=== PATIENT | male | born 1930 | race Caucasian/White ===

== ENCOUNTER → 2016-02-28 | Outpatient (CLI) | payer MEDICARE, MEDICAID ==
[2016-02-28 11:26] LABS: MEAN CORPUSCULAR HEMOGLOBIN 32.9 pg (27.0-33.0); MEAN CORPUSCULAR HGB CONC 35.6 g/dl (32.0-36.5); MEAN CORPUSCULAR VOLUME 92.3 fl (80.0-96.0); RED CELL DISTRIBUTION WIDTH 13.2 % (11.5-14.5); WHITE BLOOD COUNT 5.9 K/mm3 (4.0-10.0)
[2016-02-28 12:07] LABS: ALBUMIN 3.7 GM/DL (3.2-5.2); ALBUMIN/GLOBULIN RATIO 1.16 (1.00-1.93); ALKALINE PHOSPHATASE 82 U/L (45-117); ALT/SGPT 25 U/L (12-78); ANION GAP 6 MEQ/L (8-16); AST/SGOT 23 U/L (15-37); BILIRUBIN,TOTAL 0.9 MG/DL (0.2-1.0); BLOOD UREA NITROGEN 19 MG/DL (7-18); CARBON DIOXIDE LEVEL 30 MEQ/L (21-32); CHLORIDE LEVEL 107 MEQ/L (98-107); CHOLESTEROL LEVEL 187 MG/DL (<200); CREATININE FOR GFR 0.99 MG/DL (0.70-1.30); GLOMERULAR FILTRATION RATE > 60.0 (>35); GLUCOSE, FASTING 89 MG/DL (83-110); POTASSIUM SERUM 4.3 MEQ/L (3.5-5.1); SODIUM LEVEL 143 MEQ/L (136-145); TOTAL PROTEIN 6.9 GM/DL (6.4-8.2); TRIGLYCERIDES LEVEL 77 MG/DL (<150)
== END ==
LOC: M LAB 10:54
PROVIDERS: ATTEND Family Medicine
DX: E78.5 Hyperlipidemia, unspecified (principal); I10 Essential (primary) hypertension; E03.9 Hypothyroidism, unspecified; N40.0 Benign prostatic hyperplasia without lower urinary tract symptoms

== ENCOUNTER → 2016-03-08 | Outpatient (CLI) | payer MEDICARE, MEDICAID ==
--- NOTE | 2016-03-08 17:56 | REP ---
Left shoulder three views: There is glenohumeral osteoarthritis. The acromioclavicular joint is unremarkable. There is no fracture or dislocation. Demineralization is noted. There are no calcifications or foreign bodies. Impression: Glenohumeral osteoarthritis. Demineralization. Signed by Enio Joiner MD 03/08/2016 05:48 P
== END ==
LOC: M LAB 10:30
PROVIDERS: ATTEND Family Medicine
DX: M25.50 Pain in unspecified joint (principal); R60.9 Edema, unspecified; M19.012 Primary osteoarthritis, left shoulder

== ENCOUNTER → 2016-05-21 | Day surgery (SDC) | payer MEDICARE, MEDICAID ==
[~2016-05-21] VITALS: Ht 167.6 cm; Wt 68.9 kg
[~2016-05-21] MED LIST: ASPI1TAB PO; BUPIVACAINE HCL 0.25% 30 ML VIAL As Ordered ONE; CALC500T49 PO; DEXI30CA PO; FLOM5CAP PO; GLYCOPYRROLATE INJ 0.2 MG/ML 2 ML VIAL As Ordered ONE; HYDROmorphone HCL 1 MG/ML SYRINGE (J1170) IV PRN; KETOROLAC 30 MG/ML VIAL (J1885) IV PRN; LABETALOL HCL 100 MG/20 ML VIAL As Ordered ONE; LEVA500T PO; LIDOCAINE 1% SDV INJ 30 ML VIAL As Ordered ONE; LIDOCAINE 2% 5ML JELLY UROJET As Ordered ONE; LIDOCAINE 2% INJ 100 MG/5 ML SDV (FOR ANES.) As Ordered ONE; LR 1,000 ML IV SCH; MEPERIDINE INJ 25 MG/ML VIAL (J2175) IV PRN; METOCLOPRAMIDE INJ 10MG/2ML VIAL (J2765) IV PRN; MIDAZOLAM INJ 2 MG/2 ML VIAL (J2250) As Ordered ONE; NEOSTIGMINE 1MG/ML 5 ML SYRINGE (J2710) As Ordered ONE; NORCO, ANEXSIA 5/325MG TABLET (HYDROcodone/ACETAMINOPHEN) PO PRN; ONDANSETRON 4MG/2ML VIAL (J2405) As Ordered ONE; ONDANSETRON 4MG/2ML VIAL (J2405) IV PRN; PERCOCET 5MG/325MG TAB PO PRN; PHENYLephrine HCL 500 MCG/5 ML (100MCG/ML) SYRINGE (J2370) As Ordered ONE; PROPOFOL 200 MG/20 ML VIAL As Ordered ONE; ROCURONIUM BROMIDE 50 MG/5 ML VIAL As Ordered ONE; dexameTHASONE 4 MG/ML 1ML VIAL (J1100) As Ordered ONE; fentaNYL 100 MCG/2 ML INJECTION (J3010) IV PRN; fentaNYL 250 MCG/5 ML INJECTION (J3010) As Ordered ONE
--- NOTE | 2016-05-21 10:53 | RO ---
DATE OF PROCEDURE: 05/21/2016 PREOPERATIVE DIAGNOSIS: Right inguinal hernia. POSTOPERATIVE DIAGNOSES: 1. Right direct inguinal hernia. 2. 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 PROCEDURE PERFORMED: Robotic-assisted laparoscopic right inguinal hernia repair with placement of 3DMax light mesh. SURGEON: Dr. Ortiz Christopher SILICA MIXER OPERATOR: Cammie Craven NP ANESTHESIA: General anesthesia. ESTIMATED BLOOD LOSS: Less than 25 mL. REMARKS: The patient was found to have a urethral stricture. We were unable to insert a Talley catheter. An intraoperative consult with urology done. The catheter was inserted with the aid of a cystoscope and with urethral dilatation. PROCEDURE: Mr. Diez is an 86-year-old gentleman with prior history of prostate cancer status post radiation and cryosurgery of his prostate who came in to my clinic with a few month history of right groin bulge with associated discomfort. He was confirmed to have an inguinal hernia. After a full discussion of risks and benefits, we have decided on performing the repair via transabdominal preperitoneal approach using the da Hol[employer] robot platform. The patient was given Ancef IV preoperatively for wound prophylaxis. He was brought to the operating room. General endotracheal anesthesia started. He was placed in lithotomy position and attempt made to place a Talley catheter failed. A Coude catheter was used and we also failed. At this point, we decided to forego catheterization by now and go ahead with surgery. A consult was sent to urology when they are available to have a catheter placed. His abdomen was prepped and draped in the usual sterile fashion. After a surgical time-out, we began our surgery into the abdomen done by an incision just on top of the umbilicus. A Veress needle was inserted in a controlled fashion. CO2 insufflation was started to a pressure of 15 mmHg. Using the same incision, a 5 mm Visiport was placed into the abdomen. The insertion site was inspected for injury and none was found. He was placed on the Trendelenburg position with the right side tilted up about 30 degrees to further expose the groin area. Under direct vision, an 8 mm working port was placed both in the right and left side along the umbilical line. The original 5 mm port was exchanged for an 8 mm camera trocar. The [employer] robot tower was maneuvered in between the patient's legs, the trocars docked onto the robot and the instruments placed under direct vision. I unscrubbed and took control of the camera and the instruments at the surgeon's console. On diagnostic laparoscopy, a direct hernia of moderate size was found. Due to the failure of catheterization, the bladder was distended. The peritoneum overlying the groin area roughly about 4 cm above the superior edge of the hernia defect was opened up with Bovie cautery and scissors. The peritoneum then dissected, mostly bluntly, away from the abdominal wall. We continued dissection laterally at the level of the anterior-superior iliac spine. Careful dissection then made medially to reduce the preperitoneal fat that was going through the hernia defect and going medially to expose the pubic tubercle to the symphysis pubis and also retracting the urinary bladder away from our field of view. After reducing the hernia, I chose a #2-0 V-Loc to close the hernia defect and pulled down on the hernia sac to avoid seroma formation. This was also tacked to the superior portion of pubic tubercle and Anthony's ligament. After doing so, I chose a large 3DMax light mesh. This was placed into the abdomen and placed to cover the hernia defect extending to the symphysis pubis medially. We placed it in between the urinary bladder inferiorly stretching it towards the lateral portion. A single stitch of #3-0 Vicryl then used to attach the mesh to the Anthony's ligament. The mesh was laying appropriately covering the hernia defect with a wide coverage. After checking for hemostasis and sucking out the small amount of blood that is in the preperitoneal space, the peritoneum was closed with a running suture of #2-0 V-Loc. At this time, Dr. Dean came in and looked at the situation and has agreed to place a Talley catheter after the procedure. I scrubbed back in. The abdomen was deflated. All ports removed. The robot removed from the field. The incisions closed with #4-0 Monocryl in subcuticular fashion. Dermabond was used for wound coverage. Dr. Dean then placed a Talley catheter using cystoscopy. This part of procedure will be dictated by Dr. Dean. He was then awakened, extubated and brought to recovery room stable.
[2016-05-21 12:35] VITALS: BP 139/86
--- NOTE | 2016-05-21 15:18 | CR ---
DATE OF CONSULTATION: 05/21/2016 REASON FOR CONSULTATION: Difficulty catheter placement. ' CONSULTATION REPORT FOR: Dr. Ortiz Christopher CHIEF COMPLAINT: This is an intraoperative consultation for a patient that was in the operating room (OR) under general anesthesia, having a robotic-assisted laparoscopic right inguinal repair with placement of a 3DMax Light Mesh performed by Dr. Ortiz Christopher. Dr. Ortiz Christopher consulted us because of inability of passing a Talley catheter. HISTORY OF PRESENT ILLNESS: This is an 86-year-old male patient that was finalizing a procedure of a robotic-assisted laparoscopic right inguinal repair with placement of a 3DMax Light Mesh by Dr. Ortiz Christopher. The patient was under anesthesia. The patient was in a supine modified lithotomy position. The surgical procedure was finished. The patient required a Talley catheter that could not be passed by the nurses and by the attending physician doing the surgery. For this reason, they consulted urology. At first, we examined the patient. We actually attempted to pass a 16-Ivorian Talley catheter straight and then an 18-Ivorian Talley and a 20-Ivorian Talley. We could not. We then attempted a 16-Ivorian Coude catheter. We could not. With the help of finger into the rectum, we tried to lift the prostate and pass a Coude catheter and we could not. For this reason, we actually ordered a flexible cystoscopy and under videoscopic guidance with a flexible cystoscopy, we did a formal urethroscopy up to the level of the bladder neck. The prostate actually is solid, hard, and we could not pass the flexible cystoscopy. However, we passed a guidewire into the bladder. At that moment in time, we took the cystoscopy out and tried to advance a brevig mission tip catheter. It was impossible to actually pass a brevig mission tip catheter. For that reason, we decided to actually call for the Kelley metallic sounds and following the guidewire, we passed the Kelley metallic sounds into the bladder through the urethra. We dilated the solid hard prostatic area as well as the bladder neck up to 23 chariers. Once this was done, we actually placed a brevig mission tip catheter. It was passed with a little bit of difficulty but passed into the bladder, getting clear urine. In a moment in time, we inflated the balloon to 10 mL and placed the catheter to gravity. PLAN: The patient will be admitted after surgery. Once he is discharged, he should be going home with a Talley catheter to gravity for seven days at least. Followup at [facility] for a voiding trial. He will need to be placed on a quinolone antibiotic therapy for at least seven days which is the time that he will need the catheter in place or until we give him a voiding trial. Thank you very much for the consultation.
== END | disposition home or self-care (01) ==
LOC: M SDC 05:40
PROVIDERS: ATTEND Surgery
DX: K40.90 Unilateral inguinal hernia, without obstruction or gangrene, not specified as recurrent (principal); N35.9 Urethral stricture, unspecified; Z85.46 Personal history of malignant neoplasm of prostate; K21.9 Gastro-esophageal reflux disease without esophagitis; Z92.3 Personal history of irradiation; N18.2 Chronic kidney disease, stage 2 (mild); E80.4 Gilbert syndrome; K22.8 Other specified diseases of esophagus; E03.9 Hypothyroidism, unspecified; G47.30 Sleep apnea, unspecified; E56.9 Vitamin deficiency, unspecified; L57.0 Actinic keratosis; J30.9 Allergic rhinitis, unspecified; I35.8 Other nonrheumatic aortic valve disorders; N40.0 Benign prostatic hyperplasia without lower urinary tract symptoms; Z79.899 Other long term (current) drug therapy; Z79.82 Long term (current) use of aspirin
CPT/HCPCS: 49650; 52281; C1726; C1781; J0690; J1100; J2250; J2370; J2405; J2710; J3010

== ENCOUNTER → 2016-06-25 | Outpatient (CLI) | payer MEDICARE, MEDICAID ==
[~2016-06-25] MED LIST changes: -BUPIVACAINE HCL 0.25% 30 ML VIAL As Ordered ONE; -GLYCOPYRROLATE INJ 0.2 MG/ML 2 ML VIAL As Ordered ONE; -HYDROmorphone HCL 1 MG/ML SYRINGE (J1170) IV PRN; -KETOROLAC 30 MG/ML VIAL (J1885) IV PRN; -LABETALOL HCL 100 MG/20 ML VIAL As Ordered ONE; -LIDOCAINE 1% SDV INJ 30 ML VIAL As Ordered ONE; -LIDOCAINE 2% 5ML JELLY UROJET As Ordered ONE; -LIDOCAINE 2% INJ 100 MG/5 ML SDV (FOR ANES.) As Ordered ONE; -LR 1,000 ML IV SCH; -MEPERIDINE INJ 25 MG/ML VIAL (J2175) IV PRN; -METOCLOPRAMIDE INJ 10MG/2ML VIAL (J2765) IV PRN; -MIDAZOLAM INJ 2 MG/2 ML VIAL (J2250) As Ordered ONE; -NEOSTIGMINE 1MG/ML 5 ML SYRINGE (J2710) As Ordered ONE; -NORCO, ANEXSIA 5/325MG TABLET (HYDROcodone/ACETAMINOPHEN) PO PRN; -ONDANSETRON 4MG/2ML VIAL (J2405) As Ordered ONE; -ONDANSETRON 4MG/2ML VIAL (J2405) IV PRN; -PERCOCET 5MG/325MG TAB PO PRN; -PHENYLephrine HCL 500 MCG/5 ML (100MCG/ML) SYRINGE (J2370) As Ordered ONE; -PROPOFOL 200 MG/20 ML VIAL As Ordered ONE; -ROCURONIUM BROMIDE 50 MG/5 ML VIAL As Ordered ONE; -dexameTHASONE 4 MG/ML 1ML VIAL (J1100) As Ordered ONE; -fentaNYL 100 MCG/2 ML INJECTION (J3010) IV PRN; -fentaNYL 250 MCG/5 ML INJECTION (J3010) As Ordered ONE
== END ==
LOC: M LAB 11:27
PROVIDERS: ATTEND Urology
DX: R97.20 Elevated prostate specific antigen [PSA] (principal)

== ENCOUNTER → 2016-07-01 | Outpatient (CLI) | payer MEDICARE, MEDICAID ==
[2016-07-01 13:10] LABS: ANION GAP 7 MEQ/L (8-16); BLOOD UREA NITROGEN 17 MG/DL (7-18); CALCIUM LEVEL 9.1 MG/DL (8.8-10.2); CARBON DIOXIDE LEVEL 29 MEQ/L (21-32); CHLORIDE LEVEL 105 MEQ/L (98-107); CREATININE FOR GFR 1.01 MG/DL (0.70-1.30); GLOMERULAR FILTRATION RATE > 60.0 (>35); GLUCOSE, FASTING 77 MG/DL (83-110); POTASSIUM SERUM 4.5 MEQ/L (3.5-5.1); SODIUM LEVEL 141 MEQ/L (136-145)
== END ==
LOC: M LAB 11:18
PROVIDERS: ATTEND Urology
DX: Z85.46 Personal history of malignant neoplasm of prostate (principal)

== ENCOUNTER → 2016-07-08 | Outpatient (REF) | payer MEDICARE, MEDICAID ==
[2016-07-08 13:31] LABS: PERCENT SATURATION 26.2 % (19.7-37.4)
== END ==
LOC: M LAB REF 12:34
PROVIDERS: ATTEND Internal Medicine Medical Oncology
DX: E83.119 Hemochromatosis, unspecified (principal)

== ENCOUNTER → 2016-09-16 | Outpatient (CLI) | payer MEDICARE, MEDICAID ==
[~2016-09-16] MED LIST changes: +AMIO200T; +ATOR80TA59; +CALC600T6 PO; -DEXI30CA PO; +DEXI30CA2 PO; +DIGO0.12; +ELIQ5TAB PO; +FURO20TA2; +HYDR-3713; +LEVA1TAB2 PO; -LEVA500T PO; +METO1TAB87; +POTA20TA6; +TOLT1TAB PO; +TROS20TA3 PO
--- NOTE | 2016-09-16 13:54 | REP ---
RIGHT SHOULDER, THREE VIEWS: HISTORY: Pain. COMPARISON: 08/05/2007. There is no acute fracture or dislocation. There is narrowing of the acromioclavicular joint with associated osteophyte formation. Calcifications are present in the right axilla. This represents calcified lymph nodes or vascular calcification. IMPRESSION: Degenerative change as described above. Signed by Navin Acharya MD 09/16/2016 02:03 P
== END ==
LOC: M RAD 11:39
PROVIDERS: ATTEND Family Medicine
DX: M19.011 Primary osteoarthritis, right shoulder (principal); M25.511 Pain in right shoulder

== ENCOUNTER → 2016-10-03 | Outpatient (REF) | payer MEDICARE, MEDICAID | LOC: M LAB REF 14:08 | PROVIDERS: ATTEND Internal Medicine Medical Oncology | DX: E83.119 Hemochromatosis, unspecified (principal) ==

== ENCOUNTER → 2016-10-08 | Outpatient (CLI) | payer MEDICARE, MEDICAID | LOC: M LAB 14:33 | PROVIDERS: ATTEND Urology | DX: R97.20 Elevated prostate specific antigen [PSA] (principal) ==

== ENCOUNTER → 2016-10-29 | Outpatient (CLI) | payer MEDICARE, MEDICAID ==
[2016-10-29 15:23] LABS: ALBUMIN 3.5 GM/DL (3.2-5.2); ALBUMIN/GLOBULIN RATIO 1.06 (1.00-1.93); ALKALINE PHOSPHATASE 73 U/L (45-117); ALT/SGPT 23 U/L (12-78); ANION GAP 8 MEQ/L (8-16); AST/SGOT 24 U/L (15-37); BILIRUBIN,TOTAL 0.7 MG/DL (0.2-1.0); BLOOD UREA NITROGEN 24 MG/DL (7-18); CALCIUM LEVEL 9.1 MG/DL (8.8-10.2); CARBON DIOXIDE LEVEL 27 MEQ/L (21-32); CHLORIDE LEVEL 108 MEQ/L (98-107); CREATININE FOR GFR 0.97 MG/DL (0.70-1.30); GLOMERULAR FILTRATION RATE > 60.0 (>35); GLUCOSE, FASTING 95 MG/DL (83-110); POTASSIUM SERUM 4.4 MEQ/L (3.5-5.1); SODIUM LEVEL 143 MEQ/L (136-145); TOTAL PROTEIN 6.8 GM/DL (6.4-8.2)
== END ==
LOC: M LAB 14:30
PROVIDERS: ATTEND Urology
DX: R97.20 Elevated prostate specific antigen [PSA] (principal); C61 Malignant neoplasm of prostate

== ENCOUNTER 2016-11-23 17:57 | Emergency (ER) | payer MEDICARE, MEDICAID ==
[~2016-11-23] VITALS: Ht 180.3 cm; Wt 69.7 kg
[~2016-11-23 17:57] MED LIST changes: -AMIO200T; -ATOR80TA59; -CALC600T6 PO; -DIGO0.12; -ELIQ5TAB PO; -FURO20TA2; -HYDR-3713; -METO1TAB87; -POTA20TA6; -TOLT1TAB PO; -TROS20TA3 PO
[2016-11-23] MEDS ORDERED: ETOMIDATE INJ 20MG/10ML VIAL ONE (17:58)
[2016-11-23] MEDS ORDERED: ROCURONIUM BROMIDE 50 MG/5 ML VIAL/SYRINGE ONE (17:58)
[2016-11-23] MEDS ORDERED: ETOMIDATE INJ 20MG/10ML VIAL IV STA (18:08)
[2016-11-23] MEDS ORDERED: MIDAZOLAM HCL 50 MG in D5W 40 ML IV SCH (18:15)
[2016-11-23 18:25] VITALS: O2SAT 60
[2016-11-23 18:32] LABS: BASO # 0.1 10^3/uL (0.0-0.2); BASO % 0.4 % (0.0-1.0); EOS # 0.1 10^3/uL (0.0-0.50); EOS % 0.8 % (0.0-3.0); IMMATURE GRANULOCYTE % 2.9 % (0-0); LYMPH # 4.1 10^3/uL (1.5-4.5); LYMPH % 24.6 % (24.0-44.0); MEAN CORPUSCULAR HEMOGLOBIN 32.9 pg (27.0-33.0); MEAN CORPUSCULAR HGB CONC 34.3 g/dl (32.0-36.5); MEAN CORPUSCULAR VOLUME 95.8 fl (80.0-96.0); MONO # 0.8 10^3/uL (0.0-0.8); MONO % 4.5 % (0.0-5.0); NEUTROPHILS # 11.2 10^3/uL (1.8-7.7); NEUTROPHILS % 66.8 % (36.0-66.0); PLATELET COUNT, AUTOMATED 198 10^3/uL (150-450); RED CELL DISTRIBUTION WIDTH 13.6 % (11.5-14.5); WHITE BLOOD COUNT 16.8 10^3/uL (4.0-10.0)
[2016-11-23 18:36] LABS: ADD MANUAL DIFFER NO; DIFF SLIDE NUMBER 164
[2016-11-23 18:40] LABS: INR 1.15
[2016-11-23 18:48] LABS: ABG BASE EXCESS -11.1 (-2.0-2.0); ABG HCO3 14.9 MEQ/L (22.0-26.0); ABG PARTIAL PRESSURE CO2 34.1 mmHg (35.0-45.0); ABG PARTIAL PRESSURE O2 204.9 mmHg (75.0-100.0); ABG STANDARD HCO3 15.8 MEQ/L (22.0-26.0); ABG pH (ARTERIAL) 7.259 UNITS (7.350-7.450)
[2016-11-23 18:57] LABS: ALBUMIN 3.4 GM/DL (3.2-5.2); ALBUMIN/GLOBULIN RATIO 0.97 (1.00-1.93); BILIRUBIN,TOTAL 0.8 MG/DL (0.2-1.0); CALCIUM LEVEL 9.3 MG/DL (8.8-10.2); CREATININE FOR GFR 1.89 MG/DL (0.70-1.30); GLOMERULAR FILTRATION RATE 36.4 (>35); MAGNESIUM LEVEL 2.4 MG/DL (1.8-2.4); POTASSIUM SERUM 3.9 MEQ/L (3.5-5.1); TOTAL PROTEIN 6.9 GM/DL (6.4-8.2)
[2016-11-23] MEDS ORDERED: NS 1,000 ML IV SCH (19:00)
[2016-11-23] MEDS ORDERED: TROS20TA3 PO (19:13)
[2016-11-23] MEDS ORDERED: CALC600T6 PO (19:13)
[2016-11-23] MEDS ORDERED: PIPERACILLIN/TAZOBACTAM SOD 2.25 GM in D5W 50 ML IV ONE (19:15)
[2016-11-23] MEDS ORDERED: TOLT1TAB PO (20:32)
--- NOTE | 2016-11-23 20:50 | REPUSA ---
CT of the head Clinical history: cardiac arrest. Protocol: Multiple axial CT images obtained with 5 mm slice thickness were obtained through the head without administration of contrast. Findings: The ventricles and sulci are symmetric but prominent in size bilaterally. There are periven tricular areas of low attenuation throughout the deep white matter. There is no evidence of acute hem orrhage or infarct. There is no midline shift, mass effect, or extra-axial fluid collection. The osse ous structures are unremarkable. The visualized paranasal sinuses and mastoid air cells are clear. Impression: No acute hemorrhage or infarct. Findings are consistent with mild age-related atrophy and chronic small vessel ischemic disease.
--- NOTE | 2016-11-23 20:50 | REPUSA ---
CT of the abdomen and pelvis without contrast Clinical statement: cardiac arrest. Technique: Multiple axial CT images were obtained from the base of the lungs to the floor of the pelv is utilizing 5 mm axial slices without administration of contrast. Coronal and sagittal reconstructio ns were also obtained. Comparison: 06/22/2008. Findings: Chest: The visualized lung bases demonstrate bilateral lower lobe infiltrates. Abdomen: The kidneys are normal in size bilaterally. There is no evidence of hydronephrosis. Multiple nonobstructing kidney stones are seen bilaterally. The liver, spleen, pancreas, gallbladder and adre nal glands are unremarkable. The aorta demonstrates normal caliber and contour. There is no abdominal lymphadenopathy or ascites. Pelvis: Moderate amount of stool fills the colon. Moderate bowel wall thickening is seen in the desce nding and sigmoid colon. There is no evidence of bowel obstruction. The urinary bladder is within nor mal limits. There is no pelvic lymphadenopathy or ascites. The other pelvic structures appear unremar kable. Bones: There are no suspicious osseous abnormalities seen. Multilevel degenerative disc disease with mild scoliosis is stable. Impression: 1. Moderate constipation, without evidence of bowel obstruction. Bowel wall thickening and edema demo nstrated in the descending and sigmoid colon. This is a nonspecific finding. Differential diagnosis i ncludes infectious inflammatory processes. Ischemic bowel is considered unlikely but cannot completel y be excluded. Follow-up is suggested as clinically indicated. 2. Bilateral lower lobe infiltrates. 3. Bilateral nonobstructing nephrolithiasis. 4. Scoliosis and moderate spondylosis of the spine.
[2016-11-23] MEDS ORDERED: HEPARIN DRIP 25,000 UNITS in APPROPRIATE DILUENT 1 EA IV SCH (21:19)
[2016-11-23] MEDS ORDERED: HEPARIN SOD (PORCINE) 5000 UNITS/ML VIAL IV PRN (21:30)
[2016-11-23 22:10] VITALS: BP 148/86
--- NOTE | 2016-11-24 08:28 | REP ---
Portable chest x-ray: Single view. 06:27 p.m. film. History: Endotracheal tube. Comparison study 06:09 p.m. on this same date. Findings: Endotracheal tube is in good position at the level of the transverse aorta. EKG electrodes are seen. The lungs are symmetrically aerated. No infiltrate is seen. Pleural angles are sharp. Heart is not enlarged. Impression: Endotracheal tube in good position. No acute disease seen. Signed by Monster Washburn MD 11/24/2016 01:14 P
--- NOTE | 2016-11-24 08:29 | REP ---
Portable chest x-ray: Single view. History: Cardiac arrest. Findings: Endotracheal tube is noted in good position at the level of proximal clavicles. EKG monitoring electrodes and defibrillation pads are seen. The lungs are well inflated and clear. Pleural angles are sharp. Heart is not enlarged. The aorta is somewhat tortuous. Impression: No acute disease. Signed by Monster Washburn MD 11/24/2016 01:15 P
--- NOTE | 2016-11-24 09:10 | ECGEPIP ---
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
--- NOTE | 2016-11-24 22:17 | ECHO ---
DATE OF PROCEDURE: 11/23/2016 REFERRING PHYSICIAN: Emergency Room. Study was performed on 11/23/2016 for indication of status post cardiac arrest. No dimensions were obtained. FINDINGS: The study is of rather limited technical quality. No routine measurements were obtained. Left ventricle reveals extensive wall motion abnormality involving mid and distal septum, whole apex, mid and distal inferior wall and probably also distal anterior wall, even though it was not well seen. Overall there is at least moderate left ventricular systolic dysfunction. The basal segments of left ventricle appear to have hyperdynamic contractility. The right ventricle was poorly seen but does not appear grossly enlarged. There are very prominent degenerative abnormalities of mitral valve with extensive mitral annular calcifications and thickening of mitral leaflets. I cannot even rule out presence of vegetations. There are also degenerative abnormalities of aortic valve with prominent calcifications; again, I cannot comment on mobility. Tricuspid valve appears normal. Pulmonic valve was not well seen. No pericardial effusion is noted. Inferior vena cava is normal size. Limited Doppler interrogation reveals no significant aortic stenosis and trace aortic insufficiency. There is at least mild mitral insufficiency and [id number] tricuspid insufficiency. Calculated pulmonary artery pressure is in 50s corresponding at minimum to moderate pulmonary hypertension, probably higher. Evaluation of diastolic function was not performed. CONCLUSIONS: 1. Study is of very limited technical quality, no standard measurements were performed. 2. Left ventricle with extensive wall motion abnormalities as described above and overall at least moderate left ventricular systolic dysfunction. 3. Very prominent degenerative abnormalities of aortic valve resulting in no significant stenosis and trace insufficiency. 4. Very prominent degenerative abnormalities of mitral valve with resulting mild mitral insufficiency, cannot even rule out presence of vegetations. 5. [id number]-sz-[id number] tricuspid insufficiency. 6. At least moderate and probably moderately severe pulmonary hypertension. COMMENTS: Subacute bacterial endocarditis (SBE) prophylaxis is not recommended. The study provides suspicion for either extensive coronary artery disease in left anterior descending (LAD) distribution or I would also consider stress-induced cardiomyopathy in differential diagnosis. MTDD
[2016-12-15] MEDS ORDERED: ATOR80TA59 (13:52)
[2016-12-15] MEDS ORDERED: AMIO200T (13:52)
[2016-12-15] MEDS ORDERED: HYDR-3713 (13:52)
[2016-12-15] MEDS ORDERED: POTA20TA6 (13:52)
[2016-12-15] MEDS ORDERED: DIGO0.12 (13:52)
[2016-12-15] MEDS ORDERED: FURO20TA2 (13:52)
[2016-12-15] MEDS ORDERED: METO1TAB87 (13:52)
[2016-12-15] MEDS ORDERED: ELIQ5TAB PO (13:52)
== END 2016-11-23 22:25 | disposition short-term general hospital (02) ==
LOC: EDBD 17:57 → M ED 17:57
DX: I21.4 Non-ST elevation (NSTEMI) myocardial infarction (principal); Z79.899 Other long term (current) drug therapy; Z79.82 Long term (current) use of aspirin
CPT/HCPCS: 36415; 70450; 71010; 74176; 80053; 81001; 82550; 82553; 82803; 83605; 83690; 83735; 83880; 84436; 84443; 84479; 84484; 85025; 85379; 85610; 85730; 86140; 87040; 87086; 92950; 93005; 93306; 96361; 96374; 96375; 99291; J2250; J2543

== ENCOUNTER → 2016-12-25 | Outpatient (REF) | payer MEDICARE, MEDICAID ==
[~2016-12-25] MED LIST changes: +AMIO200T; +ATOR80TA59; +CALC600T6 PO; +DIGO0.12; +ELIQ5TAB PO; +FURO20TA2; +HYDR-3713; +METO1TAB87; +POTA20TA6; +TOLT1TAB PO; +TROS20TA3 PO
[2016-12-25 14:07] LABS: MEAN CORPUSCULAR HEMOGLOBIN 31.5 pg (27.0-33.0); MEAN CORPUSCULAR HGB CONC 33.4 g/dl (32.0-36.5); MEAN CORPUSCULAR VOLUME 94.2 fl (80.0-96.0); PLATELET COUNT, AUTOMATED 279 10^3/uL (150-450); WHITE BLOOD COUNT 7.4 10^3/uL (4.0-10.0)
[2016-12-25 14:25] LABS: ALBUMIN 2.5 GM/DL (3.2-5.2); ALBUMIN/GLOBULIN RATIO 0.68 (1.00-1.93); ALKALINE PHOSPHATASE 96 U/L (45-117); ALT/SGPT 19 U/L (12-78); ANION GAP 8 MEQ/L (8-16); AST/SGOT 19 U/L (7-37); BILIRUBIN,TOTAL 0.8 MG/DL (0.2-1.0); BLOOD UREA NITROGEN 10 MG/DL (7-18); CALCIUM LEVEL 8.4 MG/DL (8.8-10.2); CARBON DIOXIDE LEVEL 28 MEQ/L (21-32); CHLORIDE LEVEL 101 MEQ/L (98-107); CREATININE FOR GFR 0.97 MG/DL (0.70-1.30); GLOMERULAR FILTRATION RATE > 60.0 (>35); GLUCOSE, FASTING 160 MG/DL (83-110); POTASSIUM SERUM 3.9 MEQ/L (3.5-5.1); SODIUM LEVEL 137 MEQ/L (136-145); TOTAL PROTEIN 6.2 GM/DL (6.4-8.2)
== END ==
LOC: M LAB REF 13:49
PROVIDERS: ATTEND Nurse Practitioner Family
DX: K92.2 Gastrointestinal hemorrhage, unspecified (principal)

== ENCOUNTER → 2017-02-05 | Outpatient (CLI) | payer MEDICARE, MEDICAID ==
[2017-02-05 11:24] LABS: MEAN CORPUSCULAR HEMOGLOBIN 31.5 pg (27.0-33.0); MEAN CORPUSCULAR HGB CONC 33.4 g/dl (32.0-36.5); MEAN CORPUSCULAR VOLUME 94.2 fl (80.0-96.0); PLATELET COUNT, AUTOMATED 218 10^3/uL (150-450); RED CELL DISTRIBUTION WIDTH 15.8 % (11.5-14.5); RETIC HEMOGLOBIN EQUIVALENT 37.5 pg (24-36); RETICULOCYTE % 1.6 % (0.5-1.5); WHITE BLOOD COUNT 6.3 10^3/uL (4.0-10.0)
[2017-02-05 12:05] LABS: ANION GAP 7 MEQ/L (8-16); BLOOD UREA NITROGEN 18 MG/DL (7-18); CALCIUM LEVEL 8.9 MG/DL (8.8-10.2); CARBON DIOXIDE LEVEL 29 MEQ/L (21-32); CHLORIDE LEVEL 106 MEQ/L (98-107); CREATININE FOR GFR 1.02 MG/DL (0.70-1.30); FERRITIN 106 NG/ML (26-388); GLOMERULAR FILTRATION RATE > 60.0 (>35); GLUCOSE, FASTING 93 MG/DL (83-110); PERCENT SATURATION 29.6 % (19.7-50.0); POTASSIUM SERUM 4.5 MEQ/L (3.5-5.1); SODIUM LEVEL 142 MEQ/L (136-145); TOTAL IRON BINDING CAPACITY 287 UG/DL (250-450)
== END ==
LOC: M LAB 10:40
PROVIDERS: ATTEND Family Medicine
DX: D50.8 Other iron deficiency anemias (principal); I48.91 Unspecified atrial fibrillation

== ENCOUNTER → 2017-03-19 | Outpatient (CLI) | payer MEDICARE, MEDICAID ==
[2017-03-19 10:17] LABS: RETIC HEMOGLOBIN EQUIVALENT 38.3 pg (24-36); RETICULOCYTE % 1.6 % (0.5-1.5)
[2017-03-19 10:51] LABS: CHOLESTEROL LEVEL 115 MG/DL (<200); CHOLESTEROL RISK RATIO 1.885 (<5); FERRITIN 78 NG/ML (26-388); FOLATE 18.9 NG/ML (>5.4); HDL CHOLESTEROL 61 MG/DL (>40); IRON (FE) 85 UG/DL (65-175); LDL CHOLESTEROL 36.6 MG/DL (<100); NON-HDL-C 54 MG/DL; TOTAL IRON BINDING CAPACITY 266 UG/DL (250-450); TRIGLYCERIDES LEVEL 87 MG/DL (<150); VITAMIN B12 LEVEL 663 PG/ML (247-911)
== END ==
LOC: M LAB 09:29
DX: I25.10 Atherosclerotic heart disease of native coronary artery without angina pectoris (principal); E03.8 Other specified hypothyroidism; D64.9 Anemia, unspecified
CPT/HCPCS: 82746

== ENCOUNTER 2017-03-30 08:40 | Outpatient (RCR) | payer MEDICARE, MEDICAID | END 2017-04-15 | LOC: M CR 08:40 | DX: I22.9 Subsequent ST elevation (STEMI) myocardial infarction of unspecified site (principal) | CPT/HCPCS: 93798 ==

== ENCOUNTER → 2017-03-31 | Outpatient (CLI) | payer MEDICARE, MEDICAID ==
[2017-03-31 14:28] LABS: APPEARANCE, URINE CLOUDY (CLEAR); BACTERIA, URINE AUTO 3+ (NEGATIVE); BILIRUBIN, URINE AUTO NEGATIVE (NEGATIVE); BLOOD, URINE BLOOD NEGATIVE (NEGATIVE); COLOR, URINE AMBER (YELLOW); GLUCOSE, URINE (UA) AUTO NEGATIVE (NEGATIVE); KETONE, URINE AUTO NEGATIVE (NEGATIVE); LEUKOCYTE ESTERASE, URINE AUTO 3+ (NEGATIVE); NITRITE, URINE AUTO POSITIVE (NEGATIVE); PROTEIN, URINE AUTO NEGATIVE (NEGATIVE); RBC, URINE AUTO 0 /HPF (0-3); SPECIFIC GRAVITY URINE AUTO 1.015 (1.002-1.035); SQUAMOUS EPITHELIAL CELL UR AU 0 /HPF (0-6); UROBILINOGEN, URINE AUTO 0.2 mg/dL (0.0-2.0); WBC, URINE AUTO TNTC /HPF (0-3)
== END ==
LOC: M LAB 13:58
DX: N39.0 Urinary tract infection, site not specified (principal)
CPT/HCPCS: 36415

== ENCOUNTER → 2017-04-07 | Outpatient (CLI) | payer MEDICARE, MEDICAID | LOC: M RAD 13:58 | DX: C61 Malignant neoplasm of prostate (principal); N28.1 Cyst of kidney, acquired; N32.89 Other specified disorders of bladder | CPT/HCPCS: 76775 ==

== ENCOUNTER → 2017-04-07 | Outpatient (CLI) | payer MEDICARE, MEDICAID ==
[2017-04-07 09:37] LABS: ALBUMIN 3.7 GM/DL (3.2-5.2); ALBUMIN/GLOBULIN RATIO 1.03 (1.00-1.93); ALKALINE PHOSPHATASE 83 U/L (45-117); ALT/SGPT 55 U/L (12-78); ANION GAP 7 MEQ/L (8-16); AST/SGOT 45 U/L (7-37); BILIRUBIN,TOTAL 0.7 MG/DL (0.2-1.0); BLOOD UREA NITROGEN 18 MG/DL (7-18); CALCIUM LEVEL 8.8 MG/DL (8.8-10.2); CARBON DIOXIDE LEVEL 27 MEQ/L (21-32); CHLORIDE LEVEL 105 MEQ/L (98-107); CREATININE FOR GFR 1.36 MG/DL (0.70-1.30); GLUCOSE, FASTING 96 MG/DL (70-100); POTASSIUM SERUM 4.4 MEQ/L (3.5-5.1); SODIUM LEVEL 139 MEQ/L (136-145); TOTAL PROTEIN 7.3 GM/DL (6.4-8.2)
[2017-04-07 09:40] LABS: TESTOSTERONE 21 NG/DL (241-827)
== END ==
LOC: M LAB 08:43
DX: C61 Malignant neoplasm of prostate (principal)

== ENCOUNTER 2017-04-08 22:44 | Emergency (ER) | payer MEDICARE, MEDICAID ==
[2017-04-09] MEDS: LIDOCAINE 2% 5ML JELLY UROJET TOP
[2017-04-09] MEDS: CIPROFLOXACIN 500 MG TAB PO (01:10)
[2017-04-09 01:13] LABS: KETONE, URINE AUTO RFX NEGATIVE (NEGATIVE); NITRITE, URINE AUTO RFX NEGATIVE (NEGATIVE); RBC, URINE AUTO RFX TNTC /HPF (0-3); SPECIFIC GRAVITY UR AUTO RFX 1.014 (1.002-1.035); SQUAM EPITHELIAL CELL UR AURFX 0 /HPF (0-6)
[2017-04-09 01:32] LABS: LEUKOCYTE ESTERASE UR AUTO RFX TRACE (NEGATIVE); WBC, URINE AUTO RFX 17 /HPF (0-3)
== END 2017-04-09 01:12 | disposition home or self-care (01) ==
LOC: M ED 04-09 01:12
DX: R33.9 Retention of urine, unspecified (principal); C61 Malignant neoplasm of prostate; I10 Essential (primary) hypertension; Z79.899 Other long term (current) drug therapy; Z79.02 Long term (current) use of antithrombotics/antiplatelets; Z79.82 Long term (current) use of aspirin
CPT/HCPCS: 81001

== ENCOUNTER 2017-04-11 12:56 | Emergency (ER) | payer MEDICARE, MEDICAID ==
[2017-04-11] MEDS: NS 500 ML IV ×2 (13:15→14:00)
[2017-04-11 13:53] LABS: LACTIC ACID SEPSIS PROTOCOL 1.3 MMOL/L (0.4-2.0)
[2017-04-11 14:01] LABS: BASO % 0.5 % (0.0-1.0); EOS % 0.5 % (0.0-3.0); HEMATOCRIT 32.9 % (42.0-52.0); HEMOGLOBIN 11.3 g/dl (14.0-18.0); IMMATURE GRANULOCYTE % 0.5 % (0-3.0); LYMPH # 0.7 10^3/uL (1.5-4.5); LYMPH % 19.2 % (24.0-44.0); MEAN CORPUSCULAR HEMOGLOBIN 32.1 pg (27.0-33.0); MEAN CORPUSCULAR HGB CONC 34.3 g/dl (32.0-36.5); MEAN CORPUSCULAR VOLUME 93.5 fl (80.0-96.0); MONO # 0.5 10^3/uL (0.0-0.8); MONO % 13.7 % (0.0-5.0); NEUTROPHILS # 2.4 10^3/uL (1.8-7.7); NEUTROPHILS % 65.6 % (36.0-66.0); PLATELET COUNT, AUTOMATED 153 10^3/uL (150-450); RED BLOOD COUNT 3.52 10^6/uL (4.30-6.10); RED CELL DISTRIBUTION WIDTH 15.1 % (11.5-14.5); WHITE BLOOD COUNT 3.6 10^3/uL (4.0-10.0)
[2017-04-11 14:05] LABS: INR 1.06; PROTHROMBIN TIME 13.9 SECONDS (12.4-14.5)
[2017-04-11 14:15] LABS: ALBUMIN 3.2 GM/DL (3.2-5.2); ALBUMIN/GLOBULIN RATIO 0.89 (1.00-1.93); ALKALINE PHOSPHATASE 72 U/L (45-117); ALT/SGPT 111 U/L (12-78); ANION GAP 6 MEQ/L (8-16); AST/SGOT 122 U/L (7-37); BILIRUBIN,DIRECT 0.2 MG/DL (0.0-0.2); BILIRUBIN,TOTAL 0.5 MG/DL (0.2-1.0); BLOOD UREA NITROGEN 20 MG/DL (7-18); CALCIUM LEVEL 7.6 MG/DL (8.8-10.2); CARBON DIOXIDE LEVEL 26 MEQ/L (21-32); CHLORIDE LEVEL 100 MEQ/L (98-107); CPK CREATINE PHOSPHOKINASE 100 U/L (39-308); CREATININE FOR GFR 1.22 MG/DL (0.70-1.30); GLOMERULAR FILTRATION RATE > 60.0 (>35); GLUCOSE, FASTING 96 MG/DL (70-100); LIPASE 171 U/L (73-393); POTASSIUM SERUM 3.8 MEQ/L (3.5-5.1); SODIUM LEVEL 132 MEQ/L (136-145); TOTAL PROTEIN 6.8 GM/DL (6.4-8.2); TROPONIN I 0.04 NG/ML (< 0.10)
[2017-04-11 14:16] LABS: CK-MB VALUE MASS 1.1 NG/ML (0.0-3.6)
[2017-04-11 15:12] LABS: MAGNESIUM LEVEL 1.7 MG/DL (1.8-2.4)
[2017-04-11 16:17] LABS: CPK CREATINE PHOSPHOKINASE 106 U/L (39-308); TROPONIN I 0.05 NG/ML (< 0.10)
[2017-04-11 16:18] LABS: CK-MB VALUE MASS 1.2 NG/ML (0.0-3.6); MB/CK RELATIVE INDEX 1.13 (< OR =4)
== END 2017-04-11 18:35 | disposition short-term general hospital (02) ==
LOC: M ED 12:56
DX: I47.2 Ventricular tachycardia (principal); I45.19 Other right bundle-branch block; I50.9 Heart failure, unspecified; I48.91 Unspecified atrial fibrillation; E78.5 Hyperlipidemia, unspecified; Z79.899 Other long term (current) drug therapy; Z79.82 Long term (current) use of aspirin; Z79.890 Hormone replacement therapy
CPT/HCPCS: 71045

== ENCOUNTER 2017-05-11 15:28 | Outpatient (RCR) | payer MEDICARE, MEDICAID | END 2017-05-16 | LOC: M CR 15:28 | DX: Z51.89 Encounter for other specified aftercare (principal); I22.9 Subsequent ST elevation (STEMI) myocardial infarction of unspecified site | CPT/HCPCS: 93798 ==

== ENCOUNTER 2017-05-18 13:03 | Outpatient (RCR) | payer MEDICARE, MEDICAID | END 2017-06-15 | LOC: M CR 13:03 | DX: I22.9 Subsequent ST elevation (STEMI) myocardial infarction of unspecified site (principal) | CPT/HCPCS: 93798 ==

== ENCOUNTER → 2017-06-05 | Outpatient (CLI) | payer MEDICARE, MEDICAID ==
[2017-06-05 12:41] LABS: HEMATOCRIT 32.2 % (42.0-52.0); HEMOGLOBIN 10.9 g/dl (13.5-17.5); MEAN CORPUSCULAR HEMOGLOBIN 32.4 pg (27.0-33.0); MEAN CORPUSCULAR HGB CONC 33.9 g/dl (32.0-36.5); MEAN CORPUSCULAR VOLUME 95.8 fl (80.0-96.0); PLATELET COUNT, AUTOMATED 208 10^3/uL (150-450); RED BLOOD COUNT 3.36 10^6/uL (4.30-6.10); RED CELL DISTRIBUTION WIDTH 14.5 % (11.5-14.5); WHITE BLOOD COUNT 6.4 10^3/uL (4.0-10.0)
[2017-06-05 13:29] LABS: CHOLESTEROL LEVEL 108 MG/DL (<200); CHOLESTEROL RISK RATIO 1.741 (<5); CPK CREATINE PHOSPHOKINASE 97 U/L (39-308); HDL CHOLESTEROL 62 MG/DL (>40); LDL CHOLESTEROL 31.4 MG/DL (<100); NON-HDL-C 46 MG/DL; THYROID STIMULATING HORMONE 0.978 uIU/ML (0.358-3.740); TRIGLYCERIDES LEVEL 73 MG/DL (<150)
== END ==
LOC: M LAB 12:24
DX: I25.10 Atherosclerotic heart disease of native coronary artery without angina pectoris (principal); C61 Malignant neoplasm of prostate
CPT/HCPCS: 82550

== ENCOUNTER → 2017-06-10 | Outpatient (CLI) | payer MEDICARE, MEDICAID ==
[2017-06-10 15:05] LABS: RETIC HEMOGLOBIN EQUIVALENT 36.3 pg (24-36); RETICULOCYTE # 64.9 10^9/L (17-77); RETICULOCYTE % 1.9 % (0.5-1.5)
[2017-06-10 16:00] LABS: FERRITIN 52 NG/ML (26-388); IRON (FE) 81 UG/DL (65-175); PERCENT SATURATION 29.2 % (19.7-50.0); TOTAL IRON BINDING CAPACITY 277 UG/DL (250-450)
[2017-06-10 16:20] LABS: FOLATE > 24.0 NG/ML; VITAMIN B12 LEVEL 685 PG/ML
== END ==
LOC: M LAB 14:18
DX: D64.9 Anemia, unspecified (principal); M25.511 Pain in right shoulder; M25.512 Pain in left shoulder; M79.622 Pain in left upper arm; M79.621 Pain in right upper arm
CPT/HCPCS: 73030

== ENCOUNTER → 2017-07-14 | Outpatient (REF) | payer MEDICARE, MEDICAID ==
[2017-07-14 18:57] LABS: RETICULOCYTE # 51.2 10^9/L (17-77); RETICULOCYTE % 1.5 % (0.5-1.5)
[2017-07-14 18:58] LABS: SLIDE REVIEW Report; SOURCE PERIPHERAL SMEAR
[2017-07-14 18:59] LABS: REASON FOR REVIEW ANEMIA / RBC MORPH
[2017-07-14 19:23] LABS: TOTAL PROTEIN 7.2 GM/DL (6.4-8.2)
[2017-07-14 19:29] LABS: VITAMIN B12 LEVEL 554 PG/ML (247-911)
[2017-07-16 08:06] LABS: HAPTOGLOBIN 87 mg/dL (34-200)
[2017-07-16 10:27] LABS: ALBUMIN 3.78 GM/DL (3.29-5.55); ALBUMIN % 52.5 % (55.8-66.1); ALPHA-1-GLOBULIN % 5.2 % (2.9-4.9); ALPHA-1-GLOBULINS 0.37 GM/DL (0.17-0.41); ALPHA-2-GLOBULINS 0.75 GM/DL (0.42-0.99); ALPHA-2-GLOBULINS % 10.8 % (7.1-11.8); BETA-1-GLOBULINS 0.43 GM/DL (0.28-0.60); BETA-2-GLOBULINS 0.39 GM/DL (0.19-0.55); BETA-2-GLOBULINS % 5.4 % (3.2-6.5); GAMMA GLOBULIN % 20.1 % (11.1-18.8); GAMMA GLOBULINS 1.45 GM/DL (0.65-1.58)
== END ==
LOC: M LAB REF 17:26
DX: E83.119 Hemochromatosis, unspecified (principal); D64.9 Anemia, unspecified
CPT/HCPCS: 83010

== ENCOUNTER → 2017-07-16 | Outpatient (CLI) | payer MEDICARE, MEDICAID ==
[2017-07-16 07:22] LABS: HEMATOCRIT 33.7 % (42.0-52.0); HEMOGLOBIN 11.2 g/dl (13.5-17.5); MEAN CORPUSCULAR HEMOGLOBIN 32.3 pg (27.0-33.0); MEAN CORPUSCULAR HGB CONC 33.2 g/dl (32.0-36.5); MEAN CORPUSCULAR VOLUME 97.1 fl (80.0-96.0); PLATELET COUNT, AUTOMATED 181 10^3/uL (150-450); RED BLOOD COUNT 3.47 10^6/uL (4.30-6.10)
[2017-07-16 07:50] LABS: ALBUMIN 3.4 GM/DL (3.2-5.2); ALBUMIN/GLOBULIN RATIO 0.92 (1.00-1.93); ALKALINE PHOSPHATASE 81 U/L (45-117); ALT/SGPT 30 U/L (12-78); ANION GAP 7 MEQ/L (8-16); AST/SGOT 33 U/L (7-37); BILIRUBIN,TOTAL 0.5 MG/DL (0.2-1.0); BLOOD UREA NITROGEN 19 MG/DL (7-18); CALCIUM LEVEL 8.5 MG/DL (8.8-10.2); CARBON DIOXIDE LEVEL 27 MEQ/L (21-32); CHLORIDE LEVEL 109 MEQ/L (98-107); CREATININE FOR GFR 1.15 MG/DL (0.70-1.30); GLOMERULAR FILTRATION RATE > 60.0 (>35); GLUCOSE, FASTING 107 MG/DL (70-100); POTASSIUM SERUM 4.2 MEQ/L (3.5-5.1); SODIUM LEVEL 143 MEQ/L (136-145); TOTAL PROTEIN 7.1 GM/DL (6.4-8.2)
[2017-07-16 14:40] LABS: TESTOSTERONE 15 NG/DL (241-827)
== END ==
LOC: M LAB 06:56
DX: C61 Malignant neoplasm of prostate (principal)
CPT/HCPCS: 84403

== ENCOUNTER → 2017-07-17 | Outpatient (CLI) | payer MEDICARE, MEDICAID ==
[2017-07-17 08:10] LABS: HEMATOCRIT 34.2 % (42.0-52.0); HEMOGLOBIN 11.4 g/dl (13.5-17.5); MEAN CORPUSCULAR HEMOGLOBIN 32.3 pg (27.0-33.0); MEAN CORPUSCULAR HGB CONC 33.3 g/dl (32.0-36.5); MEAN CORPUSCULAR VOLUME 96.9 fl (80.0-96.0); PLATELET COUNT, AUTOMATED 188 10^3/uL (150-450); RED BLOOD COUNT 3.53 10^6/uL (4.30-6.10)
[2017-07-17 08:36] LABS: ALBUMIN 3.4 GM/DL (3.2-5.2); ALBUMIN/GLOBULIN RATIO 0.92 (1.00-1.93); ALKALINE PHOSPHATASE 83 U/L (45-117); ALT/SGPT 32 U/L (12-78); ANION GAP 7 MEQ/L (8-16); AST/SGOT 33 U/L (7-37); BILIRUBIN,TOTAL 0.8 MG/DL (0.2-1.0); BLOOD UREA NITROGEN 20 MG/DL (7-18); CALCIUM LEVEL 8.6 MG/DL (8.8-10.2); CARBON DIOXIDE LEVEL 27 MEQ/L (21-32); CHLORIDE LEVEL 108 MEQ/L (98-107); GLOMERULAR FILTRATION RATE > 60.0 (>35); GLUCOSE, FASTING 89 MG/DL (70-100); POTASSIUM SERUM 4.1 MEQ/L (3.5-5.1); SODIUM LEVEL 142 MEQ/L (136-145); TOTAL PROTEIN 7.1 GM/DL (6.4-8.2)
[2017-07-17 14:27] LABS: TESTOSTERONE 14 NG/DL (241-827)
== END ==
LOC: M LAB 07:45
DX: C61 Malignant neoplasm of prostate (principal)
CPT/HCPCS: 84403

== ENCOUNTER → 2017-09-18 | Outpatient (CLI) | payer MEDICARE, MEDICAID ==
[2017-09-18 08:02] LABS: HEMATOCRIT 31.2 % (42.0-52.0); HEMOGLOBIN 10.5 g/dl (13.5-17.5); MEAN CORPUSCULAR HEMOGLOBIN 32.7 pg (27.0-33.0); MEAN CORPUSCULAR HGB CONC 33.7 g/dl (32.0-36.5); MEAN CORPUSCULAR VOLUME 97.2 fl (80.0-96.0); PLATELET COUNT, AUTOMATED 150 10^3/uL (150-450); RED BLOOD COUNT 3.21 10^6/uL (4.30-6.10); RED CELL DISTRIBUTION WIDTH 14.4 % (11.5-14.5); RETIC HEMOGLOBIN EQUIVALENT 36.8 pg (24-36); RETICULOCYTE # 50.1 10^9/L (17-77); RETICULOCYTE % 1.6 % (0.5-1.5); WHITE BLOOD COUNT 6.1 10^3/uL (4.0-10.0)
[2017-09-18 08:36] LABS: ALBUMIN 3.4 GM/DL (3.2-5.2); ALBUMIN/GLOBULIN RATIO 1.06 (1.00-1.93); ALKALINE PHOSPHATASE 63 U/L (45-117); ALT/SGPT 26 U/L (12-78); ANION GAP 9 MEQ/L (8-16); AST/SGOT 24 U/L (7-37); BILIRUBIN,DIRECT 0.3 MG/DL (0.0-0.2); BILIRUBIN,TOTAL 0.8 MG/DL (0.2-1.0); BLOOD UREA NITROGEN 18 MG/DL (7-18); CALCIUM LEVEL 8.4 MG/DL (8.8-10.2); CARBON DIOXIDE LEVEL 26 MEQ/L (21-32); CHLORIDE LEVEL 110 MEQ/L (98-107); CHOLESTEROL LEVEL 100 MG/DL (<200); CHOLESTEROL RISK RATIO 1.724 (<5); CPK CREATINE PHOSPHOKINASE 159 U/L (39-308); CREATININE FOR GFR 1.09 MG/DL (0.70-1.30); FERRITIN 23 NG/ML (26-388); GLOMERULAR FILTRATION RATE > 60.0 (>35); GLUCOSE, FASTING 85 MG/DL (70-100); HDL CHOLESTEROL 58 MG/DL (>40); IRON (FE) 64 UG/DL (65-175); NON-HDL-C 42 MG/DL; NT-PRO BNP 1738 PG/ML (<450); PERCENT SATURATION 23.2 % (19.7-50.0); POTASSIUM SERUM 4.2 MEQ/L (3.5-5.1); SODIUM LEVEL 145 MEQ/L (136-145); TOTAL IRON BINDING CAPACITY 276 UG/DL (250-450); TOTAL PROTEIN 6.6 GM/DL (6.4-8.2); TRIGLYCERIDES LEVEL 75 MG/DL (<150)
== END ==
LOC: M LAB 06:42
DX: E78.5 Hyperlipidemia, unspecified (principal); I25.5 Ischemic cardiomyopathy; E03.8 Other specified hypothyroidism; Z79.899 Other long term (current) drug therapy
CPT/HCPCS: 82550

== ENCOUNTER → 2017-10-06 | Outpatient (CLI) | payer MEDICARE, MEDICAID ==
[2017-10-06 14:18] LABS: ALBUMIN 3.5 GM/DL (3.2-5.2); THYROID STIMULATING HORMONE 0.639 uIU/ML (0.358-3.740)
[2017-10-06 14:21] LABS: TOTAL 25(OH) VITAMIN D 39.8 NG/ML (30.0-100.0)
[2017-10-06 14:21] LABS: PTH INTACT 67.1 PG/ML (18.5-88.0)
== END ==
LOC: M LAB 13:07
DX: E03.8 Other specified hypothyroidism (principal); E83.51 Hypocalcemia
CPT/HCPCS: 82040

== ENCOUNTER 2017-10-13 17:28 | Emergency (ER) | payer MEDICARE, MEDICAID ==
[2017-10-13] MEDS: DERMABOND TOPICAL SKIN ADHESIVE TOP (18:53)
[2017-10-13] MEDS: ADACEL/BOOSTRIX VACCINE (DIPHTH/PERTUSS/ACELL/TETANUS)0.5ML SYR (90715) IM (18:59)
[2017-10-13] MEDS: LIDOCAINE 1% MDV 20ML VIAL SC (19:45)
== END 2017-10-13 20:22 | disposition home or self-care (01) ==
LOC: M ED 17:28
DX: S00.212A Abrasion of left eyelid and periocular area, initial encounter (principal); S01.81XA Laceration without foreign body of other part of head, initial encounter; S02.40DA Maxillary fracture, left side, initial encounter for closed fracture; W01.0XXA Fall on same level from slipping, tripping and stumbling without subsequent striking against object, initial encounter; Y92.59 Other trade areas as the place of occurrence of the external cause; I25.2 Old myocardial infarction; K21.9 Gastro-esophageal reflux disease without esophagitis; E83.119 Hemochromatosis, unspecified; Z85.46 Personal history of malignant neoplasm of prostate; Z79.899 Other long term (current) drug therapy; Z79.82 Long term (current) use of aspirin; Z79.890 Hormone replacement therapy
CPT/HCPCS: 90715

== ENCOUNTER → 2017-11-12 | Outpatient (CLI) | payer MEDICARE ==
[2017-11-12 09:21] LABS: HEMATOCRIT 30.7 % (42.0-52.0); HEMOGLOBIN 10.2 g/dl (13.5-17.5); MEAN CORPUSCULAR HEMOGLOBIN 32.9 pg (27.0-33.0); MEAN CORPUSCULAR HGB CONC 33.2 g/dl (32.0-36.5); PLATELET COUNT, AUTOMATED 188 10^3/uL (150-450); RED CELL DISTRIBUTION WIDTH 14.4 % (11.5-14.5); WHITE BLOOD COUNT 6.5 10^3/uL (4.0-10.0)
[2017-11-12 09:49] LABS: ALBUMIN 3.4 GM/DL (3.2-5.2); ALKALINE PHOSPHATASE 84 U/L (45-117); ALT/SGPT 24 U/L (12-78); ANION GAP 9 MEQ/L (8-16); AST/SGOT 25 U/L (7-37); BILIRUBIN,TOTAL 0.8 MG/DL (0.2-1.0); BLOOD UREA NITROGEN 19 MG/DL (7-18); CALCIUM LEVEL 8.5 MG/DL (8.8-10.2); CARBON DIOXIDE LEVEL 26 MEQ/L (21-32); CHLORIDE LEVEL 107 MEQ/L (98-107); CREATININE FOR GFR 1.05 MG/DL (0.70-1.30); GLOMERULAR FILTRATION RATE > 60.0 (>35); GLUCOSE, FASTING 119 MG/DL (70-100); POTASSIUM SERUM 4.2 MEQ/L (3.5-5.1); SODIUM LEVEL 142 MEQ/L (136-145); TOTAL PROTEIN 6.5 GM/DL (6.4-8.2)
== END ==
LOC: M LAB 08:48
DX: C61 Malignant neoplasm of prostate (principal); R97.21 Rising PSA following treatment for malignant neoplasm of prostate
CPT/HCPCS: 80053

== ENCOUNTER → 2017-11-16 | Outpatient (CLI) | payer MEDICARE ==
[2017-11-16 16:48] LABS: HEMATOCRIT 30.9 % (42.0-52.0); HEMOGLOBIN 10.5 g/dl (13.5-17.5); MEAN CORPUSCULAR HEMOGLOBIN 32.8 pg (27.0-33.0); MEAN CORPUSCULAR VOLUME 96.6 fl (80.0-96.0); PLATELET COUNT, AUTOMATED 194 10^3/uL (150-450); RED CELL DISTRIBUTION WIDTH 14.2 % (11.5-14.5); RETIC HEMOGLOBIN EQUIVALENT 35.5 pg (24-36); RETICULOCYTE # 58.9 10^9/L (17-77); RETICULOCYTE % 1.8 % (0.5-1.5); WHITE BLOOD COUNT 6.8 10^3/uL (4.0-10.0)
[2017-11-16 17:56] LABS: FERRITIN 32 NG/ML (26-388); FOLATE > 24.0 NG/ML (>5.4); IRON (FE) 63 UG/DL (65-175); PERCENT SATURATION 23.3 % (19.7-50.0); TOTAL IRON BINDING CAPACITY 270 UG/DL (250-450)
== END ==
LOC: M LAB 16:22
DX: D50.8 Other iron deficiency anemias (principal)
CPT/HCPCS: 82746

== ENCOUNTER → 2018-02-12 | Outpatient (CLI) | payer MEDICARE ==
[~2018-02-12] MED LIST changes: -AMIO200T; +AMIO200T PO; -ATOR80TA59; +ATOR80TA59 PO; +AUGM875T28 PO; +CENT1TAB PO; +CIPR-249 PO; +CLOP75TA2 PO; +FERR325T3 PO; +FLOM0.4C39 PO; -FLOM5CAP PO; +LEVO100T5; +LEVO25TA5 PO; +METO1TAB32 PO; +NITR100C39 PO; -TOLT1TAB PO; +TOLT60TA PO
[2018-02-12 16:39] LABS: BLOOD UREA NITROGEN 27 MG/DL (7-18); CREATININE FOR GFR 1.18 MG/DL (0.70-1.30); GLOMERULAR FILTRATION RATE > 60.0 (>35)
== END ==
LOC: M LAB 15:35
PROVIDERS: ATTEND Urology
DX: Z01.812 Encounter for preprocedural laboratory examination (principal); R97.21 Rising PSA following treatment for malignant neoplasm of prostate

== ENCOUNTER → 2018-03-05 | Outpatient (CLI) | payer MEDICARE ==
--- NOTE | 2018-03-05 11:12 | REP ---
CT CHEST WITHOUT CONTRAST: HISTORY: Pneumonitis due to the inhalation of food or vomitus. Aspiration. The patient gives a history of prostate carcinoma. No comparison chest CTs. Comparison chest x-ray is from April 11, 2017. CT FINDINGS: Digital preliminary manager global communications radiograph is unremarkable. Mitral annular calcification is seen on the manager global communications view and axial CT images. Left coronary artery vascular calcification is noted. No hilar or mediastinal mass is appreciated. No pleural or pericardial effusion is seen. There are multiple noncalcified pulmonary nodules in the lower lobes posteriorly and bilaterally. The largest of these in the right lower lobe measures 12 mm. There are seven or eight noncalcified pulmonary nodules clustered in the right lower lobe posteriorly. The largest nodular opacity in the left lower lobe is 8 mm. In the left lower lobe, there is also a cluster of 8-10 individual nodules. There is a 5 mm nodule in the right upper lobe. There are two nodules in the right middle lobe. The largest here is 9 mm. No bony destructive lesion is appreciated. No adrenal lesion is observed. No hepatic or splenic mass is seen. IMPRESSION: Multiple noncalcified pulmonary nodules bilaterally ranging in size up to 12 mm. Pulmonary metastatic disease cannot be excluded. This is a new finding compared with the November 23, 2016 CT abdomen study. Electronically Signed by Monster Washburn MD 03/05/2018 07:50 P
== END ==
LOC: M RAD 08:54
PROVIDERS: ATTEND Family Medicine
DX: J18.9 Pneumonia, unspecified organism (principal)

== ENCOUNTER → 2018-03-11 | Outpatient (CLI) | payer MEDICARE ==
[2018-03-11 12:21] LABS: FREE T4 1.53 NG/DL (0.76-1.46); THYROID STIMULATING HORMONE 0.346 uIU/ML (0.358-3.740)
== END ==
LOC: M LAB 11:14
PROVIDERS: ATTEND Family Medicine
DX: E03.8 Other specified hypothyroidism (principal); M85.80 Other specified disorders of bone density and structure, unspecified site

== ENCOUNTER → 2018-03-17 | Outpatient (REF) | payer MEDICARE ==
[~2018-03-17] MED LIST changes: +COLA100C5 PO; +LEUP1INJ4; +LEVO88TA3 PO; +PROL60SO SC
[2018-03-17 13:46] LABS: BASO % 0.5 % (0.0-1.0); EOS # 0.1 10^3/uL (0.0-0.50); EOS % 1.6 % (0.0-3.0); HEMATOCRIT 36.7 % (42.0-52.0); HEMOGLOBIN 11.8 g/dl (13.5-17.5); LYMPH % 12.6 % (24.0-44.0); MEAN CORPUSCULAR HEMOGLOBIN 29.9 pg (27.0-33.0); MEAN CORPUSCULAR HGB CONC 32.2 g/dl (32.0-36.5); MEAN CORPUSCULAR VOLUME 92.9 fl (80.0-96.0); MONO # 0.4 10^3/uL (0.0-0.8); MONO % 5.7 % (0.0-5.0); NEUTROPHILS # 6.1 10^3/uL (1.8-7.7); PLATELET COUNT, AUTOMATED 194 10^3/uL (150-450); RED BLOOD COUNT 3.95 10^6/uL (4.30-6.10); WHITE BLOOD COUNT 7.7 10^3/uL (4.0-10.0)
[2018-03-17 13:55] LABS: INR 1.04; PROTHROMBIN TIME 13.7 SECONDS (12.1-14.4)
[2018-03-17 14:04] LABS: BLOOD UREA NITROGEN 19 MG/DL (7-18); CALCIUM LEVEL 8.5 MG/DL (8.8-10.2); CARBON DIOXIDE LEVEL 26 MEQ/L (21-32); CHLORIDE LEVEL 106 MEQ/L (98-107); CREATININE FOR GFR 0.97 MG/DL (0.70-1.30); GLOMERULAR FILTRATION RATE > 60.0 (>35); GLUCOSE, FASTING 96 MG/DL (70-100); POTASSIUM SERUM 4.4 MEQ/L (3.5-5.1); SODIUM LEVEL 138 MEQ/L (136-145)
[2018-03-22 10:08] LABS: ASPERGILLUS FLAVUS ABY Negative (Neg:<1:1); ASPERGILLUS FUMIGATUS AB Negative (Negative); ASPERGILLUS FUMIGATUS ABY Negative (Neg:<1:1); ASPERGILLUS NIGER ABY Negative (Neg:<1:1); AUREOBASIDIUM PULLULANS Negative (Negative); BLASTOMYCES ANTIBODY LEVEL Negative (Neg:<1:1); CRYPTOCOCCUS ANTIGEN SER Negative (Negative); HISTOPLASMOSIS ANTIBODY Negative (Neg:<1:1); MICROPOLYSPORA FAENI AB Negative (Negative); PIGEON SERUM AB Negative (Negative); PSA TOTAL 38.5 ng/mL (0.0-4.0); THERMOACTINOMYCES SACCHARI Negative (Negative); THERMOACTINOMYCES VULGARIS Negative (Negative)
== END ==
LOC: M LAB REF 13:18
PROVIDERS: ATTEND Internal Medicine Pulmonary Disease
DX: R91.8 Other nonspecific abnormal finding of lung field (principal); R06.00 Dyspnea, unspecified; Z12.5 Encounter for screening for malignant neoplasm of prostate; Z79.01 Long term (current) use of anticoagulants

== ENCOUNTER → 2018-03-30 | Outpatient (CLI) | payer MEDICARE ==
[~2018-03-30] MED LIST changes: -ASPI1TAB PO; +ASPI81TA26 PO; +VENTAER INH; +[UNRECOGNIZED DRUG - OTHER]
--- NOTE | 2018-03-31 12:35 | REP ---
Whole body PET CT scan for multiple lung nodules: Comparison is the chest CT dated 03/05/2018. Whole-body scanning is performed from skull base to the upper thighs. Neck and supraclavicular areas: There are no hypermetabolic foci. Chest: There are no hypermetabolic foci. In particular there are no hypermetabolic foci in the lower lobes. Abdomen, pelvis and upper thighs: There are no hypermetabolic foci. Impression: Essentially negative whole-body PET CT scan. No hypermetabolic foci are identified. The study is performed with 9.43 mCi of F 18 Electronically Signed by Enio Joiner MD 03/31/2018 12:26 P
== END ==
LOC: M PLARAD 13:57
PROVIDERS: ATTEND Internal Medicine Pulmonary Disease
DX: R91.8 Other nonspecific abnormal finding of lung field (principal)
CPT/HCPCS: 78815; A9552

== ENCOUNTER 2018-04-06 07:30 | Day surgery (SDC) | payer MEDICARE ==
[~2018-04-06] VITALS: Ht 170.2 cm; Wt 67.0 kg
[~2018-04-06 07:30] MED LIST changes: +ASPI1TAB PO; -ASPI81TA26 PO; +NS 1,000 ML IV ONE; +PROPOFOL 200 MG/20 ML VIAL As Ordered ONE; -[UNRECOGNIZED DRUG - OTHER]
[2018-04-06] MEDS ORDERED: PHENYLephrine HCL 500 MCG/5 ML (100MCG/ML) SYRINGE (J2370) As Ordered ONE (08:45)
[2018-04-06] MEDS ORDERED: ePHEDrine SULFATE 25 MG/5 ML(5MG/ML) SYRINGE As Ordered ONE (08:47)
--- NOTE | 2018-04-06 08:59 | ROOR ---
Patient Name: Donal Diez Procedure Date: 04/06/2018 8:35 AM Date of : 1930 Age: 88 Room: [facility] Gender: Male Note Status: Finalized Procedure: Total Colonoscopy to Cecum + Biopsy Polypectomy Indications: Abnormal CT of the GI tract Providers: Minh Sotelo MD Referring MD: PALLAVI MCCORMACK MD Requesting Provider: Medicines: Monitored Anesthesia Care Complications: No immediate complications. Procedure: Pre-Anesthesia Assessment: - The heart rate, respiratory rate, oxygen saturations, blood pressure, adequacy of pulmonary ventilation, and response to care were monitored throughout the procedure. The Colonoscope was introduced through the anus and advanced to the cecum, identified by appendiceal orifice and ileocecal valve. The colonoscopy was performed without difficulty. The patient tolerated the procedure well. The quality of the bowel preparation was poor. Findings: The perianal and digital rectal examinations were normal. Internal hemorrhoids were found during retroflexion. The mucosa vascular pattern in the rectum was locally increased. Multiple small and large-mouthed diverticula were found in the recto-sigmoid colon, sigmoid colon and descending colon. A small polyp was found in the transverse colon. The polyp was sessile. The polyp was removed with a cold biopsy forceps. Resection and retrieval were complete. The exam was otherwise without abnormality on direct and retroflexion views. Impression: - Preparation of the colon was poor. - Internal hemorrhoids. - Increased mucosa vascular pattern in the rectum. - Diverticulosis in the recto-sigmoid colon, in the sigmoid colon and in the descending colon. - One small polyp in the transverse colon, removed with a cold biopsy forceps. Resected and retrieved. - The examination was otherwise normal on direct and retroflexion views. - The exam was otherwise normal to the cecum. Recommendation: - Patient has a contact number available for emergencies. The signs and symptoms of potential delayed complications were discussed with the patient. Return to normal activities tomorrow. Written discharge instructions were provided to the patient. - High fiber diet. - Discharge patient to home. - Continue present medications. - Await pathology results. - Telephone GI clinic for pathology results in 1 week. - Check Portal Online for Path [email or web address] - Repeat colonoscopy for symptoms only. - Return to referring physician. - The findings and recommendations were discussed with the patient's family. Minh Sotelo MD Minh Sotelo MD 04/06/2018 8:59:24 AM This report has been signed electronically. Number of Addenda: 0 Note Initiated On: 04/06/2018 8:35 AM Estimated Blood Loss: Estimated blood loss: none.
[2018-04-06 09:26] VITALS: BP 126/74
== END 2018-04-06 09:27 | disposition home or self-care (01) ==
LOC: M OPP 07:30
PROVIDERS: ATTEND Internal Medicine Gastroenterology
DX: K64.8 Other hemorrhoids (principal); D12.3 Benign neoplasm of transverse colon; K57.30 Diverticulosis of large intestine without perforation or abscess without bleeding; R93.3 Abnormal findings on diagnostic imaging of other parts of digestive tract; Z79.82 Long term (current) use of aspirin; Z79.899 Other long term (current) drug therapy; Z92.3 Personal history of irradiation; Z85.46 Personal history of malignant neoplasm of prostate
CPT/HCPCS: 45380; 88305; J2370

== ENCOUNTER → 2018-05-28 | Outpatient (CLI) | payer MEDICARE, MEDICAID ==
[~2018-05-28] MED LIST changes: -ASPI1TAB PO; +ASPI81TA26 PO; -NS 1,000 ML IV ONE; -PROPOFOL 200 MG/20 ML VIAL As Ordered ONE; +[UNRECOGNIZED DRUG - OTHER]
[2018-05-28 08:46] LABS: HEMATOCRIT 34.4 % (42.0-52.0); HEMOGLOBIN 11.5 g/dl (13.5-17.5); MEAN CORPUSCULAR HGB CONC 33.4 g/dl (32.0-36.5); MEAN CORPUSCULAR VOLUME 95.8 fl (80.0-96.0); PLATELET COUNT, AUTOMATED 170 10^3/uL (150-450); RED BLOOD COUNT 3.59 10^6/uL (4.30-6.10); WHITE BLOOD COUNT 6.7 10^3/uL (4.0-10.0)
== END ==
LOC: M LAB 07:40
PROVIDERS: ATTEND Urology
DX: Z51.81 Encounter for therapeutic drug level monitoring (principal); Z79.899 Other long term (current) drug therapy; C61 Malignant neoplasm of prostate

== ENCOUNTER 2018-06-02 07:15 | Day surgery (SDC) | payer MEDICARE ==
[~2018-06-02] VITALS: Ht 170.2 cm; Wt 69.9 kg
[~2018-06-02 07:15] MED LIST changes: +ACETAMINOPHEN 325 MG TAB PO PRN; +BSS with VANC/TOB/EPI for EYE CASES IR ONE; +CYCLOPENTOLATE 2% OPHTH SOLN 2ML BTL OD ONE; +HEALON DUET PRO(HEALON 10MG/ML 0.55ML & HEALON ENDOCOAT 30MG/ML 0.85ML) As Ordered ONE; +LIDOCAINE 1% SDV 5 ML VIAL As Ordered ONE; +LIDOCAINE 3.5 % 1ML OPHTH TOPICAL GEL OU ONE; +MOXIFLOXACIN IN BSS 0.25MG/0.25ML INTRACAMERAL INJ (OR EYE ONLY)(J2280) As Ordered ONE; +OFLOXACIN 0.3 % (OCUFLOX) OPTH SOL 5ML OD ONE; +PHENYLEPHRINE 2.5% OPHTH SOL 2ML OD ONE; +PHENYLEPHRINE HCL 10 % OPHTH. SOL 5ML OD PRN; +POVIDONE-IODINE 5% OPHTH PREP SOL 30ML As Ordered ONE; +TRIAMCINOLONE PRES FR 40 MG/ML 1ML(TRIESENCE)(OR EYE ONLY)(J3300 PER 1MG) As Ordered ONE; +TROPICAMIDE 1% OPHTH SOLN 2ML OD ONE
[2018-06-02] MEDS ORDERED: METOPROLOL SUCC *XL* 25MG TAB (TopROL *XL*) As Ordered ONE (07:59)
[2018-06-02] MEDS ORDERED: METOPROLOL SUCC *XL* 25MG TAB (TopROL *XL*) PO ONE (08:00)
[2018-06-02 08:12] VITALS: BP 119/69
[2018-06-02] MEDS ORDERED: MIDAZOLAM INJ 2 MG/2 ML VIAL (J2250) As Ordered ONE (10:40)
[2018-06-02] MEDS ORDERED: fentaNYL 100 MCG/2 ML INJECTION (J3010) As Ordered ONE (10:40)
[2018-06-02] MEDS ORDERED: AcetaZOLAMIDE 500 MG ER CAP PO ONE (10:45)
[2018-06-02] MEDS ORDERED: ONDANSETRON 4MG/2ML VIAL (J2405) IV PRN (10:45)
[2018-06-02] MEDS ORDERED: TRIMETHOBENZAMIDE 300 MG CAP PO PRN (10:45)
[2018-06-02 10:50] VITALS: BP 146/75
--- NOTE | 2018-06-03 22:35 | RO ---
DATE OF PROCEDURE: 06/02/2018 PREPROCEDURE DIAGNOSIS: Cataract of right eye. POSTPROCEDURE DIAGNOSIS: Cataract of right eye. PROCEDURE: Phacoemulsification with intraocular lens implantation with the help of Optiwave Refractive Analysis (ORA). Intraocular lens power used was [id number], 21.0 diopter. SURGEON: Danielle Allred MD PLAYER DEVELOPMENT EXECUTIVE: None. ANESTHESIA: Local IV standby. FINDINGS: Cataract of right eye. COMPLICATIONS: None. DESCRIPTION OF PROCEDURE: The patient was brought to the operating room and laid in supine position. The eye was prepped and draped in a sterile fashion for ophthalmic surgery. A lid speculum was placed. Sideport incision was made and EndoCoat was injected into the anterior chamber. Temporal clear corneal incision was made with a 2.5 mm keratome following which capsulorrhexis was done followed by hydrodissection. Phacoemulsification was then done in a divide and conquer method within the capsular bag followed by aspiration of the cortical material using irrigation and aspiration cannula. Healon was then placed in the capsular bag anterior chamber, intraocular pressure was checked. It was noted to be adequate. Multiple ORA calculations were then reviewed and intraocular power chosen and inserted in the capsular bag. Extra viscoelastic was then aspirated and the wound was hydrated. No leaks were noted. Intracameral moxifloxacin and sub [place] triamcinolone was given and patient returned to the recovery room in stable condition.
== END 2018-06-02 11:00 | disposition home or self-care (01) ==
LOC: M SDC 07:15
PROVIDERS: ATTEND Ophthalmology
DX: H25.9 Unspecified age-related cataract (principal); I25.2 Old myocardial infarction; I10 Essential (primary) hypertension; E03.9 Hypothyroidism, unspecified; Z88.8 Allergy status to other drugs, medicaments and biological substances; Z79.82 Long term (current) use of aspirin; Z79.899 Other long term (current) drug therapy; Z86.718 Personal history of other venous thrombosis and embolism; Z92.3 Personal history of irradiation; Z85.46 Personal history of malignant neoplasm of prostate
CPT/HCPCS: 66984; 92015; J2250; J2280; J3010; J3300; V2632

== ENCOUNTER 2018-06-09 07:48 | Day surgery (SDC) | payer MEDICARE ==
[~2018-06-09] VITALS: Ht 170.2 cm; Wt 67.6 kg
[~2018-06-09 07:48] MED LIST changes: -CYCLOPENTOLATE 2% OPHTH SOLN 2ML BTL OD ONE; +CYCLOPENTOLATE 2% OPHTH SOLN 2ML BTL OS ONE; -HEALON DUET PRO(HEALON 10MG/ML 0.55ML & HEALON ENDOCOAT 30MG/ML 0.85ML) As Ordered ONE; -LIDOCAINE 1% SDV 5 ML VIAL As Ordered ONE; +MIDAZOLAM INJ 2 MG/2 ML VIAL (J2250) As Ordered ONE; -MOXIFLOXACIN IN BSS 0.25MG/0.25ML INTRACAMERAL INJ (OR EYE ONLY)(J2280) As Ordered ONE; -OFLOXACIN 0.3 % (OCUFLOX) OPTH SOL 5ML OD ONE; +OFLOXACIN 0.3 % (OCUFLOX) OPTH SOL 5ML OS ONE; -PHENYLEPHRINE 2.5% OPHTH SOL 2ML OD ONE; +PHENYLEPHRINE 2.5% OPHTH SOL 2ML OS ONE; -PHENYLEPHRINE HCL 10 % OPHTH. SOL 5ML OD PRN; +PHENYLEPHRINE HCL 10 % OPHTH. SOL 5ML OS PRN; -POVIDONE-IODINE 5% OPHTH PREP SOL 30ML As Ordered ONE; -TRIAMCINOLONE PRES FR 40 MG/ML 1ML(TRIESENCE)(OR EYE ONLY)(J3300 PER 1MG) As Ordered ONE; -TROPICAMIDE 1% OPHTH SOLN 2ML OD ONE; +TROPICAMIDE 1% OPHTH SOLN 2ML OS ONE; +fentaNYL 100 MCG/2 ML INJECTION (J3010) As Ordered ONE
[2018-06-09] MEDS ORDERED: MOXIFLOXACIN IN BSS 0.25MG/0.25ML INTRACAMERAL INJ (OR EYE ONLY)(J2280) As Ordered ONE (09:14)
[2018-06-09] MEDS ORDERED: HEALON DUET PRO(HEALON 10MG/ML 0.55ML & HEALON ENDOCOAT 30MG/ML 0.85ML) As Ordered ONE ×2 (09:14→10:14)
[2018-06-09] MEDS ORDERED: TRIAMCINOLONE PRES FR 40 MG/ML 1ML(TRIESENCE)(OR EYE ONLY)(J3300 PER 1MG) As Ordered ONE (09:14)
[2018-06-09] MEDS ORDERED: POVIDONE-IODINE 5% OPHTH PREP SOL 30ML As Ordered ONE (09:14)
[2018-06-09] MEDS ORDERED: LIDOCAINE 1% SDV 5 ML VIAL As Ordered ONE (09:14)
[2018-06-09] MEDS ORDERED: AcetaZOLAMIDE 500 MG ER CAP PO ONE (10:45)
[2018-06-09] MEDS ORDERED: TRIMETHOBENZAMIDE 300 MG CAP PO PRN (10:45)
[2018-06-09 10:55] VITALS: BP 137/78
== END 2018-06-09 11:19 | disposition home or self-care (01) ==
LOC: M SDC 07:48
PROVIDERS: ATTEND Ophthalmology
DX: H25.9 Unspecified age-related cataract (principal); I25.2 Old myocardial infarction; I10 Essential (primary) hypertension; K21.9 Gastro-esophageal reflux disease without esophagitis; E78.00 Pure hypercholesterolemia, unspecified; Z85.46 Personal history of malignant neoplasm of prostate; Z92.3 Personal history of irradiation; E03.9 Hypothyroidism, unspecified; Z79.899 Other long term (current) drug therapy
CPT/HCPCS: 66984; 92015; J2250; J2280; J3010; J3300; V2632

== ENCOUNTER → 2018-08-17 | Outpatient (CLI) | payer MEDICARE ==
[~2018-08-17] MED LIST changes: -ACETAMINOPHEN 325 MG TAB PO PRN; -BSS with VANC/TOB/EPI for EYE CASES IR ONE; -CYCLOPENTOLATE 2% OPHTH SOLN 2ML BTL OS ONE; +LASI20TA3 PO; -LIDOCAINE 3.5 % 1ML OPHTH TOPICAL GEL OU ONE; -MIDAZOLAM INJ 2 MG/2 ML VIAL (J2250) As Ordered ONE; -OFLOXACIN 0.3 % (OCUFLOX) OPTH SOL 5ML OS ONE; -PHENYLEPHRINE 2.5% OPHTH SOL 2ML OS ONE; -PHENYLEPHRINE HCL 10 % OPHTH. SOL 5ML OS PRN; -TROPICAMIDE 1% OPHTH SOLN 2ML OS ONE; -fentaNYL 100 MCG/2 ML INJECTION (J3010) As Ordered ONE
[2018-08-17 11:10] LABS: BASO % 0.7 % (0.0-1.0); EOS # 0.2 10^3/uL (0.0-0.50); EOS % 2.7 % (0.0-3.0); HEMATOCRIT 32.8 % (42.0-52.0); HEMOGLOBIN 11.1 g/dl (13.5-17.5); LYMPH # 0.9 10^3/uL (1.5-4.5); LYMPH % 15.8 % (24.0-44.0); MEAN CORPUSCULAR HEMOGLOBIN 34.3 pg (27.0-33.0); MEAN CORPUSCULAR HGB CONC 33.8 g/dl (32.0-36.5); MEAN CORPUSCULAR VOLUME 101.2 fl (80.0-96.0); MONO # 0.5 10^3/uL (0.0-0.8); NEUTROPHILS # 4.3 10^3/uL (1.8-7.7); NEUTROPHILS % 72.3 % (36.0-66.0); PLATELET COUNT, AUTOMATED 153 10^3/uL (150-450); RED BLOOD COUNT 3.24 10^6/uL (4.30-6.10); WHITE BLOOD COUNT 5.9 10^3/uL (4.0-10.0)
[2018-08-17 11:43] LABS: ALBUMIN 3.3 GM/DL (3.2-5.2); ALT/SGPT 23 U/L (12-78); BLOOD UREA NITROGEN 19 MG/DL (7-18); CALCIUM LEVEL 8.2 MG/DL (8.8-10.2); CARBON DIOXIDE LEVEL 28 MEQ/L (21-32); CHLORIDE LEVEL 110 MEQ/L (98-107); CREATININE FOR GFR 0.94 MG/DL (0.70-1.30); GLOMERULAR FILTRATION RATE > 60.0 (>35); GLUCOSE, FASTING 79 MG/DL (70-100); POTASSIUM SERUM 3.9 MEQ/L (3.5-5.1); SODIUM LEVEL 143 MEQ/L (136-145); TOTAL PROTEIN 6.6 GM/DL (6.4-8.2)
[2018-08-17 12:11] LABS: TESTOSTERONE < 7 NG/DL (241-827)
== END ==
LOC: M LAB 10:35
PROVIDERS: ATTEND Urology
DX: C61 Malignant neoplasm of prostate (principal)

== ENCOUNTER → 2018-08-30 | Outpatient (CLI) | payer MEDICARE ==
[~2018-08-30] MED LIST changes: +ATOR1TAB21 PO; +ATOR40TA75 PO; +CEFD300CAP PO; -DIGO0.12; +DIGO0.123; +FERR150C PO; +INCR1INH INH; +LEVO75TA4 PO; +LUPR45IN IM; +METH4TAB8 PO; +METO1TAB87 PO; +METO25TA4 PO; +PROT1TAB2 PO; +SPIR-10 PO; +SYNT75TA PO; +[UNRECOGNIZED DRUG - CODE] PO
[2018-08-30 11:10] LABS: BASO % 0.2 % (0.0-1.0); EOS # 0.1 10^3/uL (0.0-0.50); EOS % 0.5 % (0.0-3.0); HEMATOCRIT 33.5 % (42.0-52.0); HEMOGLOBIN 11.3 g/dl (13.5-17.5); LYMPH % 10.2 % (24.0-44.0); MEAN CORPUSCULAR HEMOGLOBIN 32.9 pg (27.0-33.0); MEAN CORPUSCULAR HGB CONC 33.7 g/dl (32.0-36.5); MEAN CORPUSCULAR VOLUME 97.7 fl (80.0-96.0); MONO # 0.5 10^3/uL (0.0-0.8); MONO % 4.8 % (0.0-5.0); NEUTROPHILS # 8.2 10^3/uL (1.8-7.7); NEUTROPHILS % 83.4 % (36.0-66.0); PLATELET COUNT, AUTOMATED 165 10^3/uL (150-450); RED BLOOD COUNT 3.43 10^6/uL (4.30-6.10); WHITE BLOOD COUNT 9.8 10^3/uL (4.0-10.0)
[2018-08-30 11:44] LABS: ALBUMIN 3.3 GM/DL (3.2-5.2); ALT/SGPT 26 U/L (12-78); BILIRUBIN,TOTAL 1.4 MG/DL (0.2-1.0); BLOOD UREA NITROGEN 21 MG/DL (7-18); CALCIUM LEVEL 8.1 MG/DL (8.8-10.2); CARBON DIOXIDE LEVEL 26 MEQ/L (21-32); CHLORIDE LEVEL 108 MEQ/L (98-107); CREATININE FOR GFR 0.97 MG/DL (0.70-1.30); GLOMERULAR FILTRATION RATE > 60.0 (>35); GLUCOSE, FASTING 145 MG/DL (70-100); POTASSIUM SERUM 3.7 MEQ/L (3.5-5.1); SODIUM LEVEL 142 MEQ/L (136-145); TOTAL PROTEIN 6.4 GM/DL (6.4-8.2)
== END ==
LOC: M LAB 10:38
PROVIDERS: ATTEND Urology
DX: C61 Malignant neoplasm of prostate (principal)

== ENCOUNTER → 2018-09-14 | Outpatient (CLI) | payer MEDICARE ==
[~2018-09-14] MED LIST changes: -ATOR1TAB21 PO; -ATOR40TA75 PO; -CEFD300CAP PO; +DIGO0.12; -DIGO0.123; -FERR150C PO; -INCR1INH INH; -LEVO75TA4 PO; -LUPR45IN IM; -METH4TAB8 PO; -METO1TAB87 PO; -METO25TA4 PO; -PROT1TAB2 PO; -SPIR-10 PO; -SYNT75TA PO; -[UNRECOGNIZED DRUG - CODE] PO
[2018-09-14 08:21] LABS: BASO % 0.2 % (0.0-1.0); EOS # 0.1 10^3/uL (0.0-0.50); EOS % 0.6 % (0.0-3.0); HEMATOCRIT 34.5 % (42.0-52.0); HEMOGLOBIN 11.6 g/dl (13.5-17.5); LYMPH # 0.8 10^3/uL (1.5-4.5); LYMPH % 9.7 % (24.0-44.0); MEAN CORPUSCULAR HEMOGLOBIN 32.9 pg (27.0-33.0); MEAN CORPUSCULAR HGB CONC 33.6 g/dl (32.0-36.5); MEAN CORPUSCULAR VOLUME 97.7 fl (80.0-96.0); MONO # 0.4 10^3/uL (0.0-0.8); MONO % 4.7 % (0.0-5.0); NEUTROPHILS # 7.1 10^3/uL (1.8-7.7); NEUTROPHILS % 84.2 % (36.0-66.0); PLATELET COUNT, AUTOMATED 139 10^3/uL (150-450); RED BLOOD COUNT 3.53 10^6/uL (4.30-6.10); WHITE BLOOD COUNT 8.5 10^3/uL (4.0-10.0)
[2018-09-14 08:51] LABS: ALBUMIN 3.1 GM/DL (3.2-5.2); ALT/SGPT 27 U/L (12-78); BILIRUBIN,TOTAL 0.9 MG/DL (0.2-1.0); BLOOD UREA NITROGEN 20 MG/DL (7-18); CALCIUM LEVEL 8.5 MG/DL (8.8-10.2); CARBON DIOXIDE LEVEL 28 MEQ/L (21-32); CHLORIDE LEVEL 107 MEQ/L (98-107); CREATININE FOR GFR 0.91 MG/DL (0.70-1.30); GLOMERULAR FILTRATION RATE > 60.0 (>35); GLUCOSE, FASTING 120 MG/DL (70-100); POTASSIUM SERUM 3.9 MEQ/L (3.5-5.1); SODIUM LEVEL 141 MEQ/L (136-145); TOTAL PROTEIN 6.5 GM/DL (6.4-8.2)
[2018-09-14 08:58] LABS: TESTOSTERONE < 7 NG/DL (241-827)
== END ==
LOC: M LAB 07:44
PROVIDERS: ATTEND Urology
DX: C61 Malignant neoplasm of prostate (principal)

== ENCOUNTER 2018-09-23 16:34 | Inpatient (IN) | payer MEDICARE ==
[~2018-09-23] VITALS: Ht 170.2 cm; Wt 64.5 kg
[2018-09-23] MEDS ORDERED: [UNRECOGNIZED DRUG - CODE] PO (17:10)
[2018-09-23] MEDS ORDERED: DEXI30CA2 PO (17:10)
[2018-09-23] MEDS ORDERED: METH4TAB28 PO (17:10)
[2018-09-23] MEDS ORDERED: NS 500 ML IV ONE (17:30)
[2018-09-23 18:07] LABS: BASO % 0.4 % (0.0-1.0); EOS # 0.1 10^3/uL (0.0-0.50); EOS % 2.5 % (0.0-3.0); HEMATOCRIT 32.4 % (42.0-52.0); HEMOGLOBIN 11.3 g/dl (13.5-17.5); LYMPH # 0.5 10^3/uL (1.5-4.5); LYMPH % 9.3 % (24.0-44.0); MEAN CORPUSCULAR HEMOGLOBIN 32.9 pg (27.0-33.0); MEAN CORPUSCULAR HGB CONC 34.9 g/dl (32.0-36.5); MEAN CORPUSCULAR VOLUME 94.5 fl (80.0-96.0); MONO # 0.4 10^3/uL (0.0-0.8); NEUTROPHILS # 4.5 10^3/uL (1.8-7.7); NEUTROPHILS % 80.3 % (36.0-66.0); PLATELET COUNT, AUTOMATED 143 10^3/uL (150-450); RED BLOOD COUNT 3.43 10^6/uL (4.30-6.10); WHITE BLOOD COUNT 5.6 10^3/uL (4.0-10.0)
[2018-09-23 18:19] LABS: INR 1.12; PARTIAL THROMBOPLASTIN TIME 33.4 SECONDS (25.0-38.4); PROTHROMBIN TIME 14.1 SECONDS (11.8-14.0)
[2018-09-23 18:30] LABS: ALBUMIN 2.6 GM/DL (3.2-5.2); ALT/SGPT 26 U/L (12-78); BILIRUBIN,DIRECT 0.5 MG/DL (0.0-0.2); BILIRUBIN,TOTAL 1.9 MG/DL (0.2-1.0); BLOOD UREA NITROGEN 14 MG/DL (7-18); CARBON DIOXIDE LEVEL 27 MEQ/L (21-32); CHLORIDE LEVEL 100 MEQ/L (98-107); CK-MB VALUE MASS 1.4 NG/ML (<3.6); CPK CREATINE PHOSPHOKINASE 65 U/L (39-308); CREATININE FOR GFR 0.93 MG/DL (0.70-1.30); FREE T4 2.01 NG/DL (0.76-1.46); GLOMERULAR FILTRATION RATE > 60.0 (>35); GLUCOSE, FASTING 94 MG/DL (70-100); LIPASE 89 U/L (73-393); MB/CK RELATIVE INDEX 2.15 (< OR =4); NT-PRO BNP 4057 PG/ML (<450); POTASSIUM SERUM 3.3 MEQ/L (3.5-5.1); SODIUM LEVEL 135 MEQ/L (136-145); THYROID STIMULATING HORMONE 0.336 uIU/ML (0.358-3.740); TOTAL PROTEIN 6.4 GM/DL (6.4-8.2); TROPONIN I 0.04 NG/ML (< 0.10)
[2018-09-23] MEDS ORDERED: LIDOCAINE 2% 5ML JELLY UROJET TOP ONE (18:30)
--- NOTE | 2018-09-23 18:45 | REP ---
CHEST, PORTABLE: AP portable view of the chest is performed. COMPARISON: 04/11/2017 There is linear fibroatelectatic change in each lung base without evidence of acute infiltrate. Mild left ventricular prominence is stable. Mediastinal silhouette is unchanged. IMPRESSION: Stable chronic findings without acute infiltrate. Electronically Signed by Enio Feliciano MD 09/24/2018 09:52 A
[2018-09-23] MEDS ORDERED: ISOVUE-370 76% 100ML VIAL (Q9967) As Ordered ONE (18:51)
[2018-09-23] MEDS ORDERED: LUPR45IN IM (18:55)
--- NOTE | 2018-09-23 20:13 | REPVR ---
EXAM: CT Angiography Chest With Contrast EXAM DATE/TIME: 09/23/2018 7:22 PM CLINICAL HISTORY: 88 years old, male; Chest pain; Additional info: PT w CA - SOB RO pe TECHNIQUE: Imaging protocol: Axial computed tomographic angiography images of the chest with intravenous contrast using CT angiography protocol. Coronal and sagittal reformatted images were created and reviewed. 3D rendering: MIP reconstructed images were created and reviewed. Radiation optimization: All CT scans at this facility use at least one of these dose optimization techniques: automated exposure control; mA and/or kV adjustment per patient size (includes targeted exams where dose is matched to clinical indication); or iterative reconstruction. Contrast material: ISOVUE 370;Contrast volume: 100 ml;Contrast route: IV; COMPARISON: CT Chest without contrast 03/05/2018 9:03 AM FINDINGS: Pulmonary arteries: There are no pulmonary emboli. Aorta: The aorta demonstrates mild atherosclerotic calcification. There is no aortic dissection or aneurysm. Lungs: There is bibasilar compressive atelectasis. Lungs otherwise clear. Pleural space: Unremarkable. No pneumothorax. No pleural effusion. Heart: Unremarkable. No cardiomegaly. No pericardial effusion. Lymph nodes: Unremarkable. No enlarged lymph nodes. Bones/joints: Degenerative changes left glenohumeral joint. The spine demonstrates mild degenerative changes. Soft tissues: Unremarkable. IMPRESSION: 1. There is no aortic dissection or aneurysm. 2. There are no pulmonary emboli. Electronically signed by: Demetrio Vieira On 09/23/2018 20:13:10 PM
--- NOTE | 2018-09-23 20:22 | REPVR ---
EXAM: CT Abdomen and Pelvis With Contrast EXAM DATE/TIME: 09/23/2018 7:22 PM CLINICAL HISTORY: 88 years old, male; Abdominal pain; Generalized; Additional info: PT w CA - SOB RO pe; Abdominal discomfort TECHNIQUE: Imaging protocol: Axial computed tomography images of the abdomen and pelvis with intravenous contrast. Coronal and sagittal reformatted images were created and reviewed. Radiation optimization: All CT scans at this facility use at least one of these dose optimization techniques: automated exposure control; mA and/or kV adjustment per patient size (includes targeted exams where dose is matched to clinical indication); or iterative reconstruction. Contrast material: ISOVUE 370;Contrast volume: 100 ml;Contrast route: IV; COMPARISON: CT ABD/PELVIS W/ CONTRAST - OUTSIDE PRIOR 02/19/2018 12:42 PM FINDINGS: Liver: There is a diffuse decrease in hepatic parenchymal density, consistent with fatty infiltration. Gallbladder and bile ducts: Normal. No calcified stones. No ductal dilation. Pancreas: Normal. No ductal dilation. Spleen: Normal. No splenomegaly. Adrenals: Normal. No mass. Kidneys and ureters: 12 mm right renal cyst. Stomach and bowel: Mild diverticulosis is present in the distal colon. No diverticulitis. Appendix: No evidence of appendicitis. Intraperitoneal space: Nodularity of the omentum. Vasculature: The aorta demonstrates mild atherosclerotic calcification. Lymph nodes: Normal. No enlarged lymph nodes. Bladder: Unremarkable as visualized. Reproductive: Status post prostatectomy. Bones/joints: The spine demonstrates mild degenerative changes. Soft tissues: Unremarkable. Other findings: Osteoporosis. IMPRESSION: 1. There is a diffuse decrease in hepatic parenchymal density, consistent with fatty infiltration. 2. Mild diverticulosis is present in the distal colon. No diverticulitis. 3. Nodular omentum, findings of uncertain significance but which can be demonstrated in metastatic disease. Notably, the findings are stable in comparison to the prior study of 02/19/2018 Electronically signed by: Demetrio Vieira On 09/23/2018 20:22:03 PM
[2018-09-23] MEDS ORDERED: FUROSEMIDE 40 MG/4 ML VIAL (J1940) IV ONE (20:45)
--- NOTE | 2018-09-23 20:49 | HPEPDOC ---
[facility] [place] Date of Admission Sep 23, 2018 Date of Service: Sep 23, 2018 Primary Care Physician: Mahnaz Rob Attending Physician: BAM RIVERA MD History and Physical TIME OF SERVICE 855PM CHIEF COMPLAINT: Shortness of breath HISTORY OF PRESENT ILLNESS: Mr. Diez is a 88 old male who presented to the ED because his daughter insisted he come in for evaluation. The patient has been feeling short of breath at rest and with exertion for several days. Today, his daughter noted that today she had to help him as he walked from the bathroom to sit down on the couch. The patient denies eating out or eating new foods, reports been compliant with his fluid restriction, denies having chest pain, denies having increased abdominal girth, and denies having bilateral lower extremities edema. Of note, he stated his amiodarone was discontinued a few months ago and his metoprolol was discontinued a few weeks ago. REVIEW OF SYSTEMS: Negative except as listed in HPI PAST MEDICAL /SURGICAL HISTORY: 1. Metastatic prostate CA 2.Chronic A fib 3 Dilated cardiomyopathy / Chronic Systolic CHF 4 Hereditary hemochromatosis 5 hx of Iron deficiency anemia of unknown source of GI loss C-Scope 03/2018 negative. 6 CAD status post NH February 2017 7.GERD. 8 Stable indeterminate pulmonary nodules. 9. Osteoporosis on denosumab 10. Status post hernia repair SOCIAL HISTORY: - Tobacco FAMILY HISTORY: Prostate Cancer ALLERGIES: Please see below. HOME MEDICATIONS: Please see below. PHYSICAL EXAMINATION: VITAL SIGNS: Temperature 99.3, pulse 121, respiratory rate 18, blood pressure 115/71, pulse oximetry 95% on 2 L by nasal cannula GENERAL APPEARANCE: Well-nourished, well-developed, not in apparent distress, sitting up on the hospital bed eating macaroni and cheese HEENT: Normocephalic, atraumatic, mucous members moist and pink, is a cannula in place, lips acyanotic CARDIOVASCULAR: Heart rate is irregularly irregular and with a rate ranging from 105 -124 LUNGS: He is not using his accessory muscles, the lungs are clear to auscultation bilaterally ABDOMEN: There are L sounds, the abdomen is soft and nontender to palpation and slightly distended MUSCULOSKELETAL: Motion is intact 4 extremities. There is no lower extremity edema SKIN: Warm and well-perfused NEUROLOGICAL: Cranial nerves II-12 grossly intact. Speech not dysarthric. PSYCHIATRIC: Oriented to person, place and time, able to understand and follow commands LABORATORY DATA: CBC is remarkable for hemoglobin of 11.3 with MCV of 94.5 and platelet count of 143 Chemistry remarkable for sodium of 135, potassium of 3.3, total bilirubin 1.9, BNP greater than 4000, TSH of 0.36 with a free T4 of 2 IMAGING: Chest x-ray is unremarkable CT of the chest was unremarkable ET of the abdomen showed findings consistent with fatty liver, diverticulosis and nodular omentum, of uncertain significance MICROBIOLOGY: Please see below. ASSESSMENT: is an 88 yr old M w a PMH of Systolic CHF, metastatic prostate cancer, atrial fibrillation,, hemachromatosis and iron deficiency anemia will be admi tted for management of atrial fibrillation with RVR and partially decompensated acute systolic congestive heart failure. PLAN: 1. Dyspnea likely primarily 2/2 Atrial with RVR Trigger of RVR unclear Patient doesn't have upper respiratory tract symptoms/ virus, doesn't appear to be having an NH and CTA was negative for PE He was on amiodarone and possibly metoprolol but reports the meds were discon tinued CHADSVASC Score = 3 Plan: Admit to PCU, Cardizem drip, anticoagulation with heparin drip for now / pt may benefit from out pt sleep study to r/o occult sleep apnea / f/u w Cardiology ('s pt) 2.Acute Systolic CHF Clinically he is partially decompensated Trigger of acute CHF, likely atrial fibrillation with RVR Echo Nov 2016 from the presence of systolic dysfunction and pulmonary h ypertension BNP was elevated, but chest x-ray did not show congestion Trop and EKG were not consistent with NH Plan: Is/OS, daily weights, fluid restriction to 2L or 67oz, salt restriction to 2G / Lasix 40mg IV daily / daytime team can start beta mena and LEXIE inhibitor tomorrow after following up with Cardiology 3. Bicytopenia Hg and Plts low Hx history of iron deficiency anemia and hemochromatosis Plan: Follow-up CBC 4.Hypokalemia Plan: replete K / keep K>4 and Mag >2 5. Hypothyroidism Plan: c/w levothyroxine 6. Chronic CAD Plan: continue c/w meds 7.Metastatic prostate CA Plan: follow up with oncologist on an outpatient basis DVT prophylaxis on heparin drip for anticoagulation for A. fib. Disposition pending clinical course Vital Signs Vital Signs Date Time Temp Pulse Resp B/P (MAP) Pulse Ox O2 Delivery O2 Flow Rate FiO2 09/23/18 19:45 111 18 120/73 (89) 99 Nasal Cannula 2.0 09/23/18 16:55 99.3 Laboratory Data Labs 24H Laboratory Tests 2 09/23/18 17:44: Immature Granulocyte % (Auto) 0.5, White Blood Count 5.6, Red Blood Count 3.43L, Hemoglobin 11.3L, Hematocrit 32.4L, Mean Corpuscular Volume 94.5, Mean Corpuscular Hemoglobin 32.9, Mean Corpuscular Hemoglobin Concent 34.9, Red Cell Distribution Width 14.0, Platelet Count 143L, Neutrophils (%) (Auto) 80.3H, Lymphocytes (%) (Auto) 9.3L, Monocytes (%) (Auto) 7.0H, Eosinophils (%) (Auto) 2.5, Basophils (%) (Auto) 0.4, Neutrophils # (Auto) 4.5, Lymphocytes # (Auto) 0.5L, Monocytes # (Auto) 0.4, Eosinophils # (Auto) 0.1, Basophils # (Auto) 0.0, Nucleated Red Blood Cells % (auto) 0.0, Prothrombin Time 14.1H, Prothromb Time International Ratio 1.12, Activated Partial Thromboplast Time 33.4, Anion Gap 8, Glomerular Filtration Rate > 60.0, Calcium Level 8.0L, Aspartate Amino Transf (AST/SGOT) 30, Alanine Aminotransferase (ALT/SGPT) 26, Alkaline Phosphatase 66, Total Bilirubin 1.9H, Direct Bilirubin 0.5H, Total Creatine Kinase 65, Creatine Kinase MB 1.4, Creatine Kinase MB Relative Index 2.15, Troponin I 0.04, OZ-Vgn-E-Type Natriuretic Peptide 4057H, Total Protein 6.4, Albumin 2.6L, Albumin/Globulin Ratio 0.68L, Lipase 89, Thyroid Stimulating Hormone (TSH) 0.336L, Free Thyroxine 2.01H 09/23/18 19:09: Urine Color YELLOW, Urine Appearance CLOUDYH, Urine pH 5.0, Urine Specific Gr [place] 1.020, Urine Protein NEGATIVE, Urine Glucose (UA) NEGATIVE, Urine Ketones TRACEH, Urine Blood 1+H, Urine Nitrite NEGATIVE, Urine Bilirubin NEGATIVE, Urine Urobilinogen 0.2, Urine Leukocyte Esterase 3+H, Urine WBC (Auto) TNTCH, Urine RBC (Auto) 14H, Urine Hyaline Casts (Auto) 0, Urine Bacteria (Auto) 1+H, Urine Squamous Epithelial Cells 11, Urine Mucus (Auto) SMALL, Urine Sperm (Auto) CBC/BMP Laboratory Tests 09/23/18 17:44 Red Blood Count 3.43 L, Mean Corpuscular Volume 94.5, Mean Corpuscular Hemoglobin 32.9, Mean Corpuscular Hemoglobin Concent 34.9, Red Cell Distribution Width 14.0, Neutrophils (%) (Auto) 80.3 H, Lymphocytes (%) (Auto) 9.3 L, Monocytes (%) (Auto) 7.0 H, Eosinophils (%) (Auto) 2.5, Basophils (%) (Auto) 0.4, Neutrophils # (Auto) 4.5, Lymphocytes # (Auto) 0.5 L, Monocytes # (Auto) 0.4, Eosinophils # (Auto) 0.1, Basophils # (Auto) 0.0 Microbiology Microbiology 09/23/18 Blood Culture, Received Pending 09/23/18 Blood Culture, Received Pending 09/23/18 Urine Culture, Received Pending Home Medications Scheduled Abiraterone Acet,Submicronized (Yonsa) 125 Mg Tablet, 125 MG PO QID Aspirin (Aspirin EC) 81 Mg Tab, 81 MG PO DAILY Atorvastatin Calcium (Atorvastatin Calcium) 80 Mg Tab, 80 MG PO DAILY Calcium Carbonate/Vitamin D3 (Calcium 600-Vit D3 400 Tablet) 1 Tab Tab, 1 TAB PO BID Denosumab Injection (Prolia) 60 Mg/Ml Tsering, 60 MG SC ASDIRECTED EVERY 6 MONTHS Dexlansoprazole (Dexilant) 30 Mg Buck.bp, 30 MG PO DAILY Furosemide (Lasix) 20 Mg Tablet, 20 MG PO DAILY Leuprolide Acetate (Lupron Depot) 45 Mg Syringekit, 45 MG IM ASDIRECTED EVERY 6 MONTHS Levothyroxine Sodium (Levothyroxine Sodium) 88 Mcg Tab, 88 MCG PO DAILY Methylprednisolone (Methylprednisolone) 4 Mg Tablet, 4 MG PO BID Multivit-Min/FA/Lycopen/Lutein (Centrum Silver Tablet) 1 Tab Tab, 1 TAB PO DAILY Scheduled PRN Albuterol Sulfate (Ventolin Hfa) 108 Mcg/Act Aer, 2 PUFFS INH QID PRN for SHORTNESS OF BREATH Allergies Coded Allergies: tamsulosin (Verified Allergy, Intermediate, dizzy, 05/26/18) A-FIB/CHADSVASC A-FIB History Current/History of A-Fib/PAF?: Yes Current PO Anticoag Therapy: Yes Age/Risk Factor Scoring CHADSVASC: CHADSVASC Response (Comments) Value Gender Risk Factor Male 0 Hx of CHF Yes 1 Hx of HTN Yes 1 Hx of Stroke/TIA/or VTE No 0 Hx of Diabetes No 0 Hx of Vascular Disease No 0 Total 2 Treatment Treatment ordered: Heparin IV bridge Therapy BAM RIVERA MD Sep 23, 2018 20:49
[2018-09-23] MEDS: ATORVASTATIN 20 MG TAB PO SCH (21:00)
[2018-09-23] MEDS ORDERED: diltiaZEM 125 MG in NS 100 ML IV SCH (22:00)
[2018-09-23] MEDS ORDERED: HEPARIN SOD (PORCINE) 5000 UNITS/ML VIAL IV STA (22:41)
[2018-09-23] MEDS ORDERED: ALBUTEROL 90 MCG/ACT 8GM HFA INHALER INH PRN (22:45)
[2018-09-23] MEDS ORDERED: HEPARIN DRIP 25,000 UNITS in APPROPRIATE DILUENT 1 EA IV SCH (23:09)
[2018-09-23] MEDS ORDERED: HEPARIN SOD (PORCINE) 5000 UNITS/ML VIAL IV PRN (23:15)
[2018-09-23] MEDS ORDERED: HEPARIN SOD (PORCINE) 5000 UNITS/ML VIAL IV ONE (23:15)
[2018-09-24] MEDS ORDERED: POTASSIUM CHLORIDE 10 MEQ SR TABLET PO ONE ×2 (00:15→10:00)
[2018-09-24 03:50] VITALS: BP 115/65
[2018-09-24 05:27] VITALS: BP 99/63
[2018-09-24] MEDS ORDERED: LEVOTHYROXINE 88MCG TABLET (0.088 MG) PO SCH (06:00)
[2018-09-24 06:21] LABS: HEMOGLOBIN 11.5 g/dl (13.5-17.5); MEAN CORPUSCULAR HEMOGLOBIN 33.5 pg (27.0-33.0); MEAN CORPUSCULAR HGB CONC 34.8 g/dl (32.0-36.5); MEAN CORPUSCULAR VOLUME 96.2 fl (80.0-96.0); PLATELET COUNT, AUTOMATED 135 10^3/uL (150-450); RED BLOOD COUNT 3.43 10^6/uL (4.30-6.10); WHITE BLOOD COUNT 6.1 10^3/uL (4.0-10.0)
[2018-09-24 06:48] LABS: BLOOD UREA NITROGEN 13 MG/DL (7-18); CALCIUM LEVEL 7.5 MG/DL (8.8-10.2); CARBON DIOXIDE LEVEL 28 MEQ/L (21-32); CHLORIDE LEVEL 100 MEQ/L (98-107); CREATININE FOR GFR 1.01 MG/DL (0.70-1.30); GLOMERULAR FILTRATION RATE > 60.0 (>35); GLUCOSE, FASTING 102 MG/DL (70-100); POTASSIUM SERUM 3.4 MEQ/L (3.5-5.1); SODIUM LEVEL 136 MEQ/L (136-145)
[2018-09-24 08:00] VITALS: BP 114/67
[2018-09-24] MEDS ORDERED: ENOXAPARIN 40 MG/0.4 ML SYRINGE (J1650) SC SCH (09:00)
[2018-09-24] MEDS ORDERED: FUROSEMIDE 40 MG/4 ML VIAL (J1940) IV SCH ×2 (09:00)
[2018-09-24] MEDS: methylPREDNISolone 4 MG TAB PO SCH ×2 (09:30→21:06)
[2018-09-24] MEDS: ASPIRIN 81 MG ENTERIC TAB PO SCH (09:30)
[2018-09-24 12:00] VITALS: BP 98/59
--- NOTE | 2018-09-24 13:44 | IPNPDOC ---
Date Seen The patient was seen on 09/24/18. Progress Note SUBJECTIVE: Patient is a 88-year-old white male with a past medical history of metastatic prostate cancer, chronic atrial fibrillation, dilated cardiomyopathy with chronic systolic heart failure, hereditary hemochromatosis, history of iron deficiency anemia, CAD s/p RI in 2018, GERD, Stable pulmonary nodules, osteoporosis, and hernia repair presented to the emergency room with shortness of breath. The patient was brought in by his daughter who noticed her father has been short of breath for the last few days. She states that he has been short of breath at rest and while ambulating to the bathroom. She had to assist him while he was walking yesterday, that was when she insisted he came to the emergency room. He states that he has been compliant with his fluid restriction regimen. The patient states that his amiodarone prescription was discontinued a few months ago and his metoprolol was also discontinued just a few weeks ago. He denies any recent weight gain, lower extremity edema, or chest pain. Patient was examined at his bedside. Patient was conversant and pleasant. He became dizzy and short of breath this morning when he got up to walk to the toilet. He denies shortness of breath while laying in the hospital bed. Mr. Diez had abnormal urinalysis results and complained of dysuria this afternoon. His urine and venous blood cultures are still pending. He denies any chest pain or pressure, nausea, vomiting, fevers, chills, or syncope. OBJECTIVE PHYSICAL EXAMINATION: VITAL SIGNS: Please see below. GENERAL: 88 year old male lying in bed eating breakfast. He is in no acute distress. Speaking comfortably in full sentence and alert to his surroundings HEENT: NC AT, mucous membranes moist and pink CARDIOVASCULAR: Irregularly irregular rhythm heard. Pulse 98 bpm this am. RESPIRATORY: clear to auscultation bilaterally ABDOMINAL: soft, non-tender to palpation. Normal bowel sounds appreciated. No suprapubic tenderness noted EXTREMITIES: no lower extremity edema noted. no cyanosis or rashes appreciated NEUROLOGICAL: no focal deficits. Patient is alert and oriented x3 PSYCHOLOGICAL: normal affect LABORATORY DATA, IMAGING STUDIES, MICROBIOLOGY: Please see below. 1. Chest x-ray 09/23/18: Stable chronic findings without acute infiltrate. 2. Angiography CT 09/23/18: 1. There is no aortic dissection or aneurysm. 2. There are no pulmonary emboli. 3. Abdomen/pelvis CT: 1. There is a diffuse decrease in hepatic parenchymal density, consistent wit h fatty infiltration. 2. Mild diverticulosis is present in the distal colon. No diverticulitis. 3. Nodular omentum, findings of uncertain significance but which can be demonstrated in metastatic disease. Notably, the findings are stable in comparison to the prior study of 02/19/2018 DVT prophylaxis ordered?: Yes, Heparin ASSESSMENT AND PLAN: Patient is a 88-year-old white male with a past medical history of metastatic prostate cancer, chronic atrial fibrillation, dilated cardiomyopathy with chronic systolic heart failure, hereditary hemochromatosis, history of iron deficiency anemia, CAD s/p RI in 2018, GERD, Stable pulmonary nodules, osteoporosis, and hernia repair PROBLEMS: 1. Dyspnea 2/2 to chronic atrial fibrillation with RVR -CHADSVASC score: 3 -CTA negative for PE -c/w cardizem drip for rate control -c/w heparin drip for anticoagulation -Start patient on metoprolol -Dr. Serna has been consulted 2. Acute systolic heart failure -patient has dilated cardiomyopathy -Clinically partially decompensated -Chest x-ray did not show acute infiltrate -no added salt diet, daily weighs, In/outs every 4 hours -BNP level: 4057 on admission -c/w lasix 3. UTI -patient has dysuria -UA: leukocyte esterase: 3+, WBC: too numerous to count, RBC: 14+ -c/w bactrim 4. Hypokalemia -supplemented -Potassium level 3.4 today 5. Hypothyroidism -Free T4 is elevated -TSH is low -decreased dose of levothyroxine 6. Thrombocytopenia -platelet count 135,000 -monitor patient for bleeding 7. Chronic CAD -c/w home meds 8. Metastatic prostate CA -follow up with oncologist on an outpatient basis DISPOSITION: Patient is stable and prognosis is guarded. Continuing with rate control and anticoagulation. Patient being treated with bactrim for UTI. We will monitor patient closely. Dr. Serna was consulted, we appreciate his input. He will need to follow up with oncologist as outpatient for prostate cancer. I saw and evaluated the patient. I agree with the findings and plan of care as d ocumented in the above note VS, I&O, 24H, Fishbone Vital Signs/I&O Vital Signs Date Time Temp Pulse Resp B/P (MAP) Pulse Ox O2 Delivery O2 Flow Rate FiO2 09/24/18 12:00 98.7 102 18 98/59 (72) 93 09/24/18 03:00 Nasal Cannula 2.0 I&O- Last 24 Hours up to 6 AM 09/24/18 06:00 Intake Total 550 ml Output Total 800 ml Balance -250 ml Laboratory Data 24H LABS Laboratory Tests 2 09/23/18 17:44: Immature Granulocyte % (Auto) 0.5, White Blood Count 5.6, Red Blood Count 3.43L, Hemoglobin 11.3L, Hematocrit 32.4L, Mean Corpuscular Volume 94.5, Mean Corpuscular Hemoglobin 32.9, Mean Corpuscular Hemoglobin Concent 34.9, Red Cell Distribution Width 14.0, Platelet Count 143L, Neutrophils (%) (Auto) 80.3H, Lymphocytes (%) (Auto) 9.3L, Monocytes (%) (Auto) 7.0H, Eosinophils (%) (Auto) 2.5, Basophils (%) (Auto) 0.4, Neutrophils # (Auto) 4.5, Lymphocytes # (Auto) 0.5L, Monocytes # (Auto) 0.4, Eosinophils # (Auto) 0.1, Basophils # (Auto) 0.0, Nucleated Red Blood Cells % (auto) 0.0, Prothrombin Time 14.1H, Prothromb Time International Ratio 1.12, Activated Partial Thromboplast Time 33.4, Anion Gap 8, Glomerular Filtration Rate > 60.0, Calcium Level 8.0L, Aspartate Amino Transf (AST/SGOT) 30, Alanine Aminotransferase (ALT/SGPT) 26, Alkaline Phosphatase 66, Total Bilirubin 1.9H, Direct Bilirubin 0.5H, Total Creatine Kinase 65, Creatine Kinase MB 1.4, Creatine Kinase MB Relative Index 2.15, Troponin I 0.04, MF-Mow-M-Type Natriuretic Peptide 4057H, Total Protein 6.4, Albumin 2.6L, Albumin/Globulin Ratio 0.68L, Lipase 89, Thyroid Stimulating Hormone (TSH) 0.336L, Free Thyroxine 2.01H 09/23/18 19:09: Urine Color YELLOW, Urine Appearance CLOUDYH, Urine pH 5.0, Urine Specific [place] 1.020, Urine Protein NEGATIVE, Urine Glucose (UA) NEGATIVE, Urine Ketones TRACEH, Urine Blood 1+H, Urine Nitrite NEGATIVE, Urine Bilirubin NEGATIVE, Urine Urobilinogen 0.2, Urine Leukocyte Esterase 3+H, Urine WBC (Auto) TNTCH, Urine RBC (Auto) 14H, Urine Hyaline Casts (Auto) 0, Urine Bacteria (Auto) 1+H, Urine Squamous Epithelial Cells 11, Urine Mucus (Auto) SMALL, Urine Sperm (Auto) 09/24/18 06:06: Nucleated Red Blood Cells % (auto) 0.0, Activated Partial Thromboplast Time 184.7*H, Anion Gap 8, Glomerular Filtration Rate > 60.0, Calcium Level 7.5L, Blood Urea Nitrogen 13, Creatinine 1.01, Sodium Level 136, Potassium Level 3.4L, Chloride Level 100, Carbon Dioxide Level 28 CBC/BMP Laboratory Tests 09/23/18 17:44 Red Blood Count 3.43 L, Mean Corpuscular Volume 94.5, Mean Corpuscular H emoglobin 32.9, Mean Corpuscular Hemoglobin Concent 34.9, Red Cell Distribution Width 14.0, Neutrophils (%) (Auto) 80.3 H, Lymphocytes (%) (Auto) 9.3 L, Monocytes (%) (Auto) 7.0 H, Eosinophils (%) (Auto) 2.5, Basophils (%) (Auto) 0.4, Neutrophils # (Auto) 4.5, Lymphocytes # (Auto) 0.5 L, Monocytes # (Auto) 0.4, Eosinophils # (Auto) 0.1, Basophils # (Auto) 0.0 09/24/18 06:06 Red Blood Count 3.43 L, Mean Corpuscular Volume 96.2 H, Mean Corpuscular Hemoglobin 33.5 H, Mean Corpuscular Hemoglobin Concent 34.8, Red Cell Distribution Width 13.9, Calcium Level 7.5 L Microbiology Microbiology 09/23/18 Blood Culture, Received Pending 09/23/18 Blood Culture, Received Pending 09/23/18 Urine Culture, Received Pending [facility] [place] [facility] [place] Sep 24, 2018 13:44 BLAYNE BROOKS MD Sep 26, 2018 14:58
[2018-09-24] MEDS: BACTRIM 160MG/800MG DS TAB PO SCH ×2 (13:50→21:06)
[2018-09-24 16:00] VITALS: BP 107/63
[2018-09-24 20:00] VITALS: BP 112/71
[2018-09-24] MEDS: ATORVASTATIN 20 MG TAB PO SCH (21:06)
[2018-09-25] VITALS (12 sets, daily range): BP systolic 95–114; BP diastolic 54–71
[2018-09-25 04:37] LABS: HEMATOCRIT 30.7 % (42.0-52.0); HEMOGLOBIN 10.7 g/dl (13.5-17.5); MEAN CORPUSCULAR HEMOGLOBIN 32.5 pg (27.0-33.0); MEAN CORPUSCULAR HGB CONC 34.9 g/dl (32.0-36.5); MEAN CORPUSCULAR VOLUME 93.3 fl (80.0-96.0); PLATELET COUNT, AUTOMATED 154 10^3/uL (150-450); RED BLOOD COUNT 3.29 10^6/uL (4.30-6.10); WHITE BLOOD COUNT 6.5 10^3/uL (4.0-10.0)
[2018-09-25 05:02] LABS: BLOOD UREA NITROGEN 20 MG/DL (7-18); CALCIUM LEVEL 7.6 MG/DL (8.8-10.2); CARBON DIOXIDE LEVEL 28 MEQ/L (21-32); CHLORIDE LEVEL 102 MEQ/L (98-107); CREATININE FOR GFR 1.04 MG/DL (0.70-1.30); GLOMERULAR FILTRATION RATE > 60.0 (>35); GLUCOSE, FASTING 134 MG/DL (70-100); POTASSIUM SERUM 4.2 MEQ/L (3.5-5.1); SODIUM LEVEL 136 MEQ/L (136-145)
[2018-09-25] MEDS: LEVOTHYROXINE 75MCG TABLET (0.075MG) PO SCH (05:56)
[2018-09-25] MEDS ORDERED: ELIQ5TAB PO (07:16)
--- NOTE | 2018-09-25 07:49 | ECGEPIP ---
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
[2018-09-25] MEDS: methylPREDNISolone 4 MG TAB PO SCH ×2 (09:01→20:39)
[2018-09-25] MEDS: NITROFURANTOIN (MACROBID) 100 MG CAP PO SCH ×2 (09:01→20:39)
[2018-09-25] MEDS: APIXABAN 5 MG TAB (ELIQUIS) PO SCH ×2 (09:01→20:39)
[2018-09-25] MEDS: ASPIRIN 81 MG ENTERIC TAB PO SCH (09:01)
[2018-09-25] MEDS: METOPROLOL TART 25 MG TABLET PO SCH ×3 (09:02→23:29)
--- NOTE | 2018-09-25 13:55 | IPNPDOC ---
Date Seen The patient was seen on 09/25/18. Progress Note SUBJECTIVE: Patient is a 88-year-old white male with a past medical history of metastatic prostate cancer, chronic atrial fibrillation, dilated cardiomyopathy with chronic systolic heart failure, hereditary hemochromatosis, history of iron deficiency anemia, CAD s/p NH in 2018, GERD, Stable pulmonary nodules, osteoporosis, and hernia repair presented to the emergency room with shortness of breath. He was seen and examined this morning sitting up in his chair eating breakfast. Overnight his urine culture returns resistant to Bactrim and he was started on Macrobid this morning. He states that this morning he did have some burning on urination but he is pleased with the condom catheter for urinary frequency. He would like to know if he can keep it on for the next 24 hours for is providing some relief. He has no complaints this morning. Denies fevers, chills, shortness of breath or palpitation. He has not worked with PT for has not been ordered. He is in later in the room with no problems. OBJECTIVE PHYSICAL EXAMINATION: VITAL SIGNS: Please see below. GENERAL: 88 year old male eating up until eating breakfast. He is in no acute distress. Taking comfortably in full sentences alert and oriented 3 HEENT: Atraumatic normocephalic pupils are equal round and reactive moist mucous membranes and pink. CARDIOVASCULAR: Irregularly irregular rhythm heard. Rate controlled under 100 bpm RESPIRATORY: clear to auscultation bilaterally no audible wheezing rhonchi is Rales ABDOMINAL: soft, non-tender to palpation. Normal bowel sounds appreciated. No suprapubic tenderness noted EXTREMITIES: no lower extremity edema noted. no cyanosis or rashes appreciated NEUROLOGICAL: no focal deficits. Patient is alert and oriented x3 PSYCHOLOGICAL: normal affect LABORATORY DATA, IMAGING STUDIES, MICROBIOLOGY: Please see below. Chest x-ray 09/23/18: Stable chronic findings without acute infiltrate. Angiography CT 09/23/18: 1. There is no aortic dissection or aneurysm. 2. There are no pulmonary emboli. Abdomen/pelvis CT: 1. There is a diffuse decrease in hepatic parenchymal density, consistent with fatty infiltration. 2. Mild diverticulosis is present in the distal colon. No diverticulitis. 3. Nodular omentum, findings of uncertain significance but which can be demonstrated in metastatic disease. Notably, the findings are stable in comparison to the prior study of 02/19/2018 DVT prophylaxis ordered?: Yes, Heparin ASSESSMENT AND PLAN: Patient is a 88-year-old white male with a past medical history of metastatic prostate cancer, chronic atrial fibrillation, dilated cardiomyopathy with chronic systolic heart failure, hereditary hemochromatosis, history of iron deficiency anemia, CAD s/p NH in 2018, GERD, Stable pulmonary nodules, osteoporosis, and hernia repair PROBLEMS: Dyspnea 2/2 to chronic atrial fibrillation with RVR -CHADSVASC score: 3 -CTA negative for PE --Dr. Serna has been consulted -Start metoprolol 25 mg every 8 hours -start eliquis 5mg BID. script sent to pharmacy for PAsid consulted Hx of dilated cardiomyopathy -Chest x-ray negative for increased vascular congestion -no added salt diet, daily weighs, In/outs every 4 hours -Discontinue Lasix UTI -patient has dysuria -UA: leukocyte esterase: 3+, WBC: too numerous to count, RBC: 14+ -UA positive for Escherichia coli resistant to Bactrim sensitive to Macrobid -Start Macrobid 100 mg twice a day x7 days -Condom catheter in place can consider discontinuation in the morning Hypokalemia Hereditary Hemochromatosis -Currently stable -Not on any medications at home Hypothyroidism -Free T4 is elevated -TSH is low -decreased dose of levothyroxine -Will need to recheck levels in 4-6 weeks outpatient. Thrombocytopenia -platelet count 135,000 -monitor patient for bleeding History of osteoporosis -Held home calcium/vitamin D3 tabs plus prolia -can resume upon discharge Chronic CAD -c/w home meds Metastatic prostate CA -follow up with oncologist on an outpatient basis -Metastatic carcinoma medications on hold and admitted will resume upon discharge I saw and evaluated the patient. I agree with the findings and plan of care as documented in the above note VS, I&O, 24H, Fishbone Vital Signs/I&O Vital Signs Date Time Temp Pulse Resp B/P (MAP) Pulse Ox O2 Delivery O2 Flow Rate FiO2 09/25/18 12:00 98.8 76 20 108/63 (78) 97 09/24/18 03:00 Nasal Cannula 2.0 I&O- Last 24 Hours up to 6 AM 09/25/18 06:00 Intake Total 1149 ml Output Total 1420 ml Balance -271 ml Laboratory Data 24H LABS Laboratory Tests 2 09/24/18 14:06: Activated Partial Thromboplast Time 97.0H 09/24/18 19:41: Activated Partial Thromboplast Time 91.6H 09/25/18 04:08: Activated Partial Thromboplast Time 85.3H, Nucleated Red Blood Cells % (auto) 0.0, Anion Gap 6L, Glomerular Filtration Rate > 60.0, Blood Urea Nitrogen 20#H, Creatinine 1.04, Sodium Level 136, Potassium Level 4.2#, Chloride Level 102, Carbon Dioxide Level 28, Calcium Level 7.6L, Magnesium Level 2.0 CBC/BMP Laboratory Tests 09/25/18 04:08 Red Blood Count 3.29 L, Mean Corpuscular Volume 93.3, Mean Corpuscular Hemoglobin 32.5, Mean Corpuscular Hemoglobin Concent 34.9, Red Cell Distribution Width 13.9, Calcium Level 7.6 L Microbiology Microbiology 09/23/18 Blood Culture - Preliminary, Resulted No growth after 24 hours . All specim... 09/23/18 Blood Culture - Preliminary, Resulted No growth after 24 hours . All specim... 09/23/18 Urine Culture - Final, Complete Escherichia Coli LUDIVINA BEASLEY DO Sep 25, 2018 13:55 BLAYNE BROOKS MD Sep 26, 2018 15:01
[2018-09-25] MEDS ORDERED: SLF 3 ML SYR IV PRN (16:00)
[2018-09-25] MEDS: ATORVASTATIN 20 MG TAB PO SCH (20:39)
[2018-09-25] MEDS: SLF 3 ML SYR IV SCH (20:39)
[2018-09-26 04:00] VITALS: BP 109/66
[2018-09-26 05:32] LABS: HEMOGLOBIN 10.5 g/dl (13.5-17.5); MEAN CORPUSCULAR HGB CONC 33.9 g/dl (32.0-36.5); MEAN CORPUSCULAR VOLUME 94.5 fl (80.0-96.0); PLATELET COUNT, AUTOMATED 174 10^3/uL (150-450); RED BLOOD COUNT 3.28 10^6/uL (4.30-6.10); WHITE BLOOD COUNT 7.4 10^3/uL (4.0-10.0)
[2018-09-26] MEDS: LEVOTHYROXINE 75MCG TABLET (0.075MG) PO SCH (05:44)
[2018-09-26] MEDS: SLF 3 ML SYR IV SCH ×3 (05:53→20:53)
[2018-09-26 05:58] LABS: BLOOD UREA NITROGEN 26 MG/DL (7-18); CALCIUM LEVEL 8.2 MG/DL (8.8-10.2); CARBON DIOXIDE LEVEL 27 MEQ/L (21-32); CHLORIDE LEVEL 105 MEQ/L (98-107); CREATININE FOR GFR 1.12 MG/DL (0.70-1.30); GLOMERULAR FILTRATION RATE > 60.0 (>35); GLUCOSE, FASTING 136 MG/DL (70-100); MAGNESIUM LEVEL 2.1 MG/DL (1.8-2.4); POTASSIUM SERUM 4.5 MEQ/L (3.5-5.1); SODIUM LEVEL 137 MEQ/L (136-145); TROPONIN I < 0.02 NG/ML (< 0.10)
[2018-09-26 08:00] VITALS: BP 106/63
--- NOTE | 2018-09-26 08:37 | ECGEPIP ---
[facility] Test Date: 2018-09-26 Pat Name: JOVANI ROME Department: Room: A8237-10 Gender: Male [employer]: NAVI : 1930 Requested By: Moises Butler Order Number: [id number] Reading MD: Liam Sanabria Measurements Intervals [place] Rate: 68 P: 64 NV: 149 QRS: -34 QRSD: 102 T: 0 QT: 415 QTc: 442 Interpretive Statements Normal sinus rhythm with PACs and PVCs Left axis deviation Incomplete right bundle branch block Anterior WI, age indeterminate Nonspecific T wave abnormality Compared to prior tracing of 09/23/2018, atrial fibrillation has resolved Electronically Signed on 09-26-2018 8:37:00 EDT by Liam Sanabria
--- NOTE | 2018-09-26 08:57 | CR ---
DATE OF CONSULTATION: 09/24/2018 DATE OF : 1930 AGE: 88 REFERRING PHYSICIAN: Dr. Svetlana Taylor. PRIMARY CARDIOLOGY: Dr. Otis Saravia. PRIMARY PROVIDER: Dr. Bradford Santos in [place]. REASON FOR CONSULT: Atrial fibrillation. mL HISTORY OF PRESENT ILLNESS: 88-year-old man well known by the office and he usually sees Dr. Saravia. He has a history of ischemic cardiomyopathy. Lately, he has been dealing with recurrent probably metastatic prostate cancer. He has been failing chemotherapy. A medication named Yomsa was recommended by oncology but it seems that it can cause mild bradycardia and for this reason, his amiodarone was tapered off as well as his beta mena. On his last office visit with oncology, he was found to be in atrial fibrillation and it was recommended to him to be admitted in [place], [place], while he was there, but [place] He was brought in today in emergency room by his daughter because of shortness of breath and fatigue. He was found to be in atrial fibrillation with a rapid ventricular rate. He was started on IV Cardizem and he spontaneously cardioverted to normal sinus rhythm. Case was discussed with the resident on 09/24/2018 in the morning and it was recommended to switch his IV Cardizem to oral Cardizem pending further recommendations. When I saw Mr. Donal Diez in the evening of 09/24/2018 in intensive care unit (ICU), he was supine in bed in no acute distress at rest, in normal sinus rhythm on telemetry with elevated PACs. He denies any chest pain, shortness of breath and there is no orthopnea. There is no report of bleeding. He was on IV heparin. He denies any dizziness or lightheadedness. He has no nausea or vomiting, diarrhea, melena or hematemesis. There is no focal manifestation. He has a past medical history positive for anterior wall myocardial infarction on 11/23/ and this was followed by a cardiac catheterization that revealed a chronically occluded LAD and no vascularization was done. On the same year, he was readmitted to the hospital with a positive stool guaiac and a [id number] myocardial infarction. He also was diagnosed with paroxysmal atrial fibrillation and then was mechanically cardioverted. He was on whitley inhibitor in the past but discontinued because of hypotension. As mentioned above, his amiodarone and beta mena were recently discontinued because they needed to start him on a new chemotherapy, Yomsa. He also has a history of hyperlipidemia, gastroesophageal reflux disease, arthritis/osteoporosis, hereditary hemochromatosis, iron deficiency anemia, gastroesophageal reflux disease. It was reported in the past that he has pulmonary nodule. Past surgical history is positive for surgery done on his prostate, otherwise unremarkable. FAMILY HISTORY: Noncontributory. MEDICATIONS AT HOME: - atorvastatin 40 mg by mouth daily - apixaban 5 mg by mouth twice daily CURRENT MEDICATIONS: - IV heparin - atorvastatin 80 mg by mouth daily - Cardizem 30 mg by mouth every 8 hours - levothyroxine 75 mcg by mouth daily - aspirin 81 mg by mouth daily - methylprednisolone 4 mg by mouth twice daily - albuterol sulfate SOCIAL HISTORY: The patient lives in [facility]. He denies any smoking or EtOH abuse. He is a former smoker. He usually goes to [place] in the wintertime. PHYSICAL EXAMINATION: The patient is alert and oriented, in akinesis at rest and his vital signs when I saw him revealed a blood pressure of 112/71 with a pulse of 87, respiration 18-20 and his maximum temperature was 98 degree Fahrenheit with saturation of 96% on room air. Examination of the head is normocephalic, atraumatic. Neck is supple and no JVD appreciated. Lungs did not reveal any wheezing or crackles. Heart examination revealed a regular heart sounds without gallops. The PMI is displaced inferiorly and laterally. There is a systolic murmur grade 2-3/6 over the precordium louder at the left side of the sternum and also at the apex with some minimal radiation to the axilla. Abdomen is soft and nontender, bowel sounds are positive. Extremities reveal no pedal edema. Peripheral pulses, dorsalis pedis were 2+ and equal. Neurologic examination: Grossly is negative for focal deficit. LABORATORY DATA: CBC on 09/24/2018 revealed a WBC of 6.1, hemoglobin 11.5, hematocrit 33.0 and platelet 135,000. BMP revealed a sodium of 136, potassium 3.4, chloride 100, CO2 28, BUN 13, creatinine 1.01, GFR more than 60, fasting glucose 102, calcium 7.5. INR 91.8. Urine culture few E. Coli. Blood cultures have been negative. Chest x-ray on 09/24/2018 on admission revealed stable chronic findings without acute infiltrates. CT angio on 09/23/2018 was negative for pulmonary emboli or aortic aneurysm / dissection. Abdomen/pelvic CT on 09/23/2018 revealed diffuse decrease in hepatic parenchymal density consistent with fatty infiltration, mild diverticulosis in the distal colon but no diverticulitis. A nodular appearance of the omentum was noted. Echocardiogram on admission 09/23/2018 revealed atrial fibrillation at 103 beats per minute, left axis deviation and proximal left anterior mid block, probably anteroseptal infarct, probably old anterior septal infarct. No ST-T abnormality also noted. IMPRESSION: 1. Atrial fibrillation, paroxysmal in nature and initially diagnosed in November 2016. The patient is back in normal sinus rhythm. His chart from the office was reviewed and it revealed a mildly depressed global left ventricular systolic function by echocardiogram done earlier this year. For this reason, the Cardizem was discontinued and he was started on the current dose of the short beta-mena metoprolol tartrate. He does have a history of hypotension and he will need to be monitored. I am not sure what chemotherapy he was taking but he was on Yomsa in the past and that had the potential to cause mild bradycardia. We should keep him on telemetry while in the hospital. His IV heparin was discontinued and he was started on Eliquis at the current dose. 2. History of coronary artery disease and ischemic cardiomyopathy and will continue at this present time with the baby aspirin as well as statin. He is also on beta-mena. I would stay away from whitley inhibitor and/or angiotensin receptor blockers (ARBs) at this present time pending further cardiac monitoring. He does have a history of hypotension with whitley inhibitor. If his blood pressure remains stable, I will consider to start him on a small dose of Ramipril at 1.25 mg by mouth daily. 3. Hyperlipidemia, on a statin. 4. Urinary tract infection (UTI) on oral antibiotics. 5. Hypokalemia and this is being addressed. 6. Hypothyroidism, on replacement therapy. 7. History of thrombocytopenia, he is being monitored. 8. History of anemia. 9. History of osteoporosis. This is being addressed. 10. Metastatic prostate cancer, recurrent and he will see oncology in [place], [place]. It was a pleasure to participate in the care of Donal Diez for his underlying cardiac condition. Once again, he appears to be stable from cardiac perspective. Dr. Butler is aware of him and he will be seeing him only as needed. Please do not hesitate to call me if any questions. On Thursday, if he is still in the hospital, Dr. Saravia will be seeing him.
[2018-09-26] MEDS: NITROFURANTOIN (MACROBID) 100 MG CAP PO SCH (09:23)
[2018-09-26] MEDS: APIXABAN 5 MG TAB (ELIQUIS) PO SCH ×2 (09:23→20:52)
[2018-09-26] MEDS: methylPREDNISolone 4 MG TAB PO SCH ×2 (09:23→20:52)
[2018-09-26] MEDS: ASPIRIN 81 MG ENTERIC TAB PO SCH (09:23)
[2018-09-26] MEDS: METOPROLOL TART 25 MG TABLET PO SCH ×2 (09:23→15:57)
[2018-09-26] MEDS ORDERED: CEFD300CAP PO (11:19)
[2018-09-26] MEDS ORDERED: METO1TAB87 PO (11:19)
[2018-09-26] MEDS ORDERED: LEVO75TA4 PO (11:19)
[2018-09-26] MEDS ORDERED: ATOR1TAB21 PO (11:19)
[2018-09-26 12:00] VITALS: BP 119/67
[2018-09-26] MEDS: CEFDINIR 300 MG CAP (OMNICEF) PO SCH ×2 (12:13→20:53)
--- NOTE | 2018-09-26 12:32 | IPNPDOC ---
Date Seen The patient was seen on 09/26/18. Progress Note SUBJECTIVE: Patient tells me that he is feeling better until his shortness of breath has resolved, he continues to complain of problems with urinary incontinence he tells me that he is having some dysuria otherwise patient denies chest pain, nausea, vomiting, fevers, chills OBJECTIVE PHYSICAL EXAMINATION: VITAL SIGNS: Please see below. GENERAL: Pleasant elderly man sitting up in bed awake alert oriented speaking in complete sentences no acute distress HEENT: Moist mucous membranes no elevation in CVP CARDIOVASCULAR: S1 S2 irregular no additional heart sounds appreciated. He is not tachycardic RESPIRATORY: Clear to auscultation bilaterally. ABDOMINAL: Bowel sounds present abdomen soft and nontender EXTREMITIES: No clubbing cyanosis or edema NEUROLOGICAL: Spontaneously moves all 4 extremities cranial 2 through 12 grossly intact no gross focal deficits appreciated PSYCHOLOGICAL: Appropriate LABORATORY DATA, MICROBIOLOGY: Please see below. IMAGING STUDIES: Chest x-ray:Stable chronic findings without acute infiltrate. CT angiography:1. There is no aortic dissection or aneurysm. 2. There are no pulmonary emboli. CT abdomen and pelvis:1. There is a diffuse decrease in hepatic parenchymal density, consistent with fatty infiltration. 2. Mild diverticulosis is present in the distal colon. No diverticulitis. 3. Nodular omentum, findings of uncertain significance but which can be demonstrated in metastatic disease. Notably, the findings are stable in comparison to the prior study of 02/19/2018 ASSESSMENT AND PLAN: This is a 88-year-old man who presented with shortness of breath dysuria PROBLEMS: 1. Shortness of breath: Secondary to atrial fibrillation with rapid ventricular response. Recently been taken off his amiodarone appears to be improved rate control at this time and breathing much more easily. He is baseline in terms of respiratory status he is yet to clear physical therapy he's been started on anticoagulation cardiology help is greatly appreciated. 2. Dysuria: Patient has long known incontinence as well as metastatic prostate cancer for which she is following closely with oncology. His UA certainly abnormal during the stay and he hasn't necessitated a condom catheter. I'll discontinue the condom catheter he is started on antibiotics but is not having i mprovement in his symptoms on Macrobid and changed him to Omnicef. 3. Congestive heart failure: Monitor I's and O's and daily weights he appears euvolemic AT this time. 4. Hereditary hemochromatosis: Stable continue home medications. 5. Hypothyroidism: TSH is low and free T4 was elevated his doses been decreased while hospitalized she should've a follow-up recheck in the outpatient setting in 4-6 weeks 6. Osteoporosis: Resume his calcium and vitamin D supplementation on discharge DVT prophylaxis: Anticoagulation DISPOSITION: Pending PT clearance. VS, I&O, 24H, Fishbone Vital Signs/I&O Vital Signs Date Time Temp Pulse Resp B/P (MAP) Pulse Ox O2 Delivery O2 Flow Rate FiO2 09/26/18 12:00 97.5 65 18 119/67 (84) 97 09/24/18 03:00 Nasal Cannula 2.0 I&O- Last 24 Hours up to 6 AM 09/26/18 06:00 Intake Total 674 ml Output Total 425 ml Balance 249 ml Laboratory Data 24H LABS Laboratory Tests 2 09/26/18 04:46: Nucleated Red Blood Cells % (auto) 0.0, Anion Gap 5L, Glomerular Filtration Rate > 60.0, Blood Urea Nitrogen 26H, Creatinine 1.12, Sodium Level 137, Potassium Level 4.5, Chloride Level 105, Carbon Dioxide Level 27, Calcium Level 8.2L, Magnesium Level 2.1, Troponin I < 0.02 CBC/BMP Laboratory Tests 09/26/18 04:46 Red Blood Count 3.28 L, Mean Corpuscular Volume 94.5, Mean Corpuscular Hemoglobin 32.0, Mean Corpuscular Hemoglobin Concent 33.9, Red Cell Distribution Width 13.9, Calcium Level 8.2 L Microbiology Microbiology 09/23/18 Blood Culture - Preliminary, Resulted No Growth after 48 hours. All Specime... 09/23/18 Blood Culture - Preliminary, Resulted No Growth after 48 hours. All Specime... 09/23/18 Urine Culture - Final, Complete Escherichia Coli BLAYNE BROOKS MD Sep 26, 2018 12:31
[2018-09-26 14:00] VITALS: BP 117/65
[2018-09-26] MEDS: ATORVASTATIN 20 MG TAB PO SCH (20:53)
[2018-09-26 22:00] VITALS: BP 110/62
[2018-09-27] MEDS: METOPROLOL TART 25 MG TABLET PO SCH ×3 (01:23→16:12)
[2018-09-27 06:00] VITALS: BP 106/62
[2018-09-27 06:12] LABS: HEMATOCRIT 30.7 % (42.0-52.0); HEMOGLOBIN 10.4 g/dl (13.5-17.5); MEAN CORPUSCULAR HEMOGLOBIN 32.8 pg (27.0-33.0); MEAN CORPUSCULAR HGB CONC 33.9 g/dl (32.0-36.5); MEAN CORPUSCULAR VOLUME 96.8 fl (80.0-96.0); PLATELET COUNT, AUTOMATED 190 10^3/uL (150-450); RED BLOOD COUNT 3.17 10^6/uL (4.30-6.10)
[2018-09-27] MEDS: LEVOTHYROXINE 75MCG TABLET (0.075MG) PO SCH (06:34)
[2018-09-27] MEDS: SLF 3 ML SYR IV SCH ×3 (06:35→21:32)
[2018-09-27 06:42] LABS: BLOOD UREA NITROGEN 25 MG/DL (7-18); CALCIUM LEVEL 8.4 MG/DL (8.8-10.2); CARBON DIOXIDE LEVEL 28 MEQ/L (21-32); CHLORIDE LEVEL 106 MEQ/L (98-107); CREATININE FOR GFR 1.06 MG/DL (0.70-1.30); GLOMERULAR FILTRATION RATE > 60.0 (>35); GLUCOSE, FASTING 103 MG/DL (70-100); MAGNESIUM LEVEL 2.1 MG/DL (1.8-2.4); POTASSIUM SERUM 4.5 MEQ/L (3.5-5.1); SODIUM LEVEL 138 MEQ/L (136-145)
[2018-09-27] MEDS: CEFDINIR 300 MG CAP (OMNICEF) PO SCH ×2 (08:06→21:31)
[2018-09-27] MEDS: APIXABAN 5 MG TAB (ELIQUIS) PO SCH ×2 (08:06→21:31)
[2018-09-27] MEDS: ASPIRIN 81 MG ENTERIC TAB PO SCH (08:06)
[2018-09-27] MEDS: methylPREDNISolone 4 MG TAB PO SCH ×2 (08:36→21:31)
--- NOTE | 2018-09-27 11:54 | IPNPDOC ---
Date Seen The patient was seen on 09/27/18. Progress Note SUBJECTIVE: Patient is a 88-year-old white male with a past medical history of metastatic prostate cancer, chronic atrial fibrillation, dilated cardiomyopathy with chronic systolic heart failure, hereditary hemochromatosis, history of iron deficiency anemia, CAD s/p [place] in 2018, GERD, Stable pulmonary nodules, osteoporosis, and hernia repair presented to the emergency room with shortness of breath. The patient was brought in by his daughter who noticed her father has been short of breath for the last few days. She states that he has been short of breath at rest and while ambulating to the bathroom. She had to assist him while he was walking yesterday, that was when she insisted he came to the emergency room. He states that he has been compliant with his fluid restriction regimen. The patient states that his amiodarone prescription was discontinued a few months ago and his metoprolol was also discontinued just a few weeks ago. He denies any recent weight gain, lower extremity edema, or chest pain. Patient was examined at bedside. He states that he still has urgency and a burning sensation before and during urination. Patient admits that he has been short of breath while lying in bed. He can walk to the bathroom without dizziness or presyncope. He denies chest pain, palpitations, nausea, vomiting, or diarrhea. His atrial fibrillation has resolved, he is being monitored by [facility] rdiology. OBJECTIVE PHYSICAL EXAMINATION: VITAL SIGNS: Please see below. GENERAL: 88 year old male lying in bed. He is in no acute distress. Speaking comfortably in full sentence and alert to his surroundings HEENT: NC AT, mucous membranes moist and pink CARDIOVASCULAR: Regular rate and rhythm, no murmurs, rubs, or gallops appreciated. RESPIRATORY: clear to auscultation bilaterally ABDOMINAL: soft, non-tender to palpation. Normal bowel sounds appreciated. No suprapubic tenderness noted EXTREMITIES: no lower extremity edema noted. no cyanosis or rashes appreciated NEUROLOGICAL: no focal deficits. Patient is alert and oriented x3 PSYCHOLOGICAL: normal affect LABORATORY DATA, IMAGING STUDIES, MICROBIOLOGY: Please see below. 1. Chest x-ray 09/23/18: Stable chronic findings without acute infiltrate. 2. Angiography CT 09/23/18: 1. There is no aortic dissection or aneurysm. 2. There are no pulmonary emboli. 3. Abdomen/pelvis CT: 1. There is a diffuse decrease in hepatic parenchymal density, consistent with fatty infiltration. 2. Mild diverticulosis is present in the distal colon. No diverticulitis. 3. Nodular omentum, findings of uncertain significance but which can be demonstrated in metastatic disease. Notably, the findings are stable in comparison to the prior study of 02/19/2018 DVT prophylaxis ordered?: Yes, Eliquis ASSESSMENT AND PLAN: Patient is a 88-year-old white male with a past medical history of metastatic prostate cancer, chronic atrial fibrillation, dilated cardiomyopathy with chronic systolic heart failure, hereditary hemochromatosis, history of iron deficiency anemia, CAD s/p MD in 2018, GERD, Stable pulmonary nodules, osteoporosis, and hernia repair PROBLEMS: 1. Dyspnea 2/2 to chronic atrial fibrillation with RVR -CHADSVASC score: 3 -CTA negative for PE -Trending troponin -c/w metoprolol -Dr. Serna has been consulted -Working with PT and OT 2. Dysuria 2/2 UTI -patient has history of incontinence and metastatic prostate cancer -UA: leukocyte esterase: 3+, WBC: too numerous to count, RBC: 14+ -c/w omnicef -s/p condom catheter 3. systolic congestive heart failure -patient has dilated cardiomyopathy -Clinically partially decompensated -Chest x-ray did not show acute infiltrate -no added salt diet, daily weighs, In/outs every 4 hours -BNP level: 4057 on admission 4. Hypokalemia -supplemented and resolved 5. Hypothyroidism -Free T4 is elevated -TSH is low -decreased dose of levothyroxine 6. Thrombocytopenia -resolved -platelet count 190 7. Chronic CAD -c/w home meds 8. Metastatic prostate CA -follow up with oncologist on an outpatient basis DVT prophylaxis: Yes, Eliquis DISPOSITION: Patient is stable and prognosis is guarded. Atrial fibrillation has resolved. He is working with PT and OT, hopeful to discharge tomorrow. Continue with omnicef for UTI. Patient needs to follow up with Oncology. We appreciate Cardiology for their input. VS, I&O, 24H, Fishbone Vital Signs/I&O Vital Signs Date Time Temp Pulse Resp B/P (MAP) Pulse Ox O2 Delivery O2 Flow Rate FiO2 09/27/18 08:06 69 109/61 09/27/18 06:00 98.4 18 100 09/24/18 03:00 Nasal Cannula 2.0 I&O- Last 24 Hours up to 6 AM 09/27/18 06:00 Intake Total 1020 ml Output Total 450 ml Balance 570 ml Laboratory Data 24H LABS Laboratory Tests 2 09/27/18 05:25: Nucleated Red Blood Cells % (auto) 0.0, Anion Gap 4L, Glomerular Filtration Rate > 60.0, Blood Urea Nitrogen 25H, Creatinine 1.06, Sodium Level 138, Potassium Level 4.5, Chloride Level 106, Carbon Dioxide Level 28, Calcium Level 8.4L, Magn esium Level 2.1 CBC/BMP Laboratory Tests 09/27/18 05:25 Red Blood Count 3.17 L, Mean Corpuscular Volume 96.8 H, Mean Corpuscular Hemoglobin 32.8, Mean Corpuscular Hemoglobin Concent 33.9, Red Cell Distribution Width 14.2, Calcium Level 8.4 L Microbiology Microbiology 09/23/18 Blood Culture - Preliminary, Resulted No Growth after 72 hours. All specime... 09/23/18 Blood Culture - Preliminary, Resulted No Growth after 72 hours. All specime... 09/23/18 Urine Culture - Final, Complete Escherichia Coli ROBERTJOHN GONZALESIA S-3 Sep 27, 2018 11:54
[2018-09-27 14:00] VITALS: BP 109/63
[2018-09-27] MEDS: ATORVASTATIN 20 MG TAB PO SCH (21:31)
[2018-09-27 22:00] VITALS: BP_SYST 124; BP_SYST 99; BP_DIAS 58; BP_DIAS 59
[2018-09-28] MEDS: LEVOTHYROXINE 75MCG TABLET (0.075MG) PO SCH (05:41)
[2018-09-28] MEDS: SLF 3 ML SYR IV SCH ×2 (05:42→10:28)
[2018-09-28 06:00] VITALS: BP 101/65
[2018-09-28 06:04] LABS: HEMOGLOBIN 10.5 g/dl (13.5-17.5); MEAN CORPUSCULAR HEMOGLOBIN 33.2 pg (27.0-33.0); MEAN CORPUSCULAR HGB CONC 33.9 g/dl (32.0-36.5); MEAN CORPUSCULAR VOLUME 98.1 fl (80.0-96.0); PLATELET COUNT, AUTOMATED 199 10^3/uL (150-450); RED BLOOD COUNT 3.16 10^6/uL (4.30-6.10); WHITE BLOOD COUNT 6.8 10^3/uL (4.0-10.0)
[2018-09-28 06:25] LABS: BLOOD UREA NITROGEN 23 MG/DL (7-18); CALCIUM LEVEL 8.5 MG/DL (8.8-10.2); CARBON DIOXIDE LEVEL 28 MEQ/L (21-32); CHLORIDE LEVEL 108 MEQ/L (98-107); CREATININE FOR GFR 0.97 MG/DL (0.70-1.30); GLOMERULAR FILTRATION RATE > 60.0 (>35); GLUCOSE, FASTING 110 MG/DL (70-100); MAGNESIUM LEVEL 2.2 MG/DL (1.8-2.4); POTASSIUM SERUM 4.8 MEQ/L (3.5-5.1); SODIUM LEVEL 139 MEQ/L (136-145)
[2018-09-28] MEDS: APIXABAN 5 MG TAB (ELIQUIS) PO SCH (08:28)
[2018-09-28] MEDS: CEFDINIR 300 MG CAP (OMNICEF) PO SCH (08:28)
[2018-09-28] MEDS: ASPIRIN 81 MG ENTERIC TAB PO SCH (08:28)
[2018-09-28] MEDS: methylPREDNISolone 4 MG TAB PO SCH (08:28)
[2018-09-28 08:29] VITALS: BP 112/62
[2018-09-28] MEDS: METOPROLOL TART 25 MG TABLET PO SCH ×2 (08:29)
--- NOTE | 2018-09-28 11:11 | DS.PDOC ---
Discharge Summary General Date of Admission Sep 23, 2018 at 20:41 Date of Discharge 09/28/18 Attending Physician: BLAYNE BROOKS MD Specialist/Consultants Involve: JON GO MD Discharge Summary PROCEDURES PERFORMED DURING STAY: None ADMITTING DIAGNOSES: 1. Dyspnea 2/2 to Atrial fibrillation with RVR 2. Acute systolic congestive heart failure 3. Bicytopenia 4. Hypokalemia 5. Hypothyroidism 6.Chronic CAD 7. Metastatic prostate cancer DISCHARGE DIAGNOSES: 1. Chronic atrial fibrillation with RVR 2. UTI 3. Systolic Congestive heart failure 4. Hypokalemia 5. Hypothyroidism 6. Thrombocytopenia 7. Chronic CAD 8. Metastatic Prostate Cancer COMPLICATIONS/CHIEF COMPLAINT: Shortness of breath HISTORY OF PRESENT ILLNESS: Patient is a 88-year-old white male with a past medical history of metastatic prostate cancer, chronic atrial fibrillation, dilated cardiomyopathy with chronic systolic heart failure, hereditary hemochromatosis, history of iron deficiency anemia, CAD s/p LA in 2018, GERD, Stable pulmonary nodules, osteoporosis, and hernia repair presented to the emergency room with shortness of breath. The patient was brought in by his daughter who noticed her father has been short of breath for the last few days. She states that he has been short of breath at rest and while ambulating to the bathroom. She had to assist him while he was walking yesterday, that was when she insisted he came to the emergency room. He states that he has been compliant with his fluid restriction regimen. The patient states that his amiodarone prescription was discontinued a few months ago and his metoprolol was also discontinued just a few weeks ago. He denies any recent weight gain, lower extremity edema, or chest pain. HOSPITAL COURSE: Patient was treated for Atrial fibrillation with RVR. A head CT and chest x-ray were unremarkable. He had a CHADVASC score of 3 and was monitored by Cardiology. He was started on a Cardizem drip for rate control and a heparin drip for anticoagulation. His BNP on admission was 4057, he was diuresed with lasix. He was placed on a no added salt diet, daily weighs, and In/outs every 4 hours. On day #2 of admission patient began complaining of dysuria, an abnormal urinalysis came back and he was treated with Omnicef. Minnie ent worked with and was cleared by physical therapy. He is being discharged on Omnicef and metoprolol and will need to follow up with PCP in 7 days and [employer] Worker in 2 weeks. He will need to follow up with oncology for prostate cancer and should consult a urologist for chronic urinary incontinence. DISCHARGE MEDICATIONS: Please see below. ALLERGIES: Please see below. PHYSICAL EXAMINATION ON DISCHARGE: VITAL SIGNS: Please see below. GENERAL: A 88 year old male sitting up in a chair. He is alert and oriented to his surroundings. He is not in any acute distress. HEENT: NC AT, mucous membranes are moist and pink NECK: neck is supple CARDIOVASCULAR EXAMINATION: Regular rate and rhythm noted. No murmurs, rubs, or gallops appreciated RESPIRATORY EXAMINATION: clear to auscultation bilaterally. No wheezes, rhonchi, or rales appreciated ABDOMINAL EXAMINATION: soft, nontender to palpation, no suprapubic tenderness, no CVA tenderness, normal bowel sounds EXTREMITIES: no lower extremity edema noted SKIN: no cyanosis or rashes noted NEUROLOGICAL EXAMINATION: no focal deficits, patient is alert and oriented x3 PSYCHIATRIC EXAMINATION: appropriate affect LABORATORY DATA: Please see below. IMAGIN. Chest x-ray 09/23/18: Stable chronic findings without acute infiltrate. 2. Angiography CT 09/23/18: 1. There is no aortic dissection or aneurysm. 2. There are no pulmonary emboli. 3. Abdomen/pelvis CT: 1. There is a diffuse decrease in hepatic parenchymal density, consistent with fatty infiltration. 2. Mild diverticulosis is present in the distal colon. No diverticulitis. 3. Nodular omentum, findings of uncertain significance but which can be demonstrated in metastatic disease. Notably, the findings are stable in comparison to the prior study of 02/19/2018 PROGNOSIS: Fair ACTIVITY: As tolerated DIET: Regular diet DISPOSITION: Patient is being discharged home DISCHARGE INSTRUCTIONS: 1. return to the emergency room in the event of an emergency ITEMS TO FOLLOWUP ON ON OUTPATIENT: 1. Follow up with PCP within 7 days 2. Follow up with Cardiology within 2 weeks 3. Recommend outpatient Urology referral for chronic urinary incontinence DISCHARGE CONDITION: Stable TIME SPENT ON DISCHARGE: Greater than 35 minutes. Vital Signs/I&Os Vital Signs Date Time Temp Pulse Resp B/P (MAP) Pulse Ox O2 Delivery O2 Flow Rate FiO2 09/28/18 08:29 70 112/62 09/28/18 06:00 97.3 17 94 09/24/18 03:00 Nasal Cannula 2.0 I&O- Last 24 Hours up to 6 AM 09/28/18 06:00 Intake Total 1150 ml Balance 1150 ml Laboratory Data Labs 24H Laboratory Tests 2 09/28/18 05:25: Nucleated Red Blood Cells % (auto) 0.0, Anion Gap 3L, Glomerular Filtration Rate > 60.0, Blood Urea Nitrogen 23H, Creatinine 0.97, Sodium Level 139, Potassium Level 4.8, Chloride Level 108H, Carbon Dioxide Level 28, Calcium Level 8.5L, Magnesium Level 2.2 CBC/BMP Laboratory Tests 09/28/18 05:25 Red Blood Count 3.16 L, Mean Corpuscular Volume 98.1 H, Mean Corpuscular Hemoglobin 33.2 H, Mean Corpuscular Hemoglobin Concent 33.9, Red Cell Distribution Width 14.3, Calcium Level 8.5 L Microbiology Microbiology 09/23/18 Blood Culture - Preliminary, Resulted No Growth after 72 hours. All specime... 09/23/18 Blood Culture - Preliminary, Resulted No Growth after 72 hours. All specime... 09/23/18 Urine Culture - Final, Complete Escherichia Coli Discharge Medications Scheduled Abiraterone Acet,Submicronized (Yonsa) 125 Mg Tablet, 125 MG PO QID, (Reported) Apixaban (Eliquis) 5 Mg Tablet, 5 MG PO BID Aspirin (Aspirin EC) 81 Mg Tab, 81 MG PO DAILY, (Reported) Atorvastatin Calcium (Atorvastatin Calcium) 20 Mg Tablet, 40 MG PO QHS Calcium Carbonate/Vitamin D3 (Calcium 600-Vit D3 400 Tablet) 1 Tab Tab, 1 TAB PO BID, (Reported) Cefdinir (Cefdinir) 300 Mg Capsule, 300 MG PO BID Denosumab Injection (Prolia) 60 Mg/Ml Tsering, 60 MG SC ASDIRECTED, (Reported) EVERY 6 MONTHS Dexlansoprazole (Dexilant) 30 Mg , 30 MG PO DAILY, (Reported) Furosemide (Lasix) 20 Mg Tablet, 20 MG PO DAILY, (Reported) Leuprolide Acetate (Lupron Depot) 45 Mg Syringekit, 45 MG IM ASDIRECTED, (Reported) EVERY 6 MONTHS Levothyroxine Sodium (Levothyroxine Sodium) 75 Mcg Tablet, 75 MCG PO DAILY@06 Methylprednisolone (Methylprednisolone) 4 Mg Tablet, 4 MG PO BID, (Reported) Metoprolol Tartrate (Metoprolol Tartrate) 25 Mg Tablet, 25 MG PO Q8H Multivit-Min/FA/Lycopen/Lutein (Centrum Silver Tablet) 1 Tab Tab, 1 TAB PO DAILY, (Reported) Scheduled PRN Albuterol Sulfate (Ventolin Hfa) 108 Mcg/Act Aer, 2 PUFFS INH QID PRN for SHORTNESS OF BREATH, (Reported) Allergies Coded Allergies: tamsulosin (Verified Allergy, Intermediate, dizzy, 05/26/18) [facility] [place]-[facility] Sep 28, 2018 11:11
[2018-09-28 14:00] VITALS: BP 134/77
== END 2018-09-28 15:43 | disposition home or self-care (01) | DRG 308 ==
LOC: M ED 16:34 → M ED INP 20:41 → M ICU 09-24 03:43 → M PCU 09-25 15:10 → M MSPAV 09-26 14:46
PROVIDERS: ADMIT Internal Medicine; ATTEND Internal Medicine
DX: I48.2 Chronic atrial fibrillation (principal); I50.21 Acute systolic (congestive) heart failure; N39.0 Urinary tract infection, site not specified; C79.9 Secondary malignant neoplasm of unspecified site; I25.10 Atherosclerotic heart disease of native coronary artery without angina pectoris; E87.6 Hypokalemia; E03.9 Hypothyroidism, unspecified; D69.6 Thrombocytopenia, unspecified; I25.5 Ischemic cardiomyopathy; E83.110 Hereditary hemochromatosis; D50.9 Iron deficiency anemia, unspecified; I25.2 Old myocardial infarction; K21.9 Gastro-esophageal reflux disease without esophagitis; R91.8 Other nonspecific abnormal finding of lung field; M81.0 Age-related osteoporosis without current pathological fracture; Z79.82 Long term (current) use of aspirin; Z79.899 Other long term (current) drug therapy; Z88.8 Allergy status to other drugs, medicaments and biological substances; C61 Malignant neoplasm of prostate; E78.5 Hyperlipidemia, unspecified; K57.30 Diverticulosis of large intestine without perforation or abscess without bleeding

== ENCOUNTER → 2018-10-08 | Outpatient (CLI) | payer MEDICARE ==
[~2018-10-08] MED LIST changes: +ATOR1TAB21 PO; +ATOR40TA75 PO; +CEFD300CAP PO; -DIGO0.12; +DIGO0.123; +FERR150C PO; +INCR1INH INH; +LEVO75TA4 PO; +LUPR45IN IM; +METH4TAB8 PO; +METO1TAB87 PO; +METO25TA4 PO; +PROT1TAB2 PO; +SPIR-10 PO; +SYNT75TA PO; +[UNRECOGNIZED DRUG - CODE] PO
[2018-10-08 12:39] LABS: ALBUMIN 3.3 GM/DL (3.2-5.2); BILIRUBIN,DIRECT 0.3 MG/DL (0.0-0.2); BILIRUBIN,TOTAL 0.9 MG/DL (0.2-1.0); CHOLESTEROL RISK RATIO 1.878 (<5); TOTAL PROTEIN 6.5 GM/DL (6.4-8.2)
== END ==
LOC: M LAB 11:16
PROVIDERS: ATTEND Family Medicine
DX: I25.10 Atherosclerotic heart disease of native coronary artery without angina pectoris (principal); I25.5 Ischemic cardiomyopathy

== ENCOUNTER 2018-10-30 02:23 | Day surgery (SDC) | payer MEDICARE ==
[~2018-10-30] VITALS: Ht 167.6 cm; Wt 65.0 kg
[~2018-10-30 02:23] MED LIST changes: -ATOR40TA75 PO; +DIGO0.12; -DIGO0.123; -FERR150C PO; -INCR1INH INH; +METH4TAB28 PO; -METH4TAB8 PO; -METO25TA4 PO; -PROT1TAB2 PO; -SPIR-10 PO; -SYNT75TA PO
[2018-10-30] MEDS ORDERED: LIDOCAINE 2% 5ML JELLY UROJET As Ordered ONE (04:55)
[2018-10-30] MEDS ORDERED: SPIR-10 PO (06:18)
[2018-10-30] MEDS ORDERED: ELIQ5TAB PO (07:28)
[2018-10-30] MEDS ORDERED: METO25TA4 PO (07:28)
[2018-10-30] MEDS ORDERED: ATOR40TA75 PO (07:28)
[2018-10-30] MEDS ORDERED: SYNT75TA PO (07:28)
[2018-10-30] MEDS ORDERED: ceFAZolin 2 GM/D5W 50 ML IV BAG (J0690 PER 500MG) As Ordered ONE (08:08)
[2018-10-30] MEDS ORDERED: PHENYLephrine HCL 500 MCG/5 ML (100MCG/ML) SYRINGE (J2370) As Ordered ONE (08:36)
[2018-10-30] MEDS ORDERED: dexameTHASONE 4 MG/ML 1ML VIAL (J1100) As Ordered ONE (08:36)
[2018-10-30] MEDS ORDERED: LIDOCAINE 2% INJ 100 MG/5 ML SDV (FOR ANES.) As Ordered ONE (08:36)
[2018-10-30] MEDS ORDERED: ONDANSETRON 4MG/2ML VIAL (J2405) As Ordered ONE (08:36)
[2018-10-30] MEDS ORDERED: PROPOFOL 200 MG/20 ML VIAL As Ordered ONE (08:36)
[2018-10-30] MEDS ORDERED: fentaNYL 100 MCG/2 ML INJECTION (J3010) As Ordered ONE (08:36)
[2018-10-30] MEDS ORDERED: ceFAZolin 2 GM/D5W 50 ML IV BAG (J0690 PER 500MG) IV ONE (09:00)
[2018-10-30] MEDS ORDERED: HYDROMORPHONE HCL 0.5 MG/ 0.5 ML SYRINGE (J1170 PER 1) IV PRN (09:15)
[2018-10-30] MEDS ORDERED: LR 1,000 ML IV SCH (09:15)
[2018-10-30] MEDS ORDERED: PERCOCET 5MG/325MG TAB PO PRN (09:15)
[2018-10-30] MEDS ORDERED: fentaNYL 100 MCG/2 ML INJECTION (J3010) IV PRN (09:15)
[2018-10-30] MEDS ORDERED: ONDANSETRON 4MG/2ML VIAL (J2405) IV PRN (09:15)
[2018-10-30 09:35] VITALS: BP 135/81
[2018-10-30 10:05] VITALS: BP 126/58
[2018-10-30 10:54] VITALS: BP 109/67
[2018-10-30 11:35] VITALS: BP 109/56
[2018-10-30 12:35] VITALS: BP 100/55
[2018-10-30 13:35] VITALS: BP 93/55
--- NOTE | 2018-11-01 16:08 | ER ---
DATE OF CONSULTATION: 10/30/2018 CONCLUSIONS: 1. Acute urinary retention with inability to pass catheter or filiform catheter into the bladder, probably secondary to radiation therapy and cryotherapy for prostate cancer. 2. History of cardiac disease, myocardial infarction 2 years ago, congestive heart failure (CHF), atrial fibrillation on Eliquis. 3. Probable chronic obstructive pulmonary disease (COPD). 4. Hypothyroidism. RECOMMENDATIONS: 1. Unable to pass a filiform into the bladder to alleviate the patient's problem with urinary retention. I recommended that the patient be taken to the operating room for under anesthesia cystoscopy can be performed and in order to find a mechanism to pass a catheter into the bladder. I have discussed this with the patient and his two daughters. They agree with proceeding. DISCUSSION: The patient is an 88-year-old male who presented to the emergency room earlier this morning with inability to urinate since approximately 6:00 p.m. last night. The patient has noted no dysuria, no gross hematuria. He had a prior similar episode approximately 1 year ago, which was alleviated with some difficult placement of Talley catheter. The patient's past urologic history is important in that approximately 10 years ago he was treated with cryotherapy and radiation therapy for prostate cancer. He is presently on androgen deprivation. He is followed by a urologist in [place], [place]. PAST MEDICAL HISTORY: 1. Cardiac event with myocardial infarction approximately 2 years ago. 2. Atrial fibrillation and was hospitalized approximately 1 month ago with congestive heart failure (CHF). 3. Chronic lung disease. PHYSICAL EXAMINATION: GENERAL: Alert male lying on the stretcher, no distress. HEENT: Unremarkable. NECK: Supple without adenopathy. CHEST: Clear bilaterally to auscultation. HEART: Irregularly irregular rhythm without murmur appreciated. ABDOMEN: Soft, nontender. Bladder is not distended. GENITOURINARY: Severe phimosis with inability to retract foreskin to expose glans penis. Testes are small bilaterally. EXTREMITIES: Without edema, cyanosis, clubbing or deformity. NEUROLOGIC: Intact. PROCEDURE: The patient's penis was prepped with Betadine and a 16 [place] Coude Talley catheter could not be introduced into the bladder. Hymen filiform was inserted times two into the urethra but I was unable to pass this into the bladder.
--- NOTE | 2018-11-02 07:24 | RO ---
DATE OF PROCEDURE: 10/30/2018 PREPROCEDURE DIAGNOSIS: Urinary retention with history of prostate cancer and inability to pass urethral catheter or filiform in the bladder. POSTPROCEDURE DIAGNOSIS: Urinary retention with history of prostate cancer and inability to pass urethral catheter or filiform in the bladder secondary to intense scarring in prostatic urethra. PROCEDURE: Cystourethroscopy, urethral dilation, placement of Talley catheter in the bladder. SURGEON: Dr. Celsa Sutherland TRAFFIC SIGNAL TECHNICIAN: ANESTHESIA: General. Laryngeal mask anesthesia (LMA). COMPLICATIONS: None. DRAINS: 16-[place] Talley catheter placed in the bladder. SPECIMENS: None. ESTIMATED BLOOD LOSS: 10 mL. BLOOD REPLACED: None. HISTORY: The patient is an 88-year-old male who presented to the emergency room early this morning with inability to urinate for the last 12 hours. Attempts at placement of Talley catheter and a filiform catheter into the bladder in the emergency room were unsuccessful. The patient was brought to the operating room for cystoscopy and placement of a Talley catheter. Patient has undergone prior cryotherapy and radiation therapy for prostate cancer. He is on androgen deprivation therapy. The procedure was carefully explained to the patient and his daughters along with the benefits, risks, alternatives and possible adverse effects. Informed consent was obtained. DESCRIPTION OF PROCEDURE: After successful anesthetization with satisfactory level of general anesthesia via LMA, the patient was placed in the dorsal lithotomy position on the operating room table. The patient's genitalia was prepped and draped in a sterile manner. The patient was noted to have severe phimosis. A #20-Spanish Olympus cystoscope sheath with a 30-degree lens was inserted into the phimosis into the urethral meatus and into the prostatic urethra where a nearly complete obstruction of the prostatic urethra was noted. It was impossible to negotiate the tip of the cystoscope into the bladder. A 5-Spanish open-end ureteral catheter was used to advance the sensory guidewire into the bladder. The open-end catheter was advanced over the guidewire into the bladder and the cystoscope was withdrawn. The guidewire was removed and aspiration of the ureteral catheter verified it to be in the bladder. The sensory wire was then replaced through the lumen of the ureteral catheter into the bladder and the ureteral catheter was removed. Using the implants dilating set, the prostatic urethra was dilated to a #20-Spanish. This was accomplished with significant resistance. A 16-[place] tip Talley catheter was advanced over the guidewire into the bladder, the balloon was inflated and the catheter was easily irrigated verifying proper position. This was left in place. This was connected to dependent drainage. The patient was awakened and transported to the recovery room in satisfactory condition and tolerated the procedure well.
== END 2018-10-30 14:23 | disposition home or self-care (01) ==
LOC: M ED 02:23 → M SDC 06:45 → M MS4PR 09:35 → M SDC 14:23
PROVIDERS: ATTEND Urology
DX: R33.9 Retention of urine, unspecified (principal); N36.8 Other specified disorders of urethra; Z85.46 Personal history of malignant neoplasm of prostate; E03.9 Hypothyroidism, unspecified; I50.9 Heart failure, unspecified; E83.119 Hemochromatosis, unspecified; I25.2 Old myocardial infarction; Z79.82 Long term (current) use of aspirin; Z79.899 Other long term (current) drug therapy; Z88.8 Allergy status to other drugs, medicaments and biological substances
CPT/HCPCS: 52281; 99284; C1769; J0690; J1100; J2370; J2405; J3010

== ENCOUNTER 2018-12-01 19:49 | Inpatient (IN) | payer MEDICARE ==
[~2018-12-01] VITALS: Ht 170.2 cm; Wt 63.1 kg
[~2018-12-01 19:49] MED LIST changes: +ATOR40TA75 PO; +METO25TA4 PO; +SPIR-10 PO; +SYNT75TA PO
[2018-12-01] MEDS ORDERED: ACETAMINOPHEN TAB 650MG DOSE (2X325MG) PO ONE (20:15)
[2018-12-01 20:54] LABS: BASO % 0.3 % (0.0-1.0); EOS # 0.1 10^3/uL (0.0-0.5); EOS % 0.6 % (0.0-3.0); HEMOGLOBIN 8.6 g/dl (13.5-17.5); LYMPH # 0.5 10^3/uL (1.5-5.0); LYMPH % 5.6 % (24.0-44.0); MEAN CORPUSCULAR HEMOGLOBIN 29.3 pg (27.0-33.0); MEAN CORPUSCULAR HGB CONC 33.1 g/dl (32.0-36.5); MEAN CORPUSCULAR VOLUME 88.4 fl (80.0-96.0); MONO # 0.4 10^3/uL (0.0-0.8); NEUTROPHILS # 8.2 10^3/uL (1.5-8.5); NEUTROPHILS % 88.5 % (36.0-66.0); PLATELET COUNT, AUTOMATED 175 10^3/uL (150-450); RED BLOOD COUNT 2.94 10^6/uL (4.30-6.10); WHITE BLOOD COUNT 9.3 10^3/uL (4.0-10.0)
[2018-12-01] MEDS ORDERED: NS 500 ML IV ONE (21:15)
[2018-12-01 21:24] LABS: INFLUENZA A AMPLIFICATION NEGATIVE (NEGATIVE); INFLUENZA B AMPLIFICATION NEGATIVE (NEGATIVE)
[2018-12-01 21:26] LABS: APPEARANCE, URINE HAZY (CLEAR); BACTERIA, URINE AUTO 1+ (NEGATIVE); BILIRUBIN, URINE AUTO NEGATIVE (NEGATIVE); BLOOD, URINE BLOOD 2+ (NEGATIVE); COLOR, URINE YELLOW (YELLOW); GLUCOSE, URINE (UA) AUTO NEGATIVE (NEGATIVE); KETONE, URINE AUTO NEGATIVE (NEGATIVE); LEUKOCYTE ESTERASE, URINE AUTO 3+ (NEGATIVE); MUCUS, URINE SMALL (NEGATIVE); NITRITE, URINE AUTO NEGATIVE (NEGATIVE); PROTEIN, URINE AUTO NEGATIVE (NEGATIVE); RBC, URINE AUTO 16 /HPF (0-3); SPECIFIC GRAVITY URINE AUTO 1.006 (1.002-1.035); SQUAMOUS EPITHELIAL CELL UR AU 0 /HPF (0-6); UROBILINOGEN, URINE AUTO 0.2 mg/dL (0.0-2.0); WBC, URINE AUTO 75 /HPF (0-3)
[2018-12-01 21:28] LABS: ALBUMIN 2.8 GM/DL (3.2-5.2); ALT/SGPT 33 U/L (12-78); BILIRUBIN,DIRECT 0.5 MG/DL (0.0-0.2); BILIRUBIN,TOTAL 1.7 MG/DL (0.2-1.0); BLOOD UREA NITROGEN 15 MG/DL (7-18); CARBON DIOXIDE LEVEL 29 MEQ/L (21-32); CHLORIDE LEVEL 95 MEQ/L (98-107); CK-MB VALUE MASS < 1.0 NG/ML (<3.6); CPK CREATINE PHOSPHOKINASE 31 U/L (39-308); CREATININE FOR GFR 0.89 MG/DL (0.70-1.30); GLOMERULAR FILTRATION RATE > 60.0 (>35); GLUCOSE, FASTING 114 MG/DL (70-100); MAGNESIUM LEVEL 1.5 MG/DL (1.8-2.4); MB/CK RELATIVE INDEX 3.23 (< OR =4); PHOSPHORUS LEVEL 2.8 MG/DL (2.5-4.9); POTASSIUM SERUM 3.1 MEQ/L (3.5-5.1); SODIUM LEVEL 132 MEQ/L (136-145); TOTAL PROTEIN 5.7 GM/DL (6.4-8.2); TROPONIN I 0.08 NG/ML (< 0.10)
[2018-12-01] MEDS ORDERED: cefTRIAXone SOD 2 GM in D5W MINI-BAG PLUS 50 ML IV ONE (22:15)
[2018-12-01] MEDS ORDERED: NS 1,440 ML in IV 1 EA IV ONE (22:15)
--- NOTE | 2018-12-01 22:19 | REPVR ---
PROCEDURE INFORMATION: Exam: XR Chest, 2 Views Exam date and time: 12/01/2018 9:37 PM Clinical history: 88 years old, male; Condition or disease; Other: Sirs TECHNIQUE: Imaging protocol: XR of the chest Views: 2 views. COMPARISON: CR PORTABLE CHEST X-RAY 09/23/2018 5:01 PM FINDINGS: Lungs: Decreased left base atelectasis since the prior study. Pleural space: Unremarkable. No pleural effusion. No pneumothorax. Heart/Mediastinum: The heart and mediastinum are unchanged. Bones/joints: Unremarkable. IMPRESSION: 1. Decreased left base atelectasis since 09/23/2018. 2. Otherwise stable chest. No acute interval process is identified. Electronically signed by: Donal Watson On 12/01/2018 22:19:48 PM
[2018-12-01] MEDS ORDERED: INCR1INH INH (22:34)
[2018-12-01] MEDS ORDERED: POTASSIUM CHLORIDE 10 MEQ SR TABLET PO ONE (23:00)
[2018-12-01] MEDS ORDERED: MAGNESIUM OXIDE 400 MG TAB (MAG-OX) PO ONE (23:00)
[2018-12-01] MEDS ORDERED: ACETAMINOPHEN TAB 650MG DOSE (2X325MG) PO PRN (23:30)
[2018-12-01] MEDS ORDERED: DENOSUMAB 60MG/1ML SYRINGE (PROLIA) (J0897 PER 1MG) (FOR ONCOLOGY) SC SCH (23:30)
[2018-12-01] MEDS ORDERED: LEUPROLIDE IM SCH (23:30)
[2018-12-01] MEDS ORDERED: ALBUTEROL 90 MCG/ACT 8GM HFA INHALER INH PRN (23:30)
[2018-12-01] MEDS ORDERED: MAALOX 30 ML SUSP *UDC PO PRN (23:30)
[2018-12-01] MEDS ORDERED: MOM 30ML SUSPENSION UDC PO PRN (23:30)
--- NOTE | 2018-12-01 23:49 | HPEPDOC ---
General Date of Admission 12/01/18 Date of Service: Dec 01, 2018 Primary Care Physician: Mahnaz Rob Chief Complaint The patient is a 88-year-old male admitted with a reason for visit of Weakness/D izziness. Source: Patient Exam Limitations: No limitations (past few days) Severity: Mild Associated Symptoms: Other (. Dizziness) History of Present Illness , This is 88 years old white male with past medical history of metastatic positive cancer, chronic A. fib, dilated cardiomyopathy, chronic systolic CHF. Hereditary hematochromatosis history of iron deficiency anemia, CAD, GERD, st able pulmonary nodule, osteoporosis, status post hernia repair, had developed dizziness and since last 2-3 days and has not been feeling good with a generalized weakness. Today, while he tried to stand up he passed out and was brought to the hospital by his daughter by ambulance. Patient denies chest pain, shortness of breath, nausea, vomiting or diarrhea Home Medications Scheduled Abiraterone Acet,Submicronized (Yonsa) 125 Mg Tablet, 125 MG PO QID, (Reported) Apixaban (Eliquis) 5 Mg Tablet, 5 MG PO BID, (Reported) Aspirin (Aspirin EC) 81 Mg Tab, 81 MG PO DAILY, (Reported) Atorvastatin Calcium (Atorvastatin Calcium) 40 Mg Tablet, 40 MG PO QHS, (Reported) Calcium Carbonate/Vitamin D3 (Calcium 600-Vit D3 400 Tablet) 1 Tab Tab, 1 TAB PO BID, (Reported) Denosumab Injection (Prolia) 60 Mg/Ml Tsering, 60 MG SC ASDIRECTED, (Reported) EVERY 6 MONTHS. HAS APPT SCHEDULED IN [place] NEXT WEEK Dexlansoprazole (Dexilant) 30 Mg , 30 MG PO QHS, (Reported) Furosemide (Lasix) 20 Mg Tablet, 20 MG PO DAILY, (Reported) Leuprolide Acetate (Lupron Depot) 45 Mg Syringekit, 45 MG IM ASDIRECTED, (Reported) EVERY 6 MONTHS. HAS APPT SCHEDULED NEXT WEEK IN [place] Levothyroxine Sodium (Synthroid) 75 Mcg Tablet, 75 MCG PO QAM, (Reported) Methylprednisolone (Methylprednisolone) 4 Mg Tablet, 4 MG PO BID, (Reported) Metoprolol Tartrate (Metoprolol Tartrate) 25 Mg Tablet, 25 MG PO TID, (Reported) Multivit-Min/FA/Lycopen/Lutein (Centrum Silver Tablet) 1 Tab Tab, 1 TAB PO DAILY, (Reported) Spironolactone (Spironolactone) 25 Mg Tablet, 12.5 MG PO DAILY, (Reported) Umeclidinium [place] (Incruse Ellipta) 62.5 Mcg Blst.w.dev, 1 PUFF INH DAILY, (Reported) Scheduled PRN Albuterol Sulfate (Ventolin Hfa) 108 Mcg/Act Aer, 2 PUFFS INH QID PRN for SHORTNESS OF BREATH, (Reported) Allergies Coded Allergies: No Known Allergies (Unverified , 12/01/18) Past Medical History Medical History Metastatic prostatic CA, chronic A. fib, dilated cardiomyopathy, chronic systolic heart failure. Hemochromatosis, history of iron deficiency anemia, CAD status post [place], GERD, stable pulmonary nodules, osteoporosis, hernia repair, Surgical History As above Family History Significant Family History: No pertinent family hx Social History * Smoker: former Smoker Alcohol: Denies Drugs: denies A-FIB/CHADSVASC A-FIB History Current/History of A-Fib/PAF?: Yes Current PO Anticoag Therapy: Yes Review of Systems Constitutional: Reports: Weakness Eyes: Denies: Pain, Vision change, Conjunctivae inflammation, Eyelid inflammation, Redness, Other ENT: Denies: Head Aches, Ear Pain, Dysphagia, Sinus Congestion, Post Nasal Drip, Sore Throat, Epistaxis, Other Symptoms Skin: Denies: Rash, Lesions, Jaundice, Bruising, Itching, Dry, Breakdown, Nail Changes, Other Pulmonary: Denies: Dyspnea, Cough, Pleuritic Chest Pain, Other Symptoms Cardiovascular: Denies: Chest Pain, Palpitations, Orthopnea, Paroxysmal Noc. Dyspnea, Edema, Lt Headedness, Other Symptoms Gastrointestinal: Denies: Nausea, Vomiting, Abdominal Pain, Diarrhea, Const ipation, Melena, Hematochezia, Other Symptoms Genitourinary: Denies: Dysuria, Frequency, Incontinence, Hematuria, Retention, Other Symptoms Hematologic: Denies: Bruising, Bleeding Excessively, Petecchia, Purpura, Enlarged Lymph Nodes, Other Hematologic Endocrine: Denies: Polydipsia, Polyphagia, Polyuria, Heat Intolerance, Cold Intolerance, Other Endocrine Sx Musculoskeletal: Denies: Neck Pain, Back Pain, Shoulder Pain, Arm Pain, Hand Pain, Leg Pain, Foot Pain, Joint Pain, Muscle Pain, Spasms, Other Symptoms Neurological: Reports: Other Symptoms (. Dizziness) Psych: Denies: Mood Normal, Anxiety, Depression, Memory Issues, Thoughts of Self Harm, Anger, Thoughts of Harming Other, Other Psych Physical Examination General Exam: Positive: Alert, Cooperative Eye Exam: Positive: PERRLA, Conjunctiva & lids normal ENT Exam: Positive: Atraumatic, Mucous membr. moist/pink Neck Exam: Positive: Supple Chest Exam: Positive: Normal air movement Heart Exam: Positive: Rate Normal, Irregular Rhythm, Normal S1, Normal S2 Abdomen Exam: Positive: Normal bowel sounds, Soft Extremity Exam: Positive: Normal pulses Skin Exam: Positive: Nl turgor and temperature Neuro Exam: Positive: Strength at 5/5 X4 ext, Cranial Nerves 3-12 NL Psych Exam: Positive: Mental status NL, Oriented x 3 Vital Signs Vital Signs Date Time Temp Pulse Resp B/P (MAP) Pulse Ox O2 Delivery O2 Flow Rate FiO2 12/01/18 23:15 109 20 80/53 (62) 99 Nasal Cannula 2.0 12/01/18 19:59 100.4 Laboratory Data Labs 24H Laboratory Tests 2 12/01/18 20:36: Immature Granulocyte % (Auto) 1.0, Neutrophils (%) (Auto) 88.5H, Lymphocytes (%) (Auto) 5.6L, Monocytes (%) (Auto) 4.0, Eosinophils (%) (Auto) 0.6, Basophils (%) (Auto) 0.3, Neutrophils # (Auto) 8.2, Lymphocytes # (Auto) 0.5L, Monocytes # (Auto) 0.4, Eosinophils # (Auto) 0.1, Basophils # (Auto) 0.0, Nucleated Red Blood Cells % (auto) 0.0, Anion Gap 8, Glomerular Filtration Rate > 60.0, Lactic Acid Level 1.6, Calcium Level 8.0L, Phosphorus Level 2.8, Magnesium Level 1.5L, Total Bilirubin 1.7H, Direct Bilirubin 0.5H, Aspartate Amino Transf (AST/SGOT) 29, Alanine Aminotransferase (ALT/SGPT) 33, Alkaline Phosphatase 67, Total Creatine Kinase 31L, Creatine Kinase MB < 1.0, Creatine Kinase MB Relative Index 3.23, Troponin I 0.08, Total Protein 5.7L, Albumin 2.8L, Albumin/Globulin Ratio 0.97L, Influenza Type A (RT-PCR) NEGATIVE, Influenza Type B (RT-PCR) NEGATIVE 12/01/18 21:08: Urine Color YELLOW, Urine Appearance HAZY, Urine pH 6.0, Urine Specific [place] 1.006, Urine Protein NEGATIVE, Urine Glucose (Auto)(UA) NEGATIVE, Urine Ketones (Auto) NEGATIVE, Urine Blood 2+H, Urine Nitrite NEGATIVE, Urine Bilirubin NEGATIVE, Urine Urobilinogen 0.2, Urine Leukocyte Esterase (Auto) 3+H, Urine WBC (Auto) 75H, Urine RBC (Auto) 16H, Urine Hyaline Casts (Auto) 0, Urine Bacteria (Auto) 1+H, Urine Squamous Epithelial Cells 0, Urine Mucus (Auto) SMALL, Urine Sperm (Auto) CBC/BMP Laboratory Tests 12/01/18 20:36 Microbiology Microbiology 12/01/18 Urine Culture, Received Pending 12/01/18 Blood Culture, Received Pending 12/01/18 Blood Culture, Received Pending Problems (1) Hypotension Status: Acute Problem Text: Metastatic prostatic CA, chronic A. fib, dilated cardiomyopathy, chronic systolic heart failure. Hemochromatosis, history of iron deficiency anemia, CAD status post [place], GERD, stable pulmonary nodules, osteoporosis, hernia repair, has developed dizziness, generalized weakness and has had a syncopal episode while trying to stand up and was brought to ER where he was found to be hypotensive, slightly tachycardic secondary to his atrial fibrillation and also found to have a UTI. Patient is being admitted to MICU for close observation, IV hydration and treatment for for his UTI. Admitted to ICU for close observation Telemetry monitoring , Hypertension, most likely secondary to his antihypertensive meds versus systemic inflammatory reaction to UTI and UTI itself Patient probably will benefit from IV hydration. He does have a history of dilated cardiomyopathy and chronic systolic heart failure, so will be very gentle and hydrating him with 7200 mL per hour and monitor his vitals closely. , We will closely monitor him clinically to avoid volume overloa Dr. Vallecillo in the ED also spoke with Dr. Zee from urology, he recommended to remove patient's Talley catheter first thing in the morning and give him a trial of voiding. If he is unable to void, then Dr. Zee can be called back to place a new Talley catheter in. Note patient previously had a Talley catheter placed in under anesthesia in the OR by Dr. zee.. He also recommended to repeat a urine culture was the Talley catheter has been removed in a.m. Patient did receive Rocephin 2 g IV in ED and will continue Rocephin 1 g IV every 24 hours DVT prophylaxis not needed as patient is on apaxiban Regular diet Guarded prognosis (2) Urinary tract infection Status: Acute Problem Text: UTI, most likely secondary to indwelling Talley catheter Please remove Talley catheter in a.m. while Dr. Zee is around as it was very difficult to put the Talley catheter by him and he is to take patient to or and Talley catheter was placed and with cystoscopy and under anesthesia on his last visit. Give a trial of widening in a.m. if patient does not succeed to void after few hours after taken Talley catheter output then please reconsult Dr. Zee and he will place the new Talley catheter in. Patient received 2 g of IV Rocephin and will continue Rocephin 1 g Urine cultures have been sent, but also has been advised to repeat cultures tomorrow once the Talley catheter is out to compare with indwelling Talley catheter. Cultures (3) CHF (congestive heart failure) Status: Chronic Problem Text: History of CHF and cardiomyopathy Chest x-ray is clear. No pulmonary congestion Can start gentle hydration as tolerated (4) Hemochromatosis Status: Chronic (5) Afib Status: Chronic Problem Text: Rate is slightly elevated but will try and not to give any calcium channel blockers or beta blockers secondary to hypotension, but once patient's hypertension is under control, then beta blockers can be restarted back. Agent is clinically stable to be off beta blockers at the present time (6) Prostate cancer Status: Chronic Problem Text: As per Dr. Connolly Plan / VTE VTE Prophylaxis Ordered?: Yes PRICILLA REDD MD Dec 01, 2018 23:48
[2018-12-02] VITALS (23 sets, daily range): BP systolic 90–118; BP diastolic 52–73
[2018-12-02] MEDS: NS 1,000 ML IV SCH ×3 (01:48→23:08)
[2018-12-02] MEDS ORDERED: FLUBLOK(EGG FREE)(QUAD)INFLUENZA VACC 0.5ML SYRINGE (90682)18YRS&OLDER IM SCH (03:45)
[2018-12-02] MEDS: LEVOTHYROXINE 75MCG TABLET (0.075MG) PO SCH (05:55)
[2018-12-02 06:56] LABS: HEMOGLOBIN 7.4 g/dl (13.5-17.5); MEAN CORPUSCULAR HEMOGLOBIN 28.7 pg (27.0-33.0); MEAN CORPUSCULAR HGB CONC 32.2 g/dl (32.0-36.5); MEAN CORPUSCULAR VOLUME 89.1 fl (80.0-96.0); PLATELET COUNT, AUTOMATED 133 10^3/uL (150-450); RED BLOOD COUNT 2.58 10^6/uL (4.30-6.10); WHITE BLOOD COUNT 5.8 10^3/uL (4.0-10.0)
[2018-12-02 07:26] LABS: ALBUMIN 2.2 GM/DL (3.2-5.2); ALT/SGPT 30 U/L (12-78); BILIRUBIN,TOTAL 1.1 MG/DL (0.2-1.0); BLOOD UREA NITROGEN 14 MG/DL (7-18); CALCIUM LEVEL 7.8 MG/DL (8.8-10.2); CARBON DIOXIDE LEVEL 25 MEQ/L (21-32); CHLORIDE LEVEL 108 MEQ/L (98-107); CREATININE FOR GFR 0.67 MG/DL (0.70-1.30); GLOMERULAR FILTRATION RATE > 60.0 (>35); GLUCOSE, FASTING 86 MG/DL (70-100); MAGNESIUM LEVEL 1.6 MG/DL (1.8-2.4); POTASSIUM SERUM 3.4 MEQ/L (3.5-5.1); SODIUM LEVEL 140 MEQ/L (136-145); TOTAL PROTEIN 5.4 GM/DL (6.4-8.2)
[2018-12-02] MEDS: MULTIVITAMINS/MINERALS THERAP 1 TAB PO SCH (08:54)
[2018-12-02] MEDS: ASPIRIN 81 MG ENTERIC TAB PO SCH (08:54)
[2018-12-02] MEDS: DOCUSATE SODIUM 100 MG CAP PO SCH ×2 (08:54→20:03)
[2018-12-02] MEDS: PANTOPRAZOLE 20 MG TAB PO SCH (08:54)
[2018-12-02] MEDS: APIXABAN 5 MG TAB (ELIQUIS) PO SCH ×2 (08:54→20:03)
[2018-12-02] MEDS: methylPREDNISolone 4 MG TAB PO SCH ×2 (08:55→20:03)
[2018-12-02] MEDS ORDERED: ENOXAPARIN 30 MG/0.3 ML SYR (J1650) SC SCH (09:00)
[2018-12-02] MEDS ORDERED: POTASSIUM CHLORIDE 10 MEQ SR TABLET PO ONE (11:15)
[2018-12-02] MEDS: MAG SULF 1GM/100ML (MAG RUN) 1 GM in IV 1 EA IV SCH ×2 (11:45→12:57)
--- NOTE | 2018-12-02 15:32 | ECGEPIP ---
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
--- NOTE | 2018-12-02 16:50 | IPNPDOC ---
Date Seen The patient was seen on 12/02/18. Progress Note SUBJECTIVE: Patient reports feeling fine. BP remained labile with systolic BP mostly in 90s range. MAP remained in 70s however. HR 110s at rest but increased with exertion. OBJECTIVE PHYSICAL EXAMINATION: VITAL SIGNS: Please see below. General: No acute distress, Alert, generalized weakness Eyes: Normal sclera, EOMI HENT: Atraumatic Cardiovascular: tachycardic Pulmonary: Clear to auscultation b/l, no wheezing GI: Soft, nontender Skin: Warm and dry Neuro: CN grossly intact. Psych: oriented x 3 LABORATORY DATA, IMAGING STUDIES, MICROBIOLOGY: Please see below. DVT prophylaxis ordered?: On Eliquis ASSESSMENT AND PLAN: 1. Sepsis - Likely 2/2 UTI in setting of indwelling segura catheter. Presented with hypotension, tachycardic, elevated T bili 1.7 and febrile. - c/w Rocephin. UA + LE and WBCs. - f/u urine and blood cultures. IVF. - Discussed with urology. Segura catheter removed this AM for voiding trial, for repeat UA as well. 2. CHF - Clear XR. Hydrate gently only if needed. 3. Hemochromatosis- chronic 4. Afib - HR slightly elevated but limited by hypotension. Rate control agents temporarily held but resume when BP improves. - c/w Eliquis. 5. Prostate cancer VS, I&O, 24H, [facility] Vital Signs/I&O Vital Signs Date Time Temp Pulse Resp B/P (MAP) Pulse Ox O2 Delivery O2 Flow Rate FiO2 12/02/18 14:00 114 18 100/59 (73) 98 2.0 12/02/18 12:00 98.3 12/02/18 02:00 Nasal Cannula I&O- Last 24 Hours up to 6 AM 12/02/18 06:00 Intake Total 2690 ml Output Total 700 ml Balance 1990 ml Laboratory Data 24H LABS Laboratory Tests 2 12/01/18 20:36: Immature Granulocyte % (Auto) 1.0, Neutrophils (%) (Auto) 88.5H, Lymphocytes (%) (Auto) 5.6L, Monocytes (%) (Auto) 4.0, Eosinophils (%) (Auto) 0.6, Basophils (%) (Auto) 0.3, Neutrophils # (Auto) 8.2, Lymphocytes # (Auto) 0.5L, Monocytes # (Auto) 0.4, Eosinophils # (Auto) 0.1, Basophils # (Auto) 0.0, Nucleated Red Blood Cells % (auto) 0.0, Anion Gap 8, Glomerular Filtration Rate > 60.0, Lactic Acid Level 1.6, Calcium Level 8.0L, Phosphorus Level 2.8, Magnesium Level 1.5L, Total Bilirubin 1.7H, Direct Bilirubin 0.5H, Aspartate Amino Transf (AST/SGOT) 29, Alanine Aminotransferase (ALT/SGPT) 33, Alkaline Phosphatase 67, Total Creatine Kinase 31L, Creatine Kinase MB < 1.0, Creatine Kinase MB Relative Index 3.23, Troponin I 0.08, Total Protein 5.7L, Albumin 2.8L, Albumin/Globulin Ratio 0.97L, Influenza Type A (RT-PCR) NEGATIVE, Influenza Type B (RT-PCR) NEGATIVE 12/01/18 21:08: Urine Color YELLOW, Urine Appearance HAZY, Urine pH 6.0, Urine Specific [place] 1.006, Urine Protein NEGATIVE, Urine Glucose (Auto)(UA) NEGATIVE, Urine Ketones (Auto) NEGATIVE, Urine Blood 2+H, Urine Nitrite NEGATIVE, Urine Bilirubin NEGATIVE, Urine Urobilinogen 0.2, Urine Leukocyte Esterase (Auto) 3+H, Urine WBC (Auto) 75H, Urine RBC (Auto) 16H, Urine Hyaline Casts (Auto) 0, Urine Bacteria (Auto) 1+H, Urine Squamous Epithelial Cells 0, Urine Mucus (Auto) SMALL, Urine Sperm (Auto) 12/02/18 06:42: Nucleated Red Blood Cells % (auto) 0.0, Anion Gap 7L, Glomerular Filtration Rate > 60.0, Calcium Level 7.8L, Magnesium Level 1.6L, Total Bilirubin 1.1H, Aspartate Amino Transf (AST/SGOT) 28, Alanine Aminotransferase (ALT/SGPT) 30, Alkaline Phosphatase 60, Total Protein 5.4L, Albumin 2.2#L, Albumin/Globulin Ratio 0.69L CBC/BMP Laboratory Tests 12/01/18 20:36 12/02/18 06:42 Microbiology Microbiology 12/01/18 Urine Culture, Received Pending 12/01/18 Blood Culture, Received Pending 12/01/18 Blood Culture, Received Pending NANI MOORE MD Dec 02, 2018 16:50
[2018-12-02] MEDS: ATORVASTATIN 20 MG TAB PO SCH (20:03)
--- NOTE | 2018-12-02 20:57 | ECHO ---
DATE OF PROCEDURE: 12/02/2018 REFERRING PHYSICIAN: Dr. Gan INDICATION: Heart failure, unspecified. HEIGHT: 173 cm WEIGHT: 65 kg 2D MEASUREMENTS: Left atrium: 4.6 cm Left atrial volume index: 49 Ventricular septum: 1.09 cm Posterior wall: 1.11 cm Left ventricle diastole: 4.2 cm Aortic root: 3.6 cm Inferior vena cava: 1.7 cm DOPPLER MEASUREMENTS: Aortic valve velocity: 148 cm/s LVOT velocity: 93.2 cm/s Mild aortic regurgitation. Very mild mitral regurgitation. Mild tricuspid regurgitation. Estimated right ventricle systolic pressure 37-42 mmHg assuming a right atrial pressure of 5-10 mmHg. Mild pulmonic regurgitation. Pulmonary artery systolic pressure 43 mmHg. DESCRIPTION: Rhythm was atrial fibrillation with rapid ventricular response. Image quality was adequate. No arch views were available. No pericardial effusion. This is a 2D, M-mode, color flow Doppler and pulse wave Doppler examination that included mitral annular tissue Doppler. CONCLUSIONS: 1. Normal left ventricle internal dimensions and wall thickness. Hyperdynamic left ventricle (LV) systolic function. Left ventricular ejection fraction (LVEF) 75% by visual estimate. Unable to determine LV diastolic function in the setting of atrial fibrillation. 2. Severe left atrial dilatation. 3. Moderate mitral annular calcification. Very mild mitral regurgitation. No mitral stenosis. 4. Moderate aortic valve sclerosis of a three-cuspid aortic valve. Mild aortic regurgitation. No aortic sclerosis. 5. Suggestive of mild-moderate elevation of estimated right ventricle systolic pressure versus moderate elevation of pulmonary artery systolic pressure. Normal right ventricle size and systolic function. 6. No pericardial effusion.
[2018-12-02] MEDS: cefTRIAXone SOD 1 GM in D5W MINI-BAG PLUS 50 ML IV SCH (23:08)
[2018-12-03] VITALS (15 sets, daily range): BP systolic 95–116; BP diastolic 57–77
[2018-12-03] MEDS: LEVOTHYROXINE 75MCG TABLET (0.075MG) PO SCH (05:00)
[2018-12-03 05:13] LABS: HEMATOCRIT 22.2 % (42.0-52.0); MEAN CORPUSCULAR HEMOGLOBIN 28.7 pg (27.0-33.0); MEAN CORPUSCULAR HGB CONC 31.5 g/dl (32.0-36.5); PLATELET COUNT, AUTOMATED 136 10^3/uL (150-450); RED BLOOD COUNT 2.44 10^6/uL (4.30-6.10); WHITE BLOOD COUNT 6.1 10^3/uL (4.0-10.0)
[2018-12-03 05:33] LABS: BLOOD UREA NITROGEN 14 MG/DL (7-18); CALCIUM LEVEL 7.6 MG/DL (8.8-10.2); CARBON DIOXIDE LEVEL 23 MEQ/L (21-32); CHLORIDE LEVEL 108 MEQ/L (98-107); CREATININE FOR GFR 0.64 MG/DL (0.70-1.30); GLOMERULAR FILTRATION RATE > 60.0 (>35); GLUCOSE, FASTING 146 MG/DL (70-100); POTASSIUM SERUM 4.6 MEQ/L (3.5-5.1); SODIUM LEVEL 136 MEQ/L (136-145)
[2018-12-03] MEDS: NS 1,000 ML IV SCH (07:00)
[2018-12-03 08:22] LABS: MAGNESIUM LEVEL 1.9 MG/DL (1.8-2.4)
[2018-12-03] MEDS: APIXABAN 5 MG TAB (ELIQUIS) PO SCH ×2 (08:45→20:14)
[2018-12-03] MEDS: MULTIVITAMINS/MINERALS THERAP 1 TAB PO SCH (08:45)
[2018-12-03] MEDS: methylPREDNISolone 4 MG TAB PO SCH ×2 (08:45→20:13)
[2018-12-03] MEDS: FUROSEMIDE 20 MG TAB PO SCH (08:45)
[2018-12-03] MEDS: ASPIRIN 81 MG ENTERIC TAB PO SCH (08:45)
[2018-12-03] MEDS: PANTOPRAZOLE 20 MG TAB PO SCH (08:45)
[2018-12-03] MEDS: METOPROLOL TART 25 MG TABLET PO SCH ×3 (08:46→20:15)
[2018-12-03] MEDS: DOCUSATE SODIUM 100 MG CAP PO SCH ×2 (09:00→20:13)
--- NOTE | 2018-12-03 12:34 | IPNPDOC ---
Date Seen The patient was seen on 12/03/18. Progress Note SUBJECTIVE: Patient reported feeling well without any complaints. BP had improved to 100s systolic today. HR in 110s but increases with exertion. BB resumed in AM. Reportedly has been able to void. OBJECTIVE PHYSICAL EXAMINATION: VITAL SIGNS: Please see below. General: No acute distress, Alert, generalized weakness Eyes: Normal sclera, EOMI HENT: Atraumatic Cardiovascular: tachycardic Pulmonary: Clear to auscultation b/l, no wheezing GI: Soft, nontender Skin: Warm and dry Neuro: CN grossly intact. Psych: oriented x 3 LABORATORY DATA, IMAGING STUDIES, MICROBIOLOGY: Please see below. DVT prophylaxis ordered?: On Eliquis ASSESSMENT AND PLAN: 1. Sepsis - Likely 2/2 UTI in setting of indwelling segura catheter. Presented with hypotension, tachycardic, elevated T bili 1.7 and febrile. - c/w Rocephin. UA + LE and WBCs. - Urine culture + e. coli. Blood cultures NTD. - Discussed with urology, segura catheter removed at this time. Monitor for void. Call urology to replace catheter if needed. 2. CHF - Clear XR on presentation but has been getting maintenance IVF, stopped 12/03. - PO Lasix resumed now that BP is more stable. 3. Hemochromatosis- chronic 4. Afib - HR 110s at rest but increases with exertion. - BB was held on presentation due to hypotension but is now resumed. - c/w Eliquis. 5. Prostate cancer VS, I&O, 24H, [facility] Vital Signs/I&O Vital Signs Date Time Temp Pulse Resp B/P (MAP) Pulse Ox O2 Delivery O2 Flow Rate FiO2 12/03/18 08:46 149 104/76 12/03/18 06:00 14 98 Nasal Cannula 2.0 12/03/18 04:00 97.6 I&O- Last 24 Hours up to 6 AM 12/03/18 06:00 Intake Total 4150 ml Output Total 160 ml Balance 3990 ml Laboratory Data 24H LABS Laboratory Tests 2 12/02/18 21:40: Urine Color YELLOW, Urine Appearance CLEAR, Urine pH 6.0, Urine Specific [place] 1.013, Urine Protein NEGATIVE, Urine Glucose (UA) 2+H, Urine Ketones NEGATIVE, Urine Blood 1+H, Urine Nitrite NEGATIVE, Urine Bilirubin NEGATIVE, Urine Urobilinogen 0.2, Urine Leukocyte Esterase 1+H, Urine WBC (Auto) 21H, Urine RBC (Auto) 6H, Urine Hyaline Casts (Auto) 0, Urine Bacteria (Auto) 1+H, Urine Squamous Epithelial Cells 0, Urine Sperm (Auto) 12/03/18 04:53: Nucleated Red Blood Cells % (auto) 0.0, Anion Gap 5L, Glomerular Filtration Rate > 60.0, Calcium Level 7.6L, Magnesium Level 1.9 CBC/BMP Laboratory Tests 12/03/18 04:53 Microbiology Microbiology 12/02/18 Urine Culture, Received Pending 12/01/18 Urine Culture - Final, Complete Escherichia Coli 12/01/18 Blood Culture - Preliminary, Resulted No growth after 24 hours . All specim... 12/01/18 Blood Culture - Preliminary, Resulted No growth after 24 hours . All specim... NANI MOORE MD Dec 03, 2018 12:34
[2018-12-03] MEDS: ATORVASTATIN 20 MG TAB PO SCH (20:13)
[2018-12-03] MEDS: cefTRIAXone SOD 1 GM in D5W MINI-BAG PLUS 50 ML IV SCH (22:29)
[2018-12-04] VITALS (17 sets, daily range): BP systolic 94–151; BP diastolic 52–83
[2018-12-04 04:47] LABS: MEAN CORPUSCULAR HEMOGLOBIN 28.2 pg (27.0-33.0); MEAN CORPUSCULAR HGB CONC 31.2 g/dl (32.0-36.5); MEAN CORPUSCULAR VOLUME 90.3 fl (80.0-96.0); PLATELET COUNT, AUTOMATED 144 10^3/uL (150-450); RED BLOOD COUNT 2.27 10^6/uL (4.30-6.10); WHITE BLOOD COUNT 6.6 10^3/uL (4.0-10.0)
[2018-12-04 04:49] LABS: HEMATOCRIT 20.5 % (42.0-52.0); HEMOGLOBIN 6.4 g/dl (13.5-17.5)
[2018-12-04 05:08] LABS: BLOOD UREA NITROGEN 18 MG/DL (7-18); CALCIUM LEVEL 7.6 MG/DL (8.8-10.2); CARBON DIOXIDE LEVEL 26 MEQ/L (21-32); CHLORIDE LEVEL 106 MEQ/L (98-107); CREATININE FOR GFR 0.79 MG/DL (0.70-1.30); GLOMERULAR FILTRATION RATE > 60.0 (>35); GLUCOSE, FASTING 148 MG/DL (70-100); POTASSIUM SERUM 4.6 MEQ/L (3.5-5.1); SODIUM LEVEL 137 MEQ/L (136-145)
[2018-12-04] MEDS: LEVOTHYROXINE 75MCG TABLET (0.075MG) PO SCH (06:20)
[2018-12-04] MEDS: MULTIVITAMINS/MINERALS THERAP 1 TAB PO SCH (08:48)
[2018-12-04] MEDS: APIXABAN 5 MG TAB (ELIQUIS) PO SCH (08:48)
[2018-12-04] MEDS: methylPREDNISolone 4 MG TAB PO SCH ×2 (08:48→20:19)
[2018-12-04] MEDS: PANTOPRAZOLE 20 MG TAB PO SCH (08:48)
[2018-12-04] MEDS: DOCUSATE SODIUM 100 MG CAP PO SCH ×2 (08:48→20:18)
[2018-12-04] MEDS: ASPIRIN 81 MG ENTERIC TAB PO SCH (08:48)
[2018-12-04] MEDS: METOPROLOL TART 25 MG TABLET PO SCH ×3 (08:49→20:17)
[2018-12-04] MEDS: FUROSEMIDE 20 MG TAB PO SCH (09:00)
[2018-12-04] MEDS ORDERED: FUROSEMIDE 20 MG/2 ML VIAL (J1940) IV ONE (09:30)
--- NOTE | 2018-12-04 12:37 | IPNPDOC ---
Date Seen The patient was seen on 12/04/18. Progress Note SUBJECTIVE: Patient reported feeling well but Hb noted to be trending down, to 6.4 this morning. Denies any evidence of bleeding per rectum or elsewhere. HR has slowly improved. down to 80-90s at rest now with some fluctuation. BP also more stable in 100-110s systolic. OBJECTIVE PHYSICAL EXAMINATION: VITAL SIGNS: Please see below. General: No acute distress, Alert, generalized weakness Eyes: Normal sclera, EOMI HENT: Atraumatic Cardiovascular: tachycardic Pulmonary: Clear to auscultation b/l, no wheezing GI: Soft, nontender Skin: Warm and dry Neuro: CN grossly intact. Psych: oriented x 3 LABORATORY DATA, IMAGING STUDIES, MICROBIOLOGY: Please see below. DVT prophylaxis ordered?: Was on Eliquis, holding now ASSESSMENT AND PLAN: 1. Sepsis - Likely 2/2 UTI in setting of indwelling segura catheter. Presented with hypotension, tachycardic, elevated T bili 1.7 and febrile. - c/w Rocephin. UA + LE and WBCs. - Urine culture + e. coli. Blood cultures NTD. - Discussed with urology, segura catheter removed at this time. Monitor for void. Call urology to replace catheter if needed. 2. CHF - Clear XR on presentation. - PO Lasix resumed now that BP is more stable. 3. Hemochromatosis- chronic 4. Afib - HR 90-110s with increase with exertion. - BB was held on presentation due to hypotension but is now resumed. - Hold Eliquis for now given anemia. 5. Prostate cancer 7. Normocytic anemia - No clear evidence of bleeding at this time. - Hb 6.4, get 2 units pRBC today. - Obtain FOBT, iron panel. - Hold anticoagulation. VS, I&O, 24H, Fishbone Vital Signs/I&O Vital Signs Date Time Temp Pulse Resp B/P (MAP) Pulse Ox O2 Delivery O2 Flow Rate FiO2 12/04/18 11:57 98.8 98 18 104/61 95 Room Air 12/03/18 09:00 1.0 I&O- Last 24 Hours up to 6 AM 12/04/18 05:59 Intake Total 1350 ml Output Total 60 ml Balance 1290 ml Laboratory Data 24H LABS Laboratory Tests 2 12/04/18 04:29: Nucleated Red Blood Cells % (auto) 0.0, Anion Gap 5L, Glomerular Filtration Rate > 60.0, Calcium Level 7.6L CBC/BMP Laboratory Tests 12/04/18 04:29 Microbiology Microbiology 12/02/18 Urine Culture - Preliminary, Resulted Bacillus Sp., Not Anthracis 12/01/18 Urine Culture - Final, Complete Escherichia Coli 12/01/18 Blood Culture - Preliminary, Resulted No Growth after 48 hours. All Specime... 12/01/18 Blood Culture - Preliminary, Resulted No Growth after 48 hours. All Specime... NANI MOORE MD Dec 04, 2018 12:37
[2018-12-04 16:38] LABS: HEMATOCRIT 26.4 % (42.0-52.0); HEMOGLOBIN 8.7 g/dl (13.5-17.5); MEAN CORPUSCULAR HEMOGLOBIN 28.8 pg (27.0-33.0); MEAN CORPUSCULAR VOLUME 87.4 fl (80.0-96.0); PLATELET COUNT, AUTOMATED 145 10^3/uL (150-450); RED BLOOD COUNT 3.02 10^6/uL (4.30-6.10); WHITE BLOOD COUNT 7.6 10^3/uL (4.0-10.0)
[2018-12-04] MEDS: ATORVASTATIN 20 MG TAB PO SCH (20:19)
[2018-12-04] MEDS: cefTRIAXone SOD 1 GM in D5W MINI-BAG PLUS 50 ML IV SCH (22:47)
[2018-12-05] VITALS (7 sets, daily range): BP systolic 102–114; BP diastolic 66–76
[2018-12-05] MEDS: LEVOTHYROXINE 75MCG TABLET (0.075MG) PO SCH (05:00)
[2018-12-05 05:23] LABS: HEMATOCRIT 25.9 % (42.0-52.0); HEMOGLOBIN 8.4 g/dl (13.5-17.5); MEAN CORPUSCULAR HEMOGLOBIN 28.5 pg (27.0-33.0); MEAN CORPUSCULAR HGB CONC 32.4 g/dl (32.0-36.5); MEAN CORPUSCULAR VOLUME 87.8 fl (80.0-96.0); PLATELET COUNT, AUTOMATED 142 10^3/uL (150-450); RED BLOOD COUNT 2.95 10^6/uL (4.30-6.10); WHITE BLOOD COUNT 7.4 10^3/uL (4.0-10.0)
[2018-12-05 05:43] LABS: BLOOD UREA NITROGEN 20 MG/DL (7-18); CARBON DIOXIDE LEVEL 28 MEQ/L (21-32); CHLORIDE LEVEL 103 MEQ/L (98-107); CREATININE FOR GFR 0.92 MG/DL (0.70-1.30); GLOMERULAR FILTRATION RATE > 60.0 (>35); GLUCOSE, FASTING 104 MG/DL (70-100); POTASSIUM SERUM 4.4 MEQ/L (3.5-5.1); SODIUM LEVEL 137 MEQ/L (136-145)
[2018-12-05 08:24] LABS: FERRITIN 73 NG/ML (26-388); IRON (FE) 39 UG/DL (65-175); PERCENT SATURATION 12.7 % (19.7-50.0); TOTAL IRON BINDING CAPACITY 308 UG/DL (250-450)
[2018-12-05] MEDS: FUROSEMIDE 20 MG TAB PO SCH (09:19)
[2018-12-05] MEDS: MULTIVITAMINS/MINERALS THERAP 1 TAB PO SCH (09:19)
[2018-12-05] MEDS: methylPREDNISolone 4 MG TAB PO SCH ×2 (09:19→20:36)
[2018-12-05] MEDS: ASPIRIN 81 MG ENTERIC TAB PO SCH (09:19)
[2018-12-05] MEDS: METOPROLOL TART 25 MG TABLET PO SCH ×3 (09:20→20:36)
[2018-12-05] MEDS: DOCUSATE SODIUM 100 MG CAP PO SCH ×2 (09:20→20:37)
[2018-12-05] MEDS: PANTOPRAZOLE 20 MG TAB PO SCH (09:20)
--- NOTE | 2018-12-05 12:40 | IPNPDOC ---
Date Seen The patient was seen on 12/05/18. Progress Note SUBJECTIVE: Patient continues to report no problems and states he is feeling well. No evidence of bleeding noted overnight. Hb stable at 8.4 this morning. FOBT negative x1. HR improved to 80-100s. OBJECTIVE PHYSICAL EXAMINATION: VITAL SIGNS: Please see below. General: No acute distress, Alert, generalized weakness Eyes: Normal sclera, EOMI HENT: Atraumatic Cardiovascular: Normal rate, irregular rhythm. Pulmonary: Clear to auscultation b/l, no wheezing GI: Soft, nontender Skin: Warm and dry Neuro: CN grossly intact. Psych: oriented x 3 LABORATORY DATA, IMAGING STUDIES, MICROBIOLOGY: Please see below. DVT prophylaxis ordered?: Was on Eliquis, holding now ASSESSMENT AND PLAN: 1. Sepsis - Likely 2/2 UTI in setting of indwelling segura catheter. Presented with hypotension, tachycardic, elevated T bili 1.7 and febrile. - c/w Rocephin. UA + LE and WBCs. - Urine culture + e. coli. Blood cultures NTD. - Discussed with urology, segura catheter removed at this time. Monitor for void. Call urology to replace catheter if needed. 2. CHF - Clear XR on presentation. - PO Lasix resumed now that BP is more stable. 3. Hemochromatosis- chronic 4. Afib - HR 80-100s with increase with exertion. - BB was held on presentation due to hypotension but is now resumed. - Hold Eliquis for now given anemia. 5. Prostate cancer 7. Normocytic anemia - No clear evidence of bleeding at this time. - Hb 6.4, s/p 2 units pRBC. - FOBT negative x1, f/u repeat tests. - Hold anticoagulation. VS, I&O, 24H, Fishbone Vital Signs/I&O Vital Signs Date Time Temp Pulse Resp B/P (MAP) Pulse Ox O2 Delivery O2 Flow Rate FiO2 12/05/18 12:11 98.2 85 20 110/76 (87) 92 Room Air 12/03/18 09:00 1.0 I&O- Last 24 Hours up to 6 AM 12/05/18 06:00 Intake Total 2030 ml Output Total 50 ml Balance 1980 ml Laboratory Data 24H LABS Laboratory Tests 2 12/04/18 16:31: Nucleated Red Blood Cells % (auto) 0.0 12/05/18 04:58: Nucleated Red Blood Cells % (auto) 0.0, Anion Gap 6L, Glomerular Filtration Rate > 60.0, Calcium Level 8.0L, Iron Level 39L, Total Iron Binding Capacity 308, Transferrin % Saturation 12.7L, Ferritin 73 CBC/BMP Laboratory Tests 12/04/18 16:31 12/05/18 04:58 Microbiology Microbiology 12/04/18 Stool Occult Blood (CARLOS) - Final, Complete 12/02/18 Urine Culture - Preliminary, Resulted Bacillus Sp., Not Anthracis 12/01/18 Urine Culture - Final, Complete Escherichia Coli 12/01/18 Blood Culture - Preliminary, Resulted No Growth after 72 hours. All specime... 12/01/18 Blood Culture - Preliminary, Resulted No Growth after 72 hours. All specime... NANI MOORE MD Dec 05, 2018 12:40
[2018-12-05] MEDS: ATORVASTATIN 20 MG TAB PO SCH (20:37)
[2018-12-06] VITALS: BP 116/68
[2018-12-06] MEDS: cefTRIAXone SOD 1 GM in D5W MINI-BAG PLUS 50 ML IV SCH (00:21)
[2018-12-06] MEDS: LEVOTHYROXINE 75MCG TABLET (0.075MG) PO SCH (05:18)
[2018-12-06 05:44] LABS: HEMOGLOBIN 8.3 g/dl (13.5-17.5); MEAN CORPUSCULAR HGB CONC 31.9 g/dl (32.0-36.5); MEAN CORPUSCULAR VOLUME 87.8 fl (80.0-96.0); PLATELET COUNT, AUTOMATED 156 10^3/uL (150-450); RED BLOOD COUNT 2.96 10^6/uL (4.30-6.10)
[2018-12-06 06:02] LABS: BLOOD UREA NITROGEN 17 MG/DL (7-18); CALCIUM LEVEL 8.5 MG/DL (8.8-10.2); CARBON DIOXIDE LEVEL 29 MEQ/L (21-32); CHLORIDE LEVEL 103 MEQ/L (98-107); CREATININE FOR GFR 0.79 MG/DL (0.70-1.30); GLOMERULAR FILTRATION RATE > 60.0 (>35); GLUCOSE, FASTING 103 MG/DL (70-100); POTASSIUM SERUM 3.9 MEQ/L (3.5-5.1); SODIUM LEVEL 137 MEQ/L (136-145)
[2018-12-06 08:00] VITALS: BP 124/75
[2018-12-06] MEDS: ASPIRIN 81 MG ENTERIC TAB PO SCH (08:50)
[2018-12-06] MEDS: methylPREDNISolone 4 MG TAB PO SCH ×2 (08:50→20:57)
[2018-12-06] MEDS: FUROSEMIDE 20 MG TAB PO SCH (08:50)
[2018-12-06] MEDS: PANTOPRAZOLE 20 MG TAB PO SCH (08:50)
[2018-12-06] MEDS: METOPROLOL TART 25 MG TABLET PO SCH ×3 (08:51→20:57)
[2018-12-06] MEDS: MULTIVITAMINS/MINERALS THERAP 1 TAB PO SCH (08:51)
[2018-12-06] MEDS: DOCUSATE SODIUM 100 MG CAP PO SCH ×2 (08:51→20:58)
[2018-12-06 12:00] VITALS: BP 105/65
[2018-12-06 16:00] VITALS: BP 99/65
--- NOTE | 2018-12-06 16:05 | IPNPDOC ---
Date Seen The patient was seen on 12/06/18. Progress Note SUBJECTIVE: Patient is comfortable in bed still with no complaints. HR overall improved to <100 but still has periods of tachycardia, especially with exertion during PT up to 170s. BP overall good but still borderline at times in low 100s. Hb stable. FOBT negative x1. OBJECTIVE PHYSICAL EXAMINATION: VITAL SIGNS: Please see below. General: No acute distress, Alert, generalized weakness Eyes: Normal sclera, EOMI HENT: Atraumatic Cardiovascular: Normal rate, irregular rhythm. Pulmonary: Clear to auscultation b/l, no wheezing GI: Soft, nontender Skin: Warm and dry Neuro: CN grossly intact. Psych: oriented x 3 LABORATORY DATA, IMAGING STUDIES, MICROBIOLOGY: Please see below. DVT prophylaxis ordered?: Was on Eliquis, holding now ASSESSMENT AND PLAN: 1. Sepsis - Likely 2/2 UTI in setting of indwelling segura catheter. Presented with hypotension, tachycardic, elevated T bili 1.7 and febrile. - c/w Rocephin. UA + LE and WBCs. - Urine culture + e. coli. Blood cultures NTD. - Discussed with urology, segura catheter removed at this time. Monitor for void. Call urology to replace catheter if needed. 2. CHF - Clear XR on presentation. - PO Lasix resumed now that BP is more stable. 3. Hemochromatosis- chronic 4. Afib - HR 80-100s and increases with exertion. Continue working with PT, hopeful that this will improve as well. - BB was held on presentation due to hypotension but is now resumed. - Hold Eliquis for now given anemia. 5. Prostate cancer 7. Normocytic anemia - No clear evidence of bleeding at this time. - Hb 6.4, s/p 2 units pRBC. - FOBT negative x1, f/u repeat tests. - Hold anticoagulation. VS, I&O, 24H, Fishbone Vital Signs/I&O Vital Signs Date Time Temp Pulse Resp B/P (MAP) Pulse Ox O2 Delivery O2 Flow Rate FiO2 12/06/18 12:00 99.0 72 18 105/65 (78) 95 Room Air 12/03/18 09:00 1.0 I&O- Last 24 Hours up to 6 AM 12/06/18 06:00 Intake Total 120 ml Output Total 0 ml Balance 120 ml Laboratory Data 24H LABS Laboratory Tests 2 12/06/18 05:24: Nucleated Red Blood Cells % (auto) 0.0, Anion Gap 5L, Glomerular Filtration Rate > 60.0, Calcium Level 8.5L CBC/BMP Laboratory Tests 12/06/18 05:24 Microbiology Microbiology 12/04/18 Stool Occult Blood (CARLOS) - Final, Complete 12/02/18 Urine Culture - Preliminary, Resulted Bacillus Sp., Not Anthracis 12/01/18 Urine Culture - Final, Complete Escherichia Coli 12/01/18 Blood Culture - Preliminary, Resulted No Growth after 72 hours. All specime... 12/01/18 Blood Culture - Preliminary, Resulted No Growth after 72 hours. All specime... NANI MOORE MD Dec 06, 2018 16:05
[2018-12-06 18:26] VITALS: BP 110/80
[2018-12-06 20:00] VITALS: BP 123/68
[2018-12-06] MEDS: NITROFURANTOIN (MACROBID) 100 MG CAP PO SCH (20:57)
[2018-12-06] MEDS: ATORVASTATIN 20 MG TAB PO SCH (20:57)
[2018-12-07] VITALS: BP 125/84
[2018-12-07 04:00] VITALS: BP 110/73
[2018-12-07] MEDS: LEVOTHYROXINE 75MCG TABLET (0.075MG) PO SCH (05:55)
[2018-12-07 06:11] LABS: HEMOGLOBIN 8.7 g/dl (13.5-17.5); MEAN CORPUSCULAR HEMOGLOBIN 28.2 pg (27.0-33.0); MEAN CORPUSCULAR HGB CONC 32.2 g/dl (32.0-36.5); MEAN CORPUSCULAR VOLUME 87.7 fl (80.0-96.0); PLATELET COUNT, AUTOMATED 171 10^3/uL (150-450); RED BLOOD COUNT 3.08 10^6/uL (4.30-6.10); WHITE BLOOD COUNT 7.3 10^3/uL (4.0-10.0)
[2018-12-07 06:34] LABS: BLOOD UREA NITROGEN 18 MG/DL (7-18); CARBON DIOXIDE LEVEL 28 MEQ/L (21-32); CHLORIDE LEVEL 103 MEQ/L (98-107); CREATININE FOR GFR 0.73 MG/DL (0.70-1.30); GLOMERULAR FILTRATION RATE > 60.0 (>35); GLUCOSE, FASTING 110 MG/DL (70-100); POTASSIUM SERUM 3.9 MEQ/L (3.5-5.1); SODIUM LEVEL 137 MEQ/L (136-145)
[2018-12-07 08:00] VITALS: BP 123/68
[2018-12-07] MEDS: FUROSEMIDE 20 MG TAB PO SCH (08:39)
[2018-12-07] MEDS: ASPIRIN 81 MG ENTERIC TAB PO SCH (08:39)
[2018-12-07] MEDS: NITROFURANTOIN (MACROBID) 100 MG CAP PO SCH ×2 (08:39→20:39)
[2018-12-07] MEDS: MULTIVITAMINS/MINERALS THERAP 1 TAB PO SCH (08:39)
[2018-12-07] MEDS: methylPREDNISolone 4 MG TAB PO SCH ×2 (08:40→20:38)
[2018-12-07] MEDS: PANTOPRAZOLE 20 MG TAB PO SCH (08:40)
[2018-12-07] MEDS: DOCUSATE SODIUM 100 MG CAP PO SCH ×2 (08:40→20:39)
[2018-12-07] MEDS: METOPROLOL TART 25 MG TABLET PO SCH ×3 (08:41→20:39)
[2018-12-07 12:00] VITALS: BP 119/82
[2018-12-07 16:00] VITALS: BP 117/59
--- NOTE | 2018-12-07 18:36 | IPNPDOC ---
Date Seen The patient was seen on 12/07/18. Progress Note SUBJECTIVE: Patient feels well and has no complaints. No evidence of gross rectal bleeding noted still. HR 90-100s. 2nd FOBT+ yesterday. Hb stable 8.3->8.7. OBJECTIVE PHYSICAL EXAMINATION: VITAL SIGNS: Please see below. General: No acute distress, Alert, generalized weakness Eyes: Normal sclera, EOMI HENT: Atraumatic Cardiovascular: Normal rate, irregular rhythm. Pulmonary: Clear to auscultation b/l, no wheezing GI: Soft, nontender Skin: Warm and dry Neuro: CN grossly intact. Psych: oriented x 3 LABORATORY DATA, IMAGING STUDIES, MICROBIOLOGY: Please see below. DVT prophylaxis ordered?: Was on Eliquis, holding now ASSESSMENT AND PLAN: 1. Sepsis - Likely 2/2 UTI in setting of indwelling segura catheter. Presented with hypotension, tachycardic, elevated T bili 1.7 and febrile. - c/w Macrobid. - Urine culture + e. coli. Blood cultures NTD. - Discussed with urology, segura catheter removed at this time. Monitor for void. Call urology to replace catheter if needed. 2. CHF - Clear XR on presentation. - PO Lasix resumed now that BP is more stable. 3. Hemochromatosis- chronic 4. Afib - increases with exertion. Continue working with PT, hopeful that this will improve as well. - BB was held on presentation due to hypotension but is now resumed. - Hold Eliquis for now given anemia. 5. Prostate cancer 7. Normocytic anemia - FOBT+. - Hb 6.4, s/p 2 units pRBC. - Monitor H/H. - Hold anticoagulation. - Surgery consulted for possible colonoscopy. VS, I&O, 24H, Fishbone Vital Signs/I&O Vital Signs Date Time Temp Pulse Resp B/P (MAP) Pulse Ox O2 Delivery O2 Flow Rate FiO2 12/07/18 16:00 97.6 95 19 117/59 (78) 96 Room Air 12/03/18 09:00 1.0 I&O- Last 24 Hours up to 6 AM 12/07/18 06:00 Intake Total 2036 ml Output Total 0 ml Balance 2036 ml Laboratory Data 24H LABS Laboratory Tests 2 12/07/18 05:47: Nucleated Red Blood Cells % (auto) 0.0, Anion Gap 6L, Glomerular Filtration Rate > 60.0, Calcium Level 9.0 CBC/BMP Laboratory Tests 12/07/18 05:47 Microbiology Microbiology 12/06/18 Stool Occult Blood (CARLOS) - Final, Complete 12/04/18 Stool Occult Blood (CARLOS) - Final, Complete 12/02/18 Urine Culture - Final, Complete Bacillus Sp., Not Anthracis Escherichia Coli 12/01/18 Urine Culture - Final, Complete Escherichia Coli 12/01/18 Blood Culture - Final, Complete NO GROWTH AFTER 5 DAYS 12/01/18 Blood Culture - Final, Complete NO GROWTH AFTER 5 DAYS NANI MOORE MD Dec 07, 2018 18:36
[2018-12-07 20:00] VITALS: BP 101/66
[2018-12-07] MEDS: ATORVASTATIN 20 MG TAB PO SCH (20:38)
[2018-12-07] MEDS ORDERED: GOLYTELY SOLN 4000 ML BTL PO ONE (22:15)
[2018-12-08] VITALS: BP 129/79
[2018-12-08 04:00] VITALS: BP 123/76
[2018-12-08 05:48] LABS: HEMATOCRIT 29.6 % (42.0-52.0); HEMOGLOBIN 9.3 g/dl (13.5-17.5); MEAN CORPUSCULAR HGB CONC 31.4 g/dl (32.0-36.5); MEAN CORPUSCULAR VOLUME 89.2 fl (80.0-96.0); PLATELET COUNT, AUTOMATED 206 10^3/uL (150-450); RED BLOOD COUNT 3.32 10^6/uL (4.30-6.10); WHITE BLOOD COUNT 6.8 10^3/uL (4.0-10.0)
[2018-12-08 06:13] LABS: BLOOD UREA NITROGEN 20 MG/DL (7-18); CALCIUM LEVEL 8.8 MG/DL (8.8-10.2); CARBON DIOXIDE LEVEL 30 MEQ/L (21-32); CHLORIDE LEVEL 95 MEQ/L (98-107); CREATININE FOR GFR 0.97 MG/DL (0.70-1.30); GLOMERULAR FILTRATION RATE > 60.0 (>35); GLUCOSE, FASTING 112 MG/DL (70-100); POTASSIUM SERUM 3.9 MEQ/L (3.5-5.1); SODIUM LEVEL 133 MEQ/L (136-145)
[2018-12-08] MEDS: LEVOTHYROXINE 75MCG TABLET (0.075MG) PO SCH (07:26)
[2018-12-08 08:00] VITALS: BP 90/68
[2018-12-08] MEDS ORDERED: NS 500 ML IV SCH (08:15)
[2018-12-08] MEDS: MULTIVITAMINS/MINERALS THERAP 1 TAB PO SCH (08:55)
[2018-12-08] MEDS: METOPROLOL TART 25 MG TABLET PO SCH ×3 (08:56→21:00)
[2018-12-08] MEDS: NITROFURANTOIN (MACROBID) 100 MG CAP PO SCH ×2 (08:56→21:01)
[2018-12-08] MEDS: ASPIRIN 81 MG ENTERIC TAB PO SCH (08:56)
[2018-12-08] MEDS: DOCUSATE SODIUM 100 MG CAP PO SCH ×2 (08:56→21:01)
[2018-12-08] MEDS: methylPREDNISolone 4 MG TAB PO SCH ×2 (08:56→21:01)
[2018-12-08] MEDS: FUROSEMIDE 20 MG TAB PO SCH (08:56)
[2018-12-08] MEDS: PANTOPRAZOLE 20 MG TAB PO SCH (08:56)
--- NOTE | 2018-12-08 10:20 | IPNPDOC ---
Date Seen The patient was seen on 12/08/18. Progress Note SUBJECTIVE: Patient has no complaints. BP noted to be low 90s sytolic in AM, did get prepped last night for colonoscopy today. To get 500cc IVF. Hb stable 9.3 OBJECTIVE PHYSICAL EXAMINATION: VITAL SIGNS: Please see below. General: No acute distress, Alert, generalized weakness Eyes: Normal sclera, EOMI HENT: Atraumatic Cardiovascular: Tachycardia, irregular rhythm. Pulmonary: Clear to auscultation b/l, no wheezing GI: Soft, nontender Skin: Warm and dry Neuro: CN grossly intact. Psych: oriented x 3 LABORATORY DATA, IMAGING STUDIES, MICROBIOLOGY: Please see below. DVT prophylaxis ordered?: Was on Eliquis, holding now ASSESSMENT AND PLAN: 1. Sepsis - Likely 2/2 UTI in setting of indwelling segura catheter. Presented with hypotension, tachycardic, elevated T bili 1.7 and febrile. - c/w Macrobid. - Urine culture + e. coli. Blood cultures NTD. - Discussed with urology, segura catheter removed at this time. Monitor for void. Call urology to replace catheter if needed. 2. CHF - Clear XR on presentation. - PO Lasix resumed now that BP is more stable. 3. Hemochromatosis- chronic 4. Afib w/RVR - Improved and controlled normally at rest, increases with exertion. Continue working with PT, hopeful that this will improve as well. - BB was held on presentation due to hypotension but is now resumed. - Hold Eliquis for now given anemia. 5. Prostate cancer 7. Normocytic anemia - FOBT+. - Hb 6.4, s/p 2 units pRBC. - Monitor H/H. - Hold anticoagulation. - Colonoscopy today. VS, I&O, 24H, Fishbone Vital Signs/I&O Vital Signs Date Time Temp Pulse Resp B/P (MAP) Pulse Ox O2 Delivery O2 Flow Rate FiO2 12/08/18 08:56 112 90/68 12/08/18 08:00 98.4 20 95 Room Air 12/03/18 09:00 1.0 I&O- Last 24 Hours up to 6 AM 12/08/18 06:00 Intake Total 1170 ml Output Total 100 ml Balance 1070 ml Laboratory Data 24H LABS Laboratory Tests 2 12/08/18 05:16: Nucleated Red Blood Cells % (auto) 0.0, Anion Gap 8, Glomerular Filtration Rate > 60.0, Calcium Level 8.8 CBC/BMP Laboratory Tests 12/08/18 05:16 Microbiology Microbiology 12/06/18 Stool Occult Blood (CARLOS) - Final, Complete 12/04/18 Stool Occult Blood (CARLOS) - Final, Complete 12/02/18 Urine Culture - Final, Complete Bacillus Sp., Not Anthracis Escherichia Coli 12/01/18 Urine Culture - Final, Complete Escherichia Coli 12/01/18 Blood Culture - Final, Complete NO GROWTH AFTER 5 DAYS 12/01/18 Blood Culture - Final, Complete NO GROWTH AFTER 5 DAYS NANI MOORE MD Dec 08, 2018 10:20
[2018-12-08] MEDS ORDERED: LIDOCAINE 2% INJ 100 MG/5 ML SDV (FOR ANES.) As Ordered ONE (10:49)
[2018-12-08] MEDS ORDERED: PROPOFOL 200 MG/20 ML VIAL As Ordered ONE (10:49)
[2018-12-08] MEDS ORDERED: fentaNYL 100 MCG/2 ML INJECTION (J3010) As Ordered ONE (10:50)
[2018-12-08] MEDS ORDERED: PHENYLephrine HCL 500 MCG/5 ML (100MCG/ML) SYRINGE (J2370) As Ordered ONE (11:59)
--- NOTE | 2018-12-08 12:33 | ROOR ---
Patient Name: Donal Diez Procedure Date: 12/08/2018 11:45 AM Date of : 1930 Age: 88 Room: [facility] Gender: Male Note Status: Finalized Procedure: Upper GI endoscopy Indications: Acute post hemorrhagic anemia Providers: Ortiz Christopher MD Referring MD: PALLAVI MCCORMACK MD Requesting Provider: Medicines: Monitored Anesthesia Care Complications: No immediate complications. Procedure: Pre-Anesthesia Assessment: - Prior to the procedure, a History and Physical was performed, and patient medications and allergies were reviewed. The patient is competent. The risks and benefits of the procedure and the sedation options and risks were discussed with the patient. All questions were answered and informed consent was obtained. Patient identification and proposed procedure were verified by the physician, the nurse and the anesthesiologist in the endoscopy suite. Mental Status Examination: alert and oriented. Airway Examination: normal oropharyngeal airway and neck mobility. Respiratory Examination: clear to auscultation. CV Examination: normal. Prophylactic Antibiotics: The patient does not require prophylactic antibiotics. Prior Anticoagulants: The patient has taken Eliquis (apixaban), last dose was 6 days prior to procedure. ASA Grade Assessment: III - A patient with severe systemic disease. After reviewing the risks and benefits, the patient was deemed in satisfactory condition to undergo the procedure. The anesthesia plan was to use monitored anesthesia care (MAC). Immediately prior to administration of medications, the patient was re-assessed for adequacy to receive sedatives. The heart rate, respiratory rate, oxygen saturations, blood pressure, adequacy of pulmonary ventilation, and response to care were monitored throughout the procedure. The physical status of the patient was re-assessed after the procedure. The Endoscope was introduced through the mouth, and advanced to the second part of duodenum. The upper GI endoscopy was technically difficult and complex due to enlarge prostate, hard, not moveable, multiple diverticula, tortuous colon. The patient tolerated the procedure well. Findings: The examined esophagus was normal. A small hiatal hernia was present. There is no endoscopic evidence of bleeding, erythema, erythema or inflammatory changes suggestive of gastritis, inflammation, ulceration or varices in the entire examined stomach. The second portion of the duodenum was normal. Impression: - Normal esophagus. - Small hiatal hernia. - Normal second portion of the duodenum. - No specimens collected. Recommendation: - Admit the patient to [facility] for ongoing care. Ortiz Christopher MD Ortiz Christopher MD 12/08/2018 12:33:32 PM Electronically signed by Ortiz Christopher MD Number of Addenda: 0 Note Initiated On: 12/08/2018 11:45 AM Estimated Blood Loss: Estimated blood loss: none.
--- NOTE | 2018-12-08 12:39 | ROOR ---
Patient Name: Donal Diez Procedure Date: 12/08/2018 11:44 AM Date of : 1930 Age: 88 Room: [facility] Gender: Male Note Status: Finalized Procedure: Colonoscopy Indications: Acute post hemorrhagic anemia Providers: Ortiz Christopher MD Referring MD: PALLAVI MCCORMACK MD Requesting Provider: Medicines: Monitored Anesthesia Care Complications: No immediate complications. Procedure: Pre-Anesthesia Assessment: - Prior to the procedure, a History and Physical was performed, and patient medications and allergies were reviewed. The patient is competent. The risks and benefits of the procedure and the sedation options and risks were discussed with the patient. All questions were answered and informed consent was obtained. Patient identification and proposed procedure were verified by the physician, the nurse and the anesthesiologist in the endoscopy suite. Mental Status Examination: alert and oriented. Airway Examination: normal oropharyngeal airway and neck mobility. Respiratory Examination: clear to auscultation. CV Examination: normal. Prophylactic Antibiotics: The patient does not require prophylactic antibiotics. Prior Anticoagulants: The patient has taken Eliquis (apixaban), last dose was 6 days prior to procedure. ASA Grade Assessment: III - A patient with severe systemic disease. After reviewing the risks and benefits, the patient was deemed in satisfactory condition to undergo the procedure. The anesthesia plan was to use monitored anesthesia care (MAC). Immediately prior to administration of medications, the patient was re-assessed for adequacy to receive sedatives. The heart rate, respiratory rate, oxygen saturations, blood pressure, adequacy of pulmonary ventilation, and response to care were monitored throughout the procedure. The physical status of the patient was re-assessed after the procedure. The Colonoscope was introduced through the anus and advanced to the cecum, identified by appendiceal orifice and ileocecal valve. The colonoscopy was performed with moderate difficulty due to significant looping and a tortuous colon, enlarged prostate, hard,not moveable. The patient tolerated the procedure well. The quality of the bowel preparation was good. Findings: The perianal and digital rectal examinations were normal. There is no endoscopic evidence of bleeding, inflammation or ulcerations. No stigmata of recent bleed in the entire colon. The mucosa vascular pattern in the rectum was locally increased. This was biopsied with a cold forceps for histology. Five pedunculated polyps were found in the transverse colon, ascending colon and cecum. The polyps were small in size. multiple small polyps visualized, polypectomy not done as primary reason for doing colonoscopy right now is to find out where he is bleeding which may complicate the picture if he does have some postop polypectomy bleed Impression: - Increased mucosa vascular pattern in the rectum. Biopsied. - Five small polyps in the transverse colon, in the ascending colon and in the cecum. Recommendation: - Admit the patient to [facility] for ongoing care. Ortiz Christopher MD Ortiz Christopher MD 12/08/2018 12:39:31 PM Electronically signed by Ortiz Christopher MD Number of Addenda: 0 Note Initiated On: 12/08/2018 11:44 AM Estimated Blood Loss: Estimated blood loss: none.
[2018-12-08 13:02] VITALS: BP 103/71
[2018-12-08] MEDS ORDERED: SLF 3 ML SYR IV PRN (14:00)
[2018-12-08] MEDS: SLF 3 ML SYR IV SCH ×2 (14:14→21:02)
[2018-12-08 16:00] VITALS: BP 92/53
[2018-12-08 20:00] VITALS: BP 110/65
[2018-12-08] MEDS: ATORVASTATIN 20 MG TAB PO SCH (21:01)
[2018-12-09] VITALS: BP 125/80
[2018-12-09 04:00] VITALS: BP 100/61
[2018-12-09] MEDS: LEVOTHYROXINE 75MCG TABLET (0.075MG) PO SCH (05:40)
[2018-12-09] MEDS: SLF 3 ML SYR IV SCH ×3 (05:41→20:40)
[2018-12-09 05:55] LABS: HEMOGLOBIN 8.7 g/dl (13.5-17.5); MEAN CORPUSCULAR HEMOGLOBIN 28.9 pg (27.0-33.0); MEAN CORPUSCULAR HGB CONC 32.2 g/dl (32.0-36.5); MEAN CORPUSCULAR VOLUME 89.7 fl (80.0-96.0); PLATELET COUNT, AUTOMATED 175 10^3/uL (150-450); RED BLOOD COUNT 3.01 10^6/uL (4.30-6.10)
[2018-12-09 06:13] LABS: BLOOD UREA NITROGEN 17 MG/DL (7-18); CALCIUM LEVEL 8.7 MG/DL (8.8-10.2); CARBON DIOXIDE LEVEL 30 MEQ/L (21-32); CHLORIDE LEVEL 100 MEQ/L (98-107); GLOMERULAR FILTRATION RATE > 60.0 (>35); GLUCOSE, FASTING 111 MG/DL (70-100); POTASSIUM SERUM 4.2 MEQ/L (3.5-5.1); SODIUM LEVEL 136 MEQ/L (136-145)
[2018-12-09 08:00] VITALS: BP 111/73
[2018-12-09] MEDS: DOCUSATE SODIUM 100 MG CAP PO SCH ×2 (09:00→20:39)
[2018-12-09] MEDS: MULTIVITAMINS/MINERALS THERAP 1 TAB PO SCH (09:06)
[2018-12-09] MEDS: methylPREDNISolone 4 MG TAB PO SCH ×2 (09:06→20:39)
[2018-12-09] MEDS: METOPROLOL TART 25 MG TABLET PO SCH ×3 (09:07→20:39)
[2018-12-09] MEDS: ASPIRIN 81 MG ENTERIC TAB PO SCH (09:07)
[2018-12-09] MEDS: FUROSEMIDE 20 MG TAB PO SCH (09:07)
[2018-12-09] MEDS: NITROFURANTOIN (MACROBID) 100 MG CAP PO SCH ×2 (09:07→20:39)
[2018-12-09] MEDS: PANTOPRAZOLE 20 MG TAB PO SCH (09:07)
[2018-12-09 12:00] VITALS: BP 100/66
[2018-12-09 16:00] VITALS: BP 100/65
--- NOTE | 2018-12-09 17:20 | IPNPDOC ---
Date Seen The patient was seen on 12/09/18. Progress Note SUBJECTIVE: Patient has no complaints, reported feeling well. Cleared PT today. Does get slightly more tachycardic with exertion but quickly returns to 90-100s with rest. No bleeding per rectum noted. Hb stable. HR fluctuates 80-100s. BP also improved from yesterday. OBJECTIVE PHYSICAL EXAMINATION: VITAL SIGNS: Please see below. General: No acute distress, Alert, generalized weakness Eyes: Normal sclera, EOMI HENT: Atraumatic Cardiovascular: Tachycardia, irregular rhythm. Pulmonary: Clear to auscultation b/l, no wheezing GI: Soft, nontender Skin: Warm and dry Neuro: CN grossly intact. Psych: oriented x 3 LABORATORY DATA, IMAGING STUDIES, MICROBIOLOGY: Please see below. DVT prophylaxis ordered?: Was on Eliquis, holding now ASSESSMENT AND PLAN: 1. Sepsis - Likely 2/2 UTI in setting of indwelling segura catheter. Presented with hypotension, tachycardic, elevated T bili 1.7 and febrile. - c/w Macrobid. - Urine culture + e. coli. Blood cultures NTD. - Discussed with urology, segura catheter removed at this time. Monitor for void. Call urology to replace catheter if needed. 2. CHF - Clear XR on presentation. - PO Lasix resumed now that BP is more stable. 3. Hemochromatosis- chronic 4. Afib w/RVR - Improved and controlled normally at rest, increases with exertion. - BB was held on presentation due to hypotension but is now resumed. - Hold Eliquis for now given anemia, plan to resume upon discharge. 5. Prostate cancer 7. Normocytic anemia - s/p 2 units pRBC. - Monitor H/H. - Hold anticoagulation. S/p colonoscopy with no active bleeding. Dispo: Plan to d/c in AM if patient remains stable VS, I&O, 24H, [place] Vital Signs/I&O Vital Signs Date Time Temp Pulse Resp B/P (MAP) Pulse Ox O2 Delivery O2 Flow Rate FiO2 12/09/18 16:20 88 100/66 12/09/18 12:00 98.0 18 94 Room Air 12/03/18 09:00 1.0 I&O- Last 24 Hours up to 6 AM 12/09/18 06:00 Intake Total 620 ml Output Total 100 ml Balance 520 ml Laboratory Data 24H LABS Laboratory Tests 2 12/09/18 05:33: Nucleated Red Blood Cells % (auto) 0.0, Anion Gap 6L, Glomerular Filtration Rate > 60.0, Calcium Level 8.7L CBC/BMP Laboratory Tests 12/09/18 05:33 Microbiology Microbiology 12/06/18 Stool Occult Blood (CARLOS) - Final, Complete 12/04/18 Stool Occult Blood (CARLOS) - Final, Complete 12/02/18 Urine Culture - Final, Complete Bacillus Sp., Not Anthracis Escherichia Coli 12/01/18 Urine Culture - Final, Complete Escherichia Coli 12/01/18 Blood Culture - Final, Complete NO GROWTH AFTER 5 DAYS 12/01/18 Blood Culture - Final, Complete NO GROWTH AFTER 5 DAYS NANI MOORE MD Dec 09, 2018 17:20
[2018-12-09 20:00] VITALS: BP 112/60
[2018-12-09] MEDS: ATORVASTATIN 20 MG TAB PO SCH (20:39)
[2018-12-10] VITALS: BP 116/70
[2018-12-10 00:10] LABS: HOMOCYSTEINE 7.9 umol/L (5.1-13.9)
[2018-12-10 04:00] VITALS: BP 102/64
[2018-12-10] MEDS: SLF 3 ML SYR IV SCH (05:32)
[2018-12-10] MEDS: LEVOTHYROXINE 75MCG TABLET (0.075MG) PO SCH (05:32)
[2018-12-10 07:42] VITALS: BP 110/73
[2018-12-10 09:23] VITALS: BP 110/73
[2018-12-10] MEDS: methylPREDNISolone 4 MG TAB PO SCH (09:23)
[2018-12-10] MEDS: ASPIRIN 81 MG ENTERIC TAB PO SCH (09:23)
[2018-12-10] MEDS: DOCUSATE SODIUM 100 MG CAP PO SCH (09:23)
[2018-12-10] MEDS: METOPROLOL TART 25 MG TABLET PO SCH (09:23)
[2018-12-10] MEDS: FUROSEMIDE 20 MG TAB PO SCH (09:23)
[2018-12-10] MEDS: MULTIVITAMINS/MINERALS THERAP 1 TAB PO SCH (09:23)
[2018-12-10] MEDS: PANTOPRAZOLE 20 MG TAB PO SCH (09:24)
[2018-12-10] MEDS: NITROFURANTOIN (MACROBID) 100 MG CAP PO SCH (09:24)
[2018-12-10] MEDS ORDERED: PROT1TAB2 PO (10:22)
--- NOTE | 2018-12-10 10:27 | DS.PDOC ---
Discharge Summary General Date of Admission Dec 01, 2018 at 23:24 Date of Discharge 12/10/18 Discharge Summary PROCEDURES PERFORMED DURING STAY: [None]. Colonoscopy Findings: The examined esophagus was normal. A small hiatal hernia was present. There is no endoscopic evidence of bleeding, erythema, erythema or inflammatory changes suggestive of gastritis, inflammation, ulceration or varices in the entire examined stomach. The second portion of the duodenum was normal. ADMITTING DIAGNOSES: 1. Afib 2. Hypotension 3. UTI 4. Hemochromatosis 5. Prostate cancer DISCHARGE DIAGNOSES: 1. Afib 2. Sepsis 3. UTI 4. Hemochromatosis 5. Prostate cancer 6. GI bleed COMPLICATIONS/CHIEF COMPLAINT: Hypotension/Uti/Anemia. HISTORY OF PRESENT ILLNESS: "This is 88 years old white male with past medical history of metastatic positive cancer, chronic A. fib, dilated cardiomyopathy, chronic systolic CHF. Hereditary hematochromatosis history of iron deficiency anemia, CAD, GERD, stable pulmonary nodule, osteoporosis, status post hernia repair, had developed dizziness and since last 2-3 days and has not been feeling good with a generaliz ed weakness. Today, while he tried to stand up he passed out and was brought to the hospital by his daughter by ambulance. Patient denies chest pain, shortness of breath, nausea, vomiting or diarrhea" HOSPITAL COURSE: Patient was admitted for Sepsis 2/2 UTI, segura catheter was removed and patient has been able to urinate without having it replaced by urology. BP improved through course of admission with Abx treatment but remained borderline. Patient was in Afib w/ RVR with slow improvement and subsequently resolved but develops rapid ventricular rate with mobilization/exertion. BB was initially held due to hypotension and subsequently resumed after BP improvement and HR also improved to mostly <100s. Patient was able to ambulate with PT without significant tachycardia noted before to 170s and HR returned to <110 quickly with rest. Patient to follow up with PMD and Cardiology as outpatient. BB dose may need adjustment if intermittent tachycardia is not controlled and BP can tolerate. Patient also noted to be anemic with Hb dropping down to 6.4 on admission and was transfused 2 units pRBC. He underwent colonoscopy with surgery which found no active bleeding and H/H had been stable. Eliquis has been held for several days. Discussed with patient regarding risks of thrombosis vs. bleed and patient feels more comfortable resuming his Eliquis at this time and be monitor for bleed instead. He will f/u with PMD and Cardiology. Would recommend repeating H/H within 3 months or check [id number] initially. Had been instructed to hold Eliquis if bleeding recurs and come back to ER. DISCHARGE MEDICATIONS: Please see below. ALLERGIES: Please see below. PHYSICAL EXAMINATION ON DISCHARGE: VITAL SIGNS: Please see below. General: No acute distress, Alert, generalized weakness Eyes: Normal sclera, EOMI HENT: Atraumatic Cardiovascular: Tachycardia, irregular rhythm. Pulmonary: Clear to auscultation b/l, no wheezing GI: Soft, nontender Skin: Warm and dry Neuro: CN grossly intact. Psych: oriented x 3 LABORATORY DATA: Please see below. IMAGING: CXR- IMPRESSION: 1. Decreased left base atelectasis since 09/23/2018. 2. Otherwise stable chest. No acute interval process is identified. ACTIVITY: [As tolerated]. DIET: 2G sodium DISCHARGE PLAN: f/u Cardiology,Urology and PMD f/u Resume Eliquis but hold if noticable GI bleeding are noted and return to ER Recommend repeating CBC within 3 months with PMD to trend H/H DISPOSITION: Home. DISCHARGE INSTRUCTIONS: f/u Cardiology,Urology and PMD f/u Resume Eliquis but hold if noticable GI bleeding are noted and return to ER Recommend repeating CBC within 3 months with PMD to trend H/H ITEMS TO FOLLOWUP ON ON OUTPATIENT: None DISCHARGE CONDITION: [Stable]. TIME SPENT ON DISCHARGE: 32 minutes. Vital Signs/I&Os Vital Signs Date Time Temp Pulse Resp B/P (MAP) Pulse Ox O2 Delivery O2 Flow Rate FiO2 12/10/18 09:23 108 110/73 12/10/18 07:42 97.7 20 95 12/10/18 04:00 Room Air I&O- Last 24 Hours up to 6 AM 12/10/18 06:00 Intake Total 900 ml Output Total 300 ml Balance 600 ml Microbiology Microbiology 12/06/18 Stool Occult Blood (CARLOS) - Final, Complete 12/04/18 Stool Occult Blood (CARLOS) - Final, Complete 12/02/18 Urine Culture - Final, Complete Bacillus Sp., Not Anthracis Escherichia Coli 12/01/18 Urine Culture - Final, Complete Escherichia Coli 12/01/18 Blood Culture - Final, Complete NO GROWTH AFTER 5 DAYS 12/01/18 Blood Culture - Final, Complete NO GROWTH AFTER 5 DAYS Discharge Medications Scheduled Abiraterone Acet,Submicronized (Yonsa) 125 Mg Tablet, 125 MG PO QID, (Reported) Apixaban (Eliquis) 5 Mg Tablet, 5 MG PO BID, (Reported) Aspirin (Aspirin EC) 81 Mg Tab, 81 MG PO DAILY, (Reported) Atorvastatin Calcium (Atorvastatin Calcium) 40 Mg Tablet, 40 MG PO QHS, (Reported) Calcium Carbonate/Vitamin D3 (Calcium 600-Vit D3 400 Tablet) 1 Tab Tab, 1 TAB PO BID, (Reported) Denosumab Injection (Prolia) 60 Mg/Ml Tsering, 60 MG SC ASDIRECTED, (Reported) EVERY 6 MONTHS. HAS APPT SCHEDULED IN [place] NEXT WEEK Dexlansoprazole (Dexilant) 30 Mg Buck.bp, 30 MG PO QHS, (Reported) Furosemide (Lasix) 20 Mg Tablet, 20 MG PO DAILY, (Reported) Leuprolide Acetate (Lupron Depot) 45 Mg Syringekit, 45 MG IM ASDIRECTED, (Reported) EVERY 6 MONTHS. HAS APPT SCHEDULED NEXT WEEK IN [place] Levothyroxine Sodium (Synthroid) 75 Mcg Tablet, 75 MCG PO QAM, (Reported) Methylprednisolone (Methylprednisolone) 4 Mg Tablet, 4 MG PO BID, (Reported) Metoprolol Tartrate (Metoprolol Tartrate) 25 Mg Tablet, 25 MG PO TID, (Reported) Multivit-Min/FA/Lycopen/Lutein (Centrum Silver Tablet) 1 Tab Tab, 1 TAB PO DAILY, (Reported) Pantoprazole Sodium (Protonix) 40 Mg Tablet., 1 TAB PO DAILY Spironolactone (Spironolactone) 25 Mg Tablet, 12.5 MG PO DAILY, (Reported) Umeclidinium [place] (Incruse Ellipta) 62.5 Mcg Blst.w.dev, 1 PUFF INH DAILY, (Reported) Scheduled PRN Albuterol Sulfate (Ventolin Hfa) 108 Mcg/Act Aer, 2 PUFFS INH QID PRN for SHORTNESS OF BREATH, (Reported) Allergies Coded Allergies: No Known Allergies (Unverified , 12/01/18) NANI MOORE MD Dec 10, 2018 10:27
== END 2018-12-10 12:24 | disposition home or self-care (01) | DRG 698 ==
LOC: M ED 19:49 → M ED INP 23:24 → M ICU 12-02 02:19 → M PCU 12-05 01:10
PROVIDERS: ADMIT Internal Medicine; ATTEND Student in an Organized Health Care Education/Training Program
PROC: 30233N1 Transfusion of Nonautologous Red Blood Cells into Peripheral Vein, Percutaneous Approach (ICD-10-PCS; principal; 2018-12-04)
PROC: 0DJ08ZZ Inspection of Upper Intestinal Tract, Via Natural or Artificial Opening Endoscopic (ICD-10-PCS; 2018-12-08)
PROC: 0DBP8ZX Excision of Rectum, Via Natural or Artificial Opening Endoscopic, Diagnostic (ICD-10-PCS; 2018-12-08)
DX: T83.511A Infection and inflammatory reaction due to indwelling urethral catheter, initial encounter (principal); A41.9 Sepsis, unspecified organism; I48.20 Chronic atrial fibrillation, unspecified; I42.0 Dilated cardiomyopathy; I50.22 Chronic systolic (congestive) heart failure; Y84.6 Urinary catheterization as the cause of abnormal reaction of the patient, or of later complication, without mention of misadventure at the time of the procedure; E83.110 Hereditary hemochromatosis; D50.9 Iron deficiency anemia, unspecified; D12.0 Benign neoplasm of cecum; B96.20 Unspecified Escherichia coli [E. coli] as the cause of diseases classified elsewhere; I25.10 Atherosclerotic heart disease of native coronary artery without angina pectoris; D12.3 Benign neoplasm of transverse colon; D12.2 Benign neoplasm of ascending colon; K44.9 Diaphragmatic hernia without obstruction or gangrene; K21.9 Gastro-esophageal reflux disease without esophagitis; R91.1 Solitary pulmonary nodule; M81.0 Age-related osteoporosis without current pathological fracture; C61 Malignant neoplasm of prostate; I25.2 Old myocardial infarction; Z79.82 Long term (current) use of aspirin; Z79.899 Other long term (current) drug therapy; Z79.01 Long term (current) use of anticoagulants; Z87.891 Personal history of nicotine dependence

== ENCOUNTER 2019-04-13 15:06 | Inpatient (IN) | payer MEDICARE, MEDICAID ==
[~2019-04-13] VITALS: Ht 165.1 cm; Wt 62.5 kg
[~2019-04-13 15:06] MED LIST changes: -DIGO0.12; +DIGO0.123; +FERR150C PO; +INCR1INH INH; -METH4TAB28 PO; +METH4TAB8 PO; +PROT1TAB2 PO
[2019-04-13] MEDS ORDERED: ASPI81TA26 PO (15:35)
[2019-04-13 15:54] LABS: BASO % 0.1 % (0.0-1.0); EOS % 0.2 % (0.0-3.0); HEMATOCRIT 32.2 % (42.0-52.0); HEMOGLOBIN 9.7 g/dl (13.5-17.5); LYMPH # 0.5 10^3/uL (1.5-5.0); LYMPH % 5.9 % (24.0-44.0); MEAN CORPUSCULAR HEMOGLOBIN 26.9 pg (27.0-33.0); MEAN CORPUSCULAR HGB CONC 30.1 g/dl (32.0-36.5); MEAN CORPUSCULAR VOLUME 89.2 fl (80.0-96.0); MONO # 0.4 10^3/uL (0.0-0.8); MONO % 4.9 % (0.0-5.0); NEUTROPHILS # 7.1 10^3/uL (1.5-8.5); NEUTROPHILS % 87.9 % (36.0-66.0); PLATELET COUNT, AUTOMATED 156 10^3/uL (150-450); RED BLOOD COUNT 3.61 10^6/uL (4.30-6.10)
[2019-04-13 16:05] LABS: INR 2.43; PARTIAL THROMBOPLASTIN TIME 38.5 SECONDS (25.0-38.4); PROTHROMBIN TIME 26.3 SECONDS (11.8-14.0)
[2019-04-13 16:30] LABS: BLOOD UREA NITROGEN 25 MG/DL (7-18); CALCIUM LEVEL 8.9 MG/DL (8.8-10.2); CARBON DIOXIDE LEVEL 25 MEQ/L (21-32); CHLORIDE LEVEL 106 MEQ/L (98-107); CK-MB VALUE MASS 2.1 NG/ML (<3.6); CPK CREATINE PHOSPHOKINASE 44 U/L (39-308); CREATININE FOR GFR 0.99 MG/DL (0.70-1.30); GLOMERULAR FILTRATION RATE > 60.0 (>35); GLUCOSE, FASTING 144 MG/DL (70-100); MB/CK RELATIVE INDEX 4.77 (< OR =4); NT-PRO BNP 10720 PG/ML (<450); POTASSIUM SERUM 3.6 MEQ/L (3.5-5.1); SODIUM LEVEL 140 MEQ/L (136-145); TROPONIN I 0.12 NG/ML (< 0.10)
--- NOTE | 2019-04-13 16:34 | REP ---
CHEST, PORTABLE: AP portable view of the chest is performed and compared to prior study of 12/01/2018. There is cardiomegaly. Retrocardiac fibrosis is stable. Mediastinal silhouette is unchanged. There are mild degenerative changes of the spine. IMPRESSION: Cardiomegaly and chronic fibrotic change. No acute infiltrate. Electronically Signed by Enio Feliciano MD 04/14/2019 10:32 A
[2019-04-13] MEDS ORDERED: FUROSEMIDE 40 MG/4 ML VIAL (J1940) IV ONE (17:30)
[2019-04-13] MEDS ORDERED: SERT50TA29 PO (17:47)
[2019-04-13] MEDS ORDERED: METO25TA4 PO (17:47)
[2019-04-13] MEDS ORDERED: METH4TAB8 PO (17:47)
[2019-04-13 18:01] LABS: INFLUENZA A AMPLIFICATION POSITIVE (NEGATIVE); INFLUENZA B AMPLIFICATION NEGATIVE (NEGATIVE)
[2019-04-13] MEDS ORDERED: ACETAMINOPHEN TAB 650MG DOSE (2X325MG) PO PRN (18:15)
[2019-04-13 20:00] VITALS: BP 119/75
[2019-04-13] MEDS ORDERED: ALBUTEROL 90 MCG/ACT 8GM HFA INHALER INH PRN (20:30)
[2019-04-13] MEDS: APIXABAN 5 MG TAB (ELIQUIS) PO SCH (21:06)
[2019-04-13] MEDS: ATORVASTATIN 20 MG TAB PO SCH (21:07)
[2019-04-13] MEDS: METOPROLOL TART 25 MG TABLET PO SCH (21:07)
--- NOTE | 2019-04-13 22:09 | HPE ---
DATE OF ADMISSION: 04/13/2019 TIME: 5:30 p.m. CHIEF COMPLAINT: Shortness of breath. HISTORY OF PRESENT ILLNESS: Mr. Diez is an 89-year-old gentleman who has a history of chronic atrial fibrillation for which he is on Coumadin. He also has a history of chronic systolic congestive heart failure, metastatic prostate cancer, and hereditary hemachromatosis. The patient was in his usual state of health up until two weeks ago when he started experiencing shortness of breath, cough, as well as increasing dyspnea on exertion. The patient reports that his daughter that he lives with was diagnosed as having influenza. He did not seek any treatment himself. He reports that he feels that his symptoms are better than what they were but he just feels winded. On presentation today to the emergency department, his chest x-ray was found to have chronic fibrotic changes with no evidence of pulmonary edema or effusion. He has had increased lower extremity swelling per his daughters who are present with him today in the emergency room. He was found to have a mildly elevated troponin marker at 0.12 with a normal INR at 2.43. The patient was treated with IV Lasix and admitted to the hospitalist service for further treatment and evaluation. ALLERGIES: No known drug allergies. HOME MEDICATIONS: Are the following: - Yonsa 125 mg four times a day - Ventolin HFA - apixaban 5 mg twice a day - atorvastatin 40 mg at bedtime - calcium carbonate one tablet twice a day - Prolia 60 mg subcutaneous, last injection was in February - Dexilant 30 mg at bedtime - furosemide 20 mg daily - iron tablets 150 mg twice a day - leuprolide acetate 45 mg intramuscular (IM) - Synthroid 75 mcg daily - Medrol 4 mg twice a day - metoprolol tartrate 25 mg three times a day - sertraline 50 mg daily - Aldactone 12.5 mg daily - Incruse Ellipta one puff daily PAST MEDICAL HISTORY: Notable for chronic systolic heart failure, metastatic prostate cancer, chronic obstructive pulmonary disease (COPD), chronic atrial fibrillation, hereditary hemachromatosis, coronary artery disease, chronic pulmonary nodules, osteoporosis. SURGICAL HISTORY: Notable for hernia repair. SOCIAL HISTORY: Patient is a , lives at home with his daughter. His daughter is his surrogate medical decision maker. He is a FULL CODE. FAMILY HISTORY: Was asked but is noncontributory given the patient's advanced age of 89. REVIEW OF SYSTEMS: Positive for productive cough, shortness of breath. No fevers, no chills, no hemoptysis, no history of tuberculosis exposure to his recollection. He has increased lower extremity swelling. Denies having significant orthopnea. He is not on a fluid restriction at home and he takes a low salt diet. Remainder of systems reviewed and patient is otherwise negative. On exam today, the patient's temperature is 97.9, pulse is 114, irregularly regular, blood pressure 125/83, oxygen saturation 94% on room air. General: Patient is alert and oriented times three. He is an elderly gentleman who appears his stated age. He is resting comfortably in a supine position with no visible orthopnea. His breathing is nonlabored. His head is atraumatic. Pupils are symmetric and reactive to light. Oropharynx is clear, mucosa is moist, no visible thrush. Neck is supple. He does have some jugular venous distention to about 7 cm. No thyromegaly or thyroid gland tenderness is noted. No palpable lymphadenopathy. Lung sounds appreciated bilaterally with diminished breath sounds. Heart S1, S2, no audible murmurs or gallops. He has an irregular regular rhythm consistent with atrial fibrillation with rapid ventricular rate. At this time, his heart rate is 121. His abdomen is soft, nontender, nondistended with active bowel sounds. Extremities are without any significant cyanosis or clubbing. He has about 2+ edema extending from his feet to the inferior aspect of his patella. RELEVANT LABORATORIES: White count 8, hemoglobin 9.7, hematocrit 32, platelet count 156,000, INR is 2.43, troponin is 0.12, proBNP is 10,720, sodium 140, potassium 3.6, chloride 106, bicarbonate 25, BUN 25, creatinine 0.9, glucose 144. Chest x-ray showed cardiomegaly with chronic fibrotic changes. Influenza A is positive. IMPRESSION: 1. Acute dyspnea, likely multifactorial. Patient more than likely has some mild to moderate acute on chronic systolic congestive heart failure likely exacerbated by his recent influenza A infection. 2. Acute on chronic systolic and diastolic congestive heart failure. 3. Chronic atrial fibrillation with mild rapid ventricular rate. 4. Metastatic prostate cancer. 5. Elevated troponin, likely secondary to troponin leak associated with his chronic congestive heart failure. 6. Hypercoagulability. Elevated INR likely secondary to adverse effect of Eliquis therapy. PLAN: Patient will be admitted to an inpatient status to the progressive care unit (PCU). Given his rapid ventricular rate, in case he needs intravenous medications he will be admitted to that unit. He will be continued on his home medications. We will put him on Lasix 20 mg IV every 12 hours and gently diurese him. I anticipate that he should be feeling better in the next 24-48 hours. Given the patient's prolonged symptoms with influenza, he does not meet any guidelines for therapy with Tamiflu as he is outside the 48 hour window of treatment. He will be given supportive care. He will be continued on his Eliquis amongst his other medications. Please reference for detail. Patient will be a FULL CODE. He does not need deep venous thrombosis (DVT) prophylaxis as he is on Eliquis.
[2019-04-13] MEDS: methylPREDNISolone 4 MG TAB PO SCH (23:55)
[2019-04-13 23:59] VITALS: BP 107/69
[2019-04-14 04:00] VITALS: BP 119/73
--- NOTE | 2019-04-14 05:52 | ECGEPIP ---
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
[2019-04-14] MEDS: LEVOTHYROXINE 75MCG TABLET (0.075MG) PO SCH (06:40)
[2019-04-14] MEDS: FUROSEMIDE 20 MG/2 ML VIAL (J1940) IV SCH ×2 (06:40→16:49)
[2019-04-14 07:26] LABS: BLOOD UREA NITROGEN 19 MG/DL (7-18); CALCIUM LEVEL 8.5 MG/DL (8.8-10.2); CARBON DIOXIDE LEVEL 28 MEQ/L (21-32); CHLORIDE LEVEL 105 MEQ/L (98-107); GLOMERULAR FILTRATION RATE > 60.0 (>35); GLUCOSE, FASTING 96 MG/DL (70-100); MAGNESIUM LEVEL 1.6 MG/DL (1.8-2.4); POTASSIUM SERUM 3.5 MEQ/L (3.5-5.1); SODIUM LEVEL 141 MEQ/L (136-145)
[2019-04-14 08:00] VITALS: BP 132/83
[2019-04-14] MEDS: APIXABAN 5 MG TAB (ELIQUIS) PO SCH ×2 (08:42→20:12)
[2019-04-14] MEDS: SERTRALINE HCL 50 MG TAB PO SCH (08:42)
[2019-04-14] MEDS: methylPREDNISolone 4 MG TAB PO SCH ×2 (08:42→20:12)
[2019-04-14] MEDS: MULTIVITAMINS/MINERALS THERAP 1 TAB PO SCH (08:42)
[2019-04-14] MEDS: METOPROLOL TART 25 MG TABLET PO SCH ×3 (08:43→20:12)
[2019-04-14] MEDS: SPIRONOLACTONE 12.5MG PER 1/2 TABLET PO SCH (08:44)
[2019-04-14 12:00] VITALS: BP 121/80
[2019-04-14 16:00] VITALS: BP 117/68
--- NOTE | 2019-04-14 16:21 | ECHO ---
DATE OF PROCEDURE: 04/14/2019 REFERRING PHYSICIAN: Dr. Héctor Jose INDICATION: Congestive heart failure. Height 165 cm, weight 61 kg. DIMENSIONS: IVS: 1.3 LV: 4.1 LVPW: 1.3 LA: 4.7 Aorta: 3.7 RV: 3.4 IVC: 2.3 Mitral E wave velocity: 103 E prime septal: 5.3 E prime lateral: 9.9 Left atrial volume index: 96 FINDINGS: The study is of fair technical quality. The patient is in atrial fibrillation with rate fluctuating between 90 and 110 beats per minute. Left ventricle is normal size. Mild left ventricular hypertrophy is noted. The apical segments were poorly visualized but based on very limited views, it appears that the apex, distal septum, distal anterior wall and distal inferior wall are akinetic. The remaining left ventricular (LV) segment has normal contractility. Overall estimated ejection fraction (EF) around 40-45%. Right ventricle was poorly seen but appears grossly normal. There is severe biatrial enlargement. No pericardial effusion is noted. Aortic valve is sclerotic but has three cusps and preserved mobility. There are degenerative abnormalities of mitral valve with very prominent mitral annular calcifications. Mobility of mitral leaflets is preserved though. Tricuspid and pulmonic valves appear normal. Inferior vena cava is dilated, and there is no appreciable collapse with inspiration indicative of very high central venous pressure. Aortic root is normal. Aortic arch and abdominal aorta were not well visualized. Doppler interrogation reveals no significant aortic stenosis and mild insufficiency. There is approximately moderate mitral and moderate tricuspid insufficiency. Calculated pulmonary artery pressure is at least 60 mmHg corresponding to moderately severe pulmonary hypertension. Evaluation of diastolic function is inconclusive due to underlying atrial fibrillation. CONCLUSIONS: 1. Study is of fair technical quality, the patient is in atrial fibrillation with mildly tachycardic response. 2. Normal left ventricular (LV) size with mild left ventricular hypertrophy (LVH) and overall approximately moderate left ventricular systolic dysfunction. The apical segments are poorly visualized but there appears to be fairly extensive wall motion abnormality involving distal septum, distal anterior wall, distal inferior wall and whole apex. 3. Aortic sclerosis with mild insufficiency and no stenosis. 4. Moderate mitral and tricuspid insufficiency. 5. Very high central venous pressure. 6. At least moderately severe pulmonary hypertension. MTDD
--- NOTE | 2019-04-14 17:51 | IPNPDOC ---
Subjective Date Seen The patient was seen on 04/14/19. Subjective Chief Complaint/HPI Donal feels improved today. He is not exhibiting symptoms of influenza. He worked well with PT this morning. Objective Physical Examination General Exam: Positive: Alert Eye Exam: Negative: Sclera icteric Neck Exam: Positive: Supple Chest Exam: Positive: Clear to auscultation Heart Exam: Positive: Irregular Rhythm Telemetry: Positive: Atrial fibrillation Abdomen Exam: Positive: Normal bowel sounds Extremity Exam: Negative: Clubbing, Cyanosis, Edema Neuro Exam: Positive: Normal Gait, Normal Speech Psych Exam: Positive: Mental status NL Assessment /Plan Assessment 1. Acute dyspnea, likely multifactorial. Patient more than likely has some mild to moderate acute on chronic systolic congestive heart failure likely exacerbated by his recent influenza A infection. 2. Acute on chronic systolic and diastolic congestive heart failure. 3. Chronic atrial fibrillation with mild rapid ventricular rate. 4. Metastatic prostate cancer. 5. Elevated troponin, likely secondary to troponin leak associated with his chronic congestive heart failure. 6. Hypercoagulability. Elevated INR likely secondary to adverse effect of Eliquis therapy Plan: - add lisinopril - echo shows worsening cardiomyopathy - change to oral lasix - home in am Plan/VTE VTE Prophylaxis Ordered?: No (on xarelto) VTE Exclusion Mechanical Proph: Other VTE Exclusion Pharmacological: Other VS, I&O, 24H, Fishbone Vital Signs/I&O Vital Signs Date Time Temp Pulse Resp B/P (MAP) Pulse Ox O2 Delivery O2 Flow Rate FiO2 04/14/19 16:49 94 117/68 04/14/19 16:00 97.8 18 99 Room Air I&O- Last 24 Hours up to 6 AM 04/14/19 06:00 Intake Total 0 ml Output Total 100 ml Balance -100 ml Laboratory Data 24H LABS Laboratory Tests 2 04/14/19 06:33: Anion Gap 8, Glomerular Filtration Rate > 60.0, Calcium Level 8.5L, Magnesium Level 1.6L, Procalcitonin 0.32 CBC/BMP Laboratory Tests 04/14/19 06:33 DEANDRE BURTON MD Apr 14, 2019 17:51
[2019-04-14 20:00] VITALS: BP 107/69
[2019-04-14] MEDS: ATORVASTATIN 20 MG TAB PO SCH (20:11)
[2019-04-14] MEDS: MAGNESIUM OXIDE 400 MG TAB (MAG-OX) PO SCH (20:11)
[2019-04-15] VITALS: BP 110/64
[2019-04-15 04:00] VITALS: BP 106/68
[2019-04-15] MEDS: LEVOTHYROXINE 75MCG TABLET (0.075MG) PO SCH (05:53)
[2019-04-15 06:13] LABS: BLOOD UREA NITROGEN 17 MG/DL (7-18); CALCIUM LEVEL 8.1 MG/DL (8.8-10.2); CARBON DIOXIDE LEVEL 29 MEQ/L (21-32); CHLORIDE LEVEL 102 MEQ/L (98-107); CREATININE FOR GFR 0.71 MG/DL (0.70-1.30); GLOMERULAR FILTRATION RATE > 60.0 (>35); GLUCOSE, FASTING 110 MG/DL (70-100); MAGNESIUM LEVEL 1.5 MG/DL (1.8-2.4); SODIUM LEVEL 139 MEQ/L (136-145)
[2019-04-15 08:00] VITALS: BP 109/67
[2019-04-15] MEDS ORDERED: POTASSIUM CHLORIDE 10 MEQ SR TABLET PO ONE (08:00)
[2019-04-15] MEDS: MAG SULF 1GM/100ML (MAG RUN) 1 GM in IV 1 EA IV SCH ×2 (09:00→09:41)
[2019-04-15] MEDS: APIXABAN 5 MG TAB (ELIQUIS) PO SCH ×2 (09:39→22:03)
[2019-04-15] MEDS: MAGNESIUM OXIDE 400 MG TAB (MAG-OX) PO SCH ×2 (09:39→22:03)
[2019-04-15] MEDS: SERTRALINE HCL 50 MG TAB PO SCH (09:39)
[2019-04-15] MEDS: SPIRONOLACTONE 12.5MG PER 1/2 TABLET PO SCH (09:39)
[2019-04-15] MEDS: FUROSEMIDE 40 MG TAB PO SCH (09:40)
[2019-04-15] MEDS: METOPROLOL TART 25 MG TABLET PO SCH ×3 (09:40→22:04)
[2019-04-15] MEDS: LISINOPRIL *2.5 MG* TAB PO SCH (09:40)
[2019-04-15] MEDS: MULTIVITAMINS/MINERALS THERAP 1 TAB PO SCH (09:40)
[2019-04-15] MEDS: methylPREDNISolone 4 MG TAB PO SCH ×2 (09:41→22:03)
--- NOTE | 2019-04-15 12:20 | IPNPDOC ---
Subjective Date Seen The patient was seen on 04/15/19. Subjective Chief Complaint/HPI Donal feels fine this morning, less sob with activity and remains on RA Objective Physical Examination General Exam: Positive: Alert Eye Exam: Negative: Sclera icteric Neck Exam: Positive: Supple Chest Exam: Positive: Clear to auscultation Heart Exam: Positive: Irregular Rhythm Telemetry: Positive: Atrial fibrillation Abdomen Exam: Positive: Normal bowel sounds Extremity Exam: Positive: Edema (edmea improved); Negative: Clubbing, Cyanosis Neuro Exam: Positive: Normal Gait, Normal Speech Psych Exam: Positive: Mental status NL Assessment /Plan Assessment 1. Acute dyspnea, likely multifactorial. Patient more than likely has some mild to moderate acute on chronic systolic congestive heart failure likely exacerbated by his recent influenza A infection. 2. Acute on chronic systolic and diastolic congestive heart failure. 3. Chronic atrial fibrillation with mild rapid ventricular rate. 4. Metastatic prostate cancer. 5. Elevated troponin, likely secondary to troponin leak associated with his chronic congestive heart failure. 6. Hypercoagulability. Elevated INR likely secondary to adverse effect of Eliquis therapy 7. Hypokalemia 8. Hypomagnesia Plan: - replace K+ & Mag - has cleared PT for discharge home, but does not have ride home' - discharge in am - f/u with physician obstetrician as outpatient to investigate cause in decreased LVEF - tolerating low dose lisinopril Plan/VTE VTE Prophylaxis Ordered?: No (on xarelto) VTE Exclusion Mechanical Proph: Other VTE Exclusion Pharmacological: Other VS, I&O, 24H, Fishbone Vital Signs/I&O Vital Signs Date Time Temp Pulse Resp B/P (MAP) Pulse Ox O2 Delivery O2 Flow Rate FiO2 04/15/19 09:40 109/67 04/15/19 09:40 115 04/15/19 08:00 97.4 18 92 Room Air I&O- Last 24 Hours up to 6 AM 04/15/19 06:00 Intake Total 680 ml Output Total 0 ml Balance 680 ml Laboratory Data 24H LABS Laboratory Tests 2 04/15/19 05:26: Anion Gap 8, Glomerular Filtration Rate > 60.0, Calcium Level 8.1L, Magnesium Level 1.5L CBC/BMP Laboratory Tests 04/15/19 05:26 DEANDRE BURTON MD Apr 15, 2019 12:20
[2019-04-15 12:35] VITALS: BP 107/72
[2019-04-15 14:00] VITALS: BP 108/73
[2019-04-15 22:00] VITALS: BP 112/74
[2019-04-15] MEDS: ATORVASTATIN 20 MG TAB PO SCH (22:03)
[2019-04-16 02:00] VITALS: BP 108/73
[2019-04-16 06:00] VITALS: BP 112/72
[2019-04-16] MEDS: LEVOTHYROXINE 75MCG TABLET (0.075MG) PO SCH (06:09)
[2019-04-16] MEDS: SERTRALINE HCL 50 MG TAB PO SCH (09:09)
[2019-04-16] MEDS: APIXABAN 5 MG TAB (ELIQUIS) PO SCH (09:09)
[2019-04-16] MEDS: MAGNESIUM OXIDE 400 MG TAB (MAG-OX) PO SCH (09:09)
[2019-04-16] MEDS: FUROSEMIDE 40 MG TAB PO SCH (09:09)
[2019-04-16] MEDS: methylPREDNISolone 4 MG TAB PO SCH (09:09)
[2019-04-16] MEDS: MULTIVITAMINS/MINERALS THERAP 1 TAB PO SCH (09:09)
[2019-04-16] MEDS: SPIRONOLACTONE 12.5MG PER 1/2 TABLET PO SCH (09:10)
[2019-04-16 09:12] VITALS: BP 122/79
[2019-04-16] MEDS: METOPROLOL TART 25 MG TABLET PO SCH (09:12)
[2019-04-16] MEDS: LISINOPRIL *2.5 MG* TAB PO SCH (09:12)
[2019-04-16] MEDS ORDERED: LISI-1046 PO (10:07)
--- NOTE | 2019-04-16 10:13 | IPNPDOC ---
Subjective Date Seen The patient was seen on 04/16/19. Subjective Chief Complaint/HPI Donal is well this morning, he feels stronger. LE swelling improved. Objective Physical Examination General Exam: Positive: Alert Eye Exam: Negative: Sclera icteric Neck Exam: Positive: Supple Chest Exam: Positive: Clear to auscultation Heart Exam: Positive: Irregular Rhythm Telemetry: Positive: Atrial fibrillation Abdomen Exam: Positive: Normal bowel sounds Extremity Exam: Positive: Edema (edmea improved); Negative: Clubbing, Cyanosis Neuro Exam: Positive: Normal Gait, Normal Speech Psych Exam: Positive: Mental status NL Assessment /Plan Assessment 1. Acute dyspnea, likely multifactorial. Patient more than likely has some mild to moderate acute on chronic systolic congestive heart failure likely exacer bated by his recent influenza A infection. 2. Acute on chronic systolic and diastolic congestive heart failure. 3. Chronic atrial fibrillation with mild rapid ventricular rate. 4. Metastatic prostate cancer. 5. Elevated troponin, likely secondary to troponin leak associated with his chronic congestive heart failure. 6. Hypercoagulability. Elevated INR likely secondary to adverse effect of Eliquis therapy 7. Hypokalemia 8. Hypomagnesia Plan: - discharge home - f/u with PCP and Cardiology in 1 week - script for lisinopril 2.5 mg daily given. Plan/VTE VTE Prophylaxis Ordered?: No (on xarelto) VTE Exclusion Mechanical Proph: Other VTE Exclusion Pharmacological: Other VS, I&O, 24H, Fishbone Vital Signs/I&O Vital Signs Date Time Temp Pulse Resp B/P (MAP) Pulse Ox O2 Delivery O2 Flow Rate FiO2 04/16/19 09:12 125 122/79 04/16/19 06:00 98.5 16 90 Room Air I&O- Last 24 Hours up to 6 AM 04/16/19 06:00 Intake Total 680 ml Output Total 100 ml Balance 580 ml DEANDRE BURTON MD Apr 16, 2019 10:13
--- NOTE | 2019-04-18 12:49 | DSES ---
DATE OF ADMISSION: 04/13/2019 DATE OF DISCHARGE: 04/16/2019 DISCHARGE DIAGNOSES: Are the followin. Acute dyspnea, likely multifactorial, associated with mild to moderate acute on chronic systolic congestive heart failure, likely exacerbated by recent influenza A infection. 2. Acute on chronic systolic and diastolic congestive heart failure. 3. Chronic atrial fibrillation with mild rapid ventricular rate. 4. Hypokalemia. 5. Hypomagnesemia. 6. Metastatic prostate cancer. 7. Elevated troponin, secondary to troponin leak associated with his congestive heart failure. 8. The patient also had chronic atrial fibrillation (dictation cut off). PROCEDURE PERFORMED DURING THIS HOSPITALIZATION: Were none. CONSULTANTS ON THE CASE: Were none. DISPOSITION: The patient is discharged home in stable condition. No followup laboratories have been ordered or are pending at the time of discharge. DISCHARGE INSTRUCTIONS: The patient is instructed to take lisinopril as prescribed in addition to his previous home medications. He is to followup with primary care provider, as well as tumbler plater, in 1 week. CONDITION AT DISCHARGE: Is improved from admission. RELEVANT LABORATORIES: Are the following: White blood cell count is 18, hemoglobin 9.7, hematocrit 32, platelet counts are 156,000. INR is 2.43, PT of 38.5. Sodium is 139, potassium 3.5, chloride 102, bicarbonate 29, anion gap is 8, BUN is 17, creatinine is 0.71, glucose 110, calcium is 8.1, magnesium 1.5, procalcitonin is 0.32, NT- pro-BNP is 10,720. Influenza A was positive. Influenza B was negative. MICROBIOLOGY: None was requested upon admission. IMAGING STUDIES: Are the following: Chest x-ray: One view showed cardiomegaly and chronic fibrotic changes. No acute intrathoracic findings. Echocardiogram with Doppler: This showed that the patient's ejection fraction estimated around 40% to 45%. This is a decline from previous echocardiogram which showed 70%. The patient was noted also to have apical segments that are poorly visualized but there appears to be fairly extensive wall motion abnormality involving distal septum, distal anterior wall, distal inferior wall, and whole apex. He was noted to have moderately severe pulmonary hypertension and very high central venous pressure and moderate mitral and tricuspid insufficiency, aortic sclerosis with mild insufficiency and no stenosis. DISCHARGE MEDICATIONS: - lisinopril 2.5 mg by mouth daily - Yonsa 125 mg by mouth four times a day - Ventolin inhaler - Eliquis 5 mg twice a day - atorvastatin 40 mg at bedtime - calcium carbonate one tablet twice a day - Prolia 60 mg subcutaneous as directed - Dexilant 30 mg at bedtime - furosemide 20 mg daily - Ferrex 150 one capsule twice a day - Lupron Depot shot 45 mg intramuscular (IM) as directed - Synthroid 75 mcg daily - methylprednisolone 4 mg twice a day - metoprolol tartrate 25 mg three times a day - sertraline 50 mg daily - Aldactone 12.5 mg daily - Incruse Ellipta one puff daily - Centrum Silver one tablet by mouth daily HOSPITAL COURSE: Mr. Diez is an 89-year-old gentleman who presented to the hospital with complaints of worsening shortness of breath, malaise, fatigue, as well as increasing lower extremity swelling. On admission to the hospital, the patient was found to have influenza . Due to the fact that his symptoms had been going on for well over a week, he was not treated with Tamiflu, and it was felt that it would be of no benefit. He was admitted to the hospitalist service to the cardiac telemetry floor, where he was diuresed with intravenous (IV) Lasix with improvement in his lower extremity swelling. Repeat echocardiogram was obtained, as described above; and when compared to his previous one, it showed a decline in his ejection fraction. The patient was placed on lisinopril. He was continued on his beta mena, as well as Aldactone. Once he improved, he was seen by physical therapy (PT) during this hospitalization, and he was cleared to be discharged home in a safe manner. The patient was discharged and given prescription for lisinopril 2.5 mg daily with discharge instructions to followup with his primary care provider, as well as tumbler plater to address the decline in his ejection fraction. Total was 30 minutes spent completing all discharge paperwork
== END 2019-04-16 12:28 | disposition home health service (06) | DRG 292 ==
LOC: M ED 15:06 → M ED INP 18:15 → ENRESERV 18:29 → M PCU 19:40 → M MSPAV 04-15 12:30
PROVIDERS: ADMIT Internal Medicine; ATTEND Internal Medicine
DX: I50.43 Acute on chronic combined systolic (congestive) and diastolic (congestive) heart failure (principal); I48.20 Chronic atrial fibrillation, unspecified; D68.69 Other thrombophilia; E83.110 Hereditary hemochromatosis; I25.10 Atherosclerotic heart disease of native coronary artery without angina pectoris; R91.8 Other nonspecific abnormal finding of lung field; T45.515A Adverse effect of anticoagulants, initial encounter; I27.20 Pulmonary hypertension, unspecified; M81.0 Age-related osteoporosis without current pathological fracture; E87.6 Hypokalemia; E83.42 Hypomagnesemia; Z85.46 Personal history of malignant neoplasm of prostate

== ENCOUNTER → 2019-05-05 | Outpatient (CLI) | payer MEDICARE, MEDICAID ==
[~2019-05-05] MED LIST changes: +LISI-1046 PO; +SERT50TA29 PO
[2019-05-05 17:28] LABS: HEMATOCRIT 37.2 % (42.0-52.0); HEMOGLOBIN 11.6 g/dl (13.5-17.5); MEAN CORPUSCULAR HEMOGLOBIN 28.2 pg (27.0-33.0); MEAN CORPUSCULAR HGB CONC 31.2 g/dl (32.0-36.5); MEAN CORPUSCULAR VOLUME 90.3 fl (80.0-96.0); PLATELET COUNT, AUTOMATED 195 10^3/uL (150-450); RED BLOOD COUNT 4.12 10^6/uL (4.30-6.10); WHITE BLOOD COUNT 10.1 10^3/uL (4.0-10.0)
[2019-05-05 18:07] LABS: ALBUMIN 3.4 GM/DL (3.2-5.2); ALT/SGPT 31 U/L (12-78); BLOOD UREA NITROGEN 25 MG/DL (7-18); CALCIUM LEVEL 9.5 MG/DL (8.8-10.2); CARBON DIOXIDE LEVEL 31 MEQ/L (21-32); CHLORIDE LEVEL 102 MEQ/L (98-107); CREATININE FOR GFR 1.13 MG/DL (0.70-1.30); FOLATE > 24.0 NG/ML; GLOMERULAR FILTRATION RATE > 60.0 (>35); GLUCOSE, FASTING 150 MG/DL (70-100); MAGNESIUM LEVEL 1.9 MG/DL (1.8-2.4); NT-PRO BNP 5044 PG/ML (<450); POTASSIUM SERUM 3.7 MEQ/L (3.5-5.1); SODIUM LEVEL 139 MEQ/L (136-145); TOTAL 25(OH) VITAMIN D 57.3 NG/ML (30.0-100.0); TOTAL PROTEIN 6.8 GM/DL (6.4-8.2); TROPONIN I 0.06 NG/ML (< 0.10); VITAMIN B12 LEVEL 871 PG/ML
== END ==
LOC: M LAB 16:13
PROVIDERS: ATTEND Family Medicine
DX: I50.23 Acute on chronic systolic (congestive) heart failure (principal); R26.89 Other abnormalities of gait and mobility; I48.91 Unspecified atrial fibrillation; I25.5 Ischemic cardiomyopathy; Z79.899 Other long term (current) drug therapy

== ENCOUNTER → 2019-05-05 | Outpatient (CLI) | payer MEDICARE, MEDICAID ==
[2019-05-05 17:58] LABS: BLOOD UREA NITROGEN 27 MG/DL (7-18); CALCIUM LEVEL 8.7 MG/DL (8.8-10.2); CARBON DIOXIDE LEVEL 31 MEQ/L (21-32); CHLORIDE LEVEL 102 MEQ/L (98-107); CREATININE FOR GFR 1.17 MG/DL (0.70-1.30); GLOMERULAR FILTRATION RATE > 60.0 (>35); GLUCOSE, FASTING 154 MG/DL (70-100); NT-PRO BNP 5101 PG/ML (<450); POTASSIUM SERUM 3.6 MEQ/L (3.5-5.1); SODIUM LEVEL 139 MEQ/L (136-145)
== END ==
LOC: M LAB 16:09
PROVIDERS: ATTEND Nurse Practitioner Family
DX: I25.5 Ischemic cardiomyopathy (principal)

== ENCOUNTER → 2019-08-09 | Outpatient (CLI) | payer MEDICARE ==
[~2019-08-09] MED LIST changes: -LISI-1046 PO; +LISI2.5T2 PO
[2019-08-09 17:19] LABS: BASO % 0.3 % (0.0-1.0); EOS % 0.1 % (0.0-3.0); HEMATOCRIT 31.9 % (42.0-52.0); HEMOGLOBIN 10.3 g/dl (13.5-17.5); LYMPH # 0.7 10^3/uL (1.5-5.0); LYMPH % 6.9 % (24.0-44.0); MEAN CORPUSCULAR HEMOGLOBIN 30.2 pg (27.0-33.0); MEAN CORPUSCULAR HGB CONC 32.3 g/dl (32.0-36.5); MEAN CORPUSCULAR VOLUME 93.5 fl (80.0-96.0); MONO # 0.6 10^3/uL (0.0-0.8); MONO % 6.1 % (0.0-5.0); NEUTROPHILS # 8.2 10^3/uL (1.5-8.5); NEUTROPHILS % 84.4 % (36.0-66.0); PLATELET COUNT, AUTOMATED 157 10^3/uL (150-450); RED BLOOD COUNT 3.41 10^6/uL (4.30-6.10); WHITE BLOOD COUNT 9.8 10^3/uL (4.0-10.0)
[2019-08-09 17:46] LABS: ALBUMIN 3.3 GM/DL (3.2-5.2); ALT/SGPT 26 U/L (12-78); BILIRUBIN,TOTAL 1.3 MG/DL (0.2-1.0); BLOOD UREA NITROGEN 37 MG/DL (7-18); CARBON DIOXIDE LEVEL 30 MEQ/L (21-32); CHLORIDE LEVEL 97 MEQ/L (98-107); CREATININE FOR GFR 1.01 MG/DL (0.70-1.30); GLOMERULAR FILTRATION RATE > 60.0 (>35); GLUCOSE, FASTING 155 MG/DL (70-100); POTASSIUM SERUM 3.5 MEQ/L (3.5-5.1); SODIUM LEVEL 135 MEQ/L (136-145); TOTAL PROTEIN 6.5 GM/DL (6.4-8.2)
[2019-08-10 08:41] LABS: TESTOSTERONE < 7 NG/DL (241-827)
== END ==
LOC: M LAB 15:24
PROVIDERS: ATTEND Urology
DX: C61 Malignant neoplasm of prostate (principal)

== ENCOUNTER 2019-08-28 23:59 | Inpatient (IN) | payer MEDICARE ==
[~2019-08-28] VITALS: Ht 167.6 cm; Wt 54.0 kg
[2019-08-29] MEDS ORDERED: SPIR-10 PO (00:23)
[2019-08-29 02:14] LABS: BASO % 0.2 % (0.0-1.0); HEMATOCRIT 29.4 % (42.0-52.0); HEMOGLOBIN 9.3 g/dl (13.5-17.5); LYMPH # 0.5 10^3/uL (1.5-5.0); LYMPH % 4.7 % (24.0-44.0); MEAN CORPUSCULAR HEMOGLOBIN 29.2 pg (27.0-33.0); MEAN CORPUSCULAR HGB CONC 31.6 g/dl (32.0-36.5); MEAN CORPUSCULAR VOLUME 92.2 fl (80.0-96.0); MONO # 0.5 10^3/uL (0.0-0.8); MONO % 5.2 % (0.0-5.0); NEUTROPHILS # 8.4 10^3/uL (1.5-8.5); NEUTROPHILS % 87.6 % (36.0-66.0); PLATELET COUNT, AUTOMATED 134 10^3/uL (150-450); RED BLOOD COUNT 3.19 10^6/uL (4.30-6.10); WHITE BLOOD COUNT 9.6 10^3/uL (4.0-10.0)
[2019-08-29 02:27] LABS: BLOOD UREA NITROGEN 37 MG/DL (7-18); CALCIUM LEVEL 8.6 MG/DL (8.8-10.2); CARBON DIOXIDE LEVEL 28 MEQ/L (21-32); CHLORIDE LEVEL 97 MEQ/L (98-107); CREATININE FOR GFR 0.96 MG/DL (0.70-1.30); GLOMERULAR FILTRATION RATE > 60.0 (>35); GLUCOSE, FASTING 182 MG/DL (70-100); NT-PRO BNP 6941 PG/ML (<450); POTASSIUM SERUM 3.6 MEQ/L (3.5-5.1); SODIUM LEVEL 137 MEQ/L (136-145)
[2019-08-29] MEDS ORDERED: FUROSEMIDE 100MG/10ML VIAL (J1940) IV ONE (03:15)
[2019-08-29] MEDS ORDERED: MOM 30ML SUSPENSION UDC PO PRN (03:30)
[2019-08-29] MEDS ORDERED: ACETAMINOPHEN TAB 650MG DOSE (2X325MG) PO PRN (03:30)
[2019-08-29] MEDS ORDERED: MAALOX 30 ML SUSP *UDC PO PRN (03:30)
--- NOTE | 2019-08-29 03:41 | HPEPDOC ---
[facility] Medical History & Physical Date of Admission Aug 29, 2019 Date of Service: Aug 29, 2019 Primary Care Physician: Mahnaz Rob Attending Physician: BAM RIVERA MD History and Physical TIME OF SERVICE: 530 a.m. CC: dyspnea HPI: This is a 89 yr old M that presents w/ c/o of shortness of breath for 3 months. He came in last night because symptoms became worse. He couldn't identify anything that made his breathing worse. He has been using his inhalers more frequently which he feels has helped a bit. Because of the shortness of breath, he has been having difficulty sleeping at night and has to sleep with several pillows propped behind his head. He has also had a cough productive of clear sputum and bilateral lower leg swelling. He denies gaining weight; he has lost weight because of prostate cancer. He denied having fevers, chills, chest pain, palpitations, eating any excessively sweet foods, eating salty foods or eating out at a restaurant recently. gave him lasix for possible acute CHF; the patient has voided 2x. ROS: negative except as listed in HPI PMH/PSH Atrial Fibrillation JACK Chronic HTN Hypothyroidism Prostate cancer stage 4 s/p external beam radiation 2002, on abiraterone, eligard & leuprolide Osteoporosis on Denosumab Chronic diastolic Congestive heart failure Severe Pulm HTN COPD Heterozygous hemochromatosis Coronary artery disease GERD Arthritis Facial fracture Hernia repair SH Former smoker Lives with 2 of his daughters [facility] Prostate cancer ALLERGIES Please see below MEDS Please see below PHYSICIAL EXAM Vital Signs Date Time Temp Pulse Resp B/P (MAP) Pulse Ox O2 Delivery O2 Flow Rate FiO2 08/28/19 23:59 98.2 118 16 110/73 (85) 98 Room Air GEN: well-nourished / well developed/ NAD INTEGUMENT: not flushed/ not jaundice HEENT: NCAT CVS: RRR/NMRG/ radial and dorsalis pedis pulses intact / +2 BLE extremity edema LUNGS: able to speak full sentences without stopping to take a breath / occasional coughing / lungs are clear to auscultation bilaterally / there is some dullness to percussion on the left side ABDOMEN: Contour (flat) / there are no masses or lesions / bowel sounds are present / the abdomen is tympanic on percussion, soft & not tender with palpation NEURO: CN 2-12 are grossly intact / speech is not dysarthric PSYCH: alert and oriented to person place and time/ able to understand and follow all commands LABS 08/29/19 01:04 Immature Granulocyte % (Auto) 2.3, Neutrophils (%) (Auto) 87.6H, Lymphocytes (%) (Auto) 4.7L, Monocytes (%) (Auto) 5.2H, Eosinophils (%) (Auto) 0.0, Basophils (%) (Auto) 0.2, Neutrophils # (Auto) 8.4, Lymphocytes # (Auto) 0.5L, Monocytes # (Auto) 0.5, Eosinophils # (Auto) 0.0, Basophils # (Auto) 0.0, Nucleated Red Blood Cells % (auto) 0.4H, Anion Gap 12, Glomerular Filtration Rate > 60.0, Calcium Level 8.6L, QF-Hhm-O-Type Natriuretic Peptide 6941H 08/29/19 02:34: POC pH (Misc Panel) 7.509H, POC Base Excess (Misc Panel) 2.0, POC Saturated Percent O2 (Misc) 97, POC pO2 (Misc Panel) 80.0, POC pCO2 (Misc Panel) 31.9L, POC HCO3 (Misc Panel) 25.4, POC Total CO2 (Misc Panel) 26.0 IMAGING Chest x-ray final read is pending but there appears to be congestion and the lesion possibly at the left lower lobe. ASSESSMENT is an 89 yr old M w a PMH of diastolic CHF, metastatic prostate cancer, atrial fibrillation, hemachromatosis, hypothyroidism, COPD, osteoporosis, CAD and iron deficiency anemia who will be admitted for management of acute diastolic congestive heart failure. PLAN 1.Dyspnea 2/2 Acute Diastolic CHF/ Severe Pulm HTN BNP is elevated and chest xray shows congestion with possible lesion on the left reviewed Echo report from Mar 2019 "CONCLUSIONS:1. Study is of fair technical quality, the patient is in atrial fibrillation with mildly tachycardic response. 2. Normal left ventricular (LV) size with mild left ventricular hypertrophy (LVH) and overall approximately moderate left ventricular systolic dysfunction. The apical segments are poorly visualized but there appears to be fairly extensive wall motion abnormality involving distal septum, distal anterior wall, distal inferior wall and whole apex. 3. Aortic sclerosis with mild insufficiency and no stenosis.4. Moderate mitral and tricuspid insufficiency. 5. Very high central venous pressure. 6. At least moderately severe pulmonary hypertension." Plan: admit to med/surg / tele / f/u strict Is and Os and daily weights / keep head of bed elevated to 30 degrees / continous pulse ox / f/u respiratory panel, serial trops and final chest xray report / c/w IV lasix & hold home dose of PO lasix / the day time team may consider a Pulm consult to see if needs further workup to determine the cause of THE Pulm HTN and see if he is a candidate for medications 2. Possible LLE PNA ? He doesn't have a fever, elevated WBC # or bands Plan: f/u/ chest x-ray report & sputum cx 3. COPD Plan: albuterol w incruse ellipita 4. Chronic Respiratory Alkalosis with secondary Metabolic Alkalosis Respiratory Alkalosis is likely 2/2 CHF and Pulm Edema Metabolic Alkalosis is likely 2/2 lasix & spironolactone 5. Tachycardia Likely 2/2 excessive albuterol use at Plan: telemetry / trend trops 6. Bicytopenia JACK w Thrombocytopenia Plan: f/u iron studies & Hep panel / trend Hg / hold PO iron supplement pending final chest x-ray 7. Atrial Fibrillation Plan:metoprolol & apixabapan 8. Chronic HTN Plan:metoprolol, spironolactone 9. Hypothyroidism Plan: levothyroxine 10. Prostate cancer Plan: abiraterone, Eligard & leuprolide 11. Osteoporosis Plan: Denosumab 12. Coronary artery disease Plan: atorvastatin 13. GERD Plan: DVT PX n/a on apixaban DISPO: likely home after more than 2 midnight's stay / PFS consult has been placed in case he needs a home RN, home health aide ect.../ PT consult has been placed for early mobilization to prevent deconditioning Home Medications Scheduled Apixaban (Eliquis) 5 Mg Tablet, 5 MG PO BID Atorvastatin Calcium (Atorvastatin Calcium) 40 Mg Tablet, 40 MG PO QHS Denosumab Injection (Prolia) 60 Mg/Ml Tsering, 60 MG SC [id number] Dexlansoprazole (Dexilant) 30 Mg bp, 30 MG PO QHS Furosemide (Furosemide) 40 Mg Tablet, 40 MG PO DAILY Iron Polysaccharide Complex (Ferrex 150) 150 Mg Capsule, 150 MG PO BID Leuprolide Acetate (Lupron Depot) 45 Mg Syringekit, 45 MG IM [id number] Levothyroxine Sodium (Synthroid) 75 Mcg Tablet, 75 MCG PO QAM Methylprednisolone (Methylprednisolone) 4 Mg Tablet, 4 MG PO BID Metoprolol Tartrate (Metoprolol Tartrate) 50 Mg Tablet, 50 MG PO BID Sertraline HCl (Sertraline HCl) 50 Mg Tablet, 50 MG PO DAILY Spironolactone (Spironolactone) 25 Mg Tablet, 12.5 MG PO DAILY Umeclidinium [place] (Incruse Ellipta) 62.5 Mcg Blst.w.dev, 1 PUFF INH DAILY Scheduled PRN Albuterol Sulfate (Ventolin Hfa) 108 Mcg/Act Aer, 2 PUFFS INH QID PRN for SHORTNESS OF BREATH Miscellaneous Medications [Patient Comments] WILL VERIFY MEDICATIONS AND DOSES WITH DAUGHTER Allergies Coded Allergies: tamsulosin (Verified Allergy, Severe, 08/29/19) A-FIB/CHADSVASC A-FIB History Current/History of A-Fib/PAF?: Yes Current PO Anticoag Therapy: Yes BAM RIVERA MD Aug 29, 2019 03:41
[2019-08-29 04:01] LABS: MAGNESIUM LEVEL 1.8 MG/DL (1.8-2.4); PHOSPHORUS LEVEL 3.5 MG/DL (2.5-4.9); TROPONIN I 0.08 NG/ML (< 0.10)
[2019-08-29] MEDS ORDERED: FERR150C PO (04:09)
[2019-08-29] MEDS ORDERED: FURO40TA2 PO (04:09)
[2019-08-29] MEDS ORDERED: METO50TA7 PO (04:09)
[2019-08-29] MEDS ORDERED: PATIENT COMMENTS (04:35)
[2019-08-29 05:03] VITALS: BP 127/91
[2019-08-29] MEDS ORDERED: ALBUTEROL 90 MCG/ACT 8GM HFA INHALER INH PRN (06:30)
[2019-08-29] MEDS: LEVOTHYROXINE 75MCG TABLET (0.075MG) PO SCH (06:42)
[2019-08-29] MEDS: SPIRONOLACTONE 12.5MG PER 1/2 TABLET PO SCH (08:18)
[2019-08-29] MEDS: FUROSEMIDE 40MG/4ML VIAL (J1940) IV SCH ×4 (08:19→20:47)
[2019-08-29] MEDS: SERTRALINE HCL 50 MG TAB PO SCH (08:19)
[2019-08-29] MEDS: APIXABAN 5 MG TAB (ELIQUIS) PO SCH ×2 (08:19→20:47)
[2019-08-29] MEDS: METOPROLOL TART 50 MG TAB PO SCH ×2 (08:19→21:02)
[2019-08-29] MEDS ORDERED: ENTER DRUG NAME HERE (PATIENT'S OWN MED) INH SCH (09:00)
--- NOTE | 2019-08-29 09:23 | REP ---
REASON: Chest pain. COMPARISON: 04/13/2019 The technique utilized in obtaining the radiograph has magnified the cardiac silhouette and accentuated the interstitial markings. Once again, there is cardiomegaly accentuated by technique. Once again, there is evidence of interstitial fibrotic change status quo. No definite acute pachy opacities have developed. There is no significant change in the osseous structures. IMPRESSION: Stable-appearing chronic changes. Electronically Signed by Chacho Jacobs DO 08/29/2019 09:55 A
[2019-08-29 10:00] VITALS: BP 113/75
[2019-08-29] MEDS: methylPREDNISolone 4 MG TAB PO SCH ×2 (10:30→20:47)
--- NOTE | 2019-08-29 11:14 | REP ---
REASON: Followup nodules. All priors have been reviewed, the latest of which is dated 09/23/2018. That examination was a contrast enhanced CT angio chest. There is no significant change in the appearance of the mediastinum, pulmonary michelle, imaged upper abdomen, or imaged osseous structures. Evaluation of the lung chino shows stable chronic changes and stable pulmonary nodules. There is cylindrical bronchiectasis status quo. IMPRESSION: Stable chest. No new abnormal nodules. Lung RADS category 2 exam. Electronically Signed by Chacho Jacobs DO 08/29/2019 02:26 P
[2019-08-29 14:00] VITALS: BP 99/63
[2019-08-29] MEDS: TIOTROPIUM INHALER/CAPSULE (SPIRIVA) INH SCH (15:55)
--- NOTE | 2019-08-29 16:30 | ECGEPIP ---
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
[2019-08-29 18:00] VITALS: BP 133/85
[2019-08-29] MEDS: OMEPRAZOLE 20 MG CAP PO SCH (20:47)
[2019-08-29] MEDS: ATORVASTATIN 20 MG TAB PO SCH (20:47)
[2019-08-29] MEDS ORDERED: ENTER DRUG NAME HERE (PATIENT'S OWN MED) PO SCH (21:00)
[2019-08-29 22:00] VITALS: BP 106/69
[2019-08-30] MEDS: FUROSEMIDE 40MG/4ML VIAL (J1940) IV SCH ×3 (00:16→07:41)
[2019-08-30 02:00] VITALS: BP 119/70
[2019-08-30] MEDS: LEVOTHYROXINE 75MCG TABLET (0.075MG) PO SCH (05:46)
[2019-08-30 06:00] VITALS: BP 117/72
[2019-08-30 06:27] LABS: HEMATOCRIT 30.1 % (42.0-52.0); HEMOGLOBIN 9.8 g/dl (13.5-17.5); MEAN CORPUSCULAR HEMOGLOBIN 29.4 pg (27.0-33.0); MEAN CORPUSCULAR HGB CONC 32.6 g/dl (32.0-36.5); MEAN CORPUSCULAR VOLUME 90.4 fl (80.0-96.0); PLATELET COUNT, AUTOMATED 159 10^3/uL (150-450); RED BLOOD COUNT 3.33 10^6/uL (4.30-6.10)
[2019-08-30 06:44] LABS: BLOOD UREA NITROGEN 31 MG/DL (7-18); CALCIUM LEVEL 8.4 MG/DL (8.8-10.2); CARBON DIOXIDE LEVEL 33 MEQ/L (21-32); CHLORIDE LEVEL 96 MEQ/L (98-107); CREATININE FOR GFR 0.77 MG/DL (0.70-1.30); GLOMERULAR FILTRATION RATE > 60.0 (>35); GLUCOSE, FASTING 123 MG/DL (70-100); MAGNESIUM LEVEL 1.6 MG/DL (1.8-2.4); POTASSIUM SERUM 2.7 MEQ/L (3.5-5.1); SODIUM LEVEL 140 MEQ/L (136-145)
[2019-08-30] MEDS: TIOTROPIUM INHALER/CAPSULE (SPIRIVA) INH SCH (07:56)
[2019-08-30] MEDS: APIXABAN 5 MG TAB (ELIQUIS) PO SCH ×2 (09:20→20:53)
[2019-08-30] MEDS: methylPREDNISolone 4 MG TAB PO SCH ×2 (09:20→20:53)
[2019-08-30] MEDS: SERTRALINE HCL 50 MG TAB PO SCH (09:20)
[2019-08-30] MEDS: SPIRONOLACTONE 12.5MG PER 1/2 TABLET PO SCH (09:20)
[2019-08-30] MEDS: METOPROLOL TART 50 MG TAB PO SCH ×2 (09:20→20:54)
[2019-08-30] MEDS ORDERED: MAGNESIUM OXIDE 400 MG TAB (MAG-OX) PO ONE (09:30)
[2019-08-30] MEDS: POTASSIUM CHLORIDE 10 MEQ SR TABLET PO SCH ×2 (09:34→12:36)
[2019-08-30 10:00] VITALS: BP 109/69
[2019-08-30] MEDS: FUROSEMIDE 100MG/10ML VIAL (J1940) IV SCH (12:00)
[2019-08-30 14:00] VITALS: BP 110/68
[2019-08-30 18:00] VITALS: BP 112/68
[2019-08-30] MEDS ORDERED: POTASSIUM CHLORIDE 10 MEQ SR TABLET PO ONE (18:45)
--- NOTE | 2019-08-30 18:54 | IPNPDOC ---
Date Seen The patient was seen on 08/30/19. Progress Note SUBJECTIVE: Improved breathing since diuresis, Neg 1500/24 hrs. Magnesium and potassium replaced. +3 pitting edema in bilateral lower ext. No acute complaints overnight. Denies chest pain, n/v/d, fever or chills. OBJECTIVE: VITAL SIGNS: Please see below PHYSICAL EXAMINATION: CONSTITUTIONAL: No acute distress, resting comfortably, AAO x 3 EYES: PERRLA, EOM intact HENT, MOUTH: Normocephalic, atraumatic, moist mucous membranes, corrective lenses in place NECK: SUPPLE, no JVD, no lymphadenopathy, no carotid bruit CV: Regular rate and rhythm, S1S2 normal, no murmurs/rubs/gallops RESPIRATORY: Crackles in bilateral lower lung chino. No rales/rhonchi/wheezes GI: BS positive in 4 quadrants, soft, nontender, nondistended, no rebound or guarding, no organomegaly : Deferred MUSCULOSKELETAL: Normal ROM. No cyanosis, clubbing, swelling, joint deformity, +3 pitting extremity edema bilaterally INTEGUMENTARY: Intact, no rashes, no lesions, no erythema NEUROLOGIC: Cranial Nerves II-XII are intact, no focal deficits PSYCHIATRIC: Mood and affect are normal CURRENT MEDICATIONS: Please see below LABORATORY DATA: Please see below IMAGING: Echo 03/2019: 1. Study is of fair technical quality, the patient is in atrial fibrillation with mildly tachycardic response. 2. Normal left ventricular (LV) size with mild left ventricular hypertrophy (LVH) and overall approximately moderate left ventricular systolic dysfunction. The apical segments are poorly visualized but there appears to be fairly extensive wall motion abnormality involving distal septum, distal anterior wall, distal inferior wall and whole apex. 3. Aortic sclerosis with mild insufficiency and no stenosis.4. Moderate mitral and tricuspid insufficiency. 5. Very high central venous pressure.6. At least moderately severe pulmonary hypertension." ASSESSMENT: 89 yr old M w a PMH of diastolic CHF, metastatic prostate cancer, atrial fibrillation, hemachromatosis, hypothyroidism, COPD, osteoporosis, CAD and iron deficiency anemia who will be admitted for management of acute diastolic congestive heart failure. PLAN 1. Shortness of breath 2/2 acute diastolic CHF/ Severe Pulm HTN -Currently 98% on RA. BNP 6900, + 3 pitting edema, trop neg - -1500mL/24hrs with diuresis -Echo from 03/2019 above -CO2 increased with prior diuretic dose (trying to avoid contraction alkalosis and dehydration) so decreased to 60 mg IV BID. -Monitor I&O's closely, daily weight, daily labs, replace lytes PRN -Consider cardiology consult with Dr. Saravia (patient's ordained minister) if condition should worsen. -C/w lasix, spironolactone and BB 2. Hypokalemia likely 2/2 to diuresis -Supplement 60 mEq today -Repeat potassium this afternoon 3.6, given another 20 mEq -F/u labs in AM, replace PRN 3. Hypomagnesemia -Magnesium 1.6, supplemented 800 mg PO x 1 -F/u magnesium level in AM 4. COPD -Not in acute exacerbation -C/w albuterol, spiriva 5. Tachycardia believed to be 2/2 excessive albuterol use -WBC wnl, afebrile -Mild elevation of neutrophils on CBC with diff; however, no suspicion for PNA -F/u UA -monitor on tele 6. JACK w Thrombocytopenia -H/H stable, asymptomatic -F/u CBC, iron studies -Resume iron supplement 150 mg PO BID 7. Atrial Fibrillation -Stable -C/w BB, apixabapan 8. Chronic HTN -C/w metoprolol, spirinolactone 9. Hypothyroidism -C/w levothyroxin 10. Prostate cancer -After discharge resume abiraterone, eligard & leuprolide 11. Osteoporosis -After discharge resume denosumab 12. Coronary artery disease -C/w BB, atorvastatin 13. GERD -C/w PPI 14. DVT px -Apixaban DISPOSITION: C/w current treatment above. Plan is home after treatment of acute illness. PT/OT. VS, I&O, 24H, [place] Vital Signs/I&O Vital Signs Date Time Temp Pulse Resp B/P (MAP) Pulse Ox O2 Delivery O2 Flow Rate FiO2 08/30/19 18:00 98.6 99 18 112/68 (83) 98 Room Air 08/29/19 14:00 2.0 I&O- Last 24 Hours up to 6 AM 08/30/19 06:00 Intake Total 810 ml Output Total 2300 ml Balance -1490 ml Laboratory Data 24H LABS Laboratory Tests 2 08/30/19 05:39: Nucleated Red Blood Cells % (auto) 0.4H, Anion Gap 11, Glomerular Filtration Rat e > 60.0, Calcium Level 8.4L, Magnesium Level 1.6L CBC/BMP Laboratory Tests 08/30/19 05:39 08/30/19 14:04 Microbiology Microbiology 08/29/19 Respiratory Virus Panel (PCR) (CARLOS) - Final, Complete Current Medications Current Medications Medications (Trade) Dose Ordered Sig/Jl Route PRN Reason Start Time Stop Time Status Last Admin Dose Admin Acetaminophen (Tylenol Tab) 650 mg Q4H PRN PO PAIN OR FEVER 08/29/19 03:30 Al Hydrox/Mg Hydrox/Simethicone (Mylanta) 30 ml DAILY PRN PO DYSPEPSIA 08/29/19 03:30 Albuterol Sulfate (Proventil, Ventolin Hfa) 2 puff QID PRN INH SHORTNESS OF BREATH 08/29/19 06:30 Apixaban (Eliquis) 5 mg BID PO 08/29/19 09:00 08/30/19 09:20 Atorvastatin Calcium (Lipitor) 40 mg QHS PO 08/29/19 21:00 08/29/19 20:47 Furosemide (LASIX injection) 40 mg Q4H IV 08/29/19 08:00 08/30/19 09:16 DC 08/30/19 04:47 Furosemide (LASIX injection) 60 mg Q12H IV 08/30/19 12:00 Home Med (Med Rec Complete!) ASDIRECTED XX 08/29/19 05:45 08/29/19 05:48 DC Levothyroxine Sodium (Synthroid) 75 mcg DAILY@0600 PO 08/29/19 06:00 08/30/19 05:46 Magnesium Hydroxide (Milk Of Magnesia) 30 ml DAILY PRN PO CONSTIPATION 08/29/19 03:30 Methylprednisolone (Medrol) 4 mg BID PO 08/29/19 09:00 08/30/19 09:20 Metoprolol Tartrate (Lopressor) 50 mg BID PO 08/29/19 09:00 08/30/19 09:20 Miscellaneous (Unresolved Patient Own Med Order) SEE LABEL COMMENTS DAILY XX 08/29/19 09:00 08/29/19 13:56 DC Miscellaneous (Unresolved Patient Own Med Order) SEE LABEL COMMENTS DAILY XX 08/29/19 09:00 08/29/19 13:56 DC Omeprazole (PriLOSEC) 20 mg QHS PO 08/29/19 21:00 08/29/19 20:47 Patient Own Medication (Patient'S Own Med) desilant 30mg po qhs QHS PO 08/29/19 21:00 08/29/19 13:55 DC Patient Own Medication (Patient'S Own Med) incruse ellipta 62.5mc... DAILY INH 08/29/19 09:00 08/29/19 13:56 DC Potassium Chloride (Micro-K Extencaps) 30 meq Q2H PO 08/30/19 10:00 08/30/19 12:02 DC 08/30/19 12:36 Sertraline HCl (Zoloft) 50 mg DAILY PO 08/29/19 09:00 08/30/19 09:20 Spironolactone (Aldactone) 12.5 mg DAILY PO 08/29/19 09:00 08/30/19 09:20 Tiotropium [place] (Spiriva Handihaler) 1 inhalation DAILY@08 INH 08/29/19 08:00 08/30/19 07:56 Allergies Coded Allergies: tamsulosin (Verified Allergy, Severe, 08/29/19) Josefina Crews MD Aug 30, 2019 18:54
[2019-08-30] MEDS: ATORVASTATIN 20 MG TAB PO SCH (20:53)
[2019-08-30] MEDS: IRON POLYSAC (NIFEREX) 150 MG CAP PO SCH (20:53)
[2019-08-30] MEDS: OMEPRAZOLE 20 MG CAP PO SCH (20:53)
[2019-08-30 22:00] VITALS: BP 107/90
[2019-08-31] MEDS: FUROSEMIDE 100MG/10ML VIAL (J1940) IV SCH ×2 (00:13→12:52)
[2019-08-31 02:00] VITALS: BP 120/84
[2019-08-31 06:00] VITALS: BP 120/80
[2019-08-31] MEDS: LEVOTHYROXINE 75MCG TABLET (0.075MG) PO SCH (06:10)
[2019-08-31 06:29] LABS: HEMATOCRIT 30.1 % (42.0-52.0); HEMOGLOBIN 9.7 g/dl (13.5-17.5); MEAN CORPUSCULAR HEMOGLOBIN 29.3 pg (27.0-33.0); MEAN CORPUSCULAR HGB CONC 32.2 g/dl (32.0-36.5); MEAN CORPUSCULAR VOLUME 90.9 fl (80.0-96.0); PLATELET COUNT, AUTOMATED 158 10^3/uL (150-450); RED BLOOD COUNT 3.31 10^6/uL (4.30-6.10); WHITE BLOOD COUNT 10.5 10^3/uL (4.0-10.0)
[2019-08-31 07:01] LABS: BLOOD UREA NITROGEN 35 MG/DL (7-18); CREATININE FOR GFR 0.83 MG/DL (0.70-1.30); GLUCOSE, FASTING 130 MG/DL (70-100)
[2019-08-31 07:02] LABS: ALT/SGPT 43 U/L (12-78); BILIRUBIN,TOTAL 1.3 MG/DL (0.2-1.0); CALCIUM LEVEL 8.2 MG/DL (8.8-10.2); CARBON DIOXIDE LEVEL 30 MEQ/L (21-32); CHLORIDE LEVEL 98 MEQ/L (98-107); FERRITIN 40 NG/ML (26-388); GLOMERULAR FILTRATION RATE > 60.0 (>35); IRON (FE) 176 UG/DL (65-175); MAGNESIUM LEVEL 1.7 MG/DL (1.8-2.4); NT-PRO BNP 6071 PG/ML (<450); PERCENT SATURATION 45.2 % (19.7-50.0); POTASSIUM SERUM 3.6 MEQ/L (3.5-5.1); SODIUM LEVEL 136 MEQ/L (136-145); TOTAL IRON BINDING CAPACITY 389 UG/DL (250-450); TOTAL PROTEIN 5.8 GM/DL (6.4-8.2)
[2019-08-31] MEDS: TIOTROPIUM INHALER/CAPSULE (SPIRIVA) INH SCH (08:14)
[2019-08-31] MEDS: APIXABAN 5 MG TAB (ELIQUIS) PO SCH ×2 (08:38→20:30)
[2019-08-31] MEDS: IRON POLYSAC (NIFEREX) 150 MG CAP PO SCH ×2 (08:38→20:30)
[2019-08-31] MEDS: methylPREDNISolone 4 MG TAB PO SCH ×2 (08:38→20:30)
[2019-08-31] MEDS: METOPROLOL TART 50 MG TAB PO SCH ×2 (08:38→20:32)
[2019-08-31] MEDS: SPIRONOLACTONE 12.5MG PER 1/2 TABLET PO SCH (08:38)
[2019-08-31] MEDS: SERTRALINE HCL 50 MG TAB PO SCH (08:38)
[2019-08-31 10:00] VITALS: BP 113/80
[2019-08-31] MEDS: cefTRIAXone SOD 1 GM in D5W MINI-BAG PLUS 50 ML IV SCH (10:32)
[2019-08-31] MEDS: MAGNESIUM OXIDE 400 MG TAB (MAG-OX) PO SCH ×2 (10:32→20:31)
[2019-08-31 14:00] VITALS: BP 111/79
[2019-08-31 18:00] VITALS: BP 112/80
--- NOTE | 2019-08-31 18:41 | IPNPDOC ---
Date Seen The patient was seen on 08/31/19. Progress Note SUBJECTIVE: Neg 780 mL/24 hrs. Pitting edema in bilateral lower ext improving, BNP improving slowly. No acute complaints overnight. Denies chest pain, n/v/d, fever or chills. OBJECTIVE: VITAL SIGNS: Please see below PHYSICAL EXAMINATION: CONSTITUTIONAL: No acute distress, resting comfortably, AAO x 3 EYES: PERRLA, EOM intact HENT, MOUTH: Normocephalic, atraumatic, moist mucous membranes, corrective lenses in place NECK: SUPPLE, no JVD, no lymphadenopathy, no carotid bruit CV: Regular rate and rhythm, S1S2 normal, no murmurs/rubs/gallops RESPIRATORY: Crackles in bilateral lower lung [place]. No rales/rhonchi/wheezes GI: BS positive in 4 quadrants, soft, nontender, nondistended, no rebound or guarding, no organomegaly : Deferred MUSCULOSKELETAL: Normal ROM. No cyanosis, clubbing, swelling, joint deformity, +3 pitting extremity edema bilaterally below the ankles- improved since 08/30/19 as previously was above ankles INTEGUMENTARY: Intact, no rashes, no lesions, no erythema NEUROLOGIC: Cranial Nerves II-XII are intact, no focal deficits PSYCHIATRIC: Mood and affect are normal CURRENT MEDICATIONS: Please see below LABORATORY DATA: Please see below IMAGING: Echo 03/2019: 1. Study is of fair technical quality, the patient is in atrial fibrillation with mildly tachycardic response. 2. Normal left ventricular (LV) size with mild left ventricular hypertrophy (LVH) and overall approximately moderate left ventricular systolic dysfunction. The apical segments are poorly visualized but there appears to be fairly extensive wall motion abnormality involving distal septum, distal anterior wall, distal inferior wall and whole apex. 3. Aortic sclerosis with mild insufficiency and no stenosis.4. Moderate mitral and tricuspid insufficiency. 5. Very high central venous pressure.6. At least moderately severe pulmonary hypertension." ASSESSMENT: 89 yr old M w a PMH of diastolic CHF, metastatic prostate cancer, atrial fibrillation, hemachromatosis, hypothyroidism, COPD, osteoporosis, CAD and iron deficiency anemia who will be admitted for management of acute diastolic congestive heart failure. PLAN 1. Shortness of breath 2/2 acute diastolic CHF/ Severe Pulm HTN -Currently 98% on RA. BNP 6900 --> 6071, edema improving slowly - -780mL/24hrs with diuresis, lost 3 lbs since admission -Echo from 03/2019 above -CO2 increased with prior diuretic dose- watch for contraction alkalosis and dehydration. -Monitor I&O's closely, daily weight, daily labs, replace lytes PRN -Consider cardiology consult with Dr. Saravia (patient's help desk team leader) if condition should worsen. -D/c segura catheter -C/w lasix BID, spironolactone and BB 2. Hypomagnesemia -Magnesium 1.7 -Started mag oxide 800 mg BID -F/u magnesium level in AM 3. UTI -F/u UCx -Started on Ceftriaxone 4. Physical deconditioning, acute and chronic -PT: C/w rehab here and will likely need o/p as well 5. Hypokalemia likely 2/2 to diuresis- resolved -Supplement 80 mEq 08/30/19 -Potassium wnl this AM -F/u labs in AM, replace PRN 6. COPD -Not in acute exacerbation -C/w albuterol, spiriva 7. Intermittent tachycardia believed to be 2/2 excessive albuterol use -WBC wnl, afebrile -Mild elevation of neutrophils on CBC with diff; however, no suspicion for PNA -F/u UA -monitor on tele 8. JACK w Thrombocytopenia -H/H stable, asymptomatic -F/u CBC, iron studies -C/w iron supplement 150 mg PO BID 9. Atrial Fibrillation -Stable -C/w BB, apixabapan 10. Chronic HTN -C/w metoprolol, spirinolactone 11. Hypothyroidism -C/w levothyroxin 12. Prostate cancer -After discharge resume abiraterone, eligard & leuprolide 13. Osteoporosis -After discharge resume denosumab 14. Coronary artery disease -C/w BB, atorvastatin 15. GERD -C/w PPI 16. DVT px -Apixaban DISPOSITION: C/w current treatment above. Plan is home after treatment of acute illness. PT/OT. VS, I&O, 24H, Fishbone Vital Signs/I&O Vital Signs Date Time Temp Pulse Resp B/P (MAP) Pulse Ox O2 Delivery O2 Flow Rate FiO2 08/31/19 18:00 98.2 99 18 112/80 (91) 98 08/31/19 06:00 Room Air 08/29/19 14:00 2.0 I&O- Last 24 Hours up to 6 AM 08/31/19 06:00 Intake Total 1640 ml Output Total 1650 ml Balance -10 ml Laboratory Data 24H LABS Laboratory Tests 2 08/30/19 20:49: Urine Color YELLOW, Urine Appearance HAZY, Urine pH 5.0, Urine Specific [place] 1.016, Urine Protein 1+H, Urine Glucose (UA) NEGATIVE, Urine Ketones NEGATIVE, Urine Blood 2+H, Urine Nitrite NEGATIVE, Urine Bilirubin NEGATIVE, Urine Urobilinogen 0.2, Urine Leukocyte Esterase 3+H, Urine WBC (Auto) 131H, Urine RBC (Auto) 25H, Urine Hyaline Casts (Auto) 1, Urine Bacteria (Auto) 1+H, Urine Squamous Epithelial Cells 0, Urine Sperm (Auto) 08/31/19 05:55: Nucleated Red Blood Cells % (auto) 0.7H, Anion Gap 8, Glomerular Filtration Rate > 60.0, Calcium Level 8.2L, Magnesium Level 1.7L, Iron Level 176H, Total Iron Binding Capacity 389, Transferrin % Saturation 45.2, Ferritin 40, Total Bilirubin 1.3H, Aspartate Amino Transf (AST/SGOT) 35, Alanine Aminotransferase (ALT/SGPT) 43, Alkaline Phosphatase 83, MT-Uti-P-Type Natriuretic Peptide 6071H, Total Protein 5.8L, Albumin 3.0L, Albumin/Globulin Ratio 1.1 CBC/BMP Laboratory Tests 08/31/19 05:55 Microbiology Microbiology 08/30/19 Urine Culture, Received Pending 08/29/19 Respiratory Virus Panel (PCR) (CARLOS) - Final, Complete Current Medications Current Medications Medications (Trade) Dose Ordered Sig/Jl Route PRN Reason Start Time Stop Time Status Last Admin Dose Admin Acetaminophen (Tylenol Tab) 650 mg Q4H PRN PO PAIN OR FEVER 08/29/19 03:30 Al Hydrox/Mg Hydrox/Simethicone (Mylanta) 30 ml DAILY PRN PO DYSPEPSIA 08/29/19 03:30 Albuterol Sulfate (Proventil, Ventolin Hfa) 2 puff QID PRN INH SHORTNESS OF BREATH 08/29/19 06:30 Apixaban (Eliquis) 5 mg BID PO 08/29/19 09:00 08/31/19 08:38 Atorvastatin Calcium (Lipitor) 40 mg QHS PO 08/29/19 21:00 08/30/19 20:53 Ceftriaxone Sodium 1 gm/ Dextrose 50 ml @ 100 mls/hr Q24H IV 08/31/19 09:00 08/31/19 10:32 Furosemide (LASIX injection) 40 mg Q4H IV 08/29/19 08:00 08/30/19 09:16 DC 08/30/19 04:47 Furosemide (LASIX injection) 60 mg Q12H IV 08/30/19 12:00 08/31/19 12:52 Home Med (Med Rec Complete!) ASDIRECTED XX 08/29/19 05:45 08/29/19 05:48 DC Iron (Niferex) 150 mg BID PO 08/30/19 21:00 08/31/19 08:38 Levothyroxine Sodium (Synthroid) 75 mcg DAILY@0600 PO 08/29/19 06:00 08/31/19 06:10 Magnesium Hydroxide (Milk Of Magnesia) 30 ml DAILY PRN PO CONSTIPATION 08/29/19 03:30 Magnesium Oxide (Mag-Ox) 800 mg BID PO 08/31/19 09:00 08/31/19 10:32 Methylprednisolone (Medrol) 4 mg BID PO 08/29/19 09:00 08/31/19 08:38 Metoprolol Tartrate (Lopressor) 50 mg BID PO 08/29/19 09:00 08/31/19 08:38 Miscellaneous (Unresolved Patient Own Med Order) SEE LABEL COMMENTS DAILY XX 08/29/19 09:00 08/29/19 13:56 DC Miscellaneous (Unresolved Patient Own Med Order) SEE LABEL COMMENTS DAILY XX 08/29/19 09:00 08/29/19 13:56 DC Omeprazole (PriLOSEC) 20 mg QHS PO 08/29/19 21:00 08/30/19 20:53 Patient Own Medication (Patient'S Own Med) desilant 30mg po qhs QHS PO 08/29/19 21:00 08/29/19 13:55 DC Patient Own Medication (Patient'S Own Med) incruse ellipta 62.5mc... DAILY INH 08/29/19 09:00 08/29/19 13:56 DC Potassium Chloride (Micro-K Extencaps) 30 meq Q2H PO 08/30/19 10:00 08/30/19 12:02 DC 08/30/19 12:36 Sertraline HCl (Zoloft) 50 mg DAILY PO 08/29/19 09:00 08/31/19 08:38 Spironolactone (Aldactone) 12.5 mg DAILY PO 08/29/19 09:00 08/31/19 08:38 Tiotropium [place] (Spiriva Handihaler) 1 inhalation DAILY@08 INH 08/29/19 08:00 08/31/19 08:14 Allergies Coded Allergies: [email or web address] (Verified Allergy, Severe, 08/29/19) Josefina Crews MD Aug 31, 2019 18:41
[2019-08-31] MEDS: OMEPRAZOLE 20 MG CAP PO SCH (20:30)
[2019-08-31] MEDS: ATORVASTATIN 20 MG TAB PO SCH (20:31)
[2019-08-31 22:00] VITALS: BP 117/78
[2019-09-01] VITALS (7 sets, daily range): BP systolic 96–120; BP diastolic 64–79
[2019-09-01] MEDS: FUROSEMIDE 100MG/10ML VIAL (J1940) IV SCH (00:18)
[2019-09-01] MEDS: LEVOTHYROXINE 75MCG TABLET (0.075MG) PO SCH (05:03)
[2019-09-01 06:08] LABS: HEMATOCRIT 29.5 % (42.0-52.0); HEMOGLOBIN 9.5 g/dl (13.5-17.5); MEAN CORPUSCULAR HEMOGLOBIN 29.2 pg (27.0-33.0); MEAN CORPUSCULAR HGB CONC 32.2 g/dl (32.0-36.5); MEAN CORPUSCULAR VOLUME 90.8 fl (80.0-96.0); PLATELET COUNT, AUTOMATED 155 10^3/uL (150-450); RED BLOOD COUNT 3.25 10^6/uL (4.30-6.10); WHITE BLOOD COUNT 10.6 10^3/uL (4.0-10.0)
[2019-09-01 06:36] LABS: ALBUMIN 2.8 GM/DL (3.2-5.2); ALT/SGPT 40 U/L (12-78); BILIRUBIN,TOTAL 0.9 MG/DL (0.2-1.0); BLOOD UREA NITROGEN 33 MG/DL (7-18); CALCIUM LEVEL 8.6 MG/DL (8.8-10.2); CARBON DIOXIDE LEVEL 30 MEQ/L (21-32); CHLORIDE LEVEL 97 MEQ/L (98-107); CREATININE FOR GFR 0.99 MG/DL (0.70-1.30); GLOMERULAR FILTRATION RATE > 60.0 (>35); GLUCOSE, FASTING 137 MG/DL (70-100); MAGNESIUM LEVEL 1.8 MG/DL (1.8-2.4); POTASSIUM SERUM 3.5 MEQ/L (3.5-5.1); SODIUM LEVEL 137 MEQ/L (136-145); TOTAL PROTEIN 6.1 GM/DL (6.4-8.2)
[2019-09-01] MEDS: TIOTROPIUM INHALER/CAPSULE (SPIRIVA) INH SCH (07:38)
[2019-09-01] MEDS: cefTRIAXone SOD 1 GM in D5W MINI-BAG PLUS 50 ML IV SCH (09:35)
[2019-09-01] MEDS: APIXABAN 5 MG TAB (ELIQUIS) PO SCH ×2 (09:36→20:02)
[2019-09-01] MEDS: IRON POLYSAC (NIFEREX) 150 MG CAP PO SCH ×2 (09:36→20:03)
[2019-09-01] MEDS: SPIRONOLACTONE 12.5MG PER 1/2 TABLET PO SCH (09:36)
[2019-09-01] MEDS: SERTRALINE HCL 50 MG TAB PO SCH (09:36)
[2019-09-01] MEDS: MAGNESIUM OXIDE 400 MG TAB (MAG-OX) PO SCH ×2 (09:36→20:02)
[2019-09-01] MEDS: methylPREDNISolone 4 MG TAB PO SCH ×2 (09:36→20:03)
[2019-09-01] MEDS: METOPROLOL TART 50 MG TAB PO SCH ×2 (11:02→20:03)
[2019-09-01] MEDS ORDERED: FUROSEMIDE 100MG/10ML VIAL (J1940) IV SCH (12:00)
--- NOTE | 2019-09-01 19:53 | IPNPDOC ---
Date Seen The patient was seen on 09/01/19. Progress Note SUBJECTIVE: Neg 210 mL/24 hrs. Pitting edema continues to improving. No acute complaints overnight. Denies chest pain, n/v/d, fever or chills. OBJECTIVE: VITAL SIGNS: Please see below PHYSICAL EXAMINATION: CONSTITUTIONAL: No acute distress, resting comfortably, AAO x 3 EYES: PERRLA, EOM intact HENT, MOUTH: Normocephalic, atraumatic, moist mucous membranes, corrective lenses in place NECK: SUPPLE, no JVD, no lymphadenopathy, no carotid bruit CV: Regular rate and rhythm, S1S2 normal, no murmurs/rubs/gallops RESPIRATORY: Crackles in bilateral lower lung [place]. No rales/rhonchi/wheezes GI: BS positive in 4 quadrants, soft, nontender, nondistended, no rebound or guarding, no organomegaly : Deferred MUSCULOSKELETAL: Normal ROM. No cyanosis, clubbing, swelling, joint deformity, + 1 pitting extremity edema bilaterally below the ankles- improved INTEGUMENTARY: Intact, no rashes, no lesions, no erythema NEUROLOGIC: Cranial Nerves II-XII are intact, no focal deficits PSYCHIATRIC: Mood and affect are normal CURRENT MEDICATIONS: Please see below LABORATORY DATA: Please see below IMAGING: Echo 03/2019: 1. Study is of fair technical quality, the patient is in atrial fibrillation with mildly tachycardic response. 2. Normal left ventricular (LV) size with mild left ventricular hypertrophy (LVH) and overall approximately moderate left ventricular systolic dysfunction. The apical segments are poorly visualized but there appears to be fairly extensive wall motion abnormality involving distal septum, distal anterior wall, distal inferior wall and whole apex. 3. Aortic sclerosis with mild insufficiency and no stenosis.4. Moderate mitral and tricuspid insufficiency. 5. Very high central venous pressure.6. At least moderately severe pulmonary hypertension." ASSESSMENT: 89 yr old M w a PMH of diastolic CHF, metastatic prostate cancer, atrial fibrillation, hemachromatosis, hypothyroidism, COPD, osteoporosis, CAD and iron deficiency anemia who will be admitted for management of acute diastolic congestive heart failure. PLAN 1. Shortness of breath 2/2 acute diastolic CHF/ Severe Pulm HTN -Currently 98% on RA. BNP 6900 --> 6071, edema continues to improve slowly - -210 mL/24hrs with diuresis -Echo from 03/2019 above -Monitor I&O's closely, daily weight, daily labs, replace lytes PRN -Consider cardiology consult with Dr. Saravia (patient's caddy) if condition should worsen. -Increased lasix BID, spironolactone and BB 2. Hypomagnesemia -Magnesium wnl -C/w mag oxide 800 mg BID -F/u magnesium level 3. UTI, E. coli -F/u UCx -C/w Ceftriaxone (Day 2), needs to complete 3 days 4. Physical deconditioning, acute and chronic -PT: C/w rehab here and will likely need o/p as well 5. COPD -Not in acute exacerbation -C/w albuterol, spiriva 6. Intermittent tachycardia believed to be 2/2 excessive albuterol use -WBC wnl, afebrile -Mild elevation of neutrophils on CBC with diff; however, no suspicion for PNA -Ceftriaxone for UTI above -monitor on tele 7. JACK w Thrombocytopenia -H/H stable, asymptomatic -Iron studies wnl -C/w iron supplement 150 mg PO BID 8. Atrial Fibrillation -Stable -C/w BB, apixabapan 9. Chronic HTN -C/w metoprolol, spirinolactone 10. Hypothyroidism -C/w levothyroxin 12. Prostate cancer -After discharge resume abiraterone, eligard & leuprolide 13. Osteoporosis -After discharge resume denosumab 14. Coronary artery disease -C/w BB, atorvastatin 15. GERD -C/w PPI 16. DVT px -Apixaban DISPOSITION: Will likely require several more days of rehab. C/w current treatment above. Plan is home after treatment of acute illness. VS, I&O, 24H, Fishbone Vital Signs/I&O Vital Signs Date Time Temp Pulse Resp B/P (MAP) Pulse Ox O2 Delivery O2 Flow Rate FiO2 09/01/19 14:00 96.6 118 16 120/78 (92) 99 Room Air 08/29/19 14:00 2.0 I&O- Last 24 Hours up to 6 AM 09/01/19 06:00 Intake Total 850 ml Output Total 450 ml Balance 400 ml Laboratory Data 24H LABS Laboratory Tests 2 09/01/19 05:32: Nucleated Red Blood Cells % (auto) 0.4H, Anion Gap 10, Glomerular Filtration Rate > 60.0, Calcium Level 8.6L, Magnesium Level 1.8, Total Bilirubin 0.9, Aspartate Amino Transf (AST/SGOT) 32, Alanine Aminotransferase (ALT/SGPT) 40, Alkaline Phosphatase 82, Total Protein 6.1L, Albumin 2.8L, Albumin/Globulin Ratio 0.8 CBC/BMP Laboratory Tests 09/01/19 05:32 Microbiology Microbiology 08/30/19 Urine Culture - Final, Complete Escherichia Coli 08/29/19 Respiratory Virus Panel (PCR) (CARLOS) - Final, Complete Current Medications Current Medications Medications (Trade) Dose Ordered Sig/Jl Route PRN Reason Start Time Stop Time Status Last Admin Dose Admin Acetaminophen (Tylenol Tab) 650 mg Q4H PRN PO PAIN OR FEVER 08/29/19 03:30 Al Hydrox/Mg Hydrox/Simethicone (Mylanta) 30 ml DAILY PRN PO DYSPEPSIA 08/29/19 03:30 Albuterol Sulfate (Proventil, Ventolin Hfa) 2 puff QID PRN INH SHORTNESS OF BREATH 08/29/19 06:30 Apixaban (Eliquis) 5 mg BID PO 08/29/19 09:00 09/01/19 09:36 Atorvastatin Calcium (Lipitor) 40 mg QHS PO 08/29/19 21:00 08/31/19 20:31 Ceftriaxone Sodium 1 gm/ Dextrose 50 ml @ 100 mls/hr Q24H IV 08/31/19 09:00 09/01/19 09:35 Furosemide (LASIX injection) 40 mg Q4H IV 08/29/19 08:00 08/30/19 09:16 DC 08/30/19 04:47 Furosemide (LASIX injection) 60 mg Q12H IV 08/30/19 12:00 09/01/19 09:01 DC 09/01/19 00:18 Furosemide (LASIX injection) 80 mg Q12H IV 09/01/19 12:00 09/01/19 12:13 Home Med (Med Rec Complete!) ASDIRECTED XX 08/29/19 05:45 08/29/19 05:48 DC Iron (Niferex) 150 mg BID PO 08/30/19 21:00 09/01/19 09:36 Levothyroxine Sodium (Synthroid) 75 mcg DAILY@0600 PO 08/29/19 06:00 09/01/19 05:03 Magnesium Hydroxide (Milk Of Magnesia) 30 ml DAILY PRN PO CONSTIPATION 08/29/19 03:30 Magnesium Oxide (Mag-Ox) 800 mg BID PO 08/31/19 09:00 09/01/19 09:36 Methylprednisolone (Medrol) 4 mg BID PO 08/29/19 09:00 09/01/19 09:36 Metoprolol Tartrate (Lopressor) 50 mg BID PO 08/29/19 09:00 08/31/19 20:32 Miscellaneous (Unresolved Patient Own Med Order) SEE LABEL COMMENTS DAILY XX 08/29/19 09:00 08/29/19 13:56 DC Miscellaneous (Unresolved Patient Own Med Order) SEE LABEL COMMENTS DAILY XX 08/29/19 09:00 08/29/19 13:56 DC Omeprazole (PriLOSEC) 20 mg QHS PO 08/29/19 21:00 08/31/19 20:30 Patient Own Medication (Patient'S Own Med) desilant 30mg po qhs QHS PO 08/29/19 21:00 08/29/19 13:55 DC Patient Own Medication (Patient'S Own Med) incruse ellipta 62.5mc... DAILY INH 08/29/19 09:00 08/29/19 13:56 DC Potassium Chloride (Micro-K Extencaps) 30 meq Q2H PO 08/30/19 10:00 08/30/19 12:02 DC 08/30/19 12:36 Sertraline HCl (Zoloft) 50 mg DAILY PO 08/29/19 09:00 09/01/19 09:36 Spironolactone (Aldactone) 12.5 mg DAILY PO 08/29/19 09:00 09/01/19 09:36 Tiotropium [place] (Spiriva Handihaler) 1 inhalation DAILY@08 INH 08/29/19 08:00 09/01/19 07:38 Allergies Coded Allergies: [email or web address] (Verified Allergy, Severe, 08/29/19) Josefina Crews MD Sep 01, 2019 19:53
[2019-09-01] MEDS: OMEPRAZOLE 20 MG CAP PO SCH (20:02)
[2019-09-01] MEDS: ATORVASTATIN 20 MG TAB PO SCH (20:03)
[2019-09-02 02:00] VITALS: BP 100/58
[2019-09-02] MEDS: LEVOTHYROXINE 75MCG TABLET (0.075MG) PO SCH (05:37)
[2019-09-02 05:47] LABS: HEMATOCRIT 27.8 % (42.0-52.0); MEAN CORPUSCULAR HEMOGLOBIN 29.4 pg (27.0-33.0); MEAN CORPUSCULAR HGB CONC 32.4 g/dl (32.0-36.5); MEAN CORPUSCULAR VOLUME 90.8 fl (80.0-96.0); PLATELET COUNT, AUTOMATED 144 10^3/uL (150-450); RED BLOOD COUNT 3.06 10^6/uL (4.30-6.10)
[2019-09-02 06:00] VITALS: BP 101/66
[2019-09-02 06:14] LABS: ALBUMIN 2.6 GM/DL (3.2-5.2); ALT/SGPT 36 U/L (12-78); BILIRUBIN,TOTAL 0.7 MG/DL (0.2-1.0); BLOOD UREA NITROGEN 29 MG/DL (7-18); CARBON DIOXIDE LEVEL 30 MEQ/L (21-32); CHLORIDE LEVEL 97 MEQ/L (98-107); CREATININE FOR GFR 0.97 MG/DL (0.70-1.30); GLOMERULAR FILTRATION RATE > 60.0 (>35); GLUCOSE, FASTING 165 MG/DL (70-100); MAGNESIUM LEVEL 1.9 MG/DL (1.8-2.4); POTASSIUM SERUM 3.1 MEQ/L (3.5-5.1); SODIUM LEVEL 139 MEQ/L (136-145); TOTAL PROTEIN 5.7 GM/DL (6.4-8.2)
[2019-09-02] MEDS: TIOTROPIUM INHALER/CAPSULE (SPIRIVA) INH SCH (07:51)
[2019-09-02] MEDS ORDERED: FUROSEMIDE 100MG/10ML VIAL (J1940) IV SCH (09:00)
[2019-09-02] MEDS: cefTRIAXone SOD 1 GM in D5W MINI-BAG PLUS 50 ML IV SCH (09:12)
[2019-09-02] MEDS: IRON POLYSAC (NIFEREX) 150 MG CAP PO SCH ×2 (09:13→21:05)
[2019-09-02] MEDS: APIXABAN 5 MG TAB (ELIQUIS) PO SCH ×2 (09:13→21:05)
[2019-09-02] MEDS: SERTRALINE HCL 50 MG TAB PO SCH (09:13)
[2019-09-02] MEDS: SPIRONOLACTONE 12.5MG PER 1/2 TABLET PO SCH (09:13)
[2019-09-02] MEDS: MAGNESIUM OXIDE 400 MG TAB (MAG-OX) PO SCH ×2 (09:13→21:05)
[2019-09-02] MEDS: methylPREDNISolone 4 MG TAB PO SCH ×2 (09:14→21:05)
[2019-09-02] MEDS: METOPROLOL TART 50 MG TAB PO SCH ×2 (09:14→21:00)
[2019-09-02 10:00] VITALS: BP 107/73
[2019-09-02] MEDS ORDERED: POTASSIUM CHLORIDE 10 MEQ SR TABLET PO ONE ×3 (10:30→13:00)
[2019-09-02 18:00] VITALS: BP 108/75
--- NOTE | 2019-09-02 20:42 | IPNPDOC ---
Date Seen The patient was seen on 09/02/19. Progress Note SUBJECTIVE: Sinus tachycardia is baseline up to 110, occasional with activity up to 120-asymptomatic. Pitting edema continues to improving. No acute complaints overnight. Denies chest pain, n/v/d, fever or chills. OBJECTIVE: VITAL SIGNS: Please see below PHYSICAL EXAMINATION: CONSTITUTIONAL: No acute distress, resting comfortably, AAO x 3 EYES: PERRLA, EOM intact HENT, MOUTH: Normocephalic, atraumatic, moist mucous membranes, corrective lenses in place NECK: SUPPLE, no JVD, no lymphadenopathy, no carotid bruit CV: Regular rate and rhythm, S1S2 normal, no murmurs/rubs/gallops RESPIRATORY: Crackles in bilateral lower lung [place]. No rales/rhonchi/wheezes GI: BS positive in 4 quadrants, soft, nontender, nondistended, no rebound or guarding, no organomegaly : Deferred MUSCULOSKELETAL: Normal ROM. No cyanosis, clubbing, swelling, joint deformity, +1 pitting extremity edema bilaterally below the ankles- improving slowly INTEGUMENTARY: Intact, no rashes, no lesions, no erythema NEUROLOGIC: Cranial Nerves II-XII are intact, no focal deficits PSYCHIATRIC: Mood and affect are normal CURRENT MEDICATIONS: Please see below LABORATORY DATA: Please see below IMAGING: Echo 03/2019: 1. Study is of fair technical quality, the patient is in atrial fibrillation with mildly tachycardic response. 2. Normal left ventricular (LV) size with mild left ventricular hypertrophy (LVH) and overall approximately moderate left ventricular systolic dysfunction. The apical segments are poorly visualized but there appears to be fairly extensive wall motion abnormality involving distal septum, distal anterior wall, distal inferior wall and whole apex. 3. Aortic sclerosis with mild insufficiency and no stenosis.4. Moderate mitral and tricuspid insufficiency. 5. Very high central venous pressure.6. At least moderately severe pulmonary hypertension." ASSESSMENT: 89 yr old M w a PMH of diastolic CHF, metastatic prostate cancer, atrial fibrillation, hemachromatosis, hypothyroidism, COPD, osteoporosis, CAD and iron deficiency anemia who will be admitted for management of acute diastolic congestive heart failure. PLAN 1. Shortness of breath 2/2 acute diastolic CHF/ Severe Pulm HTN -Currently 98% on RA. Edema continues to improve slowly -Echo from 03/2019 above -Monitor I&O's closely, daily weight, daily labs, replace lytes PRN -Consider cardiology consult with Dr. Saravia (patient's sea shell gatherer) if condition should worsen. - lasix daily, spironolactone and BB 2. Hypokalemia likely 2/2 to lasix -S/p 50 mEq KCL -F/u CMP daily 3. Hypomagnesemia- resolved -C/w mag oxide 800 mg BID 4. UTI, E. coli -F/u UCx -Treated with Ceftriaxone (Day 3) 5. Physical deconditioning, acute and chronic -PT: C/w rehab here and will likely need o/p as well 6. COPD -Not in acute exacerbation -C/w albuterol, spiriva 7.Tachycardia -Reviewed past admission, appears to be baseline 100-110 -WBC wnl, afebrile -monitor on tele 8. JACK w Thrombocytopenia -H/H stable, asymptomatic -Iron studies wnl -C/w iron supplement 150 mg PO BID 9. Atrial Fibrillation -Stable -C/w BB, apixabapan 10. Chronic HTN -C/w metoprolol, spirinolactone 11. Hypothyroidism -C/w levothyroxin 12. Prostate cancer -After discharge resume abiraterone, eligard & leuprolide 13. Osteoporosis -After discharge resume denosumab 14. Coronary artery disease -C/w BB, atorvastatin 15. GERD -C/w PPI 16. DVT px -Apixaban DISPOSITION: Will likely require several more days of rehab. C/w current treatment above. Plan is home after treatment of acute illness. VS, I&O, 24H, Fishbone Vital Signs/I&O Vital Signs Date Time Temp Pulse Resp B/P (MAP) Pulse Ox O2 Delivery O2 Flow Rate FiO2 09/02/19 18:00 97.5 110 20 108/75 (86) 94 Room Air 08/29/19 14:00 2.0 I&O- Last 24 Hours up to 6 AM 09/02/19 06:00 Intake Total 1110 ml Output Total 0 ml Balance 1110 ml Laboratory Data 24H LABS Laboratory Tests 2 09/02/19 05:29: Nucleated Red Blood Cells % (auto) 0.4H, Anion Gap 12, Glomerular Filtration Rate > 60.0, Calcium Level 8.0L, Magnesium Level 1.9, Total Bilirubin 0.7, Aspartate Amino Transf (AST/SGOT) 31, Alanine Aminotransferase (ALT/SGPT) 36, Alkaline Phosphatase 85, Total Protein 5.7L, Albumin 2.6L, Albumin/Globulin Ratio 0.8 CBC/BMP Laboratory Tests 09/02/19 05:29 Microbiology Microbiology 08/30/19 Urine Culture - Final, Complete Escherichia Coli 08/29/19 Respiratory Virus Panel (PCR) (CARLOS) - Final, Complete Current Medications Current Medications Medications (Trade) Dose Ordered Sig/Jl Route PRN Reason Start Time Stop Time Status Last Admin Dose Admin Acetaminophen (Tylenol Tab) 650 mg Q4H PRN PO PAIN OR FEVER 08/29/19 03:30 Al Hydrox/Mg Hydrox/Simethicone (Mylanta) 30 ml DAILY PRN PO DYSPEPSIA 08/29/19 03:30 Albuterol Sulfate (Proventil, Ventolin Hfa) 2 puff QID PRN INH SHORTNESS OF BREATH 08/29/19 06:30 Apixaban (Eliquis) 5 mg BID PO 08/29/19 09:00 09/02/19 09:13 Atorvastatin Calcium (Lipitor) 40 mg QHS PO 08/29/19 21:00 09/01/19 20:03 Ceftriaxone Sodium 1 gm/ Dextrose 50 ml @ 100 mls/hr Q24H IV 08/31/19 09:00 09/02/19 09:12 Furosemide (LASIX injection) 40 mg Q4H IV 08/29/19 08:00 08/30/19 09:16 DC 08/30/19 04:47 Furosemide (LASIX injection) 60 mg Q12H IV 08/30/19 12:00 09/01/19 09:01 DC 09/01/19 00:18 Furosemide (LASIX injection) 80 mg BID@09,17 IV 09/02/19 09:00 09/02/19 10:20 DC Furosemide (LASIX injection) 80 mg Q12H IV 09/01/19 12:00 09/02/19 00:09 DC 09/01/19 12:13 Furosemide (Lasix) 60 mg DAILY PO 09/03/19 09:00 Home Med (Med Rec Complete!) ASDIRECTED XX 08/29/19 05:45 08/29/19 05:48 DC Iron (Niferex) 150 mg BID PO 08/30/19 21:00 09/02/19 09:13 Levothyroxine Sodium (Synthroid) 75 mcg DAILY@0600 PO 08/29/19 06:00 09/02/19 05:37 Magnesium Hydroxide (Milk Of Magnesia) 30 ml DAILY PRN PO CONSTIPATION 08/29/19 03:30 Magnesium Oxide (Mag-Ox) 800 mg BID PO 08/31/19 09:00 09/02/19 09:13 Methylprednisolone (Medrol) 4 mg BID PO 08/29/19 09:00 09/02/19 09:14 Metoprolol Tartrate (Lopressor) 50 mg BID PO 08/29/19 09:00 09/02/19 09:14 Miscellaneous (Unresolved Patient Own Med Order) SEE LABEL COMMENTS DAILY XX 08/29/19 09:00 08/29/19 13:56 DC Miscellaneous (Unresolved Patient Own Med Order) SEE LABEL COMMENTS DAILY XX 08/29/19 09:00 08/29/19 13:56 DC Omeprazole (PriLOSEC) 20 mg QHS PO 08/29/19 21:00 09/01/19 20:02 Patient Own Medication (Patient'S Own Med) desilant 30mg po qhs QHS PO 08/29/19 21:00 08/29/19 13:55 DC Patient Own Medication (Patient'S Own Med) incruse ellipta 62.5mc... DAILY INH 08/29/19 09:00 08/29/19 13:56 DC Potassium Chloride (Micro-K Extencaps) 30 meq Q2H PO 08/30/19 10:00 08/30/19 12:02 DC 08/30/19 12:36 Sertraline HCl (Zoloft) 50 mg DAILY PO 08/29/19 09:00 09/02/19 09:13 Spironolactone (Aldactone) 12.5 mg DAILY PO 08/29/19 09:00 09/02/19 09:13 Tiotropium [place] (Spiriva Handihaler) 1 inhalation DAILY@08 INH 08/29/19 08:00 09/02/19 07:51 Allergies Coded Allergies: [email or web address] (Verified Allergy, Severe, 08/29/19) Josefina Crews MD Sep 02, 2019 20:41
[2019-09-02] MEDS: OMEPRAZOLE 20 MG CAP PO SCH (21:05)
[2019-09-02] MEDS: ATORVASTATIN 20 MG TAB PO SCH (21:05)
[2019-09-02 22:00] VITALS: BP 102/68
[2019-09-02 23:36] VITALS: O2SAT 95
[2019-09-03 02:00] VITALS: BP 112/74
[2019-09-03] MEDS: LEVOTHYROXINE 75MCG TABLET (0.075MG) PO SCH (05:33)
[2019-09-03 05:56] LABS: HEMATOCRIT 31.6 % (42.0-52.0); MEAN CORPUSCULAR HEMOGLOBIN 29.5 pg (27.0-33.0); MEAN CORPUSCULAR HGB CONC 31.6 g/dl (32.0-36.5); MEAN CORPUSCULAR VOLUME 93.2 fl (80.0-96.0); PLATELET COUNT, AUTOMATED 162 10^3/uL (150-450); RED BLOOD COUNT 3.39 10^6/uL (4.30-6.10)
[2019-09-03 06:00] VITALS: BP 112/74
[2019-09-03 06:19] LABS: ALBUMIN 2.7 GM/DL (3.2-5.2); ALT/SGPT 39 U/L (12-78); BILIRUBIN,TOTAL 0.9 MG/DL (0.2-1.0); BLOOD UREA NITROGEN 28 MG/DL (7-18); CALCIUM LEVEL 8.5 MG/DL (8.8-10.2); CARBON DIOXIDE LEVEL 28 MEQ/L (21-32); CHLORIDE LEVEL 99 MEQ/L (98-107); CREATININE FOR GFR 0.83 MG/DL (0.70-1.30); GLOMERULAR FILTRATION RATE > 60.0 (>35); GLUCOSE, FASTING 148 MG/DL (70-100); MAGNESIUM LEVEL 2.2 MG/DL (1.8-2.4); POTASSIUM SERUM 4.7 MEQ/L (3.5-5.1); SODIUM LEVEL 134 MEQ/L (136-145); TOTAL PROTEIN 6.2 GM/DL (6.4-8.2)
[2019-09-03] MEDS: TIOTROPIUM INHALER/CAPSULE (SPIRIVA) INH SCH (07:50)
[2019-09-03] MEDS ORDERED: FUROSEMIDE 20 MG TAB PO SCH (09:00)
[2019-09-03] MEDS: MAGNESIUM OXIDE 400 MG TAB (MAG-OX) PO SCH (09:04)
[2019-09-03] MEDS: SERTRALINE HCL 50 MG TAB PO SCH (09:04)
[2019-09-03] MEDS: SPIRONOLACTONE 12.5MG PER 1/2 TABLET PO SCH (09:05)
[2019-09-03] MEDS: APIXABAN 5 MG TAB (ELIQUIS) PO SCH (09:05)
[2019-09-03] MEDS: methylPREDNISolone 4 MG TAB PO SCH (09:05)
[2019-09-03] MEDS: IRON POLYSAC (NIFEREX) 150 MG CAP PO SCH (09:05)
[2019-09-03 09:06] VITALS: BP 130/90
[2019-09-03] MEDS: METOPROLOL TART 50 MG TAB PO SCH (09:06)
[2019-09-03 10:00] VITALS: BP 112/72
[2019-09-03] MEDS ORDERED: MAG400TA PO (12:07)
[2019-09-03] MEDS ORDERED: FURO20TA2 PO (12:07)
--- NOTE | 2019-09-03 19:58 | DS.PDOC ---
Discharge Summary General Date of Admission Aug 29, 2019 at 03:29 Date of Discharge 09/03/19 Attending Physician: Josefina Crews MD Discharge Summary HPI: This is a 89 yr old M that presents w/ c/o of shortness of breath for 3 months. He came in last night because symptoms became worse. He couldn't identify anything that made his breathing worse. He has been using his inhalers more frequently which he feels has helped a bit. Because of the shortness of breath, he has been having difficulty sleeping at night and has to sleep with several pillows propped behind his head. He has also had a cough productive of clear sputum and bilateral lower leg swelling. He denies gaining weight; he has lost weight because of prostate cancer. He denied having fevers, chills, chest pain, palpitations, eating any excessively sweet foods, eating salty foods or eating out at a restaurant recently. gave him lasix for possible acute CHF; the patient has voided 2x. HOSPITAL COURSE: The patient was aggressively diuresed during his hospital stay. There was shown to be some improvement in his BNP. Repeat echocardiogram was not done as there was a recent echocardiogram on file. The patient was in a negative fluid balance the majority of the days he was here and was placed also on a fluid restriction. Lower extremity edema markedly improved. The patient's medications were optimi zed for diastolic heart failure. On 09/03/2019 the patient was cleared by physical therapy to return home to his previous living condition. 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 On discharge the patient denied chest pain, increased shortness of breath, nausea, vomiting, fevers, chills or cough. ROS: negative except as listed in HPI PMH/PSH Atrial Fibrillation JACK Chronic HTN Hypothyroidism Prostate cancer stage 4 s/p external beam radiation 2002, on abiraterone, eligard & leuprolide Osteoporosis on Denosumab Chronic diastolic Congestive heart failure Severe Pulm HTN COPD Heterozygous hemochromatosis Coronary artery disease GERD Arthritis Facial fracture Hernia repair SH Former smoker Lives with 2 of his daughters [facility] Prostate cancer ALLERGIES: See below DISCHARGE MEDS: See below PHYSICAL EXAMINATION: CONSTITUTIONAL: No acute distress, resting comfortably, AAO x 3 EYES: PERRLA, EOM intact HENT, MOUTH: Normocephalic, atraumatic, moist mucous membranes, corrective lenses in place NECK: SUPPLE, no JVD, no lymphadenopathy, no carotid bruit CV: Regular rate and rhythm, S1S2 normal, no murmurs/rubs/gallops RESPIRATORY: mild crackles in bilateral lower lung chino. No rales/rhonchi/wheezes GI: BS positive in 4 quadrants, soft, nontender, nondistended, no rebound or guarding, no organomegaly : Deferred MUSCULOSKELETAL: Normal ROM. No cyanosis, clubbing, swelling, joint deformity, +1 pitting extremity edema bilaterally below the ankles- improving slowly INTEGUMENTARY: Intact, no rashes, no lesions, no erythema NEUROLOGIC: Cranial Nerves II-XII are intact, no focal deficits PSYCHIATRIC: Mood and affect are normal LABORATORY DATA: Please see below IMAGING: Echo 03/2019: 1. Study is of fair technical quality, the patient is in atrial fibrillation with mildly tachycardic response. 2. Normal left ventricular (LV) size with mild left ventricular hypertrophy (LVH) and overall approximately moderate left ventricular systolic dysfunction. The apical segments are poorly visualized but there appears to be fairly extensive wall motion abnormality involving distal septum, distal anterior wall, distal inferior wall and whole apex. 3. Aortic sclerosis with mild insufficiency and no stenosis.4. Moderate mitral and tricuspid insufficiency. 5. Very high central venous pressure.6. At least moderately severe pulmonary hypertension." ASSESSMENT: 89 yr old M w a PMH of diastolic CHF, metastatic prostate cancer, atrial fibrillation, hemachromatosis, hypothyroidism, COPD, osteoporosis, CAD and iron deficiency anemia who will be admitted for management of acute diastolic congestive heart failure. PLAN 1. Shortness of breath 2/2 acute diastolic CHF/ Severe Pulm HTN -Currently 98% on RA. Edema continues to improve slowly -Echo from 03/2019 above - lasix daily, spironolactone and BB 2. Hypokalemia likely 2/2 to lasix -resolved 3. Hypomagnesemia- resolved -C/w mag oxide 800 mg BID 4. UTI, E. coli -Treated with Ceftriaxone (3 days) 5. Physical deconditioning, acute and chronic -PT: C/w rehab o/p 6. COPD -Not in acute exacerbation -C/w home meds 7.Tachycardia -Reviewed past admission, appears to be baseline 100-110 -WBC wnl, afebrile 8. JACK w Thrombocytopenia -H/H stable, asymptomatic -Iron studies wnl -C/w iron supplement 150 mg PO BID 9. Atrial Fibrillation -Stable -C/w BB, apixabapan 10. Chronic HTN -C/w metoprolol, spirinolactone 11. Hypothyroidism -C/w levothyroxin 12. Prostate cancer -After discharge resume abiraterone, eligard & leuprolide 13. Osteoporosis -After discharge resume denosumab 14. Coronary artery disease -C/w BB, atorvastatin 15. GERD -C/w PPI 16. DVT px -Apixaban DISPOSITION: Discharging home today with follow-up with PCP and advised to follow-up with cardiology. TIME SPENT ON DISCHARGE: Greater than 30 minutes. Vital Signs/I&Os Vital Signs Date Time Temp Pulse Resp B/P (MAP) Pulse Ox O2 Delivery O2 Flow Rate FiO2 09/03/19 10:00 97.8 104 18 112/72 (85) 98 Room Air 08/29/19 14:00 2.0 I&O- Last 24 Hours up to 6 AM 09/03/19 06:00 Intake Total 0 ml Output Total 800 ml Balance -800 ml Laboratory Data Labs 24H Laboratory Tests 2 09/03/19 05:24: Nucleated Red Blood Cells % (auto) 0.5H, Anion Gap 7L, Glomerular Filtration Rate > 60.0, Calcium Level 8.5L, Magnesium Level 2.2, Total Bilirubin 0.9, Aspartate Amino Transf (AST/SGOT) 58H, Alanine Aminotransferase (ALT/SGPT) 39, Alkaline Phosphatase 85, Total Protein 6.2L, Albumin 2.7L, Albumin/Globulin Ratio 0.8 CBC/BMP Laboratory Tests 09/03/19 05:24 Microbiology Microbiology 08/30/19 Urine Culture - Final, Complete Escherichia Coli 08/29/19 Respiratory Virus Panel (PCR) (CARLOS) - Final, Complete Discharge Medications Scheduled Apixaban (Eliquis) 5 Mg Tablet, 5 MG PO BID, (Reported) Atorvastatin Calcium (Atorvastatin Calcium) 40 Mg Tablet, 40 MG PO QHS, (Reported) Denosumab Injection (Prolia) 60 Mg/Ml Tsering, 60 MG SC [id number], (Reported) Dexlansoprazole (Dexilant) 30 Mg bp, 30 MG PO QHS, (Reported) Furosemide (Furosemide) 20 Mg Tablet, 60 MG PO DAILY Iron Polysaccharide Complex (Ferrex 150) 150 Mg Capsule, 150 MG PO BID, (Reported) Leuprolide Acetate (Lupron Depot) 45 Mg Syringekit, 45 MG IM [id number], (Reported) Levothyroxine Sodium (Synthroid) 75 Mcg Tablet, 75 MCG PO QAM, (Reported) Magnesium Oxide (Magnesium Oxide) 400 Mg Tablet, 800 MG PO DAILY Methylprednisolone (Methylprednisolone) 4 Mg Tablet, 4 MG PO BID, (Reported) Metoprolol Tartrate (Metoprolol Tartrate) 50 Mg Tablet, 50 MG PO BID, (Reported) Sertraline HCl (Sertraline HCl) 50 Mg Tablet, 50 MG PO DAILY, (Reported) Spironolactone (Spironolactone) 25 Mg Tablet, 12.5 MG PO DAILY, (Reported) Umeclidinium [place] (Incruse Ellipta) 62.5 Mcg Blst.w.dev, 1 PUFF INH DAILY, (Reported) Scheduled PRN Albuterol Sulfate (Ventolin Hfa) 108 Mcg/Act Aer, 2 PUFFS INH QID PRN for SHORTNESS OF BREATH, (Reported) Miscellaneous Medications [Patient Comments] , (Reported) WILL VERIFY MEDICATIONS AND DOSES WITH DAUGHTER Allergies Coded Allergies: tamsulosin (Verified Allergy, Severe, 08/29/19) Josefina Crews MD Sep 03, 2019 19:58
== END 2019-09-03 15:09 | disposition home or self-care (01) | DRG 292 ==
LOC: M ED 23:59 → M ED INP 08-29 03:29 → ENRESERV 08-29 04:01 → M MSPAV 08-29 05:05
PROVIDERS: ADMIT Internal Medicine; ATTEND Internal Medicine
DX: I11.0 Hypertensive heart disease with heart failure (principal); E87.4 Mixed disorder of acid-base balance; N39.0 Urinary tract infection, site not specified; I50.33 Acute on chronic diastolic (congestive) heart failure; I48.91 Unspecified atrial fibrillation; D50.9 Iron deficiency anemia, unspecified; E03.9 Hypothyroidism, unspecified; C61 Malignant neoplasm of prostate; M81.0 Age-related osteoporosis without current pathological fracture; I27.20 Pulmonary hypertension, unspecified; J44.9 Chronic obstructive pulmonary disease, unspecified; D69.6 Thrombocytopenia, unspecified; E83.42 Hypomagnesemia; I25.10 Atherosclerotic heart disease of native coronary artery without angina pectoris; B96.20 Unspecified Escherichia coli [E. coli] as the cause of diseases classified elsewhere; K21.9 Gastro-esophageal reflux disease without esophagitis; M19.90 Unspecified osteoarthritis, unspecified site; R63.4 Abnormal weight loss; Z87.891 Personal history of nicotine dependence; Z79.01 Long term (current) use of anticoagulants; Z79.899 Other long term (current) drug therapy; Z88.8 Allergy status to other drugs, medicaments and biological substances; Z11.59 Encounter for screening for other viral diseases

== ENCOUNTER → 2019-09-16 | Outpatient (CLI) | payer MEDICARE ==
[~2019-09-16] MED LIST changes: +ACET-908 PO; +ALDA25TA2 PO; -AMIO200T PO; +AMIO200T3 PO; +CALC600T17 PO; -CALC600T6 PO; +CALCCAP4 PO; +DIGO0.123 PO; +DOCU100C16 PO; +DRON2.5C11 PO; +ELIQ2.5T PO; +FERR325T18 PO; +FURO20TA2 PO; +FURO40TA2 PO; +FURO80VL IV; +GUAI100L31 PO; +IFERCAP PO; +KLOR10TA76 PO; +KPHOS50TA PO; +LEVA12INH INH; +LIDOCAINE 1% MDV 20ML VIAL As Ordered ONE; +LOPR1TAB6 PO; +MAG400TA PO; +MAGN400T2 PO; +METO50TA7 PO; +MIDAZOLAM INJ 2MG/2ML VIAL (J2250 PER 1MG) As Ordered ONE; +MULT-40 PO; +MULTCAP PO; +NYST10006 TOP; +PANT40TA29 PO; +PATIENT COMMENTS; +POTA20TA6 PO; +PRED5TA PO; +SERT25TA85 PO; +SYNT88TA2 PO; +TIOT18INH INH; +XTAN40CA PO; +ZOSY3INJ2 IV; +ceFAZolin 1GM VIAL (J0690 PER 500MG) As Ordered ONE; +diphenhydrAMINE 50MG/ML VIAL (J1200) As Ordered ONE; +fentaNYL 100 MCG/2 ML INJECTION (J3010) As Ordered ONE
--- NOTE | 2019-10-21 10:28 | POST-OPPD ---
Postoperative Procedure Note Date Of Procedure: Sep 15, 2019 Time Of Procedure: 12:30 Full op note IR Ultrasound and fluoroscopy-guided port placement. IR Ultrasound of the neck. IR Moderate sedation. Clinical information: Lung cancer Physician: Dr. Delgadillo. Procedure: The patient was advised of the benefits, risks, and alternatives of the procedure and informed consent was obtained. A time-out was performed with verification of the patient's name, MRN, site of procedure and type of procedure to be performed. The patient was positioned in the supine position on the angiographic table. The site was prepped and draped in the usual sterile fashion. Moderate sedation was performed by the physician including the presence of an independent trained observer who assisted and monitored the patient's level of consciousness and physiologic status. Following the administration of fentanyl and Versed , the physician spent 45 minutes of continuous face to face time with the patient. Ultrasound of the neck reveals a patent and compressible right internal jugular vein. A hockey scout radiograph reveals no gross abnormality. The neck and anterior chest wall were anesthetized with lidocaine. The right internal jugular vein was accessed using a microintroducer needle under ultrasound guidance, via a lateral approach. An 018 wire was advanced into the superior vena cava, the needle was removed and a microsheath was placed. An Amplatz wire was then passed into the inferior vena cava. An incision at the internal jugular vein access site and anterior chest wall were made using a scalpel. An incision was made at the anterior chest wall. A small pocket was created using a combination of blunt and sharp dissection. A tunneling device was then used to pass the catheter from the pocket to the neck puncture site. An 8-[employer]ren [employer] P[employer] Angio dynamics Smart power port was then positioned in the pocket. The catheter was then measured and cut. The introducer sheath was exchanged for a peel-away sheath. The catheter was passed through the peel-away sheath into the internal jugular vein and the peel-away sheath was removed. The port tip was positioned at the cavoatrial junction. The port was then accessed with a Friedman needle. The port flushes and aspirates well. The puncture site in the neck was closed. The chest wall incision was then closed with 2-0 Vicryl and 4-0 Monocryl. Glue and Steri- Strips were applied. A sterile dressing was then applied. The patient tolerated the procedure well and was returned to the PRU in stable condition. Estimated blood loss: <5 ml. Complications: None. Conclusion: 1. Successful placement of an 8-German Angio dynamics Smart power port via the right internal jugular vein. The port is ready for immediate use. 2. Patient to follow up in IR clinic in 2 weeks. Thank you for this referral. JULIO DELGADILLO MD Oct 21, 2019 10:28
== END ==
LOC: M IRPRO 10:11 → M RAD 10:11
PROVIDERS: ATTEND Internal Medicine Hematology & Oncology
DX: D64.9 Anemia, unspecified (principal); E83.119 Hemochromatosis, unspecified; C34.90 Malignant neoplasm of unspecified part of unspecified bronchus or lung; E03.9 Hypothyroidism, unspecified; E78.2 Mixed hyperlipidemia; E80.4 Gilbert syndrome; I13.0 Hypertensive heart and chronic kidney disease with heart failure and stage 1 through stage 4 chronic kidney disease, or unspecified chronic kidney disease; I25.5 Ischemic cardiomyopathy; I27.29 Other secondary pulmonary hypertension; I35.8 Other nonrheumatic aortic valve disorders; I47.2 Ventricular tachycardia; I48.91 Unspecified atrial fibrillation; I50.30 Unspecified diastolic (congestive) heart failure; J30.9 Allergic rhinitis, unspecified; K21.9 Gastro-esophageal reflux disease without esophagitis; L57.0 Actinic keratosis; N18.2 Chronic kidney disease, stage 2 (mild); N30.00 Acute cystitis without hematuria; N32.0 Bladder-neck obstruction; N40.0 Benign prostatic hyperplasia without lower urinary tract symptoms; R54 Age-related physical debility
CPT/HCPCS: 36561; 99152; 99153; C1769; C1788; C1894; J0690; J1200; J1642; J1644; J2250; J3010

== ENCOUNTER → 2019-09-22 | Outpatient (CLI) | payer MEDICARE ==
[~2019-09-22] MED LIST changes: -LIDOCAINE 1% MDV 20ML VIAL As Ordered ONE; -MIDAZOLAM INJ 2MG/2ML VIAL (J2250 PER 1MG) As Ordered ONE; -ceFAZolin 1GM VIAL (J0690 PER 500MG) As Ordered ONE; -diphenhydrAMINE 50MG/ML VIAL (J1200) As Ordered ONE; -fentaNYL 100 MCG/2 ML INJECTION (J3010) As Ordered ONE
--- NOTE | 2019-11-11 07:07 | REP ---
WHOLE BODY RADIONUCLIDE BONE SCAN: HISTORY: Prostate cancer. COMPARISON: Whole body bone scan from 02/19/18. TECHNIQUE: 22.0 mCi of technetium-99m MDP is injected and standard whole body bone scan imaging is acquired. FINDINGS: There is a normal distribution of skeletal tracer with uptake in bilateral kidneys and in the urinary bladder. There are several linearly opposed foci of increased uptake in the anterior ribs bilaterally consistent with healing fractures. Previously noted foci of uptake in the left anterolateral second rib and anterior third rib are again seen, although these are a little less conspicuous. There is arthritic uptake in the left glenohumeral articulation. There is a horizontal area of increased uptake at the T7-T8 disc level, consistent with degenerative disc disease. There is a levoconvex scoliotic curvature in the lumbar spine again seen. There is arthritic uptake at the medial compartment of the left knee and in both wrists. IMPRESSION: Findings consistent with interval anterior rib fractures bilaterally. Degenerative disc disease mid-thoracic spine. No definite evidence of new metastatic disease. Previously noted foci in the left upper anterolateral ribs again noted, somewhat avid, otherwise unchanged. MTDD
== END ==
LOC: M RAD 11:00
PROVIDERS: ATTEND Internal Medicine Hematology & Oncology
DX: Z85.46 Personal history of malignant neoplasm of prostate (principal); M51.34 Other intervertebral disc degeneration, thoracic region

== ENCOUNTER 2019-10-17 11:07 | Inpatient (IN) | payer MEDICARE ==
[~2019-10-17] VITALS: Ht 165.1 cm; Wt 97.9 kg
[~2019-10-17 11:07] MED LIST changes: -ACET-908 PO; -ALDA25TA2 PO; -CALCCAP4 PO; -DIGO0.123 PO; -DOCU100C16 PO; -DRON2.5C11 PO; -ELIQ2.5T PO; -FERR325T18 PO; -FURO80VL IV; -GUAI100L31 PO; -IFERCAP PO; -KLOR10TA76 PO; -KPHOS50TA PO; -LEVA12INH INH; -LOPR1TAB6 PO; -MAGN400T2 PO; -MULT-40 PO; -MULTCAP PO; -NYST10006 TOP; -PANT40TA29 PO; -POTA20TA6 PO; -PRED5TA PO; -SERT25TA85 PO; -SYNT88TA2 PO; -TIOT18INH INH; -XTAN40CA PO; -ZOSY3INJ2 IV
[2019-10-17] MEDS ORDERED: XTAN40CA PO (11:21)
[2019-10-17 12:29] LABS: BASO % 0.5 % (0.0-1.0); EOS % 0.1 % (0.0-3.0); HEMATOCRIT 27.9 % (42.0-52.0); HEMOGLOBIN 8.7 g/dl (13.5-17.5); LYMPH # 0.5 10^3/uL (1.5-5.0); LYMPH % 6.6 % (24.0-44.0); MEAN CORPUSCULAR HEMOGLOBIN 26.9 pg (27.0-33.0); MEAN CORPUSCULAR HGB CONC 31.2 g/dl (32.0-36.5); MEAN CORPUSCULAR VOLUME 86.4 fl (80.0-96.0); MONO # 0.7 10^3/uL (0.0-0.8); NEUTROPHILS # 6.6 10^3/uL (1.5-8.5); NEUTROPHILS % 82.4 % (36.0-66.0); RED BLOOD COUNT 3.23 10^6/uL (4.30-6.10)
[2019-10-17 12:41] LABS: INR 2.33; PROTHROMBIN TIME 26.1 SECONDS (11.8-14.0)
[2019-10-17 13:02] LABS: ALBUMIN 2.9 GM/DL (3.2-5.2); ALT/SGPT 34 U/L (12-78); BILIRUBIN,DIRECT 0.8 MG/DL (0.0-0.2); BILIRUBIN,TOTAL 1.7 MG/DL (0.2-1.0); BLOOD UREA NITROGEN 32 MG/DL (7-18); CALCIUM LEVEL 8.2 MG/DL (8.8-10.2); CARBON DIOXIDE LEVEL 22 MEQ/L (21-32); CHLORIDE LEVEL 99 MEQ/L (98-107); CK-MB VALUE MASS 2.6 NG/ML (<3.6); CPK CREATINE PHOSPHOKINASE 47 U/L (39-308); CREATININE FOR GFR 1.05 MG/DL (0.70-1.30); GLOMERULAR FILTRATION RATE > 60.0 (>35); GLUCOSE, FASTING 160 MG/DL (70-100); MB/CK RELATIVE INDEX 5.53 (< OR =4); NT-PRO BNP 20762 PG/ML (<450); POTASSIUM SERUM 3.4 MEQ/L (3.5-5.1); SODIUM LEVEL 134 MEQ/L (136-145); THYROXINE (T4) 7.4 UG/DL (4.5-12.0); TOTAL PROTEIN 5.8 GM/DL (6.4-8.2); TROPONIN I 0.06 NG/ML (< 0.10)
[2019-10-17] MEDS ORDERED: FUROSEMIDE 40MG/4ML VIAL (J1940) IV ONE ×2 (14:15→20:00)
[2019-10-17] MEDS ORDERED: DIGOXIN INJ 0.5 MG/2 ML AMP (J1160) IV ONE ×2 (14:15→17:30)
[2019-10-17] MEDS ORDERED: FURO20TA2 PO (15:35)
[2019-10-17] MEDS ORDERED: POTA20TA6 PO (15:37)
[2019-10-17] MEDS ORDERED: MULT-40 PO (15:37)
[2019-10-17] MEDS ORDERED: MOM 30ML SUSPENSION UDC PO PRN (17:15)
[2019-10-17] MEDS ORDERED: LEVALBUTEROL 1.25 MG/0.5 ML CONCENTRATE NEB INH PRN (17:30)
--- NOTE | 2019-10-17 18:04 | HPEPDOC ---
General Date of Admission 10/17/19 Date of Service: Oct 17, 2019 Chief Complaint The patient is a 89-year-old male admitted with a reason for visit of WEAK. Source: Patient History of Present Illness This is a 89 yr old M with multiple medical problems including Stage 4 prostate cancer, chronic anemia, Chronic atrial fibrillation, Chronic CHF systolic and diastolic present with swelling of both his feet for 1 week and ongoing exertional dyspnea for several months. He noticed the swelling up of his legs a week ago he has been taking his water pills regularly without any improvement. His legs feel heavy and cold. He also reports that his SOB is also worse than usual. He denied any cough. Denied any orthopnea. He also complains of fatigue, malaise, poor appetite and loss of weightIN Ed he was found to be in Afib with RVR and in CHF exacerbation. Home Medications Scheduled Apixaban (Eliquis) 5 Mg Tablet, 5 MG PO BID, (Reported) Atorvastatin Calcium (Atorvastatin Calcium) 40 Mg Tablet, 40 MG PO QHS, (Reported) Denosumab Injection (Prolia) 60 Mg/Ml Tsering, 60 MG SC [id number], (Reported) Dexlansoprazole (Dexilant) 30 Mg Cap.bp, 30 MG PO QHS, (Reported) Enzalutamide (Xtandi) 40 Mg Capsule, 160 MG PO DAILY, (Reported) Furosemide (Furosemide) 20 Mg Tablet, 60 MG PO DAILY, (Reported) Iron Polysaccharide Complex (Ferrex 150) 150 Mg Capsule, 150 MG PO BID, (Reported) Leuprolide Acetate (Lupron Depot) 45 Mg Syringekit, 45 MG IM [id number], (Reported) Levothyroxine Sodium (Synthroid) 75 Mcg Tablet, 75 MCG PO QHS, (Reported) Methylprednisolone (Methylprednisolone) 4 Mg Tablet, 4 MG PO BID, (Reported) Metoprolol Tartrate (Metoprolol Tartrate) 50 Mg Tablet, 50 MG PO BID, (Reported) Multivitamin (Multivitamins) 1 Each Tablet, 1 TAB PO DAILY, (Reported) Potassium Chloride (Potassium Chloride) 20 Meq Tab.er.prt, 20 MEQ PO DAILY, (Reported) PATIENT HAS NOT STARTED Sertraline HCl (Sertraline HCl) 50 Mg Tablet, 50 MG PO DAILY, (Reported) Spironolactone (Spironolactone) 25 Mg Tablet, 12.5 MG PO DAILY, (Reported) Umeclidinium [place] (Incruse Ellipta) 62.5 Mcg Blst.w.dev, 1 PUFF INH DAILY, (Reported) Scheduled PRN Albuterol Sulfate (Ventolin Hfa) 108 Mcg/Act Aer, 2 PUFFS INH QID PRN for SHORTN ESS OF BREATH, (Reported) Allergies Coded Allergies: tamsulosin (Verified Allergy, Severe, 10/17/19) Past Medical History Medical History Chronic systolic and diastolic Congestive heart failure , Last EF was 40% to 45% Chronic Atrial Fibrillation Chronic anemia. JACK Stage 4 Prostate cancer stage 4 s/p external beam radiation 2002, on abiraterone, eligard & leuprolide Chronic HTN Hypothyroidism Osteoporosis on Denosumab Severe Pulm HTN Moderate Mitral and Tricuspid regurgitation. COPD Heterozygous hemochromatosis Coronary artery disease GERD Arthritis Facial fracture Hernia repair Family History Significant Family History: Cancer (prostate cancer) Social History * Smoker: non-smoker Alcohol: Denies Drugs: denies A-FIB/CHADSVASC A-FIB History Current/History of A-Fib/PAF?: Yes Current PO Anticoag Therapy: Yes Review of Systems Constitutional: Reports: Weakness, Fatigue; Denies: Chills, Fever, Night Sweats Eyes: Denies: Pain, Vision change Physical Examination General Exam: Positive: Alert, Cooperative, No Acute Distress Eye Exam: Positive: PERRLA, Conjunctiva & lids normal, EOMI; Negative: Sclera icteric ENT Exam: Positive: Atraumatic, Mucous membr. moist/pink, Pharynx Normal Neck Exam: Positive: Supple, JVD Chest Exam: Positive: Clear to auscultation, Diminished (all over) Heart Exam: Positive: Tachycardic, Irregular Rhythm, Normal S1, Normal S2; Negative: Gallops, Murmurs, Rubs Telemetry: Positive: Atrial fibrillation Abdomen Exam: Positive: Normal bowel sounds, Soft; Negative: Tenderness, Hepatospenomegaly Extremity Exam: Positive: Edema (4 + bipedal edema); Negative: Clubbing, Cyanosis Skin Exam: Negative: Breakdown, Lesion Neuro Exam: Positive: Normal Speech, Strength at 5/5 X4 ext, Normal Tone Psych Exam: Positive: Memory Intact, Oriented x 3 Vital Signs Vital Signs Date Time Temp Pulse Resp B/P (MAP) Pulse Ox O2 Delivery O2 Flow Rate FiO2 10/17/19 17:03 116 19 112/65 (81) 96 Room Air 10/17/19 14:16 97.0 Laboratory Data Labs 24H Laboratory Tests 2 10/17/19 11:45: Immature Granulocyte % (Auto) 1.4, Neutrophils (%) (Auto) 82.4H, Lymphocytes (%) (Auto) 6.6L, Monocytes (%) (Auto) 9.0H, Eosinophils (%) (Auto) 0.1, Basophils (%) (Auto) 0.5, Neutrophils # (Auto) 6.6, Lymphocytes # (Auto) 0.5L, Monocytes # (Auto) 0.7, Eosinophils # (Auto) 0.0, Basophils # (Auto) 0.0, Nucleated Red Blood Cells % (auto) 1.0H, Prothrombin Time 26.1H, Prothromb Time International Ratio 2.33, Anion Gap 13, Glomerular Filtration Rate > 60.0, Calcium Level 8.2L, Total Bilirubin 1.7H, Direct Bilirubin 0.8H, Aspartate Amino Transf (AST/SGOT) 37, Alanine Aminotransferase (ALT/SGPT) 34, Alkaline Phosphatase 114, Total Creatine Kinase 47, Creatine Kinase MB 2.6, Creatine Kinase MB Relative Index 5.53H, Troponin I 0.06, [id number]-Type Natriuretic Peptide [id number], Total Protein 5.8L, Albumin 2.9L, Albumin/Globulin Ratio 1.0, Thyroid Stimulating Hormone (TSH) 1.440, Thyroxine (T4) 7.4 CBC/BMP Laboratory Tests 10/17/19 11:45 Microbiology Microbiology 10/17/19 Blood Culture, Received Pending 10/17/19 Blood Culture, Received Pending Assessment/Plan This is a 89 yr old M with multiple medical problems including Stage 4 prostate cancer, chronic anemia, Chronic atrial fibrillation, Chronic CHF systolic and diastolic present with swelling of both his feet for 1 week and ongoing exertional dyspnea for several months. He noticed the swelling up of his legs a week ago he has been taking his water pills regularly without any improvement. His legs feel heavy and cold. He also reports that his SOB is also worse than usual. He denied any cough. Denied any orthopnea. He also complains of fatigue, malaise, poor appetite and loss of weight. In ED he was found to be in Afib with RVR and in CHF exacerbation. Systolic and diastolic CHF exacerbation ischemic cardiomyopathy IV lasix, spironolactone, digoxin, 2 gm sodium diet, fluid restriction 1.5 liter segura cath for intake and output. patient is incontinent in the ED. Chronic Afib with RVR will give digoxin for rate control he is also on metoprolol at home will continue with hold parameters. continue eliquis Acute on chronic anemia has iron deficiency will check iron stores. Stage 4 prostate cancer follows with urology and oncology COPD continue Spiriva albuterol prn Hypothyroid synthroid CAD s/p AMI in 2017 Occluded LAD in cath, no intervention done. continue metoprolol at reduced dose to allow good blood ressure for diuretics. , statin , eliquis Methyl prednisone as peer daughter joyce has been taking this for 3 years and was started after his heart attack I spoke with Dr Saravia his office does not prescribe it I am not sure why he is taking such high dose of steroids will have to reach out to urology and oncology to see if they prescribe it for now will reduce dose to 3 mg bid. Plan / VTE VTE Prophylaxis Ordered?: Yes LUIS MCFARLAND MD Oct 17, 2019 18:04
[2019-10-17] MEDS ORDERED: PILL CUTTER 1 EACH XX PRN (18:30)
[2019-10-17 19:35] VITALS: BP 122/73
[2019-10-17] MEDS: APIXABAN 5 MG TAB (ELIQUIS) PO SCH (19:58)
[2019-10-17] MEDS: METOPROLOL TART 25 MG TABLET PO SCH (19:58)
[2019-10-17] MEDS: DOCUSATE SODIUM 100 MG CAP PO SCH (19:59)
[2019-10-17] MEDS: ATORVASTATIN 20 MG TAB PO SCH (19:59)
[2019-10-17] MEDS: LEVOTHYROXINE 75MCG TABLET (0.075MG) PO SCH (19:59)
[2019-10-17] MEDS ORDERED: METOPROLOL TART 50 MG TAB PO SCH (21:00)
[2019-10-18] VITALS: BP 94/58
[2019-10-18 04:00] VITALS: BP 104/62
[2019-10-18 06:27] LABS: HEMATOCRIT 26.4 % (42.0-52.0); HEMOGLOBIN 8.1 g/dl (13.5-17.5); MEAN CORPUSCULAR HEMOGLOBIN 26.2 pg (27.0-33.0); MEAN CORPUSCULAR HGB CONC 30.7 g/dl (32.0-36.5); MEAN CORPUSCULAR VOLUME 85.4 fl (80.0-96.0); RED BLOOD COUNT 3.09 10^6/uL (4.30-6.10); WHITE BLOOD COUNT 5.8 10^3/uL (4.0-10.0)
[2019-10-18 06:56] LABS: ALBUMIN 2.5 GM/DL (3.2-5.2); ALT/SGPT 30 U/L (12-78); BILIRUBIN,TOTAL 1.9 MG/DL (0.2-1.0); BLOOD UREA NITROGEN 22 MG/DL (7-18); CALCIUM LEVEL 8.2 MG/DL (8.8-10.2); CARBON DIOXIDE LEVEL 28 MEQ/L (21-32); CHLORIDE LEVEL 102 MEQ/L (98-107); CREATININE FOR GFR 0.74 MG/DL (0.70-1.30); FERRITIN 46 NG/ML (26-388); GLOMERULAR FILTRATION RATE > 60.0 (>35); GLUCOSE, FASTING 86 MG/DL (70-100); IRON (FE) 29 UG/DL (65-175); POTASSIUM SERUM 2.5 MEQ/L (3.5-5.1); SODIUM LEVEL 141 MEQ/L (136-145); TOTAL IRON BINDING CAPACITY 323 UG/DL (250-450)
[2019-10-18] MEDS: TIOTROPIUM INHALER/CAPSULE (SPIRIVA) INH SCH (07:25)
[2019-10-18] MEDS: KCL 10MEQ/100ML SWI (KRUN) 10 MEQ in IV 1 EA IV SCH ×2 (07:29→09:08)
[2019-10-18] MEDS ORDERED: KCL 20MEQ IN 100ML SWI (KRUN) 20 MEQ in IV 1 EA IV ONE ×2 (07:45)
[2019-10-18] MEDS ORDERED: FUROSEMIDE 40MG/4ML VIAL (J1940) IV SCH ×2 (09:00→16:30)
[2019-10-18] MEDS: METOPROLOL TART 25 MG TABLET PO SCH ×3 (09:00→20:29)
[2019-10-18] MEDS ORDERED: SPIRONOLACTONE 12.5MG PER 1/2 TABLET PO SCH (09:00)
[2019-10-18] MEDS: APIXABAN 5 MG TAB (ELIQUIS) PO SCH (09:08)
[2019-10-18] MEDS: DOCUSATE SODIUM 100 MG CAP PO SCH ×2 (09:08→20:29)
[2019-10-18] MEDS: SERTRALINE HCL 50 MG TAB PO SCH (09:08)
[2019-10-18] MEDS: PANTOPRAZOLE 40MG TAB (PROTONIX) PO SCH (09:08)
[2019-10-18 10:11] LABS: VITAMIN B12 LEVEL 594 PG/ML (247-911)
[2019-10-18 10:14] LABS: FOLATE > 24.0 NG/ML (>5.4)
[2019-10-18] MEDS: KCL 10MEQ/100ML SWI (KRUN) X 2 DOSES (20MEQ TOTAL) IV SCH ×8 (11:07→13:58)
[2019-10-18 12:00] VITALS: BP 106/55
[2019-10-18 16:00] VITALS: BP 99/63
[2019-10-18 16:12] LABS: BLOOD UREA NITROGEN 20 MG/DL (7-18); CARBON DIOXIDE LEVEL 28 MEQ/L (21-32); CHLORIDE LEVEL 100 MEQ/L (98-107); CREATININE FOR GFR 0.76 MG/DL (0.70-1.30); GLOMERULAR FILTRATION RATE > 60.0 (>35); GLUCOSE, FASTING 110 MG/DL (70-100); POTASSIUM SERUM 3.7 MEQ/L (3.5-5.1); SODIUM LEVEL 137 MEQ/L (136-145)
--- NOTE | 2019-10-18 16:14 | IPNPDOC ---
Date Seen The patient was seen on 10/18/19. Progress Note SUBJECTIVE: seen and examined at bedside. Tele reviewed. HR 120s. Denies SOB, palpitations, chest pain, n/v/d. OBJECTIVE PHYSICAL EXAMINATION: VITAL SIGNS: Please see below. GENERAL: NAD HEENT: PERRLA, EOMI CARDIOVASCULAR: irregular, S1, S2 RESPIRATORY: crackles bilaterally, good inspiratory effort. ABDOMINAL: edema 1+ on lower abdo EXTREMITIES: 3+ bilateral pitting edema NEUROLOGICAL: no focal neuro deficits PSYCHOLOGICAL: calm, cooperative LABORATORY DATA, IMAGING STUDIES, MICROBIOLOGY: Please see below. Echocardiogram: . DVT prophylaxis ordered?: Yes, lovenox ASSESSMENT AND PLAN: 89 yo M with a hx of metastatic prostate ca, chronic afib, systolic and diastolic CHF, chronic anemia. Presented to [facility] with a week long history worsening edema and dyspnea, despite compliance with diuretics. Afib with RVR in ED. PROBLEMS: 1. Systolic and diastolic CHF exacerbation: cardiology consulted, Dr. Saravia follows patient in clinic. Discussed, c/w diuresis (increase lasix to 40 mg TID), metoprolol, 2g Na limit, fluid restriction 1.5L. Digoxin stated for rate control. 2. Chronic Afib with RVR: digoxin. Metoprolol 25 mg PO BID. AC with eliquis. Held this morning due to BP parameters. Adjusted. Monitor telemetry. 3. Acute on chronic anemia: iron 29. Start PO iron, ferrous sulfate 325 mg daily. 4. Metastatic prostate ca: follows with urology, oncology 5. COPD: home inhalers, spiriva, albuterol 6. Hypothyroidism: continue with home dose levothyroroxine 7. CAD (CA 2016): s/p cath, no stening. LAD occlusion. Statin. BB. 8. Steroid use: methylprednisolone 4 mg PO BID for past 3 years, unclear indication. Spoke to [facility]. Prescribed by Dr. Crowe at [facility] in [place], [place]. Patient is taking a antiandrogen compound Yonsa (Abiraterone), which results in subsequent depletion of mineralocorticoids. For this reason, methylprednisolone is used to reconstitute diminished levels of mineralocorticoids. Discussion was made to continue Yonsa, howevere to reduce methylpred to 2 mg BID. Will check PSA. Will encourage patient to follow up with Dr. Crowe as well as medical oncology at [facility] on discharge. [facility] fax: [phone]. 9. Hypokalemia: K+ 2.5. Reduce methyprednisolone to 2 mg BID. Replace K+. Check BMP in PM. DISPOSITION: DC home with services. Pending VS, I&O, 24H, Fish[facility] Vital Signs/I&O Vital Signs Date Time Temp Pulse Resp B/P (MAP) Pulse Ox O2 Delivery O2 Flow Rate FiO2 10/18/19 13:40 130 111/58 10/18/19 12:00 98.1 18 100 Room Air I&O- Last 24 Hours up to 6 AM 10/18/19 05:59 Intake Total 0 ml Output Total 0 ml Balance 0 ml Laboratory Data 24H LABS Laboratory Tests 2 10/18/19 05:53: Nucleated Red Blood Cells % (auto) 1.2H, Anion Gap 11, Glomerular Filtration Rate > 60.0, Calcium Level 8.2L, Iron Level 29L, Total Iron Binding Capacity 323, Transferrin % Saturation 9.0L, Ferritin 46, Total Bilirubin 1.9H, Aspartate Amino Transf (AST/SGOT) 36, Alanine Aminotransferase (ALT/SGPT) 30, Alkaline Phosphatase 102, Total Protein 5.0L, Albumin 2.5L, Albumin/Globulin Ratio 1.0, Vitamin B12 Level 594, Folate > 24.0 10/18/19 14:53: CBC/BMP Laboratory Tests 10/18/19 05:53 Microbiology Microbiology 10/17/19 Blood Culture - Preliminary, Resulted No growth after 24 hours . All specim... 10/17/19 Blood Culture - Preliminary, Resulted No growth after 24 hours . All specim... MANINDER CARROLL MD Oct 18, 2019 16:14
[2019-10-18 20:00] VITALS: BP 115/60
[2019-10-18] MEDS: ATORVASTATIN 20 MG TAB PO SCH (20:27)
[2019-10-18] MEDS: LEVOTHYROXINE 75MCG TABLET (0.075MG) PO SCH (20:29)
[2019-10-18] MEDS: APIXABAN 2.5 MG TAB (ELIQUIS) PO SCH (20:29)
[2019-10-18] MEDS ORDERED: DIGOXIN 0.25 MG TAB PO ONE (21:00)
[2019-10-19] VITALS: BP 96/68
[2019-10-19 04:00] VITALS: BP 106/55
[2019-10-19 05:52] LABS: BASO % 0.4 % (0.0-1.0); EOS % 0.4 % (0.0-3.0); HEMATOCRIT 26.8 % (42.0-52.0); HEMOGLOBIN 8.4 g/dl (13.5-17.5); LYMPH # 0.3 10^3/uL (1.5-5.0); LYMPH % 5.5 % (24.0-44.0); MEAN CORPUSCULAR HEMOGLOBIN 26.8 pg (27.0-33.0); MEAN CORPUSCULAR HGB CONC 31.3 g/dl (32.0-36.5); MEAN CORPUSCULAR VOLUME 85.4 fl (80.0-96.0); MONO # 0.4 10^3/uL (0.0-0.8); MONO % 7.3 % (0.0-5.0); NEUTROPHILS # 4.6 10^3/uL (1.5-8.5); NEUTROPHILS % 85.1 % (36.0-66.0); RED BLOOD COUNT 3.14 10^6/uL (4.30-6.10); WHITE BLOOD COUNT 5.5 10^3/uL (4.0-10.0)
[2019-10-19 06:22] LABS: PLATELET COUNT, AUTOMATED 92 10^3/uL (150-450)
[2019-10-19 06:44] LABS: ALBUMIN 2.2 GM/DL (3.2-5.2); ALT/SGPT 26 U/L (12-78); BILIRUBIN,TOTAL 1.6 MG/DL (0.2-1.0); BLOOD UREA NITROGEN 16 MG/DL (7-18); CALCIUM LEVEL 7.8 MG/DL (8.8-10.2); CARBON DIOXIDE LEVEL 27 MEQ/L (21-32); CHLORIDE LEVEL 100 MEQ/L (98-107); CREATININE FOR GFR 0.67 MG/DL (0.70-1.30); DIGOXIN LEVEL 1.9 NG/ML (0.5-2.0); GLOMERULAR FILTRATION RATE > 60.0 (>35); GLUCOSE, FASTING 79 MG/DL (70-100); POTASSIUM SERUM 2.9 MEQ/L (3.5-5.1); SODIUM LEVEL 136 MEQ/L (136-145); TOTAL PROTEIN 5.2 GM/DL (6.4-8.2); TROPONIN I 0.12 NG/ML (< 0.10)
[2019-10-19] MEDS ORDERED: KCL 10MEQ/100ML SWI (KRUN) 10 MEQ in IV 1 EA IV STA (06:46)
[2019-10-19 07:24] LABS: MAGNESIUM LEVEL 1.3 MG/DL (1.8-2.4)
[2019-10-19] MEDS: KCL 10MEQ/100ML SWI (KRUN) 10 MEQ in IV 1 EA IV SCH ×3 (07:40→09:33)
--- NOTE | 2019-10-19 07:49 | IPNPDOC ---
Date Seen The patient was seen on 10/19/19. Progress Note SUBJECTIVE: patient seen and examined at bedside. doing well, no new complaints. segura in place, by Dr. Schmitt. Denies shortness of breath, chest pain, n/v/d, fevers and chills. Making urine. Ongoing diuresis. OBJECTIVE PHYSICAL EXAMINATION: VITAL SIGNS: Please see below. GENERAL: NAD HEENT: PERRLA, EOMI CARDIOVASCULAR: irregular, S1, S2 RESPIRATORY: good inspiratory effort, lungs CTAB ABDOMINAL: soft non tender, BS+ EXTREMITIES: 2+ bilateral pitting edema NEUROLOGICAL: no focal neuro deficits PSYCHOLOGICAL: calm, cooperative LABORATORY DATA, IMAGING STUDIES, MICROBIOLOGY: Please see below. DVT prophylaxis ordered?: Yes, lovenox ASSESSMENT AND PLAN: 89 yo M with a hx of metastatic prostate ca, chronic afib, systolic and diastolic CHF, chronic anemia. Presented to [facility] with a week long history worsening edema and dyspnea, despite compliance with diuretics. Afib with RVR in ED. PROBLEMS: 1. Systolic and diastolic CHF exacerbation: cardiology consulted, Dr. Saravia follows patient in clinic. Discussed, c/w diuresis, lasix 40 mg IV BID, metoprolol 25 mg BID, spironolactone 25 mg daily, 2g Na limit, fluid restriction 1.5L. Digoxin for rate control. 2. Chronic Afib with RVR: digoxin 01.25 mg daily. Metoprolol 25 mg PO BID. AC with eliquis. C/w tele. HR below 100. 4 runs of nonsustained VT. Controlled with BB> 3. Acute on chronic anemia: iron 29. Start PO iron, ferrous sulfate 325 mg daily. 4. Metastatic prostate ca: follows with urology, oncology 5. COPD: home inhalers, spiriva, albuterol 6. Hypothyroidism: continue with home dose levothyroroxine 7. CAD (2016): s/p cath, no stening. LAD occlusion. Statin. BB. 8. Steroid use: methylprednisolone 4 mg PO BID for past 3 years, unclear indication. Spoke to [facility]. Prescribed by Dr. Crowe at [facility] in [place], [place]. Patient is taking a antiandrogen compound Yonsa (Abiraterone), which results in subsequent depletion of mineralocorticoids. For this reason, methylprednisolone is used to reconstitute diminished levels of mineralocorticoids. Discussion was made to continue Yonsa, however to reduce methylpred to 2 mg BID. Will check PSA. Will encourage patient to follow up with Dr. Crowe as well as medical oncology at [facility] on discharge. [facility] u[facility] fax: [phone]. 9. Hypokalemia: persists. K+ 2.9. Reduce methyprednisolone to 2 mg BID. Spironolactone. Replace K+. Check BMP in PM. Discussed with endocrinology if persists. DISPOSITION: DC home with services. Pending VS, I&O, 24H, [facility] Vital Signs/I&O Vital Signs Date Time Temp Pulse Resp B/P (MAP) Pulse Ox O2 Delivery O2 Flow Rate FiO2 10/19/19 04:00 97.3 94 18 106/55 (72) 94 Room Air I&O- Last 24 Hours up to 6 AM 10/19/19 06:00 Intake Total 840 ml Output Total 575 ml Balance 265 ml Laboratory Data 24H LABS Laboratory Tests 2 10/18/19 14:53: Anion Gap 9, Glomerular Filtration Rate > 60.0, Calcium Level 8.0L 10/19/19 05:30: Anion Gap 9, Glomerular Filtration Rate > 60.0, Calcium Level 7.8L, Immature Granulocyte % (Auto) 1.3, Neutrophils (%) (Auto) 85.1H, Lymphocytes (%) (Auto) 5.5L, Monocytes (%) (Auto) 7.3H, Eosinophils (%) (Auto) 0.4, Basophils (%) (Auto) 0.4, Neutrophils # (Auto) 4.6, Lymphocytes # (Auto) 0.3L, Monocytes # (Auto) 0.4, Eosinophils # (Auto) 0.0, Basophils # (Auto) 0.0, Nucleated Red Blood Cells % (auto) 0.6H, Immature Platelet Fraction 5.8, Magnesium Level 1.3L, Total Bilirubin 1.6H, Aspartate Amino Transf (AST/SGOT) 33, Alanine Aminotransferase (ALT/SGPT) 26, Alkaline Phosphatase 91, Troponin I 0.12#H, Total Protein 5.2L, Albumin 2.2L, Albumin/Globulin Ratio 0.7, Digoxin Level 1.9 CBC/BMP Laboratory Tests 10/18/19 14:53 10/19/19 05:30 Microbiology Microbiology 10/17/19 Blood Culture - Preliminary, Resulted No growth after 24 hours . All specim... 10/17/19 Blood Culture - Preliminary, Resulted No growth after 24 hours . All specim... MANINDER CARROLL MD Oct 19, 2019 07:49
[2019-10-19] MEDS: TIOTROPIUM INHALER/CAPSULE (SPIRIVA) INH SCH (07:55)
[2019-10-19 08:00] VITALS: BP 108/66
[2019-10-19] MEDS: APIXABAN 2.5 MG TAB (ELIQUIS) PO SCH ×2 (09:30→21:16)
[2019-10-19] MEDS: SERTRALINE HCL 50 MG TAB PO SCH (09:31)
[2019-10-19] MEDS: PANTOPRAZOLE 40MG TAB (PROTONIX) PO SCH (09:31)
[2019-10-19] MEDS: METOPROLOL TART 25 MG TABLET PO SCH ×2 (09:31→21:19)
[2019-10-19] MEDS: DOCUSATE SODIUM 100 MG CAP PO SCH ×2 (09:32→21:16)
[2019-10-19] MEDS: BACTRIM 160MG/800MG DS TAB PO SCH ×3 (09:32→21:16)
[2019-10-19] MEDS: FERROUS SULFATE 325MG TAB PO SCH (09:32)
[2019-10-19] MEDS: FUROSEMIDE 40MG/4ML VIAL (J1940) IV SCH ×2 (09:32→16:59)
[2019-10-19] MEDS: SPIRONOLACTONE 25 MG TAB PO SCH (09:55)
[2019-10-19] MEDS ORDERED: POTASSIUM CHLORIDE 10 MEQ SR TABLET PO ONE (10:00)
[2019-10-19] MEDS: MAG SULF 1GM/100ML (MAG RUN) 1 GM in IV 1 EA IV SCH ×2 (11:00→12:14)
[2019-10-19 12:00] VITALS: BP 116/67
[2019-10-19 15:55] LABS: BLOOD UREA NITROGEN 16 MG/DL (7-18); CALCIUM LEVEL 7.8 MG/DL (8.8-10.2); CARBON DIOXIDE LEVEL 25 MEQ/L (21-32); CHLORIDE LEVEL 97 MEQ/L (98-107); CREATININE FOR GFR 0.91 MG/DL (0.70-1.30); GLOMERULAR FILTRATION RATE > 60.0 (>35); GLUCOSE, FASTING 138 MG/DL (70-100); POTASSIUM SERUM 3.7 MEQ/L (3.5-5.1); SODIUM LEVEL 132 MEQ/L (136-145)
[2019-10-19 16:00] VITALS: BP 93/55
[2019-10-19] MEDS ORDERED: MAGNESIUM OXIDE 400 MG TAB (MAG-OX) PO ONE (19:30)
[2019-10-19 20:00] VITALS: BP 111/75
[2019-10-19] MEDS: ATORVASTATIN 20 MG TAB PO SCH (21:16)
[2019-10-19] MEDS: POTASSIUM CHLORIDE 10 MEQ SR TABLET PO SCH (21:16)
[2019-10-19] MEDS: LEVOTHYROXINE 75MCG TABLET (0.075MG) PO SCH (21:16)
[2019-10-20] VITALS: BP 101/57
[2019-10-20 04:00] VITALS: BP 96/61
[2019-10-20 06:05] LABS: BASO % 0.3 % (0.0-1.0); EOS % 0.4 % (0.0-3.0); HEMOGLOBIN 9.4 g/dl (13.5-17.5); LYMPH # 0.4 10^3/uL (1.5-5.0); LYMPH % 5.9 % (24.0-44.0); MEAN CORPUSCULAR HEMOGLOBIN 26.4 pg (27.0-33.0); MEAN CORPUSCULAR HGB CONC 31.3 g/dl (32.0-36.5); MEAN CORPUSCULAR VOLUME 84.3 fl (80.0-96.0); MONO # 0.5 10^3/uL (0.0-0.8); MONO % 6.7 % (0.0-5.0); NEUTROPHILS % 85.6 % (36.0-66.0); RED BLOOD COUNT 3.56 10^6/uL (4.30-6.10)
[2019-10-20 06:39] LABS: ALBUMIN 2.5 GM/DL (3.2-5.2); ALT/SGPT 28 U/L (12-78); BILIRUBIN,TOTAL 1.5 MG/DL (0.2-1.0); BLOOD UREA NITROGEN 15 MG/DL (7-18); CALCIUM LEVEL 7.9 MG/DL (8.8-10.2); CARBON DIOXIDE LEVEL 25 MEQ/L (21-32); CHLORIDE LEVEL 99 MEQ/L (98-107); CREATININE FOR GFR 0.98 MG/DL (0.70-1.30); GLOMERULAR FILTRATION RATE > 60.0 (>35); GLUCOSE, FASTING 90 MG/DL (70-100); MAGNESIUM LEVEL 1.7 MG/DL (1.8-2.4); PHOSPHORUS LEVEL 1.9 MG/DL (2.5-4.9); POTASSIUM SERUM 4.2 MEQ/L (3.5-5.1); SODIUM LEVEL 132 MEQ/L (136-145); TOTAL PROTEIN 5.9 GM/DL (6.4-8.2)
[2019-10-20 07:10] LABS: PLATELET COUNT, AUTOMATED 95 10^3/uL (150-450)
[2019-10-20] MEDS: TIOTROPIUM INHALER/CAPSULE (SPIRIVA) INH SCH (07:56)
[2019-10-20 08:00] VITALS: BP 96/66
[2019-10-20] MEDS: FUROSEMIDE 40MG/4ML VIAL (J1940) IV SCH ×2 (09:00→17:19)
[2019-10-20] MEDS ORDERED: DIGOXIN 0.125 MG TAB PO SCH (09:00)
[2019-10-20] MEDS: METOPROLOL TART 25 MG TABLET PO SCH ×2 (09:00→19:45)
[2019-10-20] MEDS: PANTOPRAZOLE 40MG TAB (PROTONIX) PO SCH (10:03)
[2019-10-20] MEDS: DOCUSATE SODIUM 100 MG CAP PO SCH ×2 (10:03→19:44)
[2019-10-20] MEDS: SERTRALINE HCL 50 MG TAB PO SCH (10:03)
[2019-10-20] MEDS: FERROUS SULFATE 325MG TAB PO SCH (10:03)
[2019-10-20] MEDS: SPIRONOLACTONE 25 MG TAB PO SCH (10:03)
[2019-10-20] MEDS: APIXABAN 2.5 MG TAB (ELIQUIS) PO SCH ×2 (10:04→19:43)
[2019-10-20] MEDS: BACTRIM 160MG/800MG DS TAB PO SCH ×2 (10:04→19:44)
--- NOTE | 2019-10-20 11:08 | IPN ---
DATE: 10/19/2019 HISTORY OF PRESENT ILLNESS: Mr. Diez has been feeling better. He tells me that he feels less short of breath and he believes that his peripheral edema is better even though I do not appreciate significant change since yesterday. He continues to be in atrial fibrillation. The rate is better controlled, he was in low 100s yesterday, but overnight in mostly 80s and low 90s. He says that he slept pretty well. Blood pressure this morning is 106/55, heart rate as above, he is afebrile, saturation 94% on room air. He was reported to make only about 250 cc of urine yesterday, but he did not have a catheter in and it was not well recorded, but then yesterday evening a Talley catheter was placed. He made about 300 cc of urine overnight. Weight this morning is recorded as 58.6 kg, which is actually 4 kg higher than yesterday, which is certainly not making any sense. He is alert, oriented, appropriate. Does not appear to be in any distress. His JVP is still high. Lungs are reasonably clear, I do not appreciate any wheezing, crackles or rhonchi. Heart exam reveals irregular rhythm. There is a very prominent murmur at the apex, maybe 3 or 4/6 intensity, consistent with known mitral insufficiency. Abdomen is soft, nontender. Extremities still have 2 to 3+ edema to his knees. Neurologically, there is generalized weakness, but he moves all four extremities and he is alert, oriented and appropriate. LABORATORY DATA: Basic metabolic panel reveals sodium 136, potassium 2.9, BUN 16, creatinine 0.7, glucose 79. Normal liver function tests. Troponin marginally elevated at 0.12. Albumin 2.2. PSA was ordered and is pending. Digoxin level 1.9. CBC reveals WBC 5.5, hemoglobin 8.4, hematocrit 26, platelet count 92,000. ASSESSMENT PLAN: Mr. Diez is an 89-year-old man, who has known ischemic cardiomyopathy with history of myocardial infarction three years ago, which left him with approximately moderate LV systolic dysfunction. 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 The initial issue was with rate control, and he was on Metoprolol 50 twice a day. We actually reduced the dose slightly and added Digoxin. At this point, he seems to have better rate control and I am not going to make any changes in his regimen. The Digoxin level was relatively high and consequently I am not going to give him any dose today, but we will start giving him maintenance dose tomorrow morning. He has been anticoagulated with Apixaban and I reduced the dose from 5 twice a day to 2.5 twice a day because his weight is quite low and he is very elderly, although the renal function is preserved. He also is iron deficient and his platelet count is low and consequently I am nervous about the risk of bleeding. He is not taking aspirin, which I think in this setting is appropriate even with known coronary artery disease. As far as the heart failure is concerned, the principle intervention is diuresis. He cannot tolerate very well any vasodilators due to low blood pressure. Unfortunately he is quite hypokalemic and consequently the dose of Furosemide was already reduced. The potassium was supplemented this morning, but I am going to increase the dose of Spironolactone to counter some of the kaliuretic properties of Furosemide. I am hoping that with this regimen he will get better within a few days, hopefully sufficiently so for him to go back home. Another non-cardiac contributing factor to his condition unfortunately is progressive prostate cancer. His PSA has been continuously rising in spite of therapy and it was drawn again. We will see how the trend has been, but unfortunately I am afraid that patients life expectancy is relatively short from perspective of both heart failure as well as prostate cancer. MTDD
[2019-10-20 12:00] VITALS: BP 111/69
[2019-10-20 16:00] VITALS: BP 112/66
--- NOTE | 2019-10-20 17:07 | IPNPDOC ---
Date Seen The patient was seen on 10/20/19. Progress Note SUBJECTIVE: patient seen and examined at bedside. doing well, no new complaints. Denies shortness of breath, chest pain, n/v/d, fevers and chills. Making urine. Ongoing diuresis. OBJECTIVE PHYSICAL EXAMINATION: VITAL SIGNS: Please see below. GENERAL: NAD HEENT: PERRLA, EOMI CARDIOVASCULAR: irregular, S1, S2 RESPIRATORY: good inspiratory effort, lungs CTAB ABDOMINAL: soft non tender, BS+ EXTREMITIES: 2+ bilateral pitting edema NEUROLOGICAL: no focal neuro deficits PSYCHOLOGICAL: calm, cooperative LABORATORY DATA, IMAGING STUDIES, MICROBIOLOGY: Please see below. DVT prophylaxis ordered?: Yes, lovenox ASSESSMENT AND PLAN: 89 yo M with a hx of metastatic prostate ca, chronic afib, systolic and diastolic CHF, chronic anemia. Presented to [facility] with a week long history worsening edema and dyspnea, despite compliance with diuretics. Afib with RVR PROBLEMS: 1. Systolic and diastolic CHF exacerbation: cardiology consulted, Dr. Saravia follows patient in clinic. Discussed, c/w diuresis, lasix 40 mg IV BID, metoprolol 25 mg BID, spironolactone 25 mg daily, 2g Na limit, fluid restriction 1.5L. Digoxin for rate control. 2. Chronic Afib with RVR: digoxin 01.25 mg daily. Metoprolol 25 mg PO BID. AC with eliquis. C/w tele. HR below 100. 4 runs of nonsustained VT. Controlled with BB. 3. Acute on chronic anemia: iron 29. Start PO iron, ferrous sulfate 325 mg daily. 4. Metastatic prostate ca: follows with urology, oncology 5. COPD: home inhalers, spiriva, albuterol 6. Hypothyroidism: continue with home dose levothyroroxine 7. CAD ([place] 2016): s/p cath, no stening. LAD occlusion. Statin. BB. 8. Steroid use: methylprednisolone 4 mg PO BID for past 3 years, unclear indication. Spoke to [employer]. Prescribed by Dr. Crowe at [facility] in [place], [place]. Patient is taking a antiandrogen compound Yonsa (Abiraterone), which results in subsequent depletion of mineralocorticoids. For this reason, methylprednisolone is used to reconstitute diminished levels of mineralocorticoi ds. Discussion was made to continue Yonsa, however to reduce methylpred to 2 mg BID. Will check PSA. Will encourage patient to follow up with Dr. Crowe as well as medical oncology at [facility] on discharge. [facility] urology fax: [phone]. 9. Hypokalemia: improved. methyprednisolone 2 mg BID. Spironolactone. daily bmp DISPOSITION: [place] home with services. Pending VS, I&O, 24H, Fishbone Vital Signs/I&O Vital Signs Date Time Temp Pulse Resp B/P (MAP) Pulse Ox O2 Delivery O2 Flow Rate FiO2 10/20/19 16:00 97.4 102 20 112/66 (81) 94 Room Air I&O- Last 24 Hours up to 6 AM 10/20/19 05:59 Intake Total 1154 ml Output Total 1750 ml Balance -596 ml Laboratory Data 24H LABS Laboratory Tests 2 10/20/19 05:51: Immature Granulocyte % (Auto) 1.1, Neutrophils (%) (Auto) 85.6H, Lymphocytes (%) (Auto) 5.9L, Monocytes (%) (Auto) 6.7H, Eosinophils (%) (Auto) 0.4, Basophils (%) (Auto) 0.3, Neutrophils # (Auto) 6.0, Lymphocytes # (Auto) 0.4L, Monocytes # (Auto) 0.5, Eosinophils # (Auto) 0.0, Basophils # (Auto) 0.0, Nucleated Red Blood Cells % (auto) 0.3H, Immature Platelet Fraction 9.3, Anion Gap 8, Glomerular Filtration Rate > 60.0, Calcium Level 7.9L, Phosphorus Level 1.9L, Magnesium Level 1.7L, Total Bilirubin 1.5H, Aspartate Amino Transf (AST/SGOT) 49H, Alanine Aminotransferase (ALT/SGPT) 28, Alkaline Phosphatase 101, Total Protein 5.9L, Albumin 2.5L, Albumin/Globulin Ratio 0.7 CBC/BMP Laboratory Tests 10/20/19 05:51 Microbiology Microbiology 10/17/19 Blood Culture - Preliminary, Resulted No Growth after 72 hours. All specime... 10/17/19 Blood Culture - Preliminary, Resulted No Growth after 72 hours. All specime... MANINDER CARROLL MD Oct 20, 2019 17:07
[2019-10-20] MEDS: ATORVASTATIN 20 MG TAB PO SCH (19:43)
[2019-10-20] MEDS: POTASSIUM CHLORIDE 10 MEQ SR TABLET PO SCH (19:43)
[2019-10-20] MEDS: LEVOTHYROXINE 75MCG TABLET (0.075MG) PO SCH (19:44)
[2019-10-20] MEDS: MAGNESIUM OXIDE 400 MG TAB (MAG-OX) PO SCH (19:45)
[2019-10-20] MEDS ORDERED: METOPROLOL 5 MG/5 ML VIAL IV STA (19:57)
[2019-10-20] MEDS ORDERED: METOPROLOL 5 MG/5 ML VIAL As Ordered ONE (19:58)
[2019-10-20 20:00] VITALS: BP 125/70
[2019-10-21] VITALS: BP 94/54
[2019-10-21 04:00] VITALS: BP 101/58
[2019-10-21 05:57] LABS: BASO % 0.4 % (0.0-1.0); HEMATOCRIT 28.6 % (42.0-52.0); LYMPH # 0.2 10^3/uL (1.5-5.0); LYMPH % 2.1 % (24.0-44.0); MEAN CORPUSCULAR HEMOGLOBIN 26.5 pg (27.0-33.0); MEAN CORPUSCULAR HGB CONC 31.5 g/dl (32.0-36.5); MEAN CORPUSCULAR VOLUME 84.1 fl (80.0-96.0); MONO # 0.6 10^3/uL (0.0-0.8); MONO % 5.7 % (0.0-5.0); NEUTROPHILS # 9.5 10^3/uL (1.5-8.5); NEUTROPHILS % 90.8 % (36.0-66.0); WHITE BLOOD COUNT 10.5 10^3/uL (4.0-10.0)
[2019-10-21 06:04] LABS: PLATELET COUNT, AUTOMATED 86 10^3/uL (150-450)
[2019-10-21 06:25] LABS: ALBUMIN 2.2 GM/DL (3.2-5.2); ALT/SGPT 42 U/L (12-78); BILIRUBIN,TOTAL 3.1 MG/DL (0.2-1.0); BLOOD UREA NITROGEN 17 MG/DL (7-18); CALCIUM LEVEL 7.6 MG/DL (8.8-10.2); CARBON DIOXIDE LEVEL 27 MEQ/L (21-32); CHLORIDE LEVEL 100 MEQ/L (98-107); CREATININE FOR GFR 1.01 MG/DL (0.70-1.30); GLOMERULAR FILTRATION RATE > 60.0 (>35); GLUCOSE, FASTING 105 MG/DL (70-100); MAGNESIUM LEVEL 1.6 MG/DL (1.8-2.4); PHOSPHORUS LEVEL 2.1 MG/DL (2.5-4.9); POTASSIUM SERUM 4.5 MEQ/L (3.5-5.1); SODIUM LEVEL 134 MEQ/L (136-145); TOTAL PROTEIN 5.4 GM/DL (6.4-8.2)
[2019-10-21] MEDS: TIOTROPIUM INHALER/CAPSULE (SPIRIVA) INH SCH (07:13)
--- NOTE | 2019-10-21 07:34 | IPNPDOC ---
Date Seen The patient was seen on 10/21/19. Progress Note SUBJECTIVE: patient seen and examined at bedside. Overnight, went into RVR, was given metoprolol 5 mg IV, digoxin dose was increased to 0.185 mg. Denies shortness of breath, chest pain, n/v/d, fevers and chills. Making urine. Ongoing diuresis. Denies abdominal pain. OBJECTIVE PHYSICAL EXAMINATION: VITAL SIGNS: Please see below. GENERAL: NAD HEENT: PERRLA, EOMI CARDIOVASCULAR: irregular, S1, S2 RESPIRATORY: good inspiratory effort, lungs CTAB ABDOMINAL: soft non tender, BS+ EXTREMITIES: 2+ bilateral pitting edema NEUROLOGICAL: no focal neuro deficits PSYCHOLOGICAL: calm, cooperative LABORATORY DATA, IMAGING STUDIES, MICROBIOLOGY: Please see below. DVT prophylaxis ordered?: Yes, lovenox ASSESSMENT AND PLAN: 89 yo M with a hx of metastatic prostate ca, chronic afib, systolic and diastolic CHF, chronic anemia. Presented to [facility] with a week long history worsening edema and dyspnea, despite compliance with diuretics. Afib with RVR PROBLEMS: 1. Systolic and diastolic CHF exacerbation: cardiology consulted, Dr. Saravia follows patient in clinic. Discussed, c/w diuresis, lasix 40 mg IV BID, metoprolol 25 mg BID, spironolactone 25 mg daily, 2g Na limit, fluid restriction 1.5L. Digoxin for rate control. 2. Chronic Afib with RVR: rate > 130 overnight. metoprolol 5 mg IV once. Digoxin was increased to 0.1875 mg daily. Metoprolol 25 mg PO BID. AC with betty. C/w tele. Will discussed with Dr. Saravia. Reduce digxin back to 0.125 mg daily. Increased metoprolo 50 mg BID. 3. Acute on chronic anemia: iron 29. Start PO iron, ferrous sulfate 325 mg daily. 4. Metastatic prostate ca: follows with urology, oncology in [place] 5. COPD: home inhalers, spiriva, albuterol 6. Hypothyroidism: continue with home dose levothyroroxine 7. CAD (2016): s/p cath, no stening. LAD occlusion. Statin. BB. 8. Steroid use: methylprednisolone 4 mg PO BID for past 3 years, unclear indication. Spoke to [employer]. Prescribed by Dr. Crowe at [facility] in [place], [place]. Patient is taking a antiandrogen compound Yonsa (Abiraterone), which results in subsequent depletion of mineralocorticoids. For this reason, methylprednisolone is used to reconstitute diminished levels of mineraloco rticoids. Discussion was made to continue Yonsa, however to reduce methylpred to 2 mg BID. Will check PSA. Will encourage patient to follow up with Dr. Crowe as well as medical oncology at [facility] on discharge. [facility] urology fax: [phone]. 9. Hypokalemia: improved. methyprednisolone 2 mg BID. Spironolactone. daily bmp 10. Hyperbilirubinmiea: Total bili 3.1 (up from 1.5). Check direct bili. Mild AST elevation. ALT wnl. Liver US showing dilation of CBD due to possible stone vs mass, sludge in gallbladder. Ordered MRI abdo wwo contrast to eval for liver mets, MRCP ordered. DISPOSITION: I suspected a poor prognosis in this patient. His repeat PSA is pending, and has known stage 4 ca in addition to advance cardiac disease. I attempted to call family for a GOC discussion but was unable to reach. Will attempt again. VS, I&O, 24H, Fishbone Vital Signs/I&O Vital Signs Date Time Temp Pulse Resp B/P (MAP) Pulse Ox O2 Delivery O2 Flow Rate FiO2 10/21/19 04:00 98.0 52 20 101/58 (72) 93 Room Air I&O- Last 24 Hours up to 6 AM 10/21/19 05:59 Intake Total 240 ml Output Total 1450 ml Balance -1210 ml Laboratory Data 24H LABS Laboratory Tests 2 10/21/19 05:27: Immature Granulocyte % (Auto) 1.0, Neutrophils (%) (Auto) 90.8H, Lymphocytes (%) (Auto) 2.1L, Monocytes (%) (Auto) 5.7H, Eosinophils (%) (Auto) 0.0, Basophils (%) (Auto) 0.4, Neutrophils # (Auto) 9.5H, Lymphocytes # (Auto) 0.2L, Monocytes # (Auto) 0.6, Eosinophils # (Auto) 0.0, Basophils # (Auto) 0.0, Nucleated Red Blood Cells % (auto) 0.0, Anion Gap 7L, Glomerular Filtration Rate > 60.0, Calcium Level 7.6L, Phosphorus Level 2.1L, Magnesium Level 1.6L, Total Bilirubin 3.1#H, Aspartate Amino Transf (AST/SGOT) 72H, Alanine Aminotransferase (ALT/SGPT) 42, Alkaline Phosphatase 188H, Total Protein 5.4L, Albumin 2.2L, Albumin/Globulin Ratio 0.7 CBC/BMP Laboratory Tests 10/21/19 05:27 Microbiology Microbiology 10/17/19 Blood Culture - Preliminary, Resulted No Growth after 72 hours. All specime... 10/17/19 Blood Culture - Preliminary, Resulted No Growth after 72 hours. All specime... MANINDER CARROLL MD Oct 21, 2019 07:34
[2019-10-21 08:00] VITALS: BP 99/58
[2019-10-21] MEDS: METOPROLOL TART 25 MG TABLET PO SCH (09:00)
[2019-10-21] MEDS: FUROSEMIDE 40MG/4ML VIAL (J1940) IV SCH ×2 (09:00→17:57)
[2019-10-21] MEDS ORDERED: DIGOXIN 0.125 MG TAB PO SCH (09:00)
--- NOTE | 2019-10-21 09:18 | REPVR ---
PROCEDURE INFORMATION: Exam: US Abdomen, Limited; Right Upper Quadrant Exam date and time: 10/21/2019 8:20 AM Age: 89 years old Clinical indication: Abnormal findings; Abnormal lab test; Abnormal function test of other organs/systems; Additional info: Elevated bilirubin TECHNIQUE: Imaging protocol: US abdomen. Real time ultrasound with image documentation. Limited exam focused on the right upper quadrant. COMPARISON: RENAL US 04/07/2017 2:46 PM FINDINGS: Liver: The liver is homogeneous in echotexture. No demonstrated mass or intrahepatic biliary ductal dilatation. Gallbladder: The gallbladder contains some sludge, without demonstrated stones, wall thickening or pericholecystic fluid. Sonographic Wilder sign was not commented on. Common bile duct: The common bile duct appears large for a patient of this age, measuring 10.3 mm. Pancreas: Visualized portions of the pancreas, not fully including the body or tail, are without demonstrated abnormality. Right kidney: The right kidney measures 9.3 x 4.6 x 4.6 cm. Its cortex appears thinned and it appears somewhat echogenic. A cyst laterally in the interpolar region measures 8 x 6 x 6 mm. No demonstrated stone or mass. Intraperitoneal space: Small free fluid is present in the right upper quadrant. IMPRESSION: 1. Dilatation of the common bile duct, with obstructing stone or mass possible. Recommend further evaluation, such as MRI/MRCP. 2. Somewhat atrophic kidney with an echogenic appearance, suggesting chronic medical renal disease. 3. Gallbladder sludge without demonstrated stones. Electronically signed by: Juan David Eddy On 10/21/2019 09:18:04 AM
[2019-10-21] MEDS: DOCUSATE SODIUM 100 MG CAP PO SCH ×2 (10:08→21:00)
[2019-10-21] MEDS: SERTRALINE HCL 50 MG TAB PO SCH (10:08)
[2019-10-21] MEDS: MAGNESIUM OXIDE 400 MG TAB (MAG-OX) PO SCH ×2 (10:08→21:35)
[2019-10-21] MEDS: FERROUS SULFATE 325MG TAB PO SCH (10:10)
[2019-10-21] MEDS: PANTOPRAZOLE 40MG TAB (PROTONIX) PO SCH (10:10)
[2019-10-21] MEDS: APIXABAN 2.5 MG TAB (ELIQUIS) PO SCH ×2 (10:10→21:36)
[2019-10-21] MEDS: BACTRIM 160MG/800MG DS TAB PO SCH ×2 (10:11→21:37)
[2019-10-21] MEDS: SPIRONOLACTONE 25 MG TAB PO SCH (10:14)
--- NOTE | 2019-10-21 10:20 | CR ---
DATE OF CONSULTATION: 10/18/2019 REASON FOR CONSULTATION: Congestive heart failure, atrial fibrillation HISTORY OF PRESENT ILLNESS: Mr. Diez is known to me. He is a pleasant elderly man who has a multitude of medical problems. From a cardiac perspective, he suffered a myocardial infarction in 2016 that left him with ischemic cardiomyopathy and approximately moderate left ventricular systolic dysfunction. He also has had initially paroxysmal and lately persistant atrial fibrillation. He presented to the hospital because of weakness and peripheral edema and was found to be in atrial fibrillation with rapid ventricular response and congestive heart failure. Because his blood pressure was relatively soft, he was given digoxin on top of his chronic metoprolol that was actually slightly reduced in dose. He denied any chest discomfort recently. When I saw him this morning, he tells me that he is feeling much better. He feels that his edema has improved and he also feels that his shortness of breath is improved as well. He does not have any acute complaints. PAST MEDICAL HISTORY: 1. Coronary artery disease, presentation with anterior wall myocardial infarction in November 2016. Unfortunately, he presented late and consequently heart catheterization revealing occluded mid left anterior descending (LAD) artery was not followed by coronary intervention. His last evaluation of systolic function was in March 2019. An echocardiogram in our office revealed approximately moderate left ventricular systolic dysfunction with ejection fraction 40-45%. There was extensive anterior apical wall motion abnormality and also very high central venous pressure (CVP) and pulmonary artery pressure with at least moderately severe pulmonary hypertension. There was moderate mitral regurgitation (MR) and tricuspid regurgitation (TR). 2. Atrial fibrillation, initially paroxysmal but since March 2019 persistence, rate controlled at baseline on metoprolol 50 mg twice a day. 3. History of prostate cancer with recurrent disease and rising PSA. His last PSA available to me from August 05 was 96. 4. Hypertension. 5. Dyslipidemia. 6. Hypothyroidism. 7. Atrial fibrillation. OUTPATIENT MEDICATIONS: - Eliquis 5 mg twice a day - Atorvastatin 40 mg a day - Prolia 60 mg twice a year - Dexilant 30 mg at night - Xtandi 40 mg capsule, four capsules daily - Furosemide 60 mg daily - Iron polysaccharide complex 150 twice a day - Lupron every three months, 45 mg - Synthroid 75 mcg at night - Methylprednisolone 4 mg twice a day - Metoprolol 50 twice a day - Potassium 20 mEq daily - Sertraline 50 mg daily - Spironolactone 12.5 mg daily - Incruse Ellipta one inhalation daily ALLERGIES: He reports allergy to TAMSULOSIN. SURGICAL HISTORY: Positive for cystoscopy, finger surgery, knee surgery and prostate surgery. FAMILY HISTORY: Both parents ; mother of stroke and father of cancer. REVIEW OF SYSTEMS: The patient has been chronically weak and progressively more debilitated. He reports exertional intolerance due to dyspnea and fatigue. Denies any chest pain. Denies any sensation of palpitations as such. Denies abdominal pain, bloating, nausea or vomiting; fever or chills. There has been peripheral edema that has been present for several months but worse in the last week or so. PHYSICAL EXAMINATION: Mr. Diez is an elderly, frail man. He does not appear to be in acute distress and appears to be comfortable. Vitals signs this morning: Blood pressure 102/62. Heart rate in 90s, atrial fibrillation. Afebrile. Saturation 96% on room air. The weight was recorded as 47 kg yesterday but 54 kg this morning and the urine output was not well recorded. His CVP is still high. Lungs are reasonably clear to auscultation in upper two/thirds but on the bottoms are diminished and I suspect that he had at least small pleural effusions. Heart exam reveals irregular rhythm. There is a blowing murmur best heard in precordium and axillas about 2-3 out of 6 intensity consistent likely with MR. I do not appreciate rub or gallop. Abdomen is soft without obvious shifting dullness, tenderness, guarding or hepatosplenomegaly. There is 2-3+ edema to his knees. Neurologically, he is generally weak but alert and appropriate; moves all four extremities. LABORATORIES: As of this morning, sodium 141; potassium 2.5, that has since been replenished and is 3.7 at 1453. Normal creatinine with GFR over 60 and glucose 86. Iron 29 with saturation 9%. BNP on presentation was almost 21,000. CBC reveals a hemoglobin 8.1, hematocrit 26.4 and platelet count was not well reported due to platelet clumping. WBC count was 5.8. ECG reveals presence of atrial fibrillation with rapid ventricular response and is suggestive of old anterior apical myocardial infarction (MO). Chest x-ray unfortunately I was not able to open in our computer system. ASSESSMENT AND PLAN: Mr. Diez is an 89-year-old man who has chronic atrial fibrillation with ischemic cardiomyopathy and at least moderate left ventricular systolic dysfunction. He presents with undoubtedly exacerbated heart failure, I suspect most likely due to poorly rate controlled atrial fibrillation. His condition is certainly guarded. It seems to be that this is not an acute presentation, it is more a chronic disease that was recently exacerbated. I do agree with introduction of digoxin for rate control and simultaneous reduction of metoprolol. He so far received 0.5 mg of digoxin and I am going to give him an additional 0.25 mg to complete loading. I will request a digoxin level tomorrow morning. He continues to be volume overloaded but his blood pressure is soft and consequently the diuresis has to be accomplished gradually. It was written for 40 mg three times a day of furosemide, which I think is a little excessive and I am going to reduce the dose to just 40 mg twice a day with holding parameters for blood pressure and excessive urine output. Obviously the urine output has to be closely monitored. He is chronically on Medrol, for reasons that are unclear in my opinion, most likely related to his prostate cancer. This is not beneficial from a heart failure perspective and the dose was already reduced, which I agree with. Hopefully, with these measures he will have a favorable response. We will continue anticoagulation with apixaban but considering his frail status and advanced age, I am going to reduce the dose to just 2.5 mg twice a day even though technically this is a borderline dose for him and he probably could tolerated 5 mg twice a day as well. But with iron deficiency anemia I think it would be beneficial if he takes a lower dose. There is nothing to suggest ischemic contribution to current presentation. I suspect that his overall frailty is further exacerbated by progressive prostate cancer. I will follow the patient with you. MARIMAR
[2019-10-21] MEDS ORDERED: PROHANCE 279.3MG/ML 15ML VIAL As Ordered ONE (11:53)
[2019-10-21 12:00] VITALS: BP 106/66
--- NOTE | 2019-10-21 12:16 | IPN ---
DATE: 10/20/2019 Mr. Young tells me that he is feeling again a little bit better. He feels that he has slightly more energy. He is less short of breath, and peripheral edema seems to have improved as well. He remains in atrial fibrillation. The heart rate is reasonably well controlled, mostly about 80s and 90s, even though yesterday evening he was transiently in 100 and teens, Blood pressure is soft in 90s and low 100s. He has been afebrile. Saturation 93% on room air. The fluid balance was recorded yesterday as -700. Weight unfortunately is recorded as slightly up at 15.2 kg. He is certainly alert, oriented, and appropriate. His jugular venous pressure (JVP) is still high. Lungs are reasonably clear. Heart exam, though, reveals irregular rhythm with very obvious murmur of mitral insufficiency. I do not appreciate gallop or rub. Abdomen is soft. No tenderness. He still has about 2+ edema, but it is roughly to mid shins. Neurologically, there is generalized weakness, but otherwise intact. LABORATORY DATA: Basic metabolic panel: Sodium 132, potassium 4.2, BUN 15, creatinine 1.0, and glucose 90. Magnesium was low at 1.7. CBC: Hemoglobin 9.4, hematocrit 30, platelet count 95,000. He had a PSA drawn 2 days ago, but so far the results are still pending. ASSESSMENT AND PLAN: Mr. Young is a rather unfortunate 89-year-old man who has a history of ischemic cardiomyopathy with approximately moderate left ventricular systolic dysfunction after a heart attack that he suffered more than 3 years ago and left him with extensive anteroapical wall motion abnormality. He presents with heart failure in setting of atrial fibrillation with rapid ventricular response. Because he was relatively hypotensive on presentation, we cut down the dose of metoprolol and added digoxin. He heart rate is reasonable, even though not perfect, but I think that we will leave the current regimen unchanged. He has been slowly diuresed, currently receiving furosemide 40 twice a day. I am afraid that the fluid balance and weight of first 3 days were inaccurate until he received a Talley catheter, and I think that now we will have a better idea about his balance, but by clinical exam he is improving. He also is receiving spironolactone and potassium supplements, because his potassium tends to run low. At this point, I will leave his medications unchanged. I believe that he probably will need another day or two in the hospital before he reaches reasonable euvolemic status. Unfortunately, because we are starting to see blood pressure being rather soft, it may be challenging, but so far I am quite optimistic. As far as the atrial fibrillation is concerned, I cut down the dose of Eliquis to just 2.5 twice a day, even though technically he would qualify for full dose, but he is very frail, elderly, his weight is low, and he is also thrombocytopenic and somewhat iron deficient, which makes me think that he probably has a smoldering gastrointestinal (GI) bleed. Unfortunately, he has a second serious diagnosis, and that is a progressive prostate cancer. He has been on several medications after a second relapse, and the PSA has been rising. The last one from July was in 90s, and the one obtained 2 days ago is still pending. On account of both heart failure and prostate cancer, I am somewhat pessimistic about his longer-term prognosis. I will be off for the weekend, and Dr. Serna will take over my service tomorrow morning. MARIMAR
[2019-10-21 16:00] VITALS: BP 108/60
[2019-10-21 19:13] LABS: PSA TOTAL 81.6 ng/mL (0.0-4.0)
[2019-10-21 20:00] VITALS: BP 113/75
[2019-10-21] MEDS: METOPROLOL TART 50 MG TAB PO SCH (21:36)
[2019-10-21] MEDS: POTASSIUM CHLORIDE 10 MEQ SR TABLET PO SCH (21:36)
[2019-10-21] MEDS: ATORVASTATIN 20 MG TAB PO SCH (21:37)
[2019-10-21] MEDS: LEVOTHYROXINE 75MCG TABLET (0.075MG) PO SCH (21:37)
[2019-10-22] VITALS (7 sets, daily range): BP systolic 94–114; BP diastolic 56–66
[2019-10-22 06:53] LABS: MAGNESIUM LEVEL 1.9 MG/DL (1.8-2.4); PHOSPHORUS LEVEL 1.9 MG/DL (2.5-4.9)
[2019-10-22] MEDS: TIOTROPIUM INHALER/CAPSULE (SPIRIVA) INH SCH (07:41)
[2019-10-22 07:51] LABS: BASO % 0.3 % (0.0-1.0); EOS % 0.3 % (0.0-3.0); HEMATOCRIT 26.3 % (42.0-52.0); HEMOGLOBIN 8.3 g/dl (13.5-17.5); LYMPH # 0.2 10^3/uL (1.5-5.0); MEAN CORPUSCULAR HEMOGLOBIN 26.5 pg (27.0-33.0); MEAN CORPUSCULAR HGB CONC 31.6 g/dl (32.0-36.5); MONO # 0.4 10^3/uL (0.0-0.8); MONO % 5.4 % (0.0-5.0); NEUTROPHILS # 6.6 10^3/uL (1.5-8.5); NEUTROPHILS % 90.3 % (36.0-66.0); RED BLOOD COUNT 3.13 10^6/uL (4.30-6.10); WHITE BLOOD COUNT 7.3 10^3/uL (4.0-10.0)
[2019-10-22 07:57] LABS: ALBUMIN 2.2 GM/DL (3.2-5.2); ALT/SGPT 41 U/L (12-78); BILIRUBIN,TOTAL 3.4 MG/DL (0.2-1.0); BLOOD UREA NITROGEN 20 MG/DL (7-18); CALCIUM LEVEL 7.5 MG/DL (8.8-10.2); CARBON DIOXIDE LEVEL 27 MEQ/L (21-32); CHLORIDE LEVEL 101 MEQ/L (98-107); CREATININE FOR GFR 0.94 MG/DL (0.70-1.30); GLOMERULAR FILTRATION RATE > 60.0 (>35); GLUCOSE, FASTING 83 MG/DL (70-100); POTASSIUM SERUM 4.4 MEQ/L (3.5-5.1); SODIUM LEVEL 131 MEQ/L (136-145); TOTAL PROTEIN 5.2 GM/DL (6.4-8.2)
[2019-10-22] MEDS ORDERED: DIGOXIN 0.125 MG TAB PO SCH (09:00)
[2019-10-22] MEDS ORDERED: K-PHOS ORIGINAL (POT.ACID PHOSPHATE) 500MG TAB PO SCH (09:00)
[2019-10-22] MEDS: METOPROLOL TART 50 MG TAB PO SCH (09:00)
[2019-10-22] MEDS: FUROSEMIDE 40MG/4ML VIAL (J1940) IV SCH ×2 (09:00→17:14)
[2019-10-22] MEDS ORDERED: PROHANCE 279.3MG/ML 15ML VIAL As Ordered ONE (09:32)
[2019-10-22] MEDS: BACTRIM 160MG/800MG DS TAB PO SCH (10:22)
[2019-10-22] MEDS: PANTOPRAZOLE 40MG TAB (PROTONIX) PO SCH (10:24)
[2019-10-22] MEDS: SERTRALINE HCL 50 MG TAB PO SCH (10:24)
[2019-10-22] MEDS: DOCUSATE SODIUM 100 MG CAP PO SCH (10:24)
[2019-10-22] MEDS: APIXABAN 2.5 MG TAB (ELIQUIS) PO SCH (10:24)
[2019-10-22] MEDS: MAGNESIUM OXIDE 400 MG TAB (MAG-OX) PO SCH (10:24)
[2019-10-22] MEDS: FERROUS SULFATE 325MG TAB PO SCH (10:24)
[2019-10-22] MEDS: SPIRONOLACTONE 25 MG TAB PO SCH (10:24)
--- NOTE | 2019-10-22 10:25 | REPVR ---
PROCEDURE INFORMATION: Exam: MR Abdomen Without and With Contrast Exam date and time: 10/22/2019 10:20 AM Age: 89 years old Clinical indication: Abnormal findings; Abnormal radiologic finding of the abdomen; Radiologic exam and body structure: Catscan; Additional info: Obstructing liver/biliary tree mass. With and without contra TECHNIQUE: Imaging protocol: MR of the abdomen without and with intravenous contrast. Contrast material: PROHANCE; Contrast volume: 11 ml; Contrast route: INTRAVENOUS (IV); COMPARISON: LIVER US 10/21/2019 8:20 AM FINDINGS: Liver: 4 mm right hepatic lobe cyst. Gallbladder and bile ducts: Mild diffuse intrahepatic ductal dilatation. The common hepatic duct measures up to 12 mm in diameter. The common bile duct measures up to 13 mm in diameter. No gallstones. No gallbladder wall thickening. No abnormal gallbladder distension. There is a subtle 2 mm x 2 mm round filling defect in the distal common bile duct, favored to represent a tiny stone. Pancreas: No abnormal distention of the main pancreatic duct. Spleen: Unremarkable. No splenomegaly. Adrenals: Unremarkable. No mass. Kidneys and ureters: Hyperintense T1 and hypointense T2, 6 mm hemorrhagic right renal cyst. 11 mm simple right renal cyst. 8 mm simple left renal cyst. Bilateral renal cortical atrophy. No follow-up imaging is recommended. No hydronephrosis. Stomach and bowel: No bowel obstruction. Intraperitoneal space: No free fluid. Arteries: Mild atherosclerotic changes. Bones/joints: Degenerative change of the spine. Soft tissues: Unremarkable. IMPRESSION: Mild distention of the intrahepatic and extrahepatic ducts. There appears to be a tiny stone in the distal common bile duct. COMMENTS: Consistent with the [employer]'s Incidental Findings Committee white paper (J Am Jonathan Radiol 2018): Any incidental renal lesion less than 1.0 cm or classified as too small to characterize, or any incidental cystic renal lesion characterized as simple-appearing, is likely benign. No follow-up imaging is recommended for these lesions per consensus recommendations based on imaging criteria. Electronically signed by: Mary Springer On 10/22/2019 10:24:40 AM
--- NOTE | 2019-10-22 10:29 | REPVR ---
PROCEDURE INFORMATION: Exam: MR Abdomen Without Contrast, MRCP Exam date and time: 10/22/2019 10:20 AM Age: 89 years old Clinical indication: Abnormal findings; Abnormal radiologic finding of the abdomen; Radiologic exam and body structure: Catscan; Patient HX: Mrcp exam; Additional info: Obstructive hyperbilirubinemia, cbd dilation TECHNIQUE: Imaging protocol: MR of the abdomen without contrast. Exam focused on the bile ducts and pancreatic ducts. 3D MRCP images were acquired and processed without radiologist supervision. 3D rendering (Not supervised by radiologist): MIP and/or 3D reconstructed images were created by the technologist. COMPARISON: 1. LIVER US 10/21/2019 8:20 AM 2. MRI ABD W/O FOL WITH 10/22/2019 9:00:00 AM FINDINGS: Limitations: Lack of intravenous contrast material limits evaluation of the vascular and visceral structures. Heart: Cardiomegaly. Liver: No mass. Gallbladder and bile ducts: Mild diffuse distention of the intrahepatic ducts. The common hepatic duct measures up to 12 mm in diameter. The common bile duct measures up to 13 mm in diameter. There appears to be a tiny 2 mm x 2 mm round filling defect in the distal common bile duct. No abnormal gallbladder distension. No gallstones. No gallbladder wall thickening. Pancreas: Unremarkable. No ductal dilation. Kidneys and ureters: Subcentimeter benign renal cysts. No hydronephrosis Stomach and bowel: Small periampullary duodenal diverticulum. Intraperitoneal space: No fluid collection. Bones/joints: Degenerative change of the spine. IMPRESSION: 1. Abnormal distention of the intrahepatic and extrahepatic ducts. Apparent tiny stone in the distal common bile duct. 2. Duodenal diverticulosis. Electronically signed by: Mary Springer On 10/22/2019 10:28:48 AM
[2019-10-22] MEDS ORDERED: SODIUM CHLORIDE 1 GM TAB PO ONE (14:00)
[2019-10-22] MEDS ORDERED: MAG400TA PO (17:00)
[2019-10-22] MEDS ORDERED: ALDA25TA2 PO (17:00)
[2019-10-22] MEDS ORDERED: ZOSY3INJ2 IV (17:00)
[2019-10-22] MEDS ORDERED: FERR325T18 PO (17:00)
[2019-10-22] MEDS ORDERED: TIOT18INH INH (17:00)
[2019-10-22] MEDS ORDERED: PIPERACILLIN/TAZOBACTAM SOD 3.375 GM in D5W MINI-BAG PLUS 50 ML IV SCH (17:00)
[2019-10-22] MEDS ORDERED: DIGO0.123 PO (17:00)
[2019-10-22] MEDS ORDERED: KPHOS50TA PO (17:00)
[2019-10-22] MEDS ORDERED: PANT40TA29 PO (17:00)
[2019-10-22] MEDS ORDERED: DOCU100C16 PO (17:00)
[2019-10-22] MEDS ORDERED: ELIQ2.5T PO (17:00)
[2019-10-22] MEDS ORDERED: LEVA12INH INH (17:00)
[2019-10-22] MEDS ORDERED: LEVO75TA4 PO (17:00)
[2019-10-22] MEDS ORDERED: KLOR10TA76 PO (17:00)
[2019-10-22] MEDS ORDERED: LOPR1TAB6 PO (17:00)
[2019-10-22] MEDS ORDERED: FURO80VL IV (17:00)
--- NOTE | 2019-10-22 17:33 | DS.PDOC ---
Discharge Summary General Date of Admission Oct 17, 2019 at 17:06 Date of Discharge 10/22/2019 Attending Physician: MANINDER CARROLL MD Discharge Summary PROCEDURES PERFORMED DURING STAY: [None]. ADMITTING DIAGNOSES: 1. Persistent Afib with RVR 2. Acute on chronic anemia 3. Stage 4 prostate ca - PSA on 10/18/19 - 4. COPD 5. Hypothyroidism 6. CAD s/p PA 2017 (no stents, LAD occlusion) 7. Ischemic cardiomyopathy, L ventricular systolic dysfunction DISCHARGE DIAGNOSES: Choledocholithiasis Chronic Afib with RVR Acute on chronic anemia Stage 4 prostate ca COPD Hypothyroidism CAD s/p PA 2016 (no stents, LAD occlusion) COMPLICATIONS/CHIEF COMPLAINT: Afib,Chf Excerbation. HISTORY OF PRESENT ILLNESS: This is a 89 yr old M with multiple medical problems including Stage 4 prostate cancer, chronic anemia, Chronic atrial fibrillation, Chronic CHF systolic and diastolic present with swelling of both his feet for 1 week and ongoing exertional dyspnea for several months. He noticed the swelling up of his legs a week ago he has been taking his water pills regularly without any improvement. His legs feel heavy and cold. He also reports that his SOB is also worse than usual. He denied any cough. Denied any orthopnea. He also complains of fatigue, malaise, poor appetite and loss of weight. In Ed he was found to be in Afib with RVR and in CHF exacerbation. HOSPITAL COURSE: Mr. Diez was admitted to [facility] for management of acute exacerbation of systolic congestive heart failure, which is likely attributed to poorly controlled persistent atrial fibrillation. He follows with cardiology - Dr. Saravia, who was consulted for assistance in management. He was started on digoxin, ultimately titrated to 0.125 mg daily, as well as metoprolol 25 mg BID. In addition he was diuresed with lasix (40 mg IV bid), but remained fluid overloaded with persistent 2+ edema. Further aggressive diureses avoided given labile blood pressures. In order to improve monitoring of lO a segura cather was placed by urology, given patient's paraphimosis (he was subsequently started on bactrim BID for 5 days for UIT prophylaxis as aseptic insertion was difficult to achieve). Of note, it was noted that he takes 4 mg of medrol daily, which was prescribed and clarified by his urologist in [place], Dr. Crowe at [facility]. Patient is taking a antiandrogen compound Yonsa (Abiraterone), which results in subsequent depletion of mineralocorticoids. For this reason, methylprednisolone is used to reconstitute diminished levels of mineralocorticoids. Discussion was made to continue Yonsa, however to reduce methylpred to 2 mg BID to ease electrolyte replacement. During the admission, ri sing bilirubin levels were noted, from 1.7 to 3.4. Liver US showed dilation of CBD, prompting an MRCP study. Further, given suspicion for metastases from prostate, an MRI abdomen w wo contrast was done but did reveal metastatic disease. MRCP showed dilation of the CBD to 13 mm, as well as a distal CBD focus, suggestive of a 2 mm by 2 mm distal CBD stone. The patient remained afebrile, without leukocytosis, and did not endorse abdominal pain. GI evaluation was warranted for ERCP, out of concern of the obstructive choledocholithiasis and risk for progression to cholangitis. Patient was given a dose of Zosyn, and was accepted for transfer to [facility] for GI evaluation. Additional issues were addressed as follows: Systolic and diastolic CHF exacerbation: cardiology consulted, Dr. Saravia follows patient in clinic. Discussed, c/w diuresis, lasix 40 mg IV BID, metoprolol 25 mg BID, spironolactone 25 mg daily, 2g Na limit, fluid restriction 1.5L. Digoxin for rate control. Chronic Afib with RVR: rate > 130 overnight. metoprolol 5 mg IV once. Digoxin was increased to 0.1875 mg daily. Metoprolol 25 mg PO BID. AC with betty. C/w tele. Will discussed with Dr. Saravia. Reduce digxin back to 0.125 mg daily. Increased metoprolo 50 mg BID. Acute on chronic anemia: iron 29. Start PO iron, ferrous sulfate 325 mg daily. Metastatic prostate ca: follows with urology, oncology in [place]. PSA 10/18/19 - 81.4. Steroid use: methylprednisolone 4 mg PO BID for past 3 years, unclear indica tion. Spoke to [facility]. Prescribed by Dr. Crowe at [facility] in [place], [place]. Patient is taking a antiandrogen compound Yonsa (Abiraterone), which results in subsequent depletion of mineralocorticoids. For this reason, methylprednisolone is used to reconstitute diminished levels of min eralocorticoids. Discussion was made to continue Yonsa, however to reduce methylpred to 2 mg BID. Will check PSA. Will encourage patient to follow up with Dr. Crowe as well as medical oncology at [facility] on discharge. [facility] fax: [phone]. COPD: home inhalers, spiriva, albuterol Hypothyroidism: continue with home dose levothyroroxine CAD (2016): s/p cath, no stening. LAD occlusion. Statin. BB. Hypokalemia: improved. methyprednisolone 2 mg BID. Spironolactone. daily bmp Hyponatremia: on lasix. salt tab prn. Fluid restriction. Monitor BMP. DISCHARGE MEDICATIONS: Please see below. ALLERGIES: Please see below. PHYSICAL EXAMINATION ON DISCHARGE: VITAL SIGNS: Please see below. GENERAL: NAD HEENT: PERRLA, EOMI CARDIOVASCULAR: irregular, S1, S2, no rub or gallop. Noted 2/6 blowing murmum. RESPIRATORY: good inspiratory effort, lungs CTAB ABDOMINAL: soft non tender, BS+ EXTREMITIES: 2+ bilateral pitting edema NEUROLOGICAL: no focal neuro deficits PSYCHOLOGICAL: calm, cooperative LABORATORY DATA: Please see below. IMAGING: US liver (10/21/2019) IMPRESSION: 1. Dilatation of the common bile duct, with obstructing stone or mass possible. Recommend further evaluation, such as MRI/MRCP. 2. Somewhat atrophic kidney with an echogenic appearance, suggesting chronic medical renal disease. 3. Gallbladder sludge without demonstrated stones. MRI Abdo wwo contrast FINDINGS: Limitations: Lack of intravenous contrast material limits evaluation of the vascular and visceral structures. Heart: Cardiomegaly. MRCP (10/21/19) Liver: No mass. Gallbladder and bile ducts: Mild diffuse distention of the intrahepatic ducts. The common hepatic duct measures up to 12 mm in diameter. The common bile duct measures up to 13 mm in diameter. There appears to be a tiny 2 mm x 2 mm round filling defect in the distal common bile duct. No abnormal gallbladder distension. No gallstones. No gallbladder wall thickening. Pancreas: Unremarkable. No ductal dilation. Kidneys and ureters: Subcentimeter benign renal cysts. No hydronephrosis Stomach and bowel: Small periampullary duodenal diverticulum. Intraperitoneal space: No fluid collection. Bones/joints: Degenerative change of the spine. IMPRESSION: 1. Abnormal distention of the intrahepatic and extrahepatic ducts. Apparent tiny stone in the distal common bile duct. 2. Duodenal diverticulosis. IMPRESSION: Mild distention of the intrahepatic and extrahepatic ducts. There appears to be a tiny stone in the distal common bile duct PROGNOSIS: fair ACTIVITY: [As tolerated]. DIET: 2G salt DISCHARGE PLAN: transfer to [facility] for GI eval DISCHARGE INSTRUCTIONS: 1. F/u urology, oncology, cardiology DISCHARGE CONDITION: [Stable]. TIME SPENT ON DISCHARGE: Greater than [30] minutes. Vital Signs/I&Os Vital Signs Date Time Temp Pulse Resp B/P (MAP) Pulse Ox O2 Delivery O2 Flow Rate FiO2 10/22/19 16:00 97.8 107 18 106/57 (73) 95 Nasal Cannula 1.0 I&O- Last 24 Hours up to 6 AM 10/22/19 06:00 Intake Total 600 ml Output Total 1175 ml Balance -575 ml Laboratory Data Labs 24H Laboratory Tests 2 10/22/19 06:08: Immature Granulocyte % (Auto) 0.7, Neutrophils (%) (Auto) 90.3H, Lymphocytes (%) (Auto) 3.0L, Monocytes (%) (Auto) 5.4H, Eosinophils (%) (Auto) 0.3, Basophils (%) (Auto) 0.3, Neutrophils # (Auto) 6.6, Lymphocytes # (Auto) 0.2L, Monocytes # (Auto) 0.4, Eosinophils # (Auto) 0.0, Basophils # (Auto) 0.0, Nucleated Red Blood Cells % (auto) 0.0 10/22/19 06:11: Anion Gap 3L, Glomerular Filtration Rate > 60.0, Calcium Level 7.5L, Phosphorus Level 1.9L, Magnesium Level 1.9, Total Bilirubin 3.4H, Aspartate Amino Transf (AST/SGOT) 67H, Alanine Aminotransferase (ALT/SGPT) 41, Alkaline Phosphatase 163H, Total Protein 5.2L, Albumin 2.2L, Albumin/Globulin Ratio 0.7 CBC/BMP Laboratory Tests 10/22/19 06:08 10/22/19 06:11 Microbiology Microbiology 10/17/19 Blood Culture - Final, Complete NO GROWTH AFTER 5 DAYS 10/17/19 Blood Culture - Final, Complete NO GROWTH AFTER 5 DAYS Discharge Medications Scheduled Apixaban (Eliquis) 2.5 Mg Tablet, 2.5 MG PO BID Atorvastatin Calcium (Atorvastatin Calcium) 40 Mg Tablet, 40 MG PO QHS, (Reported) Denosumab Injection (Prolia) 60 Mg/Ml Rylan, 60 MG SC [id number], (Reported) Dexlansoprazole (Dexilant) 30 Mg Cap.bp, 30 MG PO QHS, (Reported) Digoxin (Digoxin) 125 Mcg Tablet, 0.125 MG PO DAILY Docusate Sodium (Docusate Sodium) 100 Mg Capsule, 100 MG PO BID Enzalutamide (Xtandi) 40 Mg Capsule, 160 MG PO DAILY, (Reported) Ferrous Sulfate (Ferrous Sulfate) 325 Mg Tablet, 325 MG PO DAILY Furosemide (Furosemide) 10 Mg/1 Ml Vial, 40 MG IV BID@, Leuprolide Acetate (Lupron Depot) 45 Mg Syringekit, 45 MG IM [id number], (Reporte d) Levothyroxine Sodium (Levothyroxine Sodium) 75 Mcg Tablet, 75 MCG PO QHS Magnesium Oxide (Magnesium Oxide) 400 Mg Tablet, 400 MG PO BID Metoprolol Tartrate (Lopressor) 50 Mg Tablet, 50 MG PO BID Multivitamin (Multivitamins) 1 Each Tablet, 1 TAB PO DAILY, (Reported) Pantoprazole Sodium (Pantoprazole Sodium) 40 Mg Tablet.dr, 40 MG PO DAILY Piperacillin Sodium/Tazobactam (Zosyn 3.375 Gram Vial) 3.375 Gm Vial, 1 INJ IV Q6H Potassium Chloride (Klor-Con M10) 10 Meq Tab.er.prt, 40 MEQ PO DAILY@2100 Potassium Phosphate Monobasic (K-Phos Original) 500 Mg Tablet.rylan, 500 MG PO BID Sertraline HCl (Sertraline HCl) 50 Mg Tablet, 50 MG PO DAILY, (Reported) Spironolactone (Aldactone) 25 Mg Tablet, 25 MG PO QAM Tiotropium [place] Monohydrate (Spiriva) 18 Mcg Cap.w.dev, 1 INHALATION INH DAILY@08 Umeclidinium [place] (Incruse Ellipta) 62.5 Mcg Blst.w.dev, 1 PUFF INH DAILY, (Reported) Scheduled PRN Albuterol Sulfate (Ventolin Hfa) 108 Mcg/Act Aer, 2 PUFFS INH QID PRN for SHORTNESS OF BREATH, (Reported) Levalbuterol Hydrochloride (Xopenex Concentrate) 1.25 Mg/0.5 Ml Vial.neb, 0.63 MG INH Q4HP PRN for SOB/WHEEZING Allergies Coded Allergies: tamsulosin (Verified Allergy, Severe, 10/17/19) MANINDER CARROLL MD Oct 22, 2019 17:33
--- NOTE | 2019-10-26 11:00 | ECGEPIP ---
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
--- NOTE | 2019-11-10 19:51 | REP ---
CHEST X-RAY CLINICAL: Cough and dyspnea. COMPARISON: 08/29/2019. FINDINGS: Infusaport identified with tip in the SVC/right atrium. The lung chino demonstrate diffuse chronic interstitial changes. Superimposed mid to lower lobe atelectasis and subtle infiltrate cannot be excluded. No effusion. No pneumothorax. Skeletal structures demonstrate osteopenia and degenerative changes. IMPRESSION: Chronic cardiomegaly and diffuse chronic interstitial changes. Subtle superimposed scattered interstitial and subtle alveolar infiltrate cannot be excluded. MTDD
== END 2019-10-22 20:25 | disposition short-term general hospital (02) | DRG 308 ==
LOC: M ED 11:07 → M ED INP 17:06 → ENRESERV 18:21 → M PCU 19:35
PROVIDERS: ADMIT Internal Medicine Nephrology; ATTEND Family Medicine
DX: I48.19 Other persistent atrial fibrillation (principal); I50.43 Acute on chronic combined systolic (congestive) and diastolic (congestive) heart failure; Z79.01 Long term (current) use of anticoagulants; Z79.899 Other long term (current) drug therapy; Z88.8 Allergy status to other drugs, medicaments and biological substances; D50.9 Iron deficiency anemia, unspecified; C61 Malignant neoplasm of prostate; E03.9 Hypothyroidism, unspecified; M81.0 Age-related osteoporosis without current pathological fracture; I27.20 Pulmonary hypertension, unspecified; E87.6 Hypokalemia; N47.2 Paraphimosis; J44.9 Chronic obstructive pulmonary disease, unspecified; K21.9 Gastro-esophageal reflux disease without esophagitis; I25.10 Atherosclerotic heart disease of native coronary artery without angina pectoris; I25.5 Ischemic cardiomyopathy; I25.2 Old myocardial infarction; Z79.52 Long term (current) use of systemic steroids

== ENCOUNTER 2019-11-07 14:45 | Inpatient (IN) | payer MEDICARE ==
[~2019-11-07] VITALS: Ht 170.2 cm; Wt 65.5 kg
[2019-11-07] VITALS (16 sets, daily range): BP systolic 78–99; BP diastolic 53–65
[~2019-11-07 14:45] MED LIST changes: +ALDA25TA2 PO; +DIGO0.123 PO; +DOCU100C16 PO; +ELIQ2.5T PO; +FERR325T18 PO; +FURO80VL IV; +KLOR10TA76 PO; +KPHOS50TA PO; +LEVA12INH INH; +LOPR1TAB6 PO; +MULT-40 PO; +PANT40TA29 PO; +POTA20TA6 PO; +TIOT18INH INH; +XTAN40CA PO; +ZOSY3INJ2 IV
[2019-11-07] MEDS ORDERED: NS 1,000 ML IV SCH (16:31)
[2019-11-07] MEDS ORDERED: NS 1,000 ML IV ONE ×4 (16:45→19:00)
[2019-11-07] MEDS ORDERED: PANTOPRAZOLE 40MG VIAL (C9113 PER 1) IV STA (17:35)
[2019-11-07] MEDS ORDERED: MAGN400T2 PO (17:48)
[2019-11-07] MEDS ORDERED: SYNT88TA2 PO (17:48)
[2019-11-07] MEDS ORDERED: ELIQ5TAB PO (17:48)
[2019-11-07] MEDS ORDERED: PRED5TA PO (17:48)
[2019-11-07] MEDS ORDERED: IFERCAP PO (17:48)
[2019-11-07] MEDS ORDERED: SPIR-10 PO (17:48)
[2019-11-07] MEDS ORDERED: METO25TA4 PO (17:48)
[2019-11-07] MEDS ORDERED: SERT25TA85 PO (17:48)
[2019-11-07] MEDS ORDERED: CALCCAP4 PO (17:48)
[2019-11-07] MEDS ORDERED: FURO20TA2 PO (17:48)
[2019-11-07 18:47] LABS: INR 3.15; PROTHROMBIN TIME 33.1 SECONDS (12.5-14.3)
[2019-11-07 18:48] LABS: PARTIAL THROMBOPLASTIN TIME 32.1 SECONDS (24.2-38.5)
[2019-11-07 18:50] LABS: D-DIMER QUANT 1383.76 ng/ml (<500)
[2019-11-07] MEDS: DIGOXIN INJ 0.5 MG/2 ML AMP (J1160) IV SCH (18:53)
[2019-11-07] MEDS: PANTOPRAZOLE 40MG VIAL (C9113 PER 1) IV SCH (18:54)
[2019-11-07 18:55] LABS: HEMOGLOBIN 4.3 g/dl (13.5-17.5)
--- NOTE | 2019-11-07 19:40 | HPEPDOC ---
General Date of Admission Nov 07, 2019 at 16:10 Date of Service: Nov 07, 2019 Attending Physician: ANGEL BAUTISTA DO Chief Complaint The patient is a 89-year-old male admitted with a reason for visit of Gi Bleed Anemia. Source: Patient, Family Exam Limitations: Other (AMS) History of Present Illness Mr. Diez is an 89 year old male with a UGI bleed last year and atrial fibrillation on apixaban here with acute UGI. Patient does have some confusion. Most of the history is obtained from the daughter. Daughter is Terra Diez who is the healthcare proxy. Her number is [phone]. The daughter tells me that the patient was recently here at [facility] for heart failure. Then he was transferred to [facility] for ERCP for choledocholithiasis. Last Thursday, they had trouble doing the scope and so than they retried on . When they did on , they did not find a stone, only sludge. He was then sent to [facility] for rehabilitation. While at [facility], the family has not been able to see him. Today, they told the family that his hemoglobin was very low at 5.1. His INR was elevated at 3.4. Albumin was 2. Total protein was 4. Total bilirubin was 1. AST and ALTs were not elevated. He went to the ED at [facility] and then they transferred him here to [facility]. He was not transfused with blood at [facility]. When he arrived here, his systolic blood pressure was 80. He was confused. He looked pale and slightly jaundiced. He denied any fever, chills, chest pain, dyspnea, abdominal pain or dysuria. He told me that he felt lightheaded and that he had a poor appetite for a while. He denied coughing up blood or urinating blood. He does not remember seeing any blood in the stool. When the nurse cleaned him, he had dark tarry stool. Also, he had bright red blood orally. I spoke with the daughter who is a healthcare proxy. We discussed the risks and benefit of blood transfusion and she was in agreement to give him blood products. In addition, she told me that he is full code. I reached out to GI. Since he had apixaban, he will need to wait for a few days until it out of his system until he can do an EGD. With his history, he may be having bleeding from the sphincterotomy when they did the ERCP. Tonight we'll give him fluid, blood, IV Protonix, and prothrombin complex concentrate. Home Medications Scheduled Apixaban (Eliquis) 5 Mg Tablet, 5 MG PO BID, (Reported) Atorvastatin Calcium (Atorvastatin Calcium) 40 Mg Tablet, 40 MG PO QHS, (Reported) Calcium Carbonate/Vitamin D3 (Calcium 600 + Vit D 400 Softgl) 1 Each Capsule, 1 CAP PO DAILY, (Reported) Dexlansoprazole (Dexilant) 30 Mg Cap.bp, 30 MG PO DAILY, (Reported) Docusate Sodium (Docusate Sodium) 100 Mg Capsule, 100 MG PO BID Furosemide (Furosemide) 20 Mg Tablet, 20 MG PO DAILY, (Reported) Iron Ps Complex/B12/Folic Acid (Iferex 150 Forte Capsule) 1 Each Capsule, 1 CAP PO BID, (Reported) Levothyroxine Sodium (Synthroid) 88 Mcg Tablet, 88 MCG PO DAILY, (Reported) Magnesium Oxide (Magnesium Oxide) 400 Mg Tablet, 400 MG PO DAILY, (Reported) Metoprolol Tartrate (Metoprolol Tartrate) 25 Mg Tablet, 25 MG PO BID, (Reported) Prednisone (Prednisone) 5 Mg Tablet, 20 MG PO DAILY, (Reported) Sertraline Hcl (Sertraline HCl) 25 Mg Tablet, 25 MG PO DAILY, (Reported) Spironolactone (Spironolactone) 25 Mg Tablet, 25 MG PO DAILY, (Reported) Umeclidinium [place] (Incruse Ellipta) 62.5 Mcg Blst.w.dev, 1 PUFF INH DAILY, (Reported) Scheduled PRN Albuterol Sulfate (Ventolin Hfa) 108 Mcg/Act Aer, 2 PUFFS INH QID PRN for SHORTNESS OF BREATH, (Reported) Allergies Coded Allergies: tamsulosin (Verified Allergy, Severe, 10/17/19) Past Medical History Medical History 1. Chronic systolic and diastolic Congestive heart failure , Last EF was 40% to 45% 2. Chronic Atrial Fibrillation 3. Chronic anemia. 4. JACK 5. Stage 4 Prostate cancer stage 4 s/p external beam radiation 2002, on abiraterone, eligard & leuprolide 6. Chronic HTN 7. Hypothyroidism 8. Osteoporosis 9. Severe Pulm HTN 10. Moderate Mitral and Tricuspid regurgitation. 11. COPD 12. Heterozygous hemochromatosis 13. Coronary artery disease 14. GERD 15. Arthritis 16. Facial fracture Surgical History 1. Hernia repair Family History Prostate cancer Social History * Smoker: non-smoker Alcohol: Denies Drugs: denies A-FIB/CHADSVASC A-FIB History Current/History of A-Fib/PAF?: Yes Current PO Anticoag Therapy: Yes (apixaban, but will be held due to GI bleed) Review of Systems Constitutional: Denies: Chills, Fever Eyes: Denies: Vision change ENT: Denies: Head Aches, Epistaxis Skin: Denies: Rash Pulmonary: Denies: Dyspnea Cardiovascular: Denies: Chest Pain Gastrointestinal: Denies: Nausea, Abdominal Pain Genitourinary: Denies: Dysuria Musculoskeletal: Denies: Muscle Pain Neurological: Denies: Weakness Physical Examination General Exam: Positive: Alert, Cooperative Eye Exam: Positive: EOMI, Sclera icteric (Mild icterus) ENT Exam: Positive: Other ENT (Old scabs on lips); Negative: Atraumatic Neck Exam: Negative: Supple Chest Exam: Negative: Clear to auscultation Heart Exam: Positive: Tachycardic, Irregular Rhythm Abdomen Exam: Positive: Normal bowel sounds, Soft; Negative: Tenderness Extremity Exam: Positive: Edema (Bilateral pitting edema. ) Skin Exam: Positive: Other skin issue (Pitting edema on back, almost looks like water blister) Neuro Exam: Positive: Cranial Nerves 3-12 NL Psych Exam: Negative: Oriented x 3 Vital Signs Temp 96.5, HR 124, RR 20, SBP 88/58, SpO2 100 on 4L NC Assessment/Plan Mr. Diez is an 89 year old male with A. fib on apixaban, recent ERCP, and GI bleed last year. He had an ERCP at [facility]. He may have a bleed secondary to ERCP versus supratherapeutic apixaban. INR elevated at 3.4. Suspecting upper GI bleed as patient has melena. GI has been consulted. Plan for EGD in a few days because of the apixaban. We will give him blood, prothrombin complex concentrate, and Protonix IV. Healthcare proxy has consented to blood products and confirms full code. Plan / VTE VTE Prophylaxis Ordered?: Yes Plan Plan 1. Upper GI bleed. Hemoglobin 5.1, melena. On apixaban. INR 3.4, but no Coumadin. We will give 3 units of packed red blood cells and recheck. Platelets were 117. For supratherapeutic INR, we'll give prothrombin complex concentrate. GI has been consulted. Recommendations appreciated. I will load him with Protonix IV and keep him nothing by mouth for tonight. Plan for clear liquids tomorrow 2. Supratherapeutic INR. INR was checked at [facility]. It was 3.4. We will give prothrombin complex concentrate. Not on Coumadin, but we will hold apixaban 3. Persistent atrial fibrillation Heart rate irregular No beta mena due to hypotension. We will give IV dig. 4. Hypertension. Secondary to GI bleed. We'll give fluid and blood. 5. Hypothyroidism -Hold oral medication at this time. Can start IV on 3rd day if still NPO 6. CHF -Due to hypotension, we will need to give fluids. Lungs sound clear on admission, but he does have bilateral pitting edema in his legs. He also has pitting edema and his back. Holding diuretics and beta mena due to hypotension 7. Steroid use. He has been on methylprednisolone 4 mg by mouth twice a day for 3 years. It is prescribed by at [facility] urology in [place]. Patient was on an antiandrogen compound Yonsa (Abiraterone), which results in depletion of mineralocorticoids. His current medication list as he is on prednisone. They may have changed it since his hospitalization in [place]. Since he is nothing by mouth tonight, we will convert to methylprednisolone 8. Anxiety/depression. Hold oral medication at this time. 9. DVT prophylaxis. GI bleed. No chemical prophylaxis. Mechanical prophylaxis with SCDs and teds. ANGEL BAUTISTA DO Nov 07, 2019 17:50
[2019-11-07] MEDS ORDERED: [UNRECOGNIZED DRUG - MIXTURE] IV ONE (20:00)
[2019-11-07 20:39] LABS: LDH LACTATE DEHYDROGENASE 289 U/L (87-241); TOTAL IRON BINDING CAPACITY 175 UG/DL (250-450)
[2019-11-07 21:27] LABS: MEAN CORPUSCULAR HEMOGLOBIN 27.2 pg (27.0-33.0); MEAN CORPUSCULAR HGB CONC 29.4 g/dl (32.0-36.5); MEAN CORPUSCULAR VOLUME 92.5 fl (80.0-96.0); RED BLOOD COUNT 1.73 10^6/uL (4.30-6.10); WHITE BLOOD COUNT 8.8 10^3/uL (4.0-10.0)
[2019-11-07] MEDS ORDERED: PHYTONADIONE 10MG/ML INJECTION (J3430) SC ONE (21:45)
[2019-11-07 22:12] LABS: ALBUMIN 1.5 GM/DL (3.2-5.2); ALT/SGPT 20 U/L (12-78); BILIRUBIN,TOTAL 0.8 MG/DL (0.2-1.0); BLOOD UREA NITROGEN 24 MG/DL (7-18); CARBON DIOXIDE LEVEL 23 MEQ/L (21-32); CHLORIDE LEVEL 114 MEQ/L (98-107); CREATININE FOR GFR 0.56 MG/DL (0.70-1.30); GLOMERULAR FILTRATION RATE > 60.0 (>35); GLUCOSE, FASTING 114 MG/DL (70-100); IRON (FE) 65 UG/DL (65-175); PERCENT SATURATION 37.1 % (19.7-50.0); POTASSIUM SERUM 3.6 MEQ/L (3.5-5.1); SODIUM LEVEL 143 MEQ/L (136-145); TOTAL PROTEIN 4.2 GM/DL (6.4-8.2)
[2019-11-08] VITALS (30 sets, daily range): BP systolic 86–108; BP diastolic 51–68
[2019-11-08 01:10] LABS: MEAN CORPUSCULAR HEMOGLOBIN 28.6 pg (27.0-33.0); MEAN CORPUSCULAR HGB CONC 32.1 g/dl (32.0-36.5); MEAN CORPUSCULAR VOLUME 89.2 fl (80.0-96.0); PLATELET COUNT, AUTOMATED 137 10^3/uL (150-450); RED BLOOD COUNT 2.69 10^6/uL (4.30-6.10); WHITE BLOOD COUNT 8.9 10^3/uL (4.0-10.0)
[2019-11-08 01:12] LABS: HEMOGLOBIN 7.7 g/dl (13.5-17.5)
[2019-11-08 05:29] LABS: BASO # 0.1 10^3/uL (0.0-0.2); BASO % 0.7 % (0.0-1.0); EOS # 0.1 10^3/uL (0.0-0.5); EOS % 1.1 % (0.0-3.0); HEMATOCRIT 27.4 % (42.0-52.0); HEMOGLOBIN 8.9 g/dl (13.5-17.5); LYMPH # 0.6 10^3/uL (1.5-5.0); LYMPH % 6.7 % (24.0-44.0); MEAN CORPUSCULAR HEMOGLOBIN 28.6 pg (27.0-33.0); MEAN CORPUSCULAR HGB CONC 32.5 g/dl (32.0-36.5); MEAN CORPUSCULAR VOLUME 88.1 fl (80.0-96.0); MONO # 0.5 10^3/uL (0.0-0.8); MONO % 5.3 % (0.0-5.0); NEUTROPHILS # 7.6 10^3/uL (1.5-8.5); NEUTROPHILS % 83.9 % (36.0-66.0); PLATELET COUNT, AUTOMATED 106 10^3/uL (150-450); RED BLOOD COUNT 3.11 10^6/uL (4.30-6.10)
[2019-11-08 05:39] LABS: INR 2.27; PROTHROMBIN TIME 25.5 SECONDS (12.5-14.3)
[2019-11-08 05:40] LABS: PARTIAL THROMBOPLASTIN TIME 38.5 SECONDS (24.2-38.5)
[2019-11-08 06:02] LABS: ALBUMIN 1.5 GM/DL (3.2-5.2); ALT/SGPT 17 U/L (12-78); BILIRUBIN,TOTAL 1.4 MG/DL (0.2-1.0); BLOOD UREA NITROGEN 22 MG/DL (7-18); CALCIUM LEVEL 6.9 MG/DL (8.8-10.2); CARBON DIOXIDE LEVEL 21 MEQ/L (21-32); CHLORIDE LEVEL 118 MEQ/L (98-107); GLOMERULAR FILTRATION RATE > 60.0 (>35); GLUCOSE, FASTING 96 MG/DL (70-100); POTASSIUM SERUM 3.4 MEQ/L (3.5-5.1); SODIUM LEVEL 148 MEQ/L (136-145)
[2019-11-08] MEDS ORDERED: POTASSIUM CHLORIDE 10 MEQ SR TABLET PO ONE (07:30)
[2019-11-08] MEDS: KCL 10MEQ/100ML SWI (KRUN) 10 MEQ in IV 1 EA IV SCH ×4 (08:16→13:01)
[2019-11-08] MEDS: PANTOPRAZOLE 40MG VIAL (C9113 PER 1) IV SCH ×2 (08:16→20:20)
[2019-11-08] MEDS: methylPREDNISolone 40MG 1ML VIAL IV SCH (08:17)
[2019-11-08] MEDS: DIGOXIN INJ 0.5 MG/2 ML AMP (J1160) IV SCH (08:17)
[2019-11-08 08:53] LABS: MAGNESIUM LEVEL 1.6 MG/DL (1.8-2.4)
[2019-11-08] MEDS ORDERED: FUROSEMIDE 40MG/4ML VIAL (J1940) IV ONE (09:00)
[2019-11-08] MEDS ORDERED: MAG SULF 1GM/100ML (MAG RUN) 1 GM in IV 1 EA IV ONE (09:00)
[2019-11-08] MEDS: CHLORHEXIDINE GLUCONATE 0.12 % 15ML UDC (PERIDEX ORAL RINSE) MT SCH ×2 (09:11→20:20)
[2019-11-08] MEDS: D5W 1,000 ML IV SCH (11:39)
[2019-11-08 11:55] LABS: BASO # 0.1 10^3/uL (0.0-0.2); BASO % 0.5 % (0.0-1.0); EOS % 0.3 % (0.0-3.0); HEMATOCRIT 28.6 % (42.0-52.0); HEMOGLOBIN 9.4 g/dl (13.5-17.5); LYMPH # 0.3 10^3/uL (1.5-5.0); LYMPH % 2.6 % (24.0-44.0); MEAN CORPUSCULAR HEMOGLOBIN 28.4 pg (27.0-33.0); MEAN CORPUSCULAR HGB CONC 32.9 g/dl (32.0-36.5); MEAN CORPUSCULAR VOLUME 86.4 fl (80.0-96.0); MONO # 0.2 10^3/uL (0.0-0.8); MONO % 1.7 % (0.0-5.0); NEUTROPHILS # 11.7 10^3/uL (1.5-8.5); NEUTROPHILS % 92.8 % (36.0-66.0); RED BLOOD COUNT 3.31 10^6/uL (4.30-6.10); WHITE BLOOD COUNT 12.6 10^3/uL (4.0-10.0)
[2019-11-08 12:27] LABS: BLOOD UREA NITROGEN 21 MG/DL (7-18); CALCIUM LEVEL 7.4 MG/DL (8.8-10.2); CARBON DIOXIDE LEVEL 23 MEQ/L (21-32); CHLORIDE LEVEL 116 MEQ/L (98-107); CREATININE FOR GFR 0.53 MG/DL (0.70-1.30); GLOMERULAR FILTRATION RATE > 60.0 (>35); GLUCOSE, FASTING 114 MG/DL (70-100); POTASSIUM SERUM 3.7 MEQ/L (3.5-5.1); SODIUM LEVEL 145 MEQ/L (136-145)
[2019-11-08] MEDS ORDERED: propofoL 200 MG/20 ML VIAL As Ordered ONE (16:33)
[2019-11-08] MEDS ORDERED: LIDOCAINE 2% 100MG/5ML SDV (FOR ANES.) As Ordered ONE (16:33)
--- NOTE | 2019-11-08 18:15 | ROOR ---
Patient Name: Donal Diez Procedure Date: 11/08/2019 5:09 PM Date of : 1930 Age: 89 Gender: Male Note Status: Finalized Procedure: Upper GI endoscopy Indications: Acute post hemorrhagic anemia Providers: Vignesh HARRIS MD Referring MD: 2. Inpatient 2. Inpatient Requesting Provider: Medicines: Monitored Anesthesia Care Complications: No immediate complications. Procedure: Pre-Anesthesia Assessment: - The heart rate, respiratory rate, oxygen saturations, blood pressure, adequacy of pulmonary ventilation, and response to care were monitored throughout the procedure. The Endoscope was introduced through the mouth, and advanced to the second part of duodenum. The upper GI endoscopy was accomplished without difficulty. The patient tolerated the procedure well. Findings: A single diminutive angioectasia with bleeding on contact was found in the second portion of the duodenum. For hemostasis, two hemostatic clips were successfully placed. There was no bleeding at the end of the procedure. A single localized erosion without bleeding was found in the first portion of the duodenum. Biopsies were taken with a cold forceps for histology. The exam was otherwise without abnormality. 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 Clips were placed. - A single shallow duodenal erosion without bleeding. Biopsied. - The examination was otherwise normal. Recommendation: - Observe patient's clinical course. - Use a proton pump inhibitor PO BID for the rest of the patient's life. - Angioectasis are usually multiple and sometimes intermittent. This patient is not a good anticoagulation candidate. Consider re eval need for anticoagulation. If absolutely necessary, then use very lowest possible dose, and monitor H&H frequently. transfuse PRN. He can follow up with PCP. He does not need follow up with me. Vignesh Harris MD Vignesh HARRIS MD 11/08/2019 6:14:45 PM Electronically signed by Vignesh HARRIS MD Number of Addenda: 0 Note Initiated On: 11/08/2019 5:09 PM Estimated Blood Loss: Estimated blood loss: none.
--- NOTE | 2019-11-08 19:09 | IPNPDOC ---
Subjective Date Seen The patient was seen on 11/08/19. Subjective Chief Complaint/HPI Mr. Diez is a 80-year-old male on apixaban for atrial fibrillation who was transferred here from [place] for upper GI bleed. Last night patient was transferred to ICU. He was eventually able to get 3 units of blood. PCC was not given but vitamin K was given. Patient's hemoglobin appropriately responded. He went from 4.3 to 7.7. This morning is 8.9 and this afternoon was 9.4. Nurses reported that he had a small dark tarry bowel movement. Spoke with GI, they plan to do a diagnostic scope this evening. Otherwise, when I saw the patient this morning, he denied any fever, chills, chest pain, dyspnea, abdominal pain or dysuria. Constitutional: Denies: Chills, Fever Pulmonary: Denies: Dyspnea Cardiovascular: Denies: Chest Pain Gastrointestinal: Denies: Abdominal Pain Genitourinary: Denies: Dysuria Objective Physical Examination General Exam: Positive: Alert, Cooperative Eye Exam: Positive: EOMI; Negative: Sclera icteric ENT Exam: Positive: Other ENT (Old scabs on lips); Negative: Atraumatic Neck Exam: Negative: Supple Chest Exam: Negative: Clear to auscultation Heart Exam: Positive: Tachycardic, Irregular Rhythm Abdomen Exam: Positive: Normal bowel sounds, Soft; Negative: Tenderness Extremity Exam: Positive: Edema (Bilateral pitting edema. ) Skin Exam: Positive: Other skin issue (Pitting edema on back, almost looks like water blister) Neuro Exam: Positive: Cranial Nerves 3-12 NL Psych Exam: Negative: Oriented x 3 Assessment /Plan Assessment Mr. Diez is an 89 year old male with A. fib on apixaban, recent ERCP, and GI bleed last year. He had an ERCP at [facility]. He may have a bleed secondary to ERCP versus supratherapeutic apixaban. INR elevated at 3.4. Suspecting upper GI bleed as patient has melena. GI has been consulted. Plan for EGD tonight. Plan/VTE VTE Prophylaxis Ordered?: Yes Plan 1. Upper GI bleed. Hemoglobin 5.1, melena. On apixaban. INR 3.4, but no Coumadin. He was given 3 units of packed red blood cells and responded appropriately GI has been consulted. Recommendations appreciated. Plan for EGD tonight. Still nothing by mouth on IV Protonix. 2. Supratherapeutic INR. INR was checked at [place]. It was 3.4. He was given vitamin K. INR improved to 2.3 Not on Coumadin, but we will hold apixaban 3. Persistent atrial fibrillation Heart rate irregular No beta mena due to hypotension. We will give IV dig. 4. Hypertension. Secondary to GI bleed. We'll give fluid and blood. 5. Hypothyroidism -Hold oral medication at this time. Can start IV on 3rd day if still NPO 6. CHF -He is fluid overloaded. But saturating at room air. He did get a dose of Lasix last night. Will need to be back on diuretics when hemodynamic dynamically stable 7. Steroid use. He has been on methylprednisolone 4 mg by mouth twice a day for 3 years. It is prescribed by at [facility] urology in [place]. Patient was on an antian drogen compound Yonsa (Abiraterone), which results in depletion of mineralocorticoids. His current medication list as he is on prednisone. They may have changed it since his hospitalization in [place]. Since he is nothing by mouth tonight, we will convert to methylprednisolone 8. Anxiety/depression. Hold oral medication at this time. 9. DVT prophylaxis. GI bleed. No chemical prophylaxis. Mechanical prophylaxis with SCDs and teds. VS, I&O, 24H, Fishbone Vital Signs/I&O Vital Signs Date Time Temp Pulse Resp B/P (MAP) Pulse Ox O2 Delivery O2 Flow Rate FiO2 11/08/19 18:51 97.7 116 18 98/64 (75) 84 Room Air 11/08/19 08:00 2.0 I&O- Last 24 Hours up to 6 AM 11/08/19 05:59 Intake Total 1118 ml Output Total 120 ml Balance 998 ml Laboratory Data 24H LABS Laboratory Tests 2 11/08/19 01:01: Nucleated Red Blood Cells % (auto) 1.0H 11/08/19 05:09: Nucleated Red Blood Cells % (auto) 1.1H, Immature Granulocyte % (Auto) 2.3, Neutrophils (%) (Auto) 83.9H, Lymphocytes (%) (Auto) 6.7L, Monocytes (%) (Auto) 5.3H, Eosinophils (%) (Auto) 1.1, Basophils (%) (Auto) 0.7, Neutrophils # (Auto) 7.6, Lymphocytes # (Auto) 0.6L, Monocytes # (Auto) 0.5, Eosinophils # (Auto) 0.1, Basophils # (Auto) 0.1, Anion Gap 9, Glomerular Filtration Rate > 60.0, Calcium Level 6.9L, Magnesium Level 1.6L, Total Bilirubin 1.4#H, Aspartate Amino Transf (AST/SGOT) 31, Alanine Aminotransferase (ALT/SGPT) 17, Alkaline Phosphatase 104, Total Protein 4.0L, Albumin 1.5L, Albumin/Globulin Ratio 0.6 11/08/19 05:10: Prothrombin Time 25.5H, Prothromb Time International Ratio 2.27, Activated Partial Thromboplast Time 38.5H 11/08/19 11:32: Nucleated Red Blood Cells % (auto) 0.6H, Immature Granulocyte % (Auto) 2.1, Neutrophils (%) (Auto) 92.8H, Lymphocytes (%) (Auto) 2.6L, Monocytes (%) (Auto) 1.7, Eosinophils (%) (Auto) 0.3, Basophils (%) (Auto) 0.5, Neutrophils # (Auto) 11.7H, Lymphocytes # (Auto) 0.3L, Monocytes # (Auto) 0.2, Eosinophils # (Auto) 0.0, Basophils # (Auto) 0.1, Anion Gap 6L, Glomerular Filtration Rate > 60.0, Calcium Level 7.4L 11/08/19 14:44: Coronavirus (COVID-19)(PCR) NEGATIVE CBC/BMP Laboratory Tests 11/08/19 01:01 11/08/19 05:09 11/08/19 11:32 ANGEL BAUTISTA DO Nov 08, 2019 19:09
[2019-11-09] VITALS: BP 91/68
[2019-11-09 04:00] VITALS: BP 102/57
[2019-11-09 05:11] LABS: BASO # 0.1 10^3/uL (0.0-0.2); BASO % 0.5 % (0.0-1.0); EOS # 0.1 10^3/uL (0.0-0.5); EOS % 0.5 % (0.0-3.0); HEMATOCRIT 28.7 % (42.0-52.0); HEMOGLOBIN 9.2 g/dl (13.5-17.5); LYMPH # 0.9 10^3/uL (1.5-5.0); MEAN CORPUSCULAR HEMOGLOBIN 28.1 pg (27.0-33.0); MEAN CORPUSCULAR HGB CONC 32.1 g/dl (32.0-36.5); MEAN CORPUSCULAR VOLUME 87.8 fl (80.0-96.0); MONO # 0.6 10^3/uL (0.0-0.8); MONO % 5.1 % (0.0-5.0); NEUTROPHILS # 9.6 10^3/uL (1.5-8.5); NEUTROPHILS % 83.8 % (36.0-66.0); RED BLOOD COUNT 3.27 10^6/uL (4.30-6.10); WHITE BLOOD COUNT 11.4 10^3/uL (4.0-10.0)
[2019-11-09 05:23] LABS: INR 1.48; PROTHROMBIN TIME 18.3 SECONDS (12.5-14.3)
[2019-11-09 05:26] LABS: BLOOD UREA NITROGEN 19 MG/DL (7-18); CALCIUM LEVEL 6.7 MG/DL (8.8-10.2); CARBON DIOXIDE LEVEL 22 MEQ/L (21-32); CHLORIDE LEVEL 115 MEQ/L (98-107); GLOMERULAR FILTRATION RATE > 60.0 (>35); GLUCOSE, FASTING 84 MG/DL (70-100); POTASSIUM SERUM 3.4 MEQ/L (3.5-5.1); SODIUM LEVEL 144 MEQ/L (136-145)
[2019-11-09 08:09] VITALS: BP 92/55
[2019-11-09] MEDS: PANTOPRAZOLE 40MG VIAL (C9113 PER 1) IV SCH ×2 (08:56→22:00)
[2019-11-09] MEDS: methylPREDNISolone 40MG 1ML VIAL IV SCH (08:57)
[2019-11-09] MEDS: DIGOXIN INJ 0.5 MG/2 ML AMP (J1160) IV SCH (08:57)
[2019-11-09] MEDS: CHLORHEXIDINE GLUCONATE 0.12 % 15ML UDC (PERIDEX ORAL RINSE) MT SCH (08:58)
[2019-11-09] MEDS: D5W 1,000 ML IV SCH (08:59)
[2019-11-09] MEDS ORDERED: ALBUTEROL 90 MCG/ACT 8GM HFA INHALER INH PRN (11:45)
[2019-11-09] MEDS ORDERED: KCL 10MEQ/100ML SWI (KRUN) 10 MEQ in IV 1 EA IV SCH (12:00)
[2019-11-09] MEDS: TIOTROPIUM INHALER/CAPSULE (SPIRIVA) INH SCH (12:18)
[2019-11-09 12:57] VITALS: BP 93/62
[2019-11-09] MEDS: KCL 20MEQ IN 100ML SWI (KRUN) 20 MEQ in IV 1 EA IV SCH ×4 (13:28→14:38)
[2019-11-09] MEDS: SERTRALINE HCL 25 MG TABLET PO SCH (13:28)
[2019-11-09] MEDS: DOCUSATE SODIUM 100 MG CAP PO SCH ×2 (13:29→22:00)
[2019-11-09] MEDS: MAGNESIUM OXIDE 400 MG TAB (MAG-OX) PO SCH (13:29)
[2019-11-09 16:20] VITALS: BP 110/60
[2019-11-09] MEDS: NYSTATIN 100,000 UNITS/GM TOPICAL PWD 15 GM TOP SCH ×2 (17:58→21:59)
[2019-11-09 20:00] VITALS: BP 104/64
--- NOTE | 2019-11-09 20:44 | IPNPDOC ---
Subjective Date Seen The patient was seen on 11/09/19. Subjective Chief Complaint/HPI Mr. Diez is a 80-year-old male on apixaban for atrial fibrillation who was transferred here from [place] for upper GI bleed. Last night, he went for an EGD. They found a slowly bleeding vessel they were able to clip. this morning, he was feeling okay. He denied any fever, chills, chest pain, dyspnea, abdominal pain or dysuria. Constitutional: Denies: Fever Pulmonary: Denies: Dyspnea Cardiovascular: Denies: Chest Pain Gastrointestinal: Reports: Abdominal Pain (Mild tenderness in abdomen) Genitourinary: Denies: Dysuria Objective Physical Examination General Exam: Positive: Alert, Cooperative Eye Exam: Positive: EOMI; Negative: Sclera icteric ENT Exam: Negative: Atraumatic Neck Exam: Negative: Supple Chest Exam: Negative: Clear to auscultation Heart Exam: Positive: Tachycardic, Irregular Rhythm Abdomen Exam: Positive: Normal bowel sounds, Soft, Tenderness (Mild tenderness) Extremity Exam: Positive: Edema (Bilateral pitting edema. ) Skin Exam: Positive: Other skin issue (Pitting edema on back, almost looks like water blister) Neuro Exam: Positive: Cranial Nerves 3-12 NL Assessment /Plan Assessment Mr. Diez is an 89 year old male with A. fib on apixaban, recent ERCP, and GI bleed last year. He had an ERCP at [facility]. He may have a bleed secondary to ERCP versus supratherapeutic apixaban. INR elevated at 3.4 on admission. He had an EGD on 11/08/2019 which found a slowly bleeding vessel he was able to clip. Otherwise, today, he went into atrial fibrillation with RVR. No metoprolol due to low BP. Continue with IV digoxin. Plan/VTE VTE Prophylaxis Ordered?: Yes Plan 1. UGI bleed due to apixaban with recent ERCP Hemoglobin 5.1, melena. On apixaban. INR 3.4, but no Coumadin. He was given 3 units of packed red blood cells and responded appropriately GI has been consulted. Recommendations appreciated. EGD demonstrate bleeding vessel that was able to clip. Start with clear liquid diet and advance as tolerated. 2. Supratherapeutic INR. INR was checked at [place]. It was 3.4. He was given vitamin K. INR improved to 2.3. Today, it is 1.48 Not on Coumadin, but we will hold apixaban -Spoke with GI today, they do not recommend placing him back on apixaban. There needs to be family discussion with PCP about apixaban. If they are going to start it, would recommend starting it 7 days later. 3. Persistent atrial fibrillation Heart rate irregular No beta mena due to hypotension. We will give IV dig. 4. Hypertension. Secondary to GI bleed. We'll give fluid and blood. 5. Hypothyroidism -On levothyroxine. 6. CHF -He is fluid overloaded. But saturating at room air. Will need to be back on diuretics when hemodynamic dynamically stable 7. Steroid use. He has been on methylprednisolone 4 mg by mouth twice a day for 3 years. It is prescribed by at [facility] urology in [place]. Patient was on an antiandrogen compound Yonsa (Abiraterone), which results in depletion of mineralocorticoids. His current medication list as he is on prednisone. They may have changed it since his hospitalization in [place]. Since he is nothing by mouth tonight, we will convert to methylprednisolone 8. Anxiety/depression. On Zoloft 9. Acute blood loss anemia 2/2 UGIB 2/2 apixaban - Hemoglobin stable. Continue to monitor 10. DVT prophylaxis. GI bleed. No chemical prophylaxis. Mechanical prophylaxis with SCDs and teds. VS, I&O, 24H, Fishbone Vital Signs/I&O Vital Signs Date Time Temp Pulse Resp B/P (MAP) Pulse Ox O2 Delivery O2 Flow Rate FiO2 11/09/19 16:20 96.7 108 18 110/60 (77) 97 Room Air 11/08/19 08:00 2.0 I&O- Last 24 Hours up to 6 AM 11/09/19 06:00 Intake Total 1250 ml Output Total 2030 ml Balance -780 ml Laboratory Data 24H LABS Laboratory Tests 2 11/09/19 04:45: Immature Granulocyte % (Auto) 2.1, Neutrophils (%) (Auto) 83.8H, Lymphocytes (%) (Auto) 8.0L, Monocytes (%) (Auto) 5.1H, Eosinophils (%) (Auto) 0.5, Basophils (%) (Auto) 0.5, Neutrophils # (Auto) 9.6H, Lymphocytes # (Auto) 0.9L, Monocytes # (Auto) 0.6, Eosinophils # (Auto) 0.1, Basophils # (Auto) 0.1, Nucleated Red Blood Cells % (auto) 1.2H, Prothrombin Time 18.3H, Prothromb Time International Ratio 1.48, Anion Gap 7L, Glomerular Filtration Rate > 60.0, Calcium Level 6.7L CBC/BMP Laboratory Tests 11/09/19 04:45 ANGEL BAUTISTA DO Nov 09, 2019 20:43
[2019-11-09] MEDS: ATORVASTATIN 20 MG TAB PO SCH (21:59)
[2019-11-10] VITALS (7 sets, daily range): BP systolic 90–117; BP diastolic 46–67
[2019-11-10 05:25] LABS: BASO % 0.4 % (0.0-1.0); EOS # 0.1 10^3/uL (0.0-0.5); HEMATOCRIT 27.8 % (42.0-52.0); LYMPH # 0.8 10^3/uL (1.5-5.0); LYMPH % 8.5 % (24.0-44.0); MEAN CORPUSCULAR HEMOGLOBIN 28.5 pg (27.0-33.0); MEAN CORPUSCULAR HGB CONC 32.4 g/dl (32.0-36.5); MONO # 0.6 10^3/uL (0.0-0.8); MONO % 6.3 % (0.0-5.0); NEUTROPHILS # 7.3 10^3/uL (1.5-8.5); NEUTROPHILS % 81.6 % (36.0-66.0); PLATELET COUNT, AUTOMATED 112 10^3/uL (150-450); RED BLOOD COUNT 3.16 10^6/uL (4.30-6.10)
[2019-11-10] MEDS: LEVOTHYROXINE 88MCG TABLET (0.088 MG) PO SCH (05:39)
[2019-11-10 05:50] LABS: BLOOD UREA NITROGEN 15 MG/DL (7-18); CALCIUM LEVEL 6.7 MG/DL (8.8-10.2); CARBON DIOXIDE LEVEL 23 MEQ/L (21-32); CHLORIDE LEVEL 112 MEQ/L (98-107); GLOMERULAR FILTRATION RATE > 60.0 (>35); GLUCOSE, FASTING 73 MG/DL (70-100); MAGNESIUM LEVEL 1.6 MG/DL (1.8-2.4); POTASSIUM SERUM 3.8 MEQ/L (3.5-5.1); SODIUM LEVEL 141 MEQ/L (136-145)
[2019-11-10] MEDS: TIOTROPIUM INHALER/CAPSULE (SPIRIVA) INH SCH (07:46)
[2019-11-10] MEDS: NYSTATIN 100,000 UNITS/GM TOPICAL PWD 15 GM TOP SCH ×2 (09:11→21:49)
[2019-11-10] MEDS: MAG SULF 1GM/100ML (MAG RUN) 1 GM in IV 1 EA IV SCH ×4 (09:11→12:57)
[2019-11-10] MEDS: SERTRALINE HCL 25 MG TABLET PO SCH (09:12)
[2019-11-10] MEDS: methylPREDNISolone 40MG 1ML VIAL IV SCH (09:12)
[2019-11-10] MEDS: MAGNESIUM OXIDE 400 MG TAB (MAG-OX) PO SCH (09:12)
[2019-11-10] MEDS: DOCUSATE SODIUM 100 MG CAP PO SCH ×2 (09:12→21:48)
[2019-11-10] MEDS: CALCIUM/VITAMIN D 500 MG TAB PO SCH (09:13)
[2019-11-10] MEDS: PANTOPRAZOLE 40MG VIAL (C9113 PER 1) IV SCH (09:14)
[2019-11-10] MEDS: METOPROLOL TART 25 MG TABLET PO SCH ×2 (09:21→21:48)
[2019-11-10] MEDS ORDERED: ONDANSETRON 4MG/2ML VIAL IV PRN (10:30)
--- NOTE | 2019-11-10 18:58 | IPNPDOC ---
Subjective Date Seen The patient was seen on 11/10/19. Subjective Chief Complaint/HPI Mr. Diez is a 80-year-old male on apixaban for atrial fibrillation who was transferred here from [place] for upper GI bleed. This morning, he looked well, but was in atrial fibrillation with RVR. Restarted home doses of beta-mena which did control his heart rate. Otherwise spoke with the GI specialist. He did not recommend patient to continue Eliquis since it has caused him to bleed twice, but this will be a conversation with the PCP and patient to weigh the risk of benefits of stroke prevention vs life threatening bleeding. The daughter was present this evening, and we briefly discussed this, but the final decision should be between PCP and patient. No anticoagulation for at least 7 days from EGD. Need life long BID PPI Constitutional: Denies: Chills, Fever ENT: Denies: Head Aches Pulmonary: Denies: Dyspnea Cardiovascular: Denies: Chest Pain Genitourinary: Denies: Dysuria Objective Physical Examination General Exam: Positive: Alert, Cooperative Eye Exam: Positive: EOMI Neck Exam: Negative: Supple Chest Exam: Negative: Clear to auscultation Heart Exam: Positive: Tachycardic, Irregular Rhythm Abdomen Exam: Positive: Normal bowel sounds, Soft, Tenderness Extremity Exam: Positive: Edema Skin Exam: Positive: Other skin issue Neuro Exam: Positive: Cranial Nerves 3-12 NL Assessment /Plan Assessment Mr. Diez is an 89 year old male with A. fib on apixaban, recent ERCP, and GI bleed last year. He had an ERCP at [facility]. He may have a bleed secondary to ERCP versus supratherapeutic apixaban. INR elevated at 3.4 on admission. He had an EGD on 11/08/2019 which found a slowly bleeding vessel he was able to clip. Otherwise, today, he went into atrial fibrillation with RVR. Not on digoxin at home, so d/c digoxin and placed on metoprolol. BP soft, but generally has been soft at home. Plan/VTE VTE Prophylaxis Ordered?: Yes Plan 1. UGI bleed due to apixaban with recent ERCP Hemoglobin 5.1, melena. On apixaban. INR 3.4, but no Coumadin. He was given 3 units of packed red blood cells and responded appropriately GI has been consulted. Recommendations appreciated. EGD demonstrate bleeding vessel that was able to clip. -No anticoagulation for at least 7 days from EGD -BID Protonix life long 2. Supratherapeutic INR. INR was checked at [place]. It was 3.4. He was given vitamin K. INR improved to 2.3. Today, it is 1.48 Not on Coumadin, but we will hold apixaban -GI following, they do not recommend placing him back on apixaban. There needs to be family discussion with PCP about apixaban. If they are going to start it, would recommend starting it 7 days later. 3. Persistent atrial fibrillation Heart rate irregular Restarted metoprolol, rate better controlled 4. Hypotension Secondary to GI bleed. Generally low blood pressure continue to monitor for now. 5. Hypothyroidism -On levothyroxine. 6. CHF -He is fluid overloaded. But saturating at room air. Blood pressure too low to restart diuretics. 7. Steroid use. He has been on methylprednisolone 4 mg by mouth twice a day for 3 years. It is prescribed by at [facility] urology in [place]. Patient was on an antiandrogen compound Yonsa (Abiraterone), which results in depletion of mineralocorticoids. His current medication list as he is on prednisone. They may have changed it since his hospitalization in [place]. Since he is nothing by mouth tonight, we will convert to methylprednisolone 8. Anxiety/depression. On Zoloft 9. Acute blood loss anemia 2/2 UGIB 2/2 apixaban - Hemoglobin stable. Continue to monitor 10. DVT prophylaxis. GI bleed. No chemical prophylaxis. Mechanical prophylaxis with SCDs and teds. VS, I&O, 24H, Fishbone Vital Signs/I&O Vital Signs Date Time Temp Pulse Resp B/P (MAP) Pulse Ox O2 Delivery O2 Flow Rate FiO2 11/10/19 16:00 96.8 80 18 100/62 (75) 100 Room Air 11/08/19 08:00 2.0 I&O- Last 24 Hours up to 6 AM 11/10/19 06:00 Intake Total 1185 ml Output Total 455 ml Balance 730 ml Laboratory Data 24H LABS Laboratory Tests 2 11/10/19 02:00: Urine Color CHAD, Urine Appearance TURBIDH, Urine pH 6.0, Urine Specific Randolph 1.017, Urine Protein 2+H, Urine Glucose (UA) NEGATIVE, Urine Ketones NEGATIVE, Urine Blood 3+H, Urine Nitrite NEGATIVE, Urine Bilirubin NEGATIVE, Urine Urobilinogen 2.0H, Urine Leukocyte Esterase 3+H, Urine WBC (Auto) TNTCH, Urine RBC (Auto) 174H, Urine Hyaline Casts (Auto) 0, Urine Bacteria (Auto) 3+H, Urine Squamous Epithelial Cells 0, Urine Mucus (Auto) SMALL, Urine Yeast-Like Cells (Auto) SMALLH, Urine Sperm (Auto) 11/10/19 05:09: Immature Granulocyte % (Auto) 2.2, Neutrophils (%) (Auto) 81.6H, Lymphocytes (%) (Auto) 8.5L, Monocytes (%) (Auto) 6.3H, Eosinophils (%) (Auto) 1.0, Basophils (%) (Auto) 0.4, Neutrophils # (Auto) 7.3, Lymphocytes # (Auto) 0.8L, Monocytes # (Auto) 0.6, Eosinophils # (Auto) 0.1, Basophils # (Auto) 0.0, Nucleated Red Blood Cells % (auto) 0.8H, Anion Gap 6L, Glomerular Filtration Rate > 60.0, Calcium Level 6.7L, Magnesium Level 1.6L CBC/BMP Laboratory Tests 11/10/19 05:09 Microbiology Microbiology 11/10/19 Urine Culture, Received Pending ANGEL BAUTISTA DO Nov 10, 2019 18:58
[2019-11-10] MEDS ORDERED: DRONABINOL 2.5 MG CAP (MARINOL) PO SCH (19:00)
--- NOTE | 2019-11-10 19:45 | CR ---
CRITICAL CARE CONSULTATION NOTE DATE: 11/07/2019 HISTORY OF PRESENT ILLNESS: Patient is an 89-year-old male with a past medical history of atrial fibrillation, history of CAD status post DE with history of cardiac arrest, and ischemic cardiomyopathy with CHF, hypertension, hyperlipidemia, hypothyroidism, history of recurrent prostate cancer status post radiation and salvage cryoablation, and history of chronic steroid use who is here today for anemia and acute GI bleed. Patient was transferred here from an outside hospital. He had recently been admitted at [facility] in the end of September for decompensated CHF with uncontrolled atrial fibrillation and RVR. Patient was also found during his last admission to have evidence of cholelithiasis with concern for obstructive choledocholithiasis. He was sent to [facility] for ERCP and GI evaluation. Patient had ERCP performed and was told they found biliary sludge but no stone. He was discharged to [facility] for rehabilitation. He was then noted to have anemia with a reported hemoglobin of 5.1, and he was seen in the ED at [facility]. He was then transferred from there to [facility]. He did not reportedly get any blood transfusions while at [facility]. Patient, himself, is somewhat confused and a poor historian currently. He reported some weakness and occasional lightheadedness as well as poor appetite but denied any chest pain, shortness of breath, or dyspnea currently. He did report some nausea and vomiting, but he was unclear about any blood in his stool or black tarry stools. Reportedly by the nurse, patient had been having tarry stools as well as some hematemesis. Patient was admitted to the PCU initially. He was given 3 liters of normal saline but continued to be hypotensive and tachycardic. He did not receive any blood products, but given his ongoing hypotension, he was transferred to the ICU for further management. PAST MEDICAL/SURGICAL HISTORY: * History of CAD with DE and previous cardiac arrest. * Ischemic cardiomyopathy. * Atrial fibrillation on anticoagulation. * Heterozygous hemochromatosis. * History of chronic anemia. * Hypertension. * Hypothyroidism. * Osteoporosis. * History of moderate mitral regurgitation and pulmonary hypertension. * COPD. * GERD. * Arthritis. * Recurrent prostate cancer status post radiation and salvage cryoablation. * History of chronic steroid use. * History of urinary retention. * Right inguinal hernia and urethral stricture repair in 2017. SOCIAL HISTORY: Patient is a nonsmoker. He used to be a [employer]. Denies any alcohol use. FAMILY HISTORY: There is a family history of prostate cancer. HOME MEDICATIONS: * Eliquis 2.5 mg b.i.d. * Atorvastatin. * Dexilant. * Docusate. * Furosemide 20 mg p.o. daily. * Synthroid. * Iferex. * Magnesium oxide. * Metoprolol 25 mg b.i.d. * Eligard. * Yonsa. * Incruse. * Prednisone 20 mg p.o. daily. * Spironolactone 25 mg p.o. daily. * Albuterol p.r.n. ALLERGIES: Tamsulosin. PHYSICAL EXAMINATION: Vitals: Temperature 97.0, pulse 124, respirations 20, blood pressure 84/59, O2 sat 100% on 4 liters nasal cannula and was 93-94% on room air. General: Patient appears pale and is drowsy but arousable and answers questions appropriately although confused at times. He does not appear to be in acute respiratory distress. He is not using any accessory muscles for respiration. HEENT: Normocephalic/atraumatic. Pupils are reactive to light bilaterally. There are dry mucous membranes noted. There appears to be dried blood secretions and crusting around his mouth. Neck: Supple. Trachea is midline. No JVD noted. Cardiovascular: Irregularly irregular, normal S1 and S2 with a blowing systolic murmur on the left sternal border. There is a right-sided chemo port on his chest. Pulmonary: Diminished breath sounds bilaterally, more at the bases. Abdomen: Soft, nontender to palpation, nondistended. Appears to have a palpable bladder in the suprapubic region. Extremities: There is +2-3 pitting lower extremity edema. LABORATORY DATA: WBC 8.8, hemoglobin 4.3, platelets are clumping. Chemistry is pending. INR is 3.15. Fibrinogen was 248. PT was 33.1. ASSESSMENT AND PLAN: 1. The patient is an 89-year-old male with a past medical history of atrial fibrillation on anticoagulation, CAD with a history of DE and ischemic cardiomyopathy with CHF, pulmonary hypertension, mitral regurgitation, history of prostate cancer on chronic steroids, and previous history of GI bleed who presented with anemia and acute GI bleed. Patient was hypotensive on admission and tachycardic secondary to his GI bleed. His hemoglobin was reportedly 5 at [facility], and repeat hemoglobin here was 4.3 after he received multiple boluses of normal saline. Patient has not been given any blood products, although 3 units of PRBC was ordered as well as a prothrombin complex concentrate for reversal of his anticoagulation. Patient was transferred to the ICU given his ongoing hypotension. He continues to have occasional tarry stools and reported more melena noted recently with more maroon colored stool. He has not had any active vomiting noticed since his transfer to [facility]. - Will discontinue further IV fluids. Will transfuse patient 3 units PRBC, but given history of CHF and evidence of fluid overload, will need to transfuse slowly and consider Lasix interspersed with diuresis depending on his blood pressure. - Will discontinue prothrombin complex concentrate given risk for thrombotic event with his history, particularly his cardiac history. Patients supratherapeutic INR may be in the setting of possible liver dysfunction given his recent history as well as from poor nutrition. Will give vitamin K and continue to monitor his coags. If he appears to have more active brisk bleeding, would consider the benefits of prothrombin complex concentrate outweighing the risk particularly as there is not clear indication for reversal except for life threatening bleeding with a factor Xa inhibitor. - GI has been consulted. Appreciate their recommendations. He is kept n.p.o. - Will continue with Protonix IV b.i.d. - Continue with his chronic steroids. He is currently on Solu-Medrol IV. Patient is on medication, Yonsa, for his history of prostate cancer which can result in depletion of mineralocorticoid and ongoing mineralocorticoid deficiency. - Patient has an 18 gauge IV in his left arm. He has a chemo port which we will access for central venous access. - Will continue to monitor CBCs. - Continue with nasal cannula oxygen supplementation and wean down as tolerated. 2. History of urinary retention: Will place a Talley catheter for accurate measurements of ins and outs, particularly given his history of CHF with recent admission for decompensated heart failure. 3. DVT prophylaxis: TEDs and SCDs. 4. Code status: Full code. Total critical care time spent not including procedures approximately 1 hour and 2 minutes. MARIMAR
--- NOTE | 2019-11-10 19:48 | CCN ---
DATE: 11/08/2019 SUBJECTIVE: Patient was seen and examined this morning during bedside rounds. Overnight, patient received 3 units of PRBC with slow infusion and had appropriate response on his repeat CBC overnight. He has not had any bowel movements reported overnight and no episodes of nausea or vomiting. This morning, patient is awake and alert and denies any complaints. He denies any chest pain. Has not had any shortness of breath or dyspnea. Denies any coughing. Denies any abdominal pain and no nausea. PHYSICAL EXAMINATION: Vital signs: Temperature 97.4, pulse 96, respirations 19, blood pressure 102/54, O2 sat 100% on 2 liters nasal cannula. General: Patient is an elderly male. He is lying in bed in no acute distress. He is not using any accessory muscles for respiration. Patient appears less pale than yesterday. HEENT: Normocephalic/atraumatic. Pupils reactive to light bilaterally. Patient has some dry mucous membranes orally with scabbing and encrustation on his tongue. NECK: Neck is supple. Trachea is midline. No palpable cervical adenopathy. CARDIOVASCULAR: Irregularly irregular. Normal S1 and S2 with a systolic murmur in the left sternal border. PULMONARY: Diminished breath sounds bilaterally with crackles at the bases. No wheezes or rhonchi. ABDOMEN: Soft, nontender, nondistended. No palpable masses. EXTREMITIES: There is +2-3 pitting edema in the lower extremities as well as pitting sacral edema. LABORATORY DATA: WBC 9.0, hemoglobin 8.9, platelets 106. Chemistries: Sodium 148, potassium 3.4, chloride 118, bicarb 21, BUN 22, creatinine 0.50, glucose 96, calcium 6.9, albumin 1.5, T-bili 1.4. INR 2.27. PTT 38.5. PT 25.5. ASSESSMENT/PLAN: 1. The patient is an 89-year-old male with a past medical history of atrial fibrillation on anticoagulation, CAD with history of ischemic cardiomyopathy and CHF, history of mitral regurgitation and pulmonary hypertension, COPD, and prostate cancer who presented with anemia and GI bleed. 2. Patient with GI bleed in the setting of anticoagulation. 3. History of atrial fibrillation. 4. History of ischemic cardiomyopathy with reduced EF as well as moderate mitral regurgitation. 5. Chronic steroid use secondary to his antiandrogen medications for his prostate cancer. - Patient was transfused 3 units of PRBC yesterday with appropriate response in his hemoglobin. He has not had any further episodes of black tarry stools or melena and has not had any nausea or vomiting. - Patients blood pressure did improve after transfusion. He is n.p.o. for now and so will start him on gentle fluids with D5W as he does have a component of hypernatremia and hyperchloremia, likely iatrogenic, given the normal saline fluid boluses he received yesterday. - Patient does also have evidence of third spacing likely secondary to his hypoalbuminemia as well as his underlying heart failure. Will give him Lasix 40 mg IV and continue to monitoring his blood pressure and his urine output closely. - Patient is hypokalemic and hypomagnesemic. Will replete his magnesium and potassium and continue to monitor with repeat electrolytes this afternoon. - Continue to monitor his H&H. - Continue PPI and appreciate GI consult and recommendations. - Patient's INR did trend down slightly with the vitamin K. AC will be continued to be on hold. He was on Eliquis previously for anticoagulation. - Continue to wean patient off nasal cannula oxygen supplementation. - Continue patient on his home steroids. DVT prophylaxis: TEDs and SCDs. Full code Total critical care time spent not including procedures approximately 45 minutes. Please do not hesitate to call with any further questions or concerns. CARISSAD
[2019-11-10] MEDS: PANTOPRAZOLE 40MG TAB (PROTONIX) PO SCH (21:48)
[2019-11-10] MEDS: ATORVASTATIN 20 MG TAB PO SCH (21:48)
[2019-11-11] VITALS: BP 93/55
[2019-11-11 04:00] VITALS: BP 90/50
[2019-11-11 04:15] VITALS: BP 88/56
[2019-11-11] MEDS: LEVOTHYROXINE 88MCG TABLET (0.088 MG) PO SCH (05:54)
[2019-11-11 06:06] LABS: BASO # 0.1 10^3/uL (0.0-0.2); BASO % 0.7 % (0.0-1.0); EOS # 0.2 10^3/uL (0.0-0.5); HEMATOCRIT 28.6 % (42.0-52.0); HEMOGLOBIN 9.2 g/dl (13.5-17.5); LYMPH # 0.8 10^3/uL (1.5-5.0); LYMPH % 10.3 % (24.0-44.0); MEAN CORPUSCULAR HEMOGLOBIN 28.8 pg (27.0-33.0); MEAN CORPUSCULAR HGB CONC 32.2 g/dl (32.0-36.5); MEAN CORPUSCULAR VOLUME 89.4 fl (80.0-96.0); MONO # 0.5 10^3/uL (0.0-0.8); NEUTROPHILS # 6.3 10^3/uL (1.5-8.5); NEUTROPHILS % 78.4 % (36.0-66.0)
[2019-11-11 06:11] LABS: PLATELET COUNT, AUTOMATED 81 10^3/uL (150-450)
[2019-11-11 06:24] LABS: BLOOD UREA NITROGEN 14 MG/DL (7-18); CALCIUM LEVEL 6.9 MG/DL (8.8-10.2); CARBON DIOXIDE LEVEL 22 MEQ/L (21-32); CHLORIDE LEVEL 110 MEQ/L (98-107); CREATININE FOR GFR 0.59 MG/DL (0.70-1.30); GLOMERULAR FILTRATION RATE > 60.0 (>35); GLUCOSE, FASTING 81 MG/DL (70-100); POTASSIUM SERUM 3.8 MEQ/L (3.5-5.1); SODIUM LEVEL 139 MEQ/L (136-145)
[2019-11-11 07:37] LABS: MAGNESIUM LEVEL 2.6 MG/DL (1.8-2.4)
[2019-11-11] MEDS: TIOTROPIUM INHALER/CAPSULE (SPIRIVA) INH SCH (07:42)
[2019-11-11 08:00] VITALS: BP 108/68
[2019-11-11] MEDS ORDERED: NYST10006 TOP (09:43)
[2019-11-11] MEDS ORDERED: DRON2.5C11 PO (09:43)
[2019-11-11] MEDS: CALCIUM/VITAMIN D 500 MG TAB PO SCH (10:31)
[2019-11-11] MEDS: MAGNESIUM OXIDE 400 MG TAB (MAG-OX) PO SCH (10:31)
[2019-11-11] MEDS: methylPREDNISolone 40MG 1ML VIAL IV SCH (10:31)
[2019-11-11] MEDS: PANTOPRAZOLE 40MG TAB (PROTONIX) PO SCH (10:32)
[2019-11-11] MEDS: DOCUSATE SODIUM 100 MG CAP PO SCH (10:32)
[2019-11-11] MEDS: SERTRALINE HCL 25 MG TABLET PO SCH (10:32)
[2019-11-11 10:33] VITALS: BP 98/55
[2019-11-11] MEDS: METOPROLOL TART 25 MG TABLET PO SCH (10:33)
[2019-11-11] MEDS: NYSTATIN 100,000 UNITS/GM TOPICAL PWD 15 GM TOP SCH (10:34)
[2019-11-11 12:00] VITALS: BP 88/52
--- NOTE | 2019-11-11 23:18 | DS.PDOC ---
Discharge Summary General Date of Admission Nov 07, 2019 at 16:10 Date of Discharge Nov 11, 2019 Attending Physician: ANGEL BAUTISTA DO Specialist/Consultants Involve: SULEMA HARRIS MD Specialist/Consultants Involve GI, Dr. Harris Discharge Summary PROCEDURES PERFORMED DURING STAY: EGD on 11/08/2019 ADMITTING DIAGNOSES: 1. Upper GI Bleed 2. Serotherapeutic INR 3. Persistent atrial fibrillation 4. Hypotension 5. Hypothyroidism 6. CHF 7. Steroid use 8. Anxiety/depression DISCHARGE DIAGNOSES: 1. UGI bleed due to apixaban with recent ERCP 2. Subtherapeutic INR 3. Persistent atrial fibrillation 4. Hypotension 5. Hypothyroidism 6. CHF 7. Steroid use 8. Anxiety/depression 9. Acute blood loss anemia 2/2 UGIB 2/2 apixaban COMPLICATIONS/CHIEF COMPLAINT: Gi Bleed Anemia. HISTORY OF PRESENT ILLNESS: Mr. Diez is an 89 year old male with a UGI bleed last year and atrial fibrillation on apixaban here with acute UGI. Patient does have some confusion. Most of the history is obtained from the daughter. Daughter is Terra Diez who is the healthcare proxy. Her number is [phone]. The daughter tells me that the patient was recently here at [facility] for heart failure. Then he was transferred to [facility] for ERCP for choled ocholithiasis. Last Thursday, they had trouble doing the scope and so than they retried on . When they did on , they did not find a stone, only sludge. He was then sent to [facility] for rehabilitation. While at [facility], the family has not been able to see him. Today, they told the family that his hemoglobin was very low at 5.1. His INR was elevated at 3.4. Albumin was 2. Total protein was 4. Total bilirubin was 1. AST and ALTs were not elevated. He went to the ED at [facility] and then they transferred him here to [facility]. When he arrived here, his systolic blood pressure was 80. He was confused. He looked pale and slightly jaundiced. He denied any fever, chills, chest pain, dyspnea, abdominal pain or dysuria. He told me that he felt lightheaded and that he had a poor appetite for a while. He denied coughing up blood or urinating blood. He does not remember seeing any blood in the stool. When the nurse cleaned him, he had dark tarry stool. Also, he had bright red blood orally. I spoke with the daughter who is a healthcare proxy. We discussed the risks and benefit of blood transfusion and she was in agreement to give him blood products. In addition, she told me that he is full code. HOSPITAL COURSE: Patient responded appropriately to the 3 units of pRBC. GI performed EGD on 11/08/2019. 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 GI had recommended that he does not go back on anticoagulation due to having a second bleed, but patient will have to discuss with PCP about the risks and benefits of anticoagulation and the decision to restart. Recommended waiting until Nov 16 to restart anticoagulation. Otherwise, he will need lifelong PPI. Afterwards, patient had an episode of atrial fibrillation with RVR which was controlled with beta blockers. Today, he felt well. Denies fever/chills, chest pain, abdominal pain, dysuria, or diarrhea. He felt ready and was sent back to [facility] rehab. DISCHARGE MEDICATIONS: Please see below. ALLERGIES: Please see below. PHYSICAL EXAMINATION ON DISCHARGE: VITAL SIGNS: Please see below. GENERAL: Comfortable, in no apparent distress. HEENT: Head normocephalic/atraumatic, EOMI, sclera clear. NECK: Supple RESPIRATORY: Lungs clear to auscultation bilaterally, no rales, wheeze or rhonchi. CARDIOVASCULAR: Irregular but rate controlled ABDOMEN: Soft, nontender, no guarding or rebound tenderness. Normal bowel sounds. MUSCLE SKELETAL: Muscle strength 5/5 in all extremities. Bilateral pitting edema NEUROLOGICAL: CN 312 grossly intact, no focal deficits noted. PSYCHOLOGICAL: Normal mood and affect LABORATORY DATA: Please see below. PROGNOSIS: Stable ACTIVITY: Tolerated. DIET: Low salt diet DISCHARGE PLAN: To return to [facility] rehabilitation DISPOSITION: To return to [facility] rehabilitation DISCHARGE INSTRUCTIONS: 1. Follow-up with her PCP within a week 2. Discuss with her PCP about anticoagulation 3. Discuss with the PCP about appetite stimulation. DISCHARGE CONDITION: Stable Total time spent on discharge planning, discharge summary, and med reconciliation 45 minutes Vital Signs/I&Os Vital Signs Date Time Temp Pulse Resp B/P (MAP) Pulse Ox O2 Delivery O2 Flow Rate FiO2 11/11/19 12:00 97.6 88 17 88/52 (64) 96 Room Air 11/08/19 08:00 2.0 I&O- Last 24 Hours up to 6 AM 11/11/19 06:00 Intake Total 800 ml Output Total 125 ml Balance 675 ml Laboratory Data Labs 24H Laboratory Tests 2 11/11/19 05:44: Immature Granulocyte % (Auto) 2.6, Neutrophils (%) (Auto) 78.4H, Lymphocytes (%) (Auto) 10.3L, Monocytes (%) (Auto) 6.0H, Eosinophils (%) (Auto) 2.0, Basophils (%) (Auto) 0.7, Neutrophils # (Auto) 6.3, Lymphocytes # (Auto) 0.8L, Monocytes # (Auto) 0.5, Eosinophils # (Auto) 0.2, Basophils # (Auto) 0.1, Nucleated Red Bl ood Cells % (auto) 0.6H, Immature Platelet Fraction 14.2H, Anion Gap 7L, Glomerular Filtration Rate > 60.0, Calcium Level 6.9L, Magnesium Level 2.6H CBC/BMP Laboratory Tests 11/11/19 05:44 Microbiology Microbiology 11/10/19 Urine Culture - Final, Complete Discharge Medications Scheduled Atorvastatin Calcium (Atorvastatin Calcium) 40 Mg Tablet, 40 MG PO QHS, (Reported) Calcium Carbonate/Vitamin D3 (Calcium 600 + Vit D 400 Softgl) 1 Each Capsule, 1 CAP PO DAILY, (Reported) Dexlansoprazole (Dexilant) 30 Mg Buck.bp, 30 MG PO DAILY, (Reported) Docusate Sodium (Docusate Sodium) 100 Mg Capsule, 100 MG PO BID Dronabinol (Dronabinol) 2.5 Mg Capsule, 2.5 MG PO ACS Iron Ps Complex/B12/Folic Acid (Iferex 150 Forte Capsule) 1 Each Capsule, 1 CAP PO BID, (Reported) Levothyroxine Sodium (Synthroid) 88 Mcg Tablet, 88 MCG PO DAILY, (Reported) Magnesium Oxide (Magnesium Oxide) 400 Mg Tablet, 400 MG PO DAILY, (Reported) Metoprolol Tartrate (Metoprolol Tartrate) 25 Mg Tablet, 25 MG PO BID, (Reported) Nystatin (Nystop) 60 Gm Powder, 0 DOSE TOP BID Prednisone (Prednisone) 5 Mg Tablet, 20 MG PO DAILY, (Reported) Sertraline Hcl (Sertraline HCl) 25 Mg Tablet, 25 MG PO DAILY, (Reported) Umeclidinium [place] (Incruse Ellipta) 62.5 Mcg Blst.w.dev, 1 PUFF INH DAILY, (Reported) Scheduled PRN Albuterol Sulfate (Ventolin Hfa) 108 Mcg/Act Aer, 2 PUFFS INH QID PRN for SHORTNESS OF BREATH, (Reported) Allergies Coded Allergies: tamsulosin (Verified Allergy, Severe, 10/17/19) ANGEL BAUTISTA DO Nov 11, 2019 23:18
== END 2019-11-11 13:49 | DRG 813 ==
LOC: M PCU 16:10 → M ICU 21:12 → M PCU 11-09 16:18
PROVIDERS: ADMIT General Practice; ATTEND Internal Medicine
PROC: 30233N1 Transfusion of Nonautologous Red Blood Cells into Peripheral Vein, Percutaneous Approach (ICD-10-PCS; principal; 2019-11-07)
PROC: 0W3P8ZZ Control Bleeding in Gastrointestinal Tract, Via Natural or Artificial Opening Endoscopic (ICD-10-PCS; 2019-11-08)
PROC: 0DB98ZX Excision of Duodenum, Via Natural or Artificial Opening Endoscopic, Diagnostic (ICD-10-PCS; 2019-11-08)
DX: D68.32 Hemorrhagic disorder due to extrinsic circulating anticoagulants (principal); I50.42 Chronic combined systolic (congestive) and diastolic (congestive) heart failure; I48.19 Other persistent atrial fibrillation; K92.2 Gastrointestinal hemorrhage, unspecified; D62 Acute posthemorrhagic anemia; R17 Unspecified jaundice; D50.9 Iron deficiency anemia, unspecified; I11.0 Hypertensive heart disease with heart failure; E03.9 Hypothyroidism, unspecified; M81.0 Age-related osteoporosis without current pathological fracture; I27.20 Pulmonary hypertension, unspecified; J44.9 Chronic obstructive pulmonary disease, unspecified; I25.10 Atherosclerotic heart disease of native coronary artery without angina pectoris; K21.9 Gastro-esophageal reflux disease without esophagitis; I08.1 Rheumatic disorders of both mitral and tricuspid valves; M19.90 Unspecified osteoarthritis, unspecified site; F32.9 Major depressive disorder, single episode, unspecified; F41.9 Anxiety disorder, unspecified; I25.5 Ischemic cardiomyopathy; I25.2 Old myocardial infarction; Z92.3 Personal history of irradiation; Z85.46 Personal history of malignant neoplasm of prostate; Z79.01 Long term (current) use of anticoagulants; Z79.52 Long term (current) use of systemic steroids; Z79.899 Other long term (current) drug therapy; Z88.8 Allergy status to other drugs, medicaments and biological substances

== ENCOUNTER 2019-11-21 17:07 | Inpatient (IN) | payer MEDICARE ==
[~2019-11-21] VITALS: Ht 170.2 cm; Wt 64.7 kg
[2019-11-21] VITALS (30 sets, daily range): BP systolic 66–118; BP diastolic 44–74
[~2019-11-21 17:07] MED LIST changes: +CALCCAP4 PO; +DRON2.5C11 PO; +IFERCAP PO; +MAGN400T2 PO; +NYST10006 TOP; +PRED5TA PO; +SERT25TA85 PO; +SYNT88TA2 PO
[2019-11-21] MEDS ORDERED: NS 1,000 ML IV SCH (20:00)
[2019-11-21] MEDS ORDERED: MAALOX 30 ML SUSP *UDC PO PRN (20:00)
[2019-11-21] MEDS ORDERED: MOM 30ML SUSPENSION UDC PO PRN (20:00)
[2019-11-21] MEDS ORDERED: ACETAMINOPHEN TAB 650MG DOSE (2X325MG) PO PRN (20:00)
[2019-11-21 20:36] LABS: VENOUS BASE EXCESS -5.7 (-2.0-2.0); VENOUS HCO3 19.2 MEQ/L (23.0-27.0); VENOUS O2 SATURATION 86.1 % (60.0-80.0); VENOUS PARTIAL PRESSURE CO2 35.3 mmHg (38.0-50.0); VENOUS PARTIAL PRESSURE O2 58.1 mmHg (30.0-50.0); VENOUS PH 7.353 UNITS (7.330-7.430); VENOUS STANDARD HCO3 19.6 MEQ/L; VENOUS TOTAL CO2 20.3 MEQ/L (24.0-28.0)
[2019-11-21 20:42] LABS: BASO % 0.3 % (0.0-1.0); EOS % 0.2 % (0.0-3.0); HEMATOCRIT 29.9 % (42.0-52.0); HEMOGLOBIN 9.5 g/dl (13.5-17.5); LYMPH # 0.3 10^3/uL (1.5-5.0); MEAN CORPUSCULAR HGB CONC 31.8 g/dl (32.0-36.5); MEAN CORPUSCULAR VOLUME 91.2 fl (80.0-96.0); MONO # 0.5 10^3/uL (0.0-0.8); MONO % 3.6 % (0.0-5.0); NEUTROPHILS # 12.1 10^3/uL (1.5-8.5); NEUTROPHILS % 93.4 % (36.0-66.0); PLATELET COUNT, AUTOMATED 127 10^3/uL (150-450); RED BLOOD COUNT 3.28 10^6/uL (4.30-6.10)
[2019-11-21 20:54] LABS: INR 3.28; PROTHROMBIN TIME 34.1 SECONDS (12.5-14.3)
[2019-11-21] MEDS ORDERED: VANCOMYCIN HCL 500 MG in D5W MINI-BAG PLUS 100 ML IV ONE (21:00)
[2019-11-21] MEDS ORDERED: NOREPINEPHRINE BITARTRATE 8 MG in D5W 492 ML IV SCH ×2 (21:00→23:00)
[2019-11-21] MEDS ORDERED: SPIR-10 PO (21:04)
[2019-11-21] MEDS ORDERED: ASPI81TA26 PO (21:04)
[2019-11-21] MEDS ORDERED: MULTCAP PO (21:04)
[2019-11-21] MEDS ORDERED: ACET-908 PO (21:04)
[2019-11-21] MEDS ORDERED: GUAI100L31 PO (21:04)
[2019-11-21] MEDS ORDERED: ELIQ5TAB PO (21:04)
[2019-11-21] MEDS ORDERED: METO1TAB32 PO (21:04)
[2019-11-21] MEDS ORDERED: FURO20TA2 PO (21:04)
[2019-11-21 21:11] LABS: ALBUMIN 1.3 GM/DL (3.2-5.2); ALT/SGPT 20 U/L (12-78); BILIRUBIN,TOTAL 1.4 MG/DL (0.2-1.0); BLOOD UREA NITROGEN 14 MG/DL (7-18); CARBON DIOXIDE LEVEL 19 MEQ/L (21-32); CHLORIDE LEVEL 113 MEQ/L (98-107); CREATININE FOR GFR 0.78 MG/DL (0.70-1.30); GLOMERULAR FILTRATION RATE > 60.0 (>35); GLUCOSE, FASTING 73 MG/DL (70-100); POTASSIUM SERUM 3.2 MEQ/L (3.5-5.1); SODIUM LEVEL 142 MEQ/L (136-145); TOTAL PROTEIN 3.9 GM/DL (6.4-8.2)
--- NOTE | 2019-11-21 21:59 | HPEPDOC ---
[facility] Medical History & Physical Date of Admission Nov 21, 2019 Date of Service: Nov 21, 2019 Primary Care Physician: Ifeanyi Nielsen MD Attending Physician: BAM RIVERA MD History and Physical TIME OF SERVICE: 10pm CHIEF COMPLAINT: dyspnea HISTORY OF PRESENT ILLNESS: The history was obtained via chart review; the patient was to confused to provide any meaningful history. This 89 yr old M was seen at [facility] and noted to have shortness of breath. His CBC was remarkable for WBC count of 12, hemoglobin of 11 and platelet count of 74. The CMP was unremarkable except for a CO2 14, glucose of 135, alkaline phosphatase of 154, and AST of 48. The lactic acid was 7.4, troponin was 0.14 and INR was 3. UA was positive leuk estrase, WBC and nitrites and stool occult was positive. The patient was diagnosed with sepsis secondary to UTI and pneumonia along and started on IV fluids and Levophed transfer was requested to [facility] for higher level of care. REVIEW OF SYSTEMS: unobtainable bc of the patient's mental status PAST MEDICAL/ SURGICAL HISTORY: Hypothyroidism Hypertension Dyslipidemia Osteoporosis History of GI bleed /Iron deficiency anemia Chronic systolic CHF COPD / Asthma Prostate cancer Stage 4 s/p external beam radiation 2002, on abiraterone, eligard & leuprolide CAD/[place] Atrial fibrillation Gallstones Depression Dysphagia SOCIAL HISTORY: Used to smoke He doesn't use alcohol or drugs. He resides in a shelter FAMILY HISTORY: prostate cancer ALLERGIES: Please see below. HOME MEDICATIONS: Please see below. PHYSICAL EXAMINATION: Vital Signs Date Time Temp Pulse Resp B/P (MAP) Pulse Ox O2 Delivery O2 Flow Rate FiO2 11/21/19 20:21 78/45 11/21/19 20:55 97.2 129 24 100 Nasal Cannula 2.0 GEN: well-nourished / well developed/ NAD INTEGUMENT: not flushed/ not jaundice / has generalized palor HEENT: lips acyanotic /mucus membranes moist and pink CVS: RRR/NMRG/ radial pulses intact / + BLE edema LUNGS: tachpneic / breathsounds deminished ABDOMEN: Contour (obese,) / soft & not tender with palpation MSK/EXTREMITIES: NCAT kyphosis NEURO: CN 2-12 are grossly intact / speech is not dysarthric / strength is 5/5 / DTRs (0-4+) PSYCH: alert and oriented to person place and time/ able to understand and follow all commands LABORATORY DATA: 11/21/19 20:26 11/21/19 20:26: Immature Granulocyte % (Auto) 0.5, Neutrophils (%) (Auto) 93.4H, Lymphocytes (%) (Auto) 2.0L, Monocytes (%) (Auto) 3.6, Eosinophils (%) (Auto) 0.2, Basophils (%) (Auto) 0.3, Neutrophils # (Auto) 12.1H, Lymphocytes # (Auto) 0.3L, Monocytes # (Auto) 0.5, Eosinophils # (Auto) 0.0, Basophils # (Auto) 0.0, Nucleated Red Blood Cells % (auto) 0.0, Prothrombin Time 34.1H, Prothromb Time International Ratio 3.28, Blood Gas Bicarbonate Standard 19.6, Venous Blood pH 7.353, Venous Blood Partial Pressure CO2 35.3L, Venous Blood Partial Pressure O2 58.1H, Venous Blood Total Carbon Dioxide 20.3L, Venous Blood HCO3 19.2L, Venous Blood Oxygen Saturation 86.1H, Venous Blood Base Excess -5.7L, Anion Gap 10, Glomerular Filtration Rate > 60.0, Lactic Acid Level 2.5*H, Calcium Level 7.0L, Total Bilirubin 1.4H, Aspartate Amino Transf (AST/SGOT) 40H, Alanine Aminotransferase (ALT/SGPT) 20, Alkaline Phosphatase 129H, Troponin I 0.02, Total Protein 3.9L, Albumin 1.3L, Albumin/Globulin Ratio 0.5 IMAGING: n/a MICROBIOLOGY: pancx pending.. ASSESSMENT: is an 89 yr old w a hx of Hypothyroidism, Hypertension, Dyslipidemia, Osteoporosis, History of GI bleed /Iron deficiency anemia, Chronic systolic CHF, COPD / Asthma, Prostate cancer, CAD, Atrial fibrillation and dysphagia who was sent from [facility] for management of septic shock 2/2 UTI and PNA. PLAN: 1. Septic Shock 2/2 PNA and UTI ? He has lactic acidosis, tachypnea and tachycardia Plan: admit to ICU for Levophed / c/w IVF / telemetry / trend lactic acid / Meropenum and Vanc/f/u blood cx, UA w Cx sputum Cx, strep pneumo, legionella and MRSA / f/u repeat xray / Acetaminophen PRN for fever / target MAP at of least 65 to 70 / f/u Is and Os with target UOP of at least 0.5 ml/kg/H / target serum glucose 140-180 while acutely ill / 2. Encephalopathy Possibly 2/2 delirium from infection Not sure if he has dementia at baseline Plan: treat infection /day time team may consider calling [facility] to confirm what his baseline mental status is prior to ording CT head / hold metoprolol, lasix and spironolactone 3. Afib w RVR Likely 2/2 sepsis Troponin trended down He didn't respond to digoxin Plan: Amiodarone / apixaban 4. Acute COPD 2/2 PNA Plan: supplemental O2 / continuous pulse oximetry / aspiration precautions / Dunebs Q6H, Albuterol Q1HP, Solumedrol w PPI 5. Dyslipidemia Plan: statin 6. History of GI bleed /Iron deficiency anemia Plan: trend CBC and follow up iron panel anticipate that his Hg will drop / f/u INR 7. Chronic systolic CHF Plan: spirolactone, metoprolol and lasix on hold while in septic shock 8. Hypothyroidism Plan: levothyroxine 7. CAD/[place] Plan: ASA, metoprolol on hold bc of low BP, c/w statin DVT PROPHYLAXIS: n/a on AC DISPOSITION: SNF after more than 2 midnight's stay Home Medications Scheduled Apixaban (Eliquis) 5 Mg Tablet, 5 MG PO BID Aspirin (Aspirin EC) 81 Mg Tablet., 81 MG PO DAILY Atorvastatin Calcium (Atorvastatin Calcium) 40 Mg Tablet, 40 MG PO QHS Calcium Carbonate/Vitamin D3 (Calcium 600 + Vit D 400 Softgl) 1 Each Capsule, 1 CAP PO DAILY Dexlansoprazole (Dexilant) 30 Mg Cap.bp, 30 MG PO DAILY Furosemide (Furosemide) 20 Mg Tablet, 20 MG PO DAILY Iron Ps Complex/B12/Folic Acid (Iferex 150 Forte Capsule) 1 Each Capsule, 1 CAP PO BID Levothyroxine Sodium (Synthroid) 88 Mcg Tablet, 88 MCG PO DAILY Magnesium Oxide (Magnesium Oxide) 400 Mg Tablet, 400 MG PO DAILY Metoprolol Succinate (Metoprolol Succinate) 25 Mg Tab.er.24h, 25 MG PO DAILY Multivitamin (Multivitamins) 1 Each Capsule, 1 CAP PO DAILY Sertraline Hcl (Sertraline HCl) 25 Mg Tablet, 25 MG PO DAILY Spironolactone (Spironolactone) 25 Mg Tablet, 25 MG PO DAILY Umeclidinium [place] (Incruse Ellipta) 62.5 Mcg Blst.w.dev, 1 PUFF INH DAILY Scheduled PRN Acetaminophen (Acetaminophen) 325 Mg Tablet, 650 MG PO Q4H PRN for PAIN / FEVER Albuterol Sulfate (Ventolin Hfa) 108 Mcg/Act Aer, 2 PUFFS INH QID PRN for SHORTNESS OF BREATH guaiFENesin (Cough Syrup) 100 Mg/5 Ml Liquid, 5 ML PO Q4H PRN for COUGH Allergies Coded Allergies: tamsulosin (Verified Allergy, Severe, 10/17/19) A-FIB/CHADSVASC A-FIB History Current/History of A-Fib/PAF?: Yes Current PO Anticoag Therapy: Yes BAM RIVERA MD Nov 21, 2019 21:59
[2019-11-21] MEDS ORDERED: POTASSIUM CHLORIDE 10% LIQ 20 MEQ/15 ML UDC PO ONE (22:00)
[2019-11-21] MEDS ORDERED: DIGOXIN INJ 0.5 MG/2 ML AMP (J1160) IV SCH (22:30)
[2019-11-21] MEDS ORDERED: DIGOXIN INJ 0.5 MG/2 ML AMP (J1160) IV ONE (23:00)
[2019-11-21] MEDS ORDERED: ALBUTEROL 90 MCG/ACT 8GM HFA INHALER INH PRN (23:45)
[2019-11-21] MEDS ORDERED: APIXABAN 5 MG TAB (ELIQUIS) PO SCH (23:45)
[2019-11-22] VITALS (127 sets, daily range): BP systolic 30–144; BP diastolic 14–74
[2019-11-22] MEDS: ATORVASTATIN 20 MG TAB PO SCH ×2 (00:05→20:31)
[2019-11-22] MEDS: VANCOMYCIN HCL 1,000 MG, VIAL MATE ADAPTER 1 EACH in D5W 250 ML IV SCH ×3 (00:06→16:08)
[2019-11-22] MEDS ORDERED: DIGOXIN INJ 0.5 MG/2 ML AMP (J1160) IV ONE ×2 (00:45→12:00)
[2019-11-22] MEDS: MEROPENEM INJ 1 GM in IV 1 EA IV SCH ×3 (01:30→17:45)
[2019-11-22 01:46] LABS: FERRITIN 336 NG/ML (26-388); IRON (FE) 39 UG/DL (65-175); PERCENT SATURATION 28.9 % (19.7-50.0); TOTAL IRON BINDING CAPACITY 135 UG/DL (250-450); TROPONIN I 0.03 NG/ML (< 0.10)
[2019-11-22 04:53] LABS: HEMATOCRIT 33.2 % (42.0-52.0); HEMOGLOBIN 10.4 g/dl (13.5-17.5); MEAN CORPUSCULAR HEMOGLOBIN 28.1 pg (27.0-33.0); MEAN CORPUSCULAR HGB CONC 31.3 g/dl (32.0-36.5); MEAN CORPUSCULAR VOLUME 89.7 fl (80.0-96.0); PLATELET COUNT, AUTOMATED 130 10^3/uL (150-450); WHITE BLOOD COUNT 16.2 10^3/uL (4.0-10.0)
[2019-11-22 05:15] LABS: BLOOD UREA NITROGEN 14 MG/DL (7-18); CARBON DIOXIDE LEVEL 19 MEQ/L (21-32); CHLORIDE LEVEL 113 MEQ/L (98-107); CREATININE FOR GFR 0.83 MG/DL (0.70-1.30); GLOMERULAR FILTRATION RATE > 60.0 (>35); GLUCOSE, FASTING 115 MG/DL (70-100); MAGNESIUM LEVEL 1.7 MG/DL (1.8-2.4); POTASSIUM SERUM 3.7 MEQ/L (3.5-5.1); SODIUM LEVEL 142 MEQ/L (136-145)
[2019-11-22] MEDS ORDERED: AMIODARONE HCL 150 MG in IV 1 EA IV ONE (05:30)
[2019-11-22] MEDS: LEVOTHYROXINE 88MCG TABLET (0.088 MG) PO SCH (05:48)
[2019-11-22] MEDS ORDERED: methylPREDNISolone 125MG 2ML VIAL IV STA (05:54)
[2019-11-22] MEDS ORDERED: ALBUTEROL SULFATE 2.5 MG/0.5 ML INH NEB SOLN NEB PRN ×2 (06:00→18:00)
--- NOTE | 2019-11-22 07:03 | REPVR ---
PROCEDURE INFORMATION: Exam: XR Chest, 1 View Exam date and time: 11/22/2019 6:25 AM Age: 89 years old Clinical indication: Dyspnea TECHNIQUE: Imaging protocol: XR of the chest Views: 1 view. COMPARISON: [facility] PORTABLE CHEST X-RAY 10/17/2019 12:17 PM FINDINGS: Lungs: There are opacities in both lung bases, obscuring the diaphragms. There is central predominant hazy opacity in the lungs bilaterally, most consistent with mild pulmonary edema. Pleural space: There are new small bilateral pleural effusions Heart/Mediastinum: The heart is again enlarged. Bones/joints: Unremarkable. Other findings: There is a right sided [id number]. IMPRESSION: 1. Mild pulmonary edema. 2. Small bilateral pleural effusions. 3. Bilateral lung base opacities which are nonspecific but may be atelectasis. Electronically signed by: Eloisa Vega On 11/22/2019 07:02:56 AM
[2019-11-22] MEDS: IPRATROPIUM 0.5MG/ALBUTEROL 2.5MG INH SOL UD 3ML (DUONEB) NEB SCH ×2 (07:50→13:14)
[2019-11-22] MEDS ORDERED: MAG SULF 1GM/100ML (MAG RUN) 1 GM in IV 1 EA IV ONE (08:00)
[2019-11-22 08:18] LABS: VITAMIN B12 LEVEL > 2000 PG/ML
[2019-11-22 08:26] LABS: TROPONIN I 0.02 NG/ML (< 0.10)
[2019-11-22] MEDS ORDERED: DIGOXIN INJ 0.5 MG/2 ML AMP (J1160) IV STA (08:27)
[2019-11-22 08:46] LABS: ABG BASE EXCESS -6.4 (-2.0-2.0); ABG HCO3 16.9 MEQ/L (22.0-26.0); ABG O2 SATURATION 91.8 % (95.0-99.0); ABG PARTIAL PRESSURE CO2 26.7 mmHg (35.0-45.0); ABG STANDARD HCO3 19.1 MEQ/L (22.0-26.0); ABG TOTAL CO2 17.7 MEQ/L (23.0-31.0); ABG pH (ARTERIAL) 7.418 UNITS (7.350-7.450)
[2019-11-22] MEDS ORDERED: MAGNESIUM OXIDE 400 MG TAB (MAG-OX) PO SCH (09:00)
[2019-11-22] MEDS ORDERED: SPIRONOLACTONE 25 MG TAB PO SCH (09:00)
[2019-11-22] MEDS ORDERED: ASPIRIN 81 MG ENTERIC TAB PO SCH (09:00)
[2019-11-22] MEDS ORDERED: CALCIUM/VITAMIN D 500 MG TAB PO SCH (09:00)
[2019-11-22] MEDS ORDERED: PANTOPRAZOLE 40MG VIAL (C9113 PER 1) IV SCH (09:00)
[2019-11-22] MEDS ORDERED: FUROSEMIDE 20 MG TAB PO SCH (09:00)
[2019-11-22] MEDS ORDERED: INCRUSE ELLIPTA 62.5MCG (PATIENT'S OWN MED) INH SCH (09:00)
[2019-11-22] MEDS ORDERED: OMEPRAZOLE 20 MG CAP PO SCH (09:00)
[2019-11-22] MEDS ORDERED: SERTRALINE HCL 25 MG TABLET PO SCH (09:00)
[2019-11-22] MEDS ORDERED: METOPROLOL SUCC *XL* 25MG TAB (TopROL *XL*) PO SCH (09:00)
--- NOTE | 2019-11-22 09:32 | REPVR ---
PROCEDURE INFORMATION: Exam: US Retroperitoneal Limited, Kidneys Exam date and time: 11/22/2019 9:21 AM Age: 89 years old Clinical indication: Other: Oliguric TECHNIQUE: Imaging protocol: Real-time ultrasound of the retroperitoneum with image documentation. Examination was focused on the kidneys. COMPARISON: LIVER US 10/21/2019 8:20 AM FINDINGS: Right kidney: The right kidney measures 8.8 x 5.7 x 5.7 cm. It again contains a cyst laterally in the interpolar region, measuring 1.6 x 1.4 x 1.0 cm. The kidney appears somewhat echogenic. No hydronephrosis or demonstrated stone or mass. Left kidney: The left kidney measures 10.5 x 4.9 x 4.9 cm. The kidney appears somewhat echogenic. No hydronephrosis or demonstrated stone or mass. Bladder: The urinary bladder was not evaluated, decompressed by Talley catheter. IMPRESSION: Soot echogenic appearance of the kidneys, suggesting medical renal disease. Right kidney smaller than left. Electronically signed by: Juan David Eddy On 11/22/2019 09:31:40 AM
--- NOTE | 2019-11-22 09:56 | REPVR ---
PROCEDURE INFORMATION: Exam: CT Chest Without Contrast Exam date and time: 11/22/2019 9:02 AM Age: 89 years old Clinical indication: Chest pain; Additional info: Fluid overload / effusions TECHNIQUE: Imaging protocol: Computed tomography of the chest without contrast. 3D rendering (Not supervised by radiologist): MIP and/or 3D reconstructed images were created by the technologist. Radiation optimization: All CT scans at this facility use at least one of these dose optimization techniques: automated exposure control; mA and/or kV adjustment per patient size (includes targeted exams where dose is matched to clinical indication); or iterative reconstruction. COMPARISON: CT Chest without contrast 08/29/2019 8:36 AM FINDINGS: Limitations: Evaluation is somewhat limited by lack of IV contrast. There is also mild motion limitation. Tubes, catheters and devices: A right-sided Port-A-Cath has been placed, with its tip at the cavoatrial junction. Lungs: Compression atelectasis is present bilaterally, with mild scattered scarring. Mild patchy ground-glass opacities in the upper lobes could reflect microatelectasis, edema or pneumonitis. Pleural space: Large bilateral pleural effusions have developed. No pneumothorax. Heart: Coronary artery calcifications are again present. No significant pericardial effusion. Aorta: The thoracic aorta is nonaneurysmal. Atherosclerotic vascular calcifications are again present. Lymph nodes: No gross pathologic lymphadenopathy. Liver: There is new intrahepatic and extrahepatic pneumobilia. Kidneys and ureters: There is again a small simple cyst in the partially visualized right kidney, which also again contains a small non-obstructing stone. Intraperitoneal space: There is small new free fluid in the upper abdomen. Bones/joints: Degenerative changes again involve the spine and shoulders. Soft tissues: There is mild new subcutaneous edema posteriorly. IMPRESSION: 1. Large bilateral pleural effusions, new since 08/29/19, with associated compression atelectasis. 2. Mild patchy ground-glass opacities in the upper lobes, could reflect microatelectasis, edema or pneumonitis. 3. New intrahepatic and extrahepatic pneumobilia. Correlate as to any recent biliary manipulation or stone passage. 4. Small new free fluid in the upper abdomen. 5. Mild new subcutaneous edema posteriorly. Electronically signed by: Juan David Eddy On 11/22/2019 09:55:44 AM
[2019-11-22] MEDS ORDERED: FUROSEMIDE 40MG/4ML VIAL (J1940) IV ONE ×2 (11:00→15:15)
[2019-11-22 11:30] LABS: BLOOD UREA NITROGEN 15 MG/DL (7-18); CARBON DIOXIDE LEVEL 17 MEQ/L (21-32); CHLORIDE LEVEL 111 MEQ/L (98-107); CK-MB VALUE MASS 9.7 NG/ML (<3.6); CPK CREATINE PHOSPHOKINASE 130 U/L (39-308); CREATININE FOR GFR 0.95 MG/DL (0.70-1.30); GLOMERULAR FILTRATION RATE > 60.0 (>35); GLUCOSE, FASTING 173 MG/DL (70-100); MAGNESIUM LEVEL 2.1 MG/DL (1.8-2.4); MB/CK RELATIVE INDEX 7.46 (< OR =4); POTASSIUM SERUM 3.7 MEQ/L (3.5-5.1); SODIUM LEVEL 139 MEQ/L (136-145); TROPONIN I 0.05 NG/ML (< 0.10)
--- NOTE | 2019-11-22 13:14 | IPNPDOC ---
Text Note Date of Service The patient was seen on 11/22/19. NOTE ADDENDUM: Discussed at length with daughter at bedside; Nurys (HCP). They have indicated that they wish their father to be full code based on his prior statements. I have noted to them that he is in critical condition and there is a strong possibility he may not survive the night. Given his poor urine production and an ABG that reflects metabolic acidosis, Ne phrology was consulted. I have explained to the family that there is a possibility of dialysis if he fails to make urine. They have voiced understanding. We will start Lasix drip and diuril this evening. ADDENDUM END: Subjective: Patient is a 89-year-old male with PMHx of HTN, Chronic Systolic CHF, CAD / [place], A. fib (on Eliquis), DLP, COPD / Asthma, Hypothyroidism, Hx of GI bleed / Iron deficiency, Osteoporosis, Prostate CA (Stage 4; s/p external beam radiation 2002; on Abiraterone, Eligard & leuprolide), Depression who presented to [facility] as a transfer from [facility]. Patient was suspected of having sepsis secondary to urinary tract infection. Patient was on Levothroid and IV fluids during his transfer to [facility]. On arrival, patient was started on broad-spectrum antibiotics and IV fluid hydration. On evaluation of patient this morning patient appeared to be displaying signs and symptoms of fluid overload. IV fluids were discontinued. Cardiology was called on consultation. Objective: Vitals (See below) General: Lying in bed, appears comfortable, Awake / Alert, Oriented to person / time HEENT: NC, AT CVS: IrIr, +S1S2 Lungs: Diminished sounds bilaterally, mild crackles at bases. No wheezing or rhonchi Abdomen: Soft, ND, NT Extremities: 2+ pitting edema bilaterally, - Calf tenderness Assessment and plan: Hypotension - likely 2/2 Shock - possibly 2/2 sepsis, possibly CHF - Currently patient displays signs of fluid overload - Elevated BNP - Blood cultures 11/20: Pending; urine cultures 11/20: Pending; respiratory panel 11/21: Negative - CXR 11/21: 1. Mild pulmonary edema. 2. Small bilateral pleural effusions. 3. Bilateral lung base opacities which are nonspecific but may be atelectasis. - CT Chest 11/21: 1. Large bilateral pleural effusions, new since 08/29/19, with associated compression atelectasis. 2. Mild patchy ground-glass opacities in the upper lobes, could reflect microatelectasis, edema or pneumonitis. 3. New intrahepatic and extrahepatic pneumobilia. Correlate as to any recent biliary manipulation or stone passage. 4. Small new free fluid in the upper abdomen. 5. Mild new subcutaneous edema posteriorly. - Will get Liver US - c/w Vancomycin and Zosyn (Day #1) Oliguria - possibly 2/2 cardiorenal etiology - Renal US 11/21: Soot echogenic appearance of the kidneys, suggesting medical renal disease. Right kidney smaller than left. - Will give diuretics Acute decompensated on chronic Systolic CHF - Will stop IV fluid hydration - Will provide diuretics Chronic A. fib with RVR - Beta blockers currently on hold - Has received amiodarone and digoxin. Overnight - Will continue with additional digoxin - Will hold full anticoagulation with Eliquis (re: dark stools) - Consulted cardiology; appreciate their input Acute metabolic encephalopathy - likely 2/2 shock - See above - No focal neurologic deficits on exam CAD / IN - Will hold ASA 81 - c/w Atorvastatin 80 DLP - c/w Atorvastatin COPD / Asthma - No evidence of exacerbation - c/w inhaled therapy as ordered Hypothyroidism - c/w Levothyroxine Hx of GI bleed / Iron deficiency - Overnight patient was suspected of having dark colored stools - He has had a recent admission for GI bleed - Occult blood positive - Will hold anticoagulation Osteoporosis Prostate CA - Stage 4; s/p external beam radiation 2002 - Currently on Abiraterone, Eligard & leuprolide Depression GI prophylaxis - c/w Protonix DVT prophylaxis - Will hold Eliquis - Will start TEDs/Sequentials Prognosis Poor Code status: FULL CODE After extensive discussions with the family, they have reported that they still want to proceed with full code Critical care time 72 minutes [facility], I+O [facility], I+O Laboratory Tests 11/21/19 20:26 11/22/19 04:20 11/22/19 10:37 Vital Signs Date Time Temp Pulse Resp B/P (MAP) Pulse Ox O2 Delivery O2 Flow Rate FiO2 11/22/19 12:45 128 96/56 (69) 91 Room Air 11/22/19 12:00 97.5 20 11/22/19 00:05 2.0 I&O- Last 24 Hours up to 6 AM 11/22/19 06:00 Intake Total 810 ml Output Total 176 ml Balance 634 ml TWAN MAZARIEGOS MD Nov 22, 2019 13:14
[2019-11-22] MEDS: methylPREDNISolone 125MG 2ML VIAL IV SCH ×2 (14:26→20:30)
--- NOTE | 2019-11-22 14:29 | REPVR ---
PROCEDURE INFORMATION: Exam: US Abdomen, Limited; Right Upper Quadrant Exam date and time: 11/22/2019 2:05 PM Age: 89 years old Clinical indication: Condition or disease; Other: Pneumobilia TECHNIQUE: Imaging protocol: US abdomen. Real time ultrasound with image documentation. Limited exam focused on the right upper quadrant. COMPARISON: 1. LIVER US 10/21/2019 8:[address] Chest without contrast 11/22/2019 8:54:59 AM FINDINGS: Limitations: Bowel gas and reported rapid breathing. Liver: The liver demonstrates pneumobilia, without demonstrated lesion. Gallbladder: The gallbladder was not well visualized, possibly involved with pneumobilia. Common bile duct: The common bile duct is normal in size for a patient of this age at 5.8 mm, but gas is noted within it. Pancreas: The pancreas is obscured by overlying bowel gas. Right kidney: The right kidney measures 8.5 x 4.6 x 5.4 cm. It contains a cyst laterally measuring 1.4 x 1.2 x 1.5 cm. No hydronephrosis or demonstrated stone or mass. IMPRESSION: Intrahepatic and extrahepatic pneumobilia, as partially visualized on CT of the same day, obscuring structures in the region, including the pancreas, and with the gallbladder not well visualized, possibly also involved with pneumobilia. May better characterize with dedicated abdominal CT. Electronically signed by: Juan David Eddy On 11/22/2019 14:29:25 PM
--- NOTE | 2019-11-22 16:52 | REPVR ---
PROCEDURE INFORMATION: Exam: CT Abdomen And Pelvis Without Contrast Exam date and time: 11/22/2019 3:43 PM Age: 89 years old Clinical indication: Abdominal pain; Generalized; Additional info: Intrahepatic pneumobilia TECHNIQUE: Imaging protocol: Computed tomography of the abdomen and pelvis without contrast. Radiation optimization: All CT scans at this facility use at least one of these dose optimization techniques: automated exposure control; mA and/or kV adjustment per patient size (includes targeted exams where dose is matched to clinical indication); or iterative reconstruction. COMPARISON: CT ABD/PEL W/IV CONTRAST ONLY 09/23/2018 7:26 PM FINDINGS: Pleural space: There are moderate-sized bilateral pleural effusions. Heart: There is moderate cardiomegaly. Liver: Normal appearing liver. Gallbladder and bile ducts: There is air within the biliary tree probably secondary to previous surgery. The gallbladder has been removed. Pancreas: There is a 2 cm round area of density contiguous with the body of the pancreas and this may be normal variation. However I could not exclude the possibility of a small pancreatic mass or area of enlarged lymph nodes and a follow-up CT scan should be performed in approximately 4 months for re-evaluation and to document stability of this. Spleen: Normal spleen. Adrenals: Normal. No mass. Kidneys and ureters: There is a small cyst upper pole the right kidney. There is no evidence of hydronephrosis. There is a calcification upper pole of the right kidney. Stomach and bowel: There are multiple diverticula of the sigmoid colon but no evidence of diverticulitis. Intraperitoneal space: There is prominent stranding density in the anterior mesentery but similar to the examination of 2019. Vasculature: There is prominent calcification of the aorta consistent with atherosclerotic changes. Lymph nodes: See "Pancreas" finding. Urinary bladder: There is a Talley catheter within the urinary bladder and there is a small amount of air the anterior aspect of the urinary bladder. Reproductive: Unremarkable as visualized. Bones/joints: There is moderate scoliosis of the lumbar spine convexity to the left. Soft tissues: There is prominent subcutaneous edema right and left hip greater on the left. IMPRESSION: 1. There is severe subcutaneous edema right and left hip greater on the left. 2. There is moderate cardiomegaly. 3. There are moderate to large bilateral pleural effusions. 4. Bibasilar atelectasis and possibly infiltrate noted. 5. 2 cm nodular density upper aspect of the body of the pancreas may be normal irregularity. However I could not exclude the possibility of a mass or area of lymphadenopathy and the patient should have a follow-up CT in no longer than 4 months for re-evaluation. 6. Air within the biliary tree identified probably secondary to postsurgical changes. Electronically signed by: Robert Mcneal On 11/22/2019 16:52:47 PM
[2019-11-22 17:27] LABS: ABG BASE EXCESS -12.7 (-2.0-2.0); ABG HCO3 12.2 MEQ/L (22.0-26.0); ABG O2 SATURATION 90.8 % (95.0-99.0); ABG PARTIAL PRESSURE CO2 25.1 mmHg (35.0-45.0); ABG PARTIAL PRESSURE O2 68.3 mmHg (75.0-100.0); ABG STANDARD HCO3 14.4 MEQ/L (22.0-26.0); ABG pH (ARTERIAL) 7.304 UNITS (7.350-7.450)
[2019-11-22] MEDS ORDERED: CHLOROTHIAZIDE 500 MG VIAL (J1205 PER 1) IV ONE (17:30)
[2019-11-22 17:43] LABS: BASO % 0.2 % (0.0-1.0); EOS % 0.1 % (0.0-3.0); HEMATOCRIT 28.4 % (42.0-52.0); LYMPH # 0.2 10^3/uL (1.5-5.0); LYMPH % 1.6 % (24.0-44.0); MEAN CORPUSCULAR HEMOGLOBIN 28.4 pg (27.0-33.0); MEAN CORPUSCULAR HGB CONC 31.7 g/dl (32.0-36.5); MEAN CORPUSCULAR VOLUME 89.6 fl (80.0-96.0); MONO # 0.2 10^3/uL (0.0-0.8); MONO % 1.6 % (0.0-5.0); NEUTROPHILS # 14.2 10^3/uL (1.5-8.5); NEUTROPHILS % 95.7 % (36.0-66.0); PLATELET COUNT, AUTOMATED 123 10^3/uL (150-450); RED BLOOD COUNT 3.17 10^6/uL (4.30-6.10); WHITE BLOOD COUNT 14.9 10^3/uL (4.0-10.0)
[2019-11-22 18:10] LABS: CALCIUM LEVEL 6.6 MG/DL (8.8-10.2); CK-MB VALUE MASS 9.4 NG/ML (<3.6); CREATININE FOR GFR 1.32 MG/DL (0.70-1.30); GLOMERULAR FILTRATION RATE 54.6 (>35); MB/CK RELATIVE INDEX 6.62 (< OR =4); TROPONIN I 0.06 NG/ML (< 0.10)
[2019-11-22] MEDS ORDERED: FUROSEMIDE injection 250 MG in D5W 225 ML IV SCH (19:00)
[2019-11-22] MEDS: NOREPINEPHRINE BITARTRATE 8 MG in D5W 492 ML IV SCH (19:29)
[2019-11-22] MEDS ORDERED: MORPHINE 2 MG/ML 1ML VIAL (J2270) IV ONE (20:30)
--- NOTE | 2019-11-22 20:31 | REPVR ---
PROCEDURE INFORMATION: Exam: XR Chest, 1 View Exam date and time: 11/22/2019 6:55 PM Age: 89 years old Clinical indication: Device placement; Central line; Additional info: S/P line placement TECHNIQUE: Imaging protocol: XR of the chest Views: 1 view. COMPARISON: 1. CT Chest without contrast 11/22/2019 8:54 AM 2. CR - PORTABLE CHEST X-RAY 11/22/2019 6:09:43 AM 3. [place] - PORTABLE CHEST X-RAY 10/17/2019 12:17:[address] Chest without contrast 08/29/2019 8:36:14 AM FINDINGS: Tubes, catheters and devices: There is a left subclavian central venous line terminating in the proximal superior vena cava. There is a right internal jugular Port-A-Cath terminating in the cavoatrial junction. Lungs: There are bilateral perihilar airspace opacities, which have developed since the prior chest x-ray on 11/22/2019 6:09:43 AM. Pleural space: There are bilateral pleural effusions. No pneumothorax. Heart/Mediastinum: The heart is enlarged. There are extensive mitral annular calcifications. Bones/joints: There are old healed bilateral rib fracture deformities. There is a chronic mild anterior wedge compression fracture of T1 and a chronic severe anterior wedge compression fracture of T7, which are better appreciated in the CT chest on 11/22/2019 and 08/29/2019. 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 IMPRESSION: 1. Left subclavian central venous line terminating in the proximal superior vena cava. 2. Bilateral perihilar airspace opacities, which have developed since the prior chest x-ray on 11/22/2019 6:09:43 AM and may represent pulmonary edema and/or pneumonia. 3. Cardiomegaly and bilateral pleural effusions. Electronically signed by: Levi Aviles On 11/22/2019 20:31:33 PM
[2019-11-22] MEDS ORDERED: CHLORHEXIDINE GLUCONATE 0.12 % 15ML UDC (PERIDEX ORAL RINSE) MT SCH (21:00)
[2019-11-22 21:41] LABS: ABG BASE EXCESS -15.4 (-2.0-2.0); ABG HCO3 11.1 MEQ/L (22.0-26.0); ABG O2 SATURATION 95.6 % (95.0-99.0); ABG PARTIAL PRESSURE CO2 28.4 mmHg (35.0-45.0); ABG PARTIAL PRESSURE O2 95.4 mmHg (75.0-100.0); ABG STANDARD HCO3 12.5 MEQ/L (22.0-26.0); ABG TOTAL CO2 11.9 MEQ/L (23.0-31.0)
[2019-11-22 21:42] LABS: ABG pH (ARTERIAL) 7.209 UNITS (7.350-7.450)
[2019-11-22] MEDS ORDERED: MIDAZOLAM INJ 2MG/2ML VIAL (J2250 PER 1MG) As Ordered ONE (21:54)
[2019-11-22] MEDS: MIDAZOLAM INJ 2MG/2ML VIAL (J2250 PER 1MG) IV PRN ×2 (22:03→22:42)
--- NOTE | 2019-11-22 23:54 | REPVR ---
PROCEDURE INFORMATION: Exam: XR Chest, 1 View Exam date and time: 11/22/2019 10:53 PM Age: 89 years old Clinical indication: S/P line placement TECHNIQUE: Imaging protocol: XR of the chest Views: 1 view. COMPARISON: 1. CR - PORTABLE CHEST X-RAY 11/22/2019 7:[address] Chest without contrast 11/22/2019 8:54:59 AM 3. CR - PORTABLE CHEST X-RAY 11/22/2019 6:09:43 AM 4. MD - PORTABLE CHEST X-RAY 10/17/2019 12:17:[address] Chest without contrast 08/29/2019 8:36:14 AM FINDINGS: Tubes, catheters and devices: An endotracheal tube is seen overlying the trachea, and the tip terminates 2.3 cm above the dev. There is an enteric tube coursing below the diaphragm and terminating in the stomach. There is a right internal jugular central venous line that has been placed which terminates in the superior vena cava. There is a left subclavian central venous line that terminates in the superior vena cava. There is a right internal jugular Port-A-Cath terminating in the superior vena cava. Lungs: There is pulmonary vascular congestion. Bibasilar atelectasis is present. Pleural space: There are persistent bilateral pleural effusions. No pneumothorax. Heart/Mediastinum: There are extensive mitral annular calcifications. No enlargement of the cardiac silhouette is noted. No mediastinal widening. Bones/joints: There are old healed bilateral rib fracture deformities. There is a chronic mild anterior wedge compression fracture of T1 and a chronic severe anterior wedge compression fracture of T7, which are better appreciated in the CT chest on 11/22/2019 and 08/29/2019. 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 IMPRESSION: 1. Endotracheal tube in the trachea terminating 2.3 cm above the dev. 2. Enteric tube terminating in the stomach. 3. Right internal jugular central venous line terminating in the superior vena cava. 4. Pulmonary vascular congestion, bilateral pleural effusions, and bibasilar atelectasis. Electronically signed by: Levi Aviles On 11/22/2019 23:53:46 PM
[2019-11-23] VITALS (119 sets, daily range): BP systolic 64–154; BP diastolic 29–92; O2SAT 99
[2019-11-23 00:22] LABS: ABG BASE EXCESS -13.8 (-2.0-2.0); ABG HCO3 9.3 MEQ/L (22.0-26.0); ABG O2 SATURATION 99.6 % (95.0-99.0); ABG PARTIAL PRESSURE O2 310.9 mmHg (75.0-100.0); ABG STANDARD HCO3 13.7 MEQ/L (22.0-26.0); ABG TOTAL CO2 9.8 MEQ/L (23.0-31.0); ABG pH (ARTERIAL) 7.375 UNITS (7.350-7.450)
[2019-11-23 00:23] LABS: IONIZED CALCIUM 3.7 MG/DL (4.5-5.3)
[2019-11-23 00:26] LABS: ABG PARTIAL PRESSURE CO2 16.2 mmHg (35.0-45.0)
[2019-11-23 00:32] LABS: HEMATOCRIT 29.7 % (42.0-52.0); HEMOGLOBIN 9.3 g/dl (13.5-17.5); MEAN CORPUSCULAR HEMOGLOBIN 28.5 pg (27.0-33.0); MEAN CORPUSCULAR HGB CONC 31.3 g/dl (32.0-36.5); MEAN CORPUSCULAR VOLUME 91.1 fl (80.0-96.0); PLATELET COUNT, AUTOMATED 113 10^3/uL (150-450); RED BLOOD COUNT 3.26 10^6/uL (4.30-6.10); WHITE BLOOD COUNT 20.3 10^3/uL (4.0-10.0)
[2019-11-23 00:53] LABS: CALCIUM LEVEL 6.7 MG/DL (8.8-10.2); CREATININE FOR GFR 1.53 MG/DL (0.70-1.30); GLOMERULAR FILTRATION RATE 46.1 (>35); PHOSPHORUS LEVEL 3.2 MG/DL (2.5-4.9); POTASSIUM SERUM 4.1 MEQ/L (3.5-5.1)
[2019-11-23 01:03] LABS: LYMPHOCYTES 1 % (16-44); MONOCYTES 1 % (0-5); NEUTROPHILS 98 % (28-66)
[2019-11-23 01:04] LABS: PLATELET ESTIMATE DECREASED (NORMAL)
[2019-11-23 01:05] LABS: ANISOCYTOSIS 2+; CRENATED RBC 2+; PLATELET CLUMPS SMALL AMT
[2019-11-23 01:06] LABS: TOXIC VACUOLATION 2+
[2019-11-23] MEDS ORDERED: VASOPRESSIN INJ 20 UNITS/ML VIAL As Ordered ONE ×2 (01:59→02:02)
[2019-11-23] MEDS ORDERED: VASOPRESSIN INJ 20 UNITS in NS 499 ML IV SCH (02:00)
[2019-11-23] MEDS: MEROPENEM INJ 1 GM in IV 1 EA IV SCH (02:23)
[2019-11-23] MEDS: NOREPINEPHRINE BITARTRATE 8 MG in D5W 492 ML IV SCH (03:02)
[2019-11-23] MEDS: MIDAZOLAM INJ 2MG/2ML VIAL (J2250 PER 1MG) IV PRN ×3 (04:28→08:40)
[2019-11-23] MEDS: LEVOTHYROXINE 88MCG TABLET (0.088 MG) PO SCH (06:00)
[2019-11-23] MEDS ORDERED: VANCOMYCIN HCL 1,000 MG, VIAL MATE ADAPTER 1 EACH in D5W 250 ML IV SCH (06:00)
[2019-11-23] MEDS: methylPREDNISolone 125MG 2ML VIAL IV SCH (06:11)
[2019-11-23 06:26] LABS: ABG BASE EXCESS -17.9 (-2.0-2.0); ABG HCO3 5.9 MEQ/L (22.0-26.0); ABG O2 SATURATION 99.9 % (95.0-99.0); ABG PARTIAL PRESSURE O2 351.1 mmHg (75.0-100.0); ABG STANDARD HCO3 10.9 MEQ/L (22.0-26.0); ABG TOTAL CO2 6.3 MEQ/L (23.0-31.0); ABG pH (ARTERIAL) 7.312 UNITS (7.350-7.450)
[2019-11-23 08:19] LABS: ALBUMIN 1.3 GM/DL (3.2-5.2); CALCIUM LEVEL 6.7 MG/DL (8.8-10.2); CREATININE FOR GFR 1.67 MG/DL (0.70-1.30); GLOMERULAR FILTRATION RATE 41.6 (>35); PHOSPHORUS LEVEL 3.9 MG/DL (2.5-4.9); POTASSIUM SERUM 4.4 MEQ/L (3.5-5.1); TOTAL PROTEIN 3.7 GM/DL (6.4-8.2)
[2019-11-23] MEDS ORDERED: LORazepam 2 MG/ML VIAL IV PRN (09:30)
[2019-11-23] MEDS ORDERED: MORPHINE 2 MG/ML 1ML VIAL (J2270) IV PRN (09:30)
[2019-11-23] MEDS ORDERED: SCOPOLAMINE 1MG TRANSDERMAL PATCH TOP PRN (09:30)
--- NOTE | 2019-11-23 11:28 | IPNPDOC ---
Text Note Date of Service The patient was seen on 11/23/19. NOTE Subjective: Patient is a 89-year-old male with PMHx of HTN, Chronic Systolic CHF, CAD / [place], A. fib (on Eliquis), DLP, COPD / Asthma, Hypothyroidism, Hx of GI bleed / Iron deficiency, Osteoporosis, Prostate CA (Stage 4; s/p external beam radiation 2002; on Abiraterone, Eligard & leuprolide), Depression who presented to [facility] as a transfer from [facility]. Patient was suspected of having sepsis secondary to urinary tract infection. Patient was on Levothroid and IV fluids during his transfer to [facility]. On arrival, patient was started on broad-spectrum antibiotics and IV fluid hydration. Over the evening 11/21 to 11/22 patient was intubated because of tachypnea and dialysis catheter was placed. Discussed with daughters, Nurys and Zamzam; ultimately after discussion they have agreed that comfort measures would be the best option for their father given the poor quality of life. Objective: Vitals (See below) General: Lying in bed, appears comfortable, Awake / Alert, Oriented to person / time HEENT: Intubated, Sedated CVS: IrIr, +S1S2 Lungs: Again diminished sounds bilaterally, crackles, mild wheezing, no rhonchi Abdomen: Soft, again without distension / tenderness Extremities: 2+ pitting edema bilaterally remains persistent , - Calf tenderness Assessment and plan: Hypotension - likely 2/2 Shock - possibly 2/2 sepsis, possibly CHF Acute renal failure with oliguria - possibly 2/2 cardiorenal etiology Acute decompensated on chronic Systolic CHF Chronic A. fib with RVR Acute metabolic encephalopathy - likely 2/2 shock Lactic acidosis CAD / [place] DLP COPD / Asthma Hypothyroidism Hx of GI bleed / Iron deficiency Supra-therapeutic INR / Coagulopathy - possibly 2/2 Eliquis, possibly 2/2 Sepsis Osteoporosis Prostate CA Depression GI prophylaxis DVT prophylaxis Plan: Discussed at length with daughter Nurys and Zamzam; both HCPs - Have understood poor prognosis - Agree that [employer] is the best option for their father - Will not pursue aggressive interventions at this time - Medications will be withdrawn and patient will likely be terminally extubated today - MOLST form updated - Medications for pain control / anxiety will be instituted today Prognosis Poor Code status: DNR / DNI [employer] Critical care time 65 minutes VS,[place], I+O VS, Fishbone, I+O Laboratory Tests 11/22/19 17:26 11/23/19 00:00 11/23/19 05:58 Vital Signs Date Time Temp Pulse Resp B/P (MAP) Pulse Ox O2 Delivery O2 Flow Rate FiO2 11/23/19 09:00 83 119/92 (101) 90 11/23/19 08:00 70 11/23/19 08:00 98.8 28 Ventilator 11/22/19 22:00 15.0 I&O- Last 24 Hours up to 6 AM 11/23/19 06:00 Intake Total 1261.1 ml Output Total 160 ml Balance 1101.1 ml TWAN MAZARIEGOS MD Nov 23, 2019 11:28
[2019-11-23] MEDS ORDERED: LORazepam 2 MG/ML VIAL As Ordered ONE (12:26)
--- NOTE | 2019-11-23 15:07 | DS.PDOC ---
Discharge Summary General Date of Admission Nov 21, 2019 at 19:17 Date of Discharge 11/23/2019 Discharge Summary PROCEDURES PERFORMED DURING STAY: [None]. ADMITTING DIAGNOSES / DISCHARGE DIAGNOSES: Ventilator dependent respiratory failure Hypotension - likely 2/2 Shock - possibly 2/2 sepsis, possibly CHF Acute renal failure with oliguria - possibly 2/2 cardiorenal etiology Acute decompensated on chronic Systolic CHF Chronic A. fib with RVR Acute metabolic encephalopathy - likely 2/2 shock Lactic acidosis CAD / [place] DLP COPD / Asthma Hypothyroidism Hx of GI bleed / Iron deficiency Supra-therapeutic INR / Coagulopathy - possibly 2/2 Eliquis, possibly 2/2 Sepsis Osteoporosis Prostate CA Depression GI prophylaxis DVT prophylaxis COMPLICATIONS/CHIEF COMPLAINT: Hypotension HISTORY OF PRESENT ILLNESS / HOSPITAL COURSE: Patient is a 89-year-old male with PMHx of HTN, Chronic Systolic CHF, CAD / [place], A. fib (on Eliquis), DLP, COPD / Asthma, Hypothyroidism, Hx of GI bleed / Iron deficiency, Osteoporosis, Prostate CA (Stage 4; s/p external beam radiation 2002; on Abiraterone, Eligard & leuprolide), Depression who presented to [facility] as a transfer from [facility]. Patient was suspected of having sepsis secondary to urinary tract infection. Patient was on Levothroid and IV fluids during his transfer to [facility]. On arrival, patient was started on broad-spectrum antibiotics and IV fluid hydration. Over the evening 11/21 to 11/22 patient was intubated because of tachypnea and dialysis catheter was placed. Discussed with daughters, Nurys and Zamzam; ultimately after discussion they have agreed that comfort measures would be the best option for their father given the poor quality of life. Discussed at length with daughter Nurys and Zamzam; both HCPs - Have understood poor prognosis - Agree that [employer] is the best option for their father - Did not want to pursue any additional aggressive interventions - Medications were withdrawn - MOLST form updated - Medications for pain control / anxiety will be instituted today - Patient ultimately on 11/23/2019 at 1317 with family at the bedside DISPOSITION: Vital Signs/I&Os Vital Signs Date Time Temp Pulse Resp B/P (MAP) Pulse Ox O2 Delivery O2 Flow Rate FiO2 11/23/19 09:00 83 119/92 (101) 90 11/23/19 08:00 70 11/23/19 08:00 98.8 28 Ventilator 11/22/19 22:00 15.0 I&O- Last 24 Hours up to 6 AM 11/23/19 06:00 Intake Total 1261.1 ml Output Total 160 ml Balance 1101.1 ml Laboratory Data Labs 24H Laboratory Tests 2 11/22/19 15:17: Vancomycin Level Trough 22.3H 11/22/19 17:12: Blood Gas Bicarbonate Standard 14.4L, Arterial Blood pH 7.304L, Arterial Blood Partial Pressure CO2 25.1L, Arterial Blood Partial Pressure O2 68.3L, Arterial Blood Total CO2 13.0L, Arterial Blood HCO3 12.2L, Arterial Blood Base Excess - 12.7L, Arterial Blood Oxygen Saturation 90.8L 11/22/19 17:14: Lactic Acid Level 6.7*H 11/22/19 17:26: Immature Granulocyte % (Auto) 0.8, Neutrophils (%) (Auto) 95.7H, Lymphocytes (%) (Auto) 1.6L, Monocytes (%) (Auto) 1.6, Eosinophils (%) (Auto) 0.1, Basophils (%) (Auto) 0.2, Neutrophils # (Auto) 14.2H, Lymphocytes # (Auto) 0.2L, Monocytes # (Auto) 0.2, Eosinophils # (Auto) 0.0, Basophils # (Auto) 0.0, Nucleated Red Blood Cells % (auto) 0.1H, Anion Gap 14, Glomerular Filtration Rate 54.6, Calcium Level 6.6L, Magnesium Level 2.0, Total Creatine Kinase 142, Creatine Kinase MB 9.4H, Creatine Kinase MB Relative Index 6.62H, Troponin I 0.06 11/22/19 21:36: Blood Gas Bicarbonate Standard 12.5L, Arterial Blood pH 7.209*L, Arterial Blood Partial Pressure CO2 28.4L, Arterial Blood Partial Pressure O2 95.4, Arterial Blood Total CO2 11.9L, Arterial Blood HCO3 11.1L, Arterial Blood Base Excess - 15.4L, Arterial Blood Oxygen Saturation 95.6 11/23/19 00:00: Neutrophils (%) (Auto) , Nucleated Red Blood Cells % (auto) 0.3H, Neutrophils 98H, Lymphocytes (Manual) 1L, Monocytes (Manual) 1, Anisocytosis 2+, Crenated Cell 2+, Toxic Vacuolation 2+, Platelet Estimate DECREASED, Clumped Platelets SMALL AMT, Anion Gap 14, Glomerular Filtration Rate 46.1, Calcium Level 6.7L, Whole Blood Ionized Calcium 3.7L, Phosphorus Level 3.2, Magnesium Level 2.0 11/23/19 00:14: Blood Gas Bicarbonate Standard 13.7L, Arterial Blood pH 7.375, Arterial Blood Partial Pressure CO2 16.2*L, Arterial Blood Partial Pressure O2 310.9H, Arterial Blood Total CO2 9.8L, Arterial Blood HCO3 9.3L, Arterial Blood Base Excess - 13.8L, Arterial Blood Oxygen Saturation 99.6H 11/23/19 00:15: Lactic Acid Level 8.2*H 11/23/19 05:58: Blood Gas Bicarbonate Standard 10.9L, Arterial Blood pH 7.312L, Arterial Blood Partial Pressure CO2 12.0*L, Arterial Blood Partial Pressure O2 351.1H, Arterial Blood Total CO2 6.3L, Arterial Blood HCO3 5.9L, Arterial Blood Base Excess - 17.9L, Arterial Blood Oxygen Saturation 99.9H, Anion Gap 18H, Glomerular Filtration Rate 41.6, Calcium Level 6.7L, Phosphorus Level 3.9#, Total Bilirubin 2.0H, Aspartate Amino Transf (AST/SGOT) 109H, Alanine Aminotransferase (ALT/SGPT) 25, Alkaline Phosphatase 167H, Lactate Dehydrogenase 702H, Total Creatine Kinase 205, Total Protein 3.7L, Albumin 1.3L, Albumin/Globulin Ratio 0.5, Triglycerides Level 203H, Cholesterol Level 55 CBC/BMP Laboratory Tests 11/22/19 17:26 11/23/19 00:00 11/23/19 05:58 Microbiology Microbiology 11/22/19 Respiratory Virus Panel (PCR) (CARLOS) - Final, Complete 11/22/19 Stool Occult Blood (CARLOS) - Final, Complete 11/21/19 Blood Culture - Preliminary, Resulted No growth after 24 hours . All specim... 11/21/19 Blood Culture - Preliminary, Resulted No growth after 24 hours . All specim... 11/21/19 Urine Culture, Received Pending Discharge Medications Scheduled Apixaban (Eliquis) 5 Mg Tablet, 5 MG PO BID, (Reported) Aspirin (Aspirin EC) 81 Mg Tablet.dr, 81 MG PO DAILY, (Reported) Atorvastatin Calcium (Atorvastatin Calcium) 40 Mg Tablet, 40 MG PO QHS, (Reported) Calcium Carbonate/Vitamin D3 (Calcium 600 + Vit D 400 Softgl) 1 Each Capsule, 1 CAP PO DAILY, (Reported) Dexlansoprazole (Dexilant) 30 Mg Cap.dr.bp, 30 MG PO DAILY, (Reported) Furosemide (Furosemide) 20 Mg Tablet, 20 MG PO DAILY, (Reported) Iron Ps Complex/B12/Folic Acid (Iferex 150 Forte Capsule) 1 Each Capsule, 1 CAP PO BID, (Reported) Levothyroxine Sodium (Synthroid) 88 Mcg Tablet, 88 MCG PO DAILY, (Reported) Magnesium Oxide (Magnesium Oxide) 400 Mg Tablet, 400 MG PO DAILY, (Reported) Metoprolol Succinate (Metoprolol Succinate) 25 Mg Tab.er.24h, 25 MG PO DAILY, (Reported) Multivitamin (Multivitamins) 1 Each Capsule, 1 CAP PO DAILY, (Reported) Sertraline Hcl (Sertraline HCl) 25 Mg Tablet, 25 MG PO DAILY, (Reported) Spironolactone (Spironolactone) 25 Mg Tablet, 25 MG PO DAILY, (Reported) Umeclidinium Waucoma (Incruse Ellipta) 62.5 Mcg Blst.w.dev, 1 PUFF INH DAILY, (Reported) Scheduled PRN Acetaminophen (Acetaminophen) 325 Mg Tablet, 650 MG PO Q4H PRN for PAIN / FEVER, (Reported) Albuterol Sulfate (Ventolin Hfa) 108 Mcg/Act Aer, 2 PUFFS INH QID PRN for SHORTNESS OF BREATH, (Reported) guaiFENesin (Cough Syrup) 100 Mg/5 Ml Liquid, 5 ML PO Q4H PRN for COUGH, (Reported) Allergies Coded Allergies: tamsulosin (Verified Allergy, Severe, 10/17/19) TWAN MAZARIEGOS MD Nov 23, 2019 15:07
--- NOTE | 2019-11-24 08:27 | CR ---
DATE OF CONSULTATION: 11/22/2019 REQUESTING PHYSICIAN: Dr. Oscar Pineda CONSULTING PHYSICIAN: Dr. Miller REASON FOR CONSULTATION: Oligoanuric renal failure in the setting of decompensated congestive heart failure with concomitant metabolic acidosis. HISTORY OF PRESENT ILLNESS: History is obtained from chart review and discussion with other healthcare providers. Patient is unable to provide history secondary to clinical condition. Donal Young is an 89-year-old male with a past medical history of systolic congestive heart failure, hypertension, coronary artery disease, atrial fibrillation, chronically anticoagulated with Eliquis, chronic obstructive pulmonary disease (COPD), asthma, hypothyroidism, history of gastrointestinal (GI) bleed, iron deficiency anemia, osteoporosis, prostate cancer, other comorbid conditions that are mentioned. He was transferred to [facility] from [facility] due to concern of severe sepsis related to urinary tract infection. Patient was receiving Levophed pressor support and intravenous (IV) fluids at [place], and when he presented at [facility] he was found to be hypervolemic. Cardiology was consulted, IV fluids were discontinued, and attempts were made at diuresing the patient. He was also placed on broad-spectrum antibiotics. Unfortunately, despite multiple doses of Lasix and also a dose of Diuril, the patient had very minimal urine output and was oliguric. He required increasing amounts of supplemental oxygen. Initially was on 2 liters on arrival, but this was up- titrated to 15 liters per minute, and imaging showed bilateral significant pleural effusions along with pulmonary edema pattern. Laboratory studies also showed worsening metabolic acidosis, and nephrology consultation was requested. PAST MEDICAL AND SURGICAL HISTORY: 1. Hypertension. 2. Systolic congestive heart failure. 3. Coronary artery disease. 4. Atrial fibrillation. 5. Chronic obstructive pulmonary disease (COPD). 6. Asthma. 7. Hypothyroidism. 8. Gastrointestinal (GI) bleed. 9. Iron deficiency anemia. 10. Osteoporosis. 11. Prostate cancer, status post external beam radiation. 12. Depression. 13. Atrial fibrillation. 14. Gallstones. SOCIAL HISTORY: Ex-smoker. Resides in [facility]. No reported alcohol or drugs. FAMILY HISTORY: Significant for prostate cancer. ALLERGIES: TAMSULOSIN. HOME MEDICATIONS: Reviewed and include: - Eliquis 5 mg by mouth twice a day - aspirin 81 mg by mouth daily - atorvastatin 40 mg by mouth every night - calcium plus vitamin D one capsule by mouth daily - Dexilant 30 mg by mouth daily - Lasix 20 mg by mouth daily - levothyroxine 88 mcg by mouth daily - magnesium oxide 400 mg by mouth daily - metoprolol 25 mg extended release daily - multivitamin one capsule by mouth daily - sertraline 25 mg by mouth daily - spironolactone 25 mg by mouth daily - Incruse Ellipta one puff inhaled daily REVIEW OF SYSTEMS: Unable to obtain secondary to clinical condition. PHYSICAL EXAMINATION: VITAL SIGNS: Temperature 97.7. No recorded fevers here. Pulse 119, respiratory rate 29, blood pressure 118/58, saturating 91% on 15 liters high-flow nasal cannula. Urine output has been 150 mL in the past 12 hours. GENERAL: Patient is seen in the intensive care unit. Head of the bed is elevated. Elderly male in apparent respiratory distress with accessory muscle use. Eyes closed, focused on work of breathing. Critical care team at the bedside preparing to intubate. Has a left subclavian line and a right internal Port-A-Cath. HEART: Sounds are tachycardic. I cannot make out any murmur. There is 2+ pitting edema in all four extremities that goes up to the hip, thigh, and dependent area in the abdominal wall. RESPIRATORY: He is tachypneic. There is accessory muscle use. He is shortly tube intubated. ABDOMEN: Soft. He does not grimace with palpation. GENITOURINARY: There is a Talley catheter present with minimal urine in the tubing. His bladder is not distended. EXTREMITIES: There is pitting edema in all four extremities and in the dependent areas at the hip and sacrum. NEUROLOGIC: Not assessed. LABORATORY DATA: White count 14.9, hemoglobin 9.0, platelets 123. A pH 7.20, pCO2 of 28, pO2 of 95. Sodium 139, potassium 4.0, bicarbonate 15, anion gap corrected is 20. Lactic acid 6.7. BUN 15, creatinine 1.3, magnesium 2.0. BNP 9000. Urinalysis: Protein 2+, 3+ blood, 3+ leukocyte esterase. Negative for bacteria. Blood cultures: No growth for [address] times [address] sets[address] abdomen and pelvis November 21 without contrast: Moderate bilateral pleural effusions, moderate cardiomegaly. No hydronephrosis. Decompressed bladder. Chest x-ray November 21: Pulmonary edema pattern, cardiomegaly, bilateral pleural effusions. INPATIENT MEDICATIONS: - amiodarone 150 mg IV times one - Lasix drip at 7 mg an hour - Also received cumulative Lasix bolus of 100 mg. - Levophed infusion - magnesium sulfate 1 gram IV times one - meropenem 1 gram IV every 8 hours - vancomycin 1 gram IV every 8 hours - Tylenol as needed - DuoNebs - atorvastatin 40 mg by mouth every night - Diuril 250 mg IV times one - digoxin 0.25 mg IV times a total of three doses - levothyroxine 88 mcg by mouth daily - methylprednisolone 125 mg IV times one and then 80 mg IV every 8 hours - Protonix 40 mg IV daily - sertraline 25 mg by mouth daily PROBLEMS: 1. Oligoanuric acute renal failure in the setting of severe hypotension, septic shock versus cardiorenal syndrome. Patient is grossly fluid overloaded. Attempts were made at diuresing. He received 100 mg cumulative Lasix along with a dose of IV Diuril and also trial of Lasix infusion; however, he did not diurese. Renal imaging is negative for any obstructive uropathy. Patient is requiring escalating doses of pressor support and also has increasing anion gap metabolic acidosis/lactic acidosis and fluid overload refractor to diuretics with prominent bilateral pleural effusions and pulmonary edema pattern, necessitating intubation. He is going to be started on continuous renal replacement therapy in view of his fluid overload and metabolic acidosis. We will titrate fluid removal according to his mean arterial pressure (MAP) and pressor requirements. I discussed with his daughter, Terra Young, regarding his kidney failure and plan for continuous dialysis treatment overnight. 2. Systolic congestive heart failure, decompensated. Echocardiogram in March 2019 showed moderate left ventricular systolic dysfunction. The patient has prominent peripheral edema along with pleural effusions and pulmonary edema. Unfortunately he is very hypotensive and requiring escalating pressor support and did not respond to trial of combination diuretics. He is started on continuous renal replacement therapy for management of his volume status, and I will try to remove between 50 to 100 mL per hour, depending on MAP and pressor requirement. 3. Anion gap metabolic acidosis. Patient has a rising lactic acidosis and increasing pressor requirements. Infectious workup is as per primary team. Blood cultures so far are no growth for 24 hours, and urinalysis was negative for bacteria. He is on broad-spectrum antibiotics with vancomycin and meropenem. Thank you for involving me in the care of Mr. Young. I will happy to follow him along with you.. Critical care time spent 38 minutes. MARIMAR
--- NOTE | 2019-11-24 08:37 | CR ---
CRITICAL CARE CONSULTATION NOTE DATE: 11/22/2019 SUBJECTIVE: I was called to evaluate this 89-year-old male in the Intensive Care Unit with hypoxic respiratory failure, admitted yesterday as a transfer from an outside facility with septic shock and congestive heart failure. He has failed to respond to therapy over the course of the day and has become progressively more tachypneic, hypoxemic, now on 50 liters of oxygen. His saturations are barely 90 and he is very tachypneic. PAST MEDICAL HISTORY: On review of his medical record, there is extensive past medical history of coronary artery disease with ischemic cardiomyopathy, low ejection fraction, congestive heart failure, atrial fibrillation, prostatic carcinoma, extensive disease, status post treatment GI bleed, gastroesophageal reflux disease, hemachromatosis, hypothyroidism, mitral regurgitation with pulmonary hypertension, and obstructive lung disease. PHYSICAL EXAMINATION: GENERAL APPEARANCE: Now at bedside he is ill appearing, in severe respiratory distress. VITAL SIGNS: His temperature is 97, pulse rate 119, respirations are 40 and labored, blood pressure 107/57. HEENT: The patient responds to voice but does not follow commands. His pupils are midpoint and responsive. NECK: Stiff but not rigid. There is no meningismus. Jugular veins are difficult to appreciate. The carotid upstroke is palpable bilaterally. Mucosa is dry. There is no stridor. HEART: Irregular and rapid. LUNGS: Breath sounds are diminished globally with an expiratory wheeze, more prominently on the right. ABDOMEN: Soft. There are some bowel sounds in the right lower quadrant. The abdominal muscles are engaged with respiratory effort. EXTREMITIES: Extremely edematous and weeping with thin skin and multiple ecchymoses from vena puncture. DIAGNOSTIC STUDIES: His laboratory studies were reviewed. His white count is 14.9, hemoglobin 9, hematocrit 28, platelet count 123,000. Differential white cell count shows 95.7 neutrophils. There were 0.8 immature neutrophils. Lymphocytes were 1.6. Electrolytes are sodium 139, potassium 4.0, chloride 110, CO2 15, BUN 15, creatinine is 1.32, up from 0.95 earlier today. Glucose is 209. Lactic acid is 6.9. Calcium is 6.6 with an albumin of 1.3. The troponins on admission were 0.02 and have remained low. The beta natruretic peptide earlier today was 9,064. An arterial blood gas was requested and has now returned with a pH of 7.20, pco2 28, pO2 95. His pro time yesterday was 34 with an INR of 3.2. Urine on admission showed 2+ protein, 3+ blood. Leukocyte esterase was positive 3+ and there were too many to count white cells. MRSA PCR scan of his nasopharynx is positive. IMAGING: Multiple images were reviewed. His chest imaging shows bilateral pleural effusions, prominent interstitial markings. IMPRESSION: 1. The primary problem requiring critical attention is acute respiratory failure - The patient will require endotracheal tube intubation, mechanical ventilatory support and we will follow a gas exchange. 2. Septic shock, possible uroseptic broad spectrum antibiotics have been given with Meropenem and Vancomycin. Pressors have been instituted. We will target a mean arterial pressure of 65. 3. Oliguric acute kidney injury I have discussed the case with Nephrology and I believe that the patient will require a CRRT. They will assist with placement of the catheter. 4. Atrial fibrillation - The patient is now rate controlled with Digoxin. 5. Metabolic encephalopathy multifactorial. The patient will require significant supportive care and should he survive this episode, rehabilitation. 6. DVT is a risk - although the patient has a coagulopathy, we will apply sequential hose. 7. Ulcer prophylaxis will be required given his critical illness and history of GI bleed - Prilosec has been initiated. 8. Glycemic control will be addressed with fingerstick blood sugars and coverage. The patient's family has been contacted and is aware of his critical illness and the requirement for multiple procedures. They wish full supportive care be offered and full resuscitation. CONDITION: The patient's condition is critical. PROGNOSIS: Guarded. One hundred twenty-four minutes were spent in the provision of bedside critical care and coordination exclusive of any procedure time. [facility]
--- NOTE | 2019-11-24 08:39 | RO ---
DATE OF OPERATION: 11/22/2019 PREOPERATIVE DIAGNOSIS: Acute kidney injury. POSTOPERATIVE DIAGNOSIS: Acute kidney injury. PROCEDURE: Dialysis catheter placement. SURGEON: Vignesh Hernández DO FIXED ROUTE OPERATOR: ANESTHESIA: PROCEDURE NOTE: The patient was seen and the procedure explained to the patient's family and informed consent was obtained. The skin overlying the right internal jugular vein was prepped with ChloraPrep, draped in a sterile fashion. A 25-gauge needle was used to raise a skin wheal of 1% lidocaine. Thereafter, a 17-gauge introducer needle was placed in through the skin and into the right internal jugular vein. The needle was removed through the skin. A dialysis catheter was prepared and placed over the wire and into the right internal jugular vein. The wire was removed and the catheter was sewn in place. A post- procedural chest x-ray confirmed adequate placement. There were no complications. MARIMAR
--- NOTE | 2019-11-24 08:42 | RO ---
DATE OF OPERATION: 11/22/2019 PREOPERATIVE DIAGNOSIS: Hypoxemia. POSTOPERATIVE DIAGNOSIS: Hypoxemia. PROCEDURE: Emergent endotracheal tube intubation. SURGEON: Vignesh Hernández DO COST ACCOUNTING MANAGER: ANESTHESIA: PROCEDURE NOTE: The patient was seen in the intensive care unit in respiratory distress; hypoxemic respiratory failure, critically ill. His family was contacted and wished full resuscitative efforts. He was placed in the supine position, given 2 mg of Versed. Direct laryngoscopy was performed with a GlideScope and the vocal cords were visualized. An 8.5 endotracheal tube was placed through the focal cords and to a distance of 25 cm. The balloon was inflated. Good bilateral breath sounds were appreciated and the CO2 was appreciated on the monitor. The patient's endotracheal tube was connected to the ventilator and post-procedural chest x-ray confirmed adequate placement. There were no complications. MARIMAR
[2019-11-24 13:12] LABS: BODY FLUID CULTURE Not indicated. (.); LEGIONELLA ANTIGEN URINE Negative (Negative); ORGANISM ID Not indicated. (.); SPECIMEN SOURCE Urine (.); URINE STREP PNEUMONIAE ANTIGEN Negative (Negative)
--- NOTE | 2019-11-24 17:59 | ECHO ---
DATE OF PROCEDURE: 11/22/2019 Age: 89 Gender: Male Height: 170 cm Weight: 63 kg REFERRING PHYSICIAN: Dr. Oscar Pineda INDICATION: Sepsis, hypotension, atrial fibrillation. MEASUREMENTS: Aorta 3.6 LA 4.0 IVS 1.0 LV 3.3 LVPW 1.1 IVC 1.2 FINDINGS: The study is of limited technical quality with difficult visualization especially apical segments of both right and left ventricle was very limited in their views. The patient is in atrial flutter with ventricular rate approximately 130 beats per minute. Left ventricular is normal size. The apex and distal segments were poorly visualized and I cannot comment on their contractility, but based on limited views there appears to be segmental wall motion abnormality involving ina- apical wall, which is consistent with his prior echocardiograms. The remaining LV segments have hyperdynamic contractility and overall left ventricular systolic functioning in this setting is probably normal or near normal. The right ventricle was poorly seen. Both atria are severely enlarged. The aortic valve is sclerotic; but based on limited visualization, I cannot comment on this structure. Mobility of cusps seems to be preserved though. There are degenerative abnormalities of mitral valve. There are mitral annular calcifications, but mobility of leaflets is preserved. Tricuspid valve was relatively poorly seen, but grossly appears normal. Pulmonic valve was not seen. No pericardial effusion is noted. Large left pleural effusion is noted. Inferior vena cava is normal size and collapses with inspiration indicative of likely normal central venous pressure. Aortic root is normal. Aortic arch and abdominal aorta were not well visualized. Doppler interrogation of the aortic valve reveals no significant stenosis or insufficiency. There is only trivial mitral insufficiency based on somewhat limited views. Mild tricuspid insufficiency is seen. Calculated pulmonary artery pressure is in 30s corresponding to mild pulmonary hypertension. Evaluation of diastolic function is inconclusive due to underlying atrial flutter. CONCLUSIONS: 1. Study is of limited technical quality; especially apical segments of both ventricles were poorly seen. The patient is in atrial flutter with rapid ventricular response. 2. Normal LV size with overall normal or near normal LV systolic function. Apical segments were not well visualized, but based on prior studies are known to be essentially akinetic, but the basal and mid segments of the ventricle are hyperdynamic. 3. Right ventricle does not appear grossly enlarged. 4. Biatrial enlargement. 5. Probably normal central venous pressure and at least mild pulmonary hypertension. MTDD
--- NOTE | 2019-11-24 18:02 | IPN ---
DATE: 11/22/2019 SUBJECTIVE: I just called the patient's daughters, Nurys Diez only answering machine was present, but with his other daughter Terra, who is a second healthcare proxy, I was able to talk to her. I expressed my opinion that it is not a good idea to pursue aggressive medical care because the likelihood of survival with meaningful quality of life is very poor. Not only that he has advanced congestive heart failure, atrial fibrillation and history of gastrointestinal bleeding, he also has stage IV prostate cancer with raising PSA levels. I explained to her that it is very likely that not only he will need a lot of medications, it is probable that he will need intubation and dialysis; and in spite of it, the prognosis remains poor and he may not survive the episode. Terra, told me that they will convene with her sister; they are both shared healthcare proxies and will come up with a final decision. I had the impression that she comprehended well my point of view. MARIMAR
--- NOTE | 2019-11-24 18:06 | IPN ---
DATE: 11/23/2019 Mr. Granado situation overnight did not appreciably change, if anything it deteriorated further as expected. He remains essentially anuric and consequently dialysis catheter was placed by Dr. Hernández. Apparently, dialysis was attempted overnight but it was not successful. It could be only due to technical issues with the catheter. He was also intubated. Overnight, he remained stable as far as the hemodynamics is concerned. The urine output remains minimal though he put out about 100 mL of urine overnight. This morning, he is intubated, does not have much neurological activity without much sedation but the pupillary responses are preserved. There is a dialysis catheter through his right internal jugular (IJ). There is a port in his right subclavian and there is a triple lumen catheter through the left subclavian. Lungs are diminished over both bases with crackles. I do not appreciate any wheezing. Air movement seems to be reasonably good. Heart exam reveals irregular rhythm that is much slower today than it was yesterday. There is a faint murmur at the apex but the evaluation is difficult due to respiratory sounds. Abdomen does not have any rigidity or obvious guarding. Extremities are grossly edematous, there are numerous ecchymosis on torso and extremities. The last documented vital signs reveal blood pressure 120/90, heart rate has been in 80s and 90s, atrial fibrillation, saturation is 99% on 70% FiO2. He received about 1500 mL of fluid yesterday with output as noted above. LABORATORIES: As of midnight basic metabolic panel revealed sodium 138, potassium 4.1, BUN 16, creatinine 1.5, and glucose 211, lactic acid 8.2. CBC was revealing WBC count 20,000, hemoglobin 9.3, hematocrit 29, platelet count 113 and his INR was 3.3. ASSESSMENT AND PLAN: Mr. Diez is an 89-year-old man who has a lot of underlying conditions that include coronary artery disease with ischemic cardiomyopathy after a heart attack in 2017, at this point chronic atrial fibrillation and chronic congestive heart failure but also overall poor Performance Status and stage IV prostate cancer still treated with androgen deprivation therapy but with rising PSA. He presented with altered mental status, shortness of breath and atrial fibrillation with rapid ventricular response (RVR) and hypotension. The condition further deteriorated rather dramatically yesterday throughout the day with complicated acute renal failure. He eventually ended up intubated and ventilated. At this point, in my opinion his prognosis is even worse than it was yesterday and a meaningful chance of recovery is very low. We approached the family repeatedly about his code status, but at this point they want full treatment in spite of expression of very likely poor outcome. From purely a medical perspective, at this point supportive measures will be continued. The blood pressure seems to be reasonably corrected at this point. His central venous pressure (CVP) was 12 today so volume status seems to be adequate as well. His atrial fibrillation is now reasonably well controlled without addition of medications. He received about 0.875 mg of digoxin yesterday, with his acute renal failure he certainly will have therapeutic level for likely several days. Consequently, from my perspective there is not much to add. He certainly cannot be anticoagulated with recurrent gastrointestinal (GI) bleed, diffuse ecchymosis, and history of Eliquis as of very recently. Unfortunately, I do expect that he is not going to survive this episode. The management of noncardiac issues remains with numerous involved specialists. I discussed the situation with Dr. Pineda and Dr. Hernández. [facility] HOSPITALTiffanie
--- NOTE | 2019-11-24 19:22 | ECGEPIP ---
[facility] Test Date: 2019-11-22 Pat Name: JOVANI ROME Department: Room: [place] [address] Gender: Male Fiscal Accountant: CARLY : [id number] Requested By: BAM RIVERA Order Number: [id number] Reading MD: Otis Saravia Measurements Intervals [place] Rate: 135 P: CT: 0 QRS: -21 QRSD: 89 T: 0 QT: 232 QTc: 348 Interpretive Statements ATRIAL FLUTTER/TACHYCARDIA WITH RAPID VENTRICULAR RESPONSE LOW QRS VOLTAGE RIGHT VENTRICULAR CONDUCTION DELAY POOR R WAVE PROGRESSION, POSSIBLE AWMI SINCE 10/16/29 ATRIAL FLUTTER IS NEW, LOW VOLTAGE IS NEW AND POOR R WAVE PROGRESSION IS MORE APPARENT Electronically Signed on 11-24-2019 19:22:29 EDT by Otis Saravia
--- NOTE | 2019-11-28 10:21 | REP ---
PORTABLE CHEST X-RAY: SINGLE VIEW HISTORY: Endotracheal tube placement. COMPARISON STUDY: 11/22/2019. FINDINGS: Endotracheal tube is seen in good position at the top of the aortic arch level. Nasogastric (NG) tube enters the left upper quadrant. There is a right internal jugular (IJ) Infusaport and a right internal jugular (IJ) larger caliber central line, both of which terminate in the expected location of the superior vena cava. Mitral annular calcification is visible. The heart is not felt to be enlarged. Hazy opacity is seen in the left base and the medial portion of the diaphragm is obscured. Question atelectasis with some left pleural effusion. There is slight blunting of the lateral pleural angle. These findings are actually improved. The right base is improved as well. No acute infiltrate seen. MTDD
== END 2019-11-23 13:17 | disposition expired | DRG 871 ==
LOC: EEVIPCON 19:17 → M ICU 19:17
PROVIDERS: ADMIT Family Medicine; ATTEND Internal Medicine
PROC: 02HV33Z Insertion of Infusion Device into Superior Vena Cava, Percutaneous Approach (ICD-10-PCS; principal; 2019-11-22)
PROC: 0BH17EZ Insertion of Endotracheal Airway into Trachea, Via Natural or Artificial Opening (ICD-10-PCS; 2019-11-22)
PROC: 5A1935Z Respiratory Ventilation, Less than 24 Consecutive Hours (ICD-10-PCS; 2019-11-22)
DX: A41.9 Sepsis, unspecified organism (principal); R65.21 Severe sepsis with septic shock; J18.9 Pneumonia, unspecified organism; I50.23 Acute on chronic systolic (congestive) heart failure; G93.41 Metabolic encephalopathy; J96.01 Acute respiratory failure with hypoxia; E87.2 Acidosis; N39.0 Urinary tract infection, site not specified; J44.0 Chronic obstructive pulmonary disease with (acute) lower respiratory infection; N17.9 Acute kidney failure, unspecified; I48.20 Chronic atrial fibrillation, unspecified; J44.1 Chronic obstructive pulmonary disease with (acute) exacerbation; Z51.5 Encounter for palliative care; Z66 Do not resuscitate; E03.9 Hypothyroidism, unspecified; C61 Malignant neoplasm of prostate; I11.0 Hypertensive heart disease with heart failure; E78.5 Hyperlipidemia, unspecified; M81.0 Age-related osteoporosis without current pathological fracture; D50.9 Iron deficiency anemia, unspecified; I34.0 Nonrheumatic mitral (valve) insufficiency; I25.10 Atherosclerotic heart disease of native coronary artery without angina pectoris; I25.2 Old myocardial infarction; E83.119 Hemochromatosis, unspecified; I27.20 Pulmonary hypertension, unspecified; F32.9 Major depressive disorder, single episode, unspecified; I25.5 Ischemic cardiomyopathy; R13.10 Dysphagia, unspecified; K80.20 Calculus of gallbladder without cholecystitis without obstruction; Z87.891 Personal history of nicotine dependence; Z92.3 Personal history of irradiation; Z79.01 Long term (current) use of anticoagulants; Z79.82 Long term (current) use of aspirin; Z79.899 Other long term (current) drug therapy; Z88.8 Allergy status to other drugs, medicaments and biological substances; Z20.828 Contact with and (suspected) exposure to other viral communicable diseases; Z53.29 Procedure and treatment not carried out because of patient's decision for other reasons